=== PATIENT | female | born 1945 | race Caucasian/White ===

== ENCOUNTER → 2017-05-10 10:02 | Outpatient (CLI) | payer MEDICARE, SELFPAY ==
[2017-05-10 10:33] LABS: Basophils # 0.1 K/mm3 (0-0.2); Basophils % 0.6 % (0.1-2.0); Eosinophils # 0.3 K/mm3 (0.0-0.4); Hematocrit 38.4 % (37.0-47.0); Hemoglobin 12.4 g/dL (12.2-16.2); Lymphocytes # 1.2 K/mm3 (0.7-4.5); Lymphocytes % 13.6 K/mm3 (10-50); Mean Corpuscular HGB Conc 32.4 g/dL (31.8-35.4); Mean Corpuscular Hemoglobin 27.9 pg (27.0-31.2); Mean Corpuscular Volume 86.1 fl (81-99); Mean Platelet Volume 9.2 fl (7.4-10.4); Monocytes # 0.3 K/mm3 (0.1-1.0); Monocytes % 3.6 % (1.7-9.3); Neutrophils % 79.1 % (37.0-80.0); Platelet Count 192 K/mm3 (142-424); Red Blood Count 4.46 M/mm3 (4.20-5.40); White Blood Count 8.9 K/mm3 (4.8-10.8)
[2017-05-10 10:55] LABS: Anion Gap 12.8 mEq/L (5-15); Blood Urea Nitrogen 30 mg/dL (7-18); Carbon Dioxide 28 mmol/L (21.0-32.0); Chloride 103 mmol/L (98-107); Creatinine,Serum 1.17 mg/dL (0.55-1.02); Estimated Glomerular Filt Rate 46 ml/min (>60); GFR (African American) 55 ML/MIN (>60); Glucose 360 mg/dL (74-106); Potassium 4.8 mmoL/L (3.5-5.1); Sodium 139 mmol/L (136-145)
== END ==
PROVIDERS: PCP Internal Medicine Adolescent Medicine; Visit Provider Surgery
DX: L98.9 Disorder of the skin and subcutaneous tissue, unspecified (principal); E78.4 Other hyperlipidemia; Z01.818 Encounter for other preprocedural examination
CPT/HCPCS: 36415; 80048; 85025

== ENCOUNTER 2017-05-15 08:08 | Day surgery (SDC) | payer MEDICARE, SELFPAY ==
[2017-05-13 16:21] VITALS: BMI 23.8
[2017-05-15] VITALS (9 sets, daily range): BP systolic 151–197; BP diastolic 70–87; PULSE 73–81; RESP 12–18; TEMP 36.3–36.9; O2SAT 91–98
[2017-05-15 08:52] LABS: POC Glucose,Bedside 216 mg/dL
--- NOTE | 2017-05-15 09:16 | HMH.ANESCL ---
[facility] Anesthesia Checklist - Patient Identification Patient Identification: Arm Band, Verbal (Name & ) - Structural Data Admitted From: Home Planned Operative Procedure/s: ex. chest lession Consent for Planned Operative Procedure(s) Verified: Yes Verified Documents: Surgical Consent - NPO Status Verified Time NPO: 00:00 - Chart Verification Results Verified: CBC, BMP - Additional verifications Patient : No Anesthesia Reactions: No Hx Blood Transfusions: No Blood Transfusion Reaction: No Cephalosporin Allergy: No Previous Colonoscopy: No - Cardiovascular Assessment Heart Sounds: S1 & S2 Pulse Strength: Strong Pulse Rhythm: Regular Peripheral Edema: No - Airway Assessment C-Spine Mobility Assessed: Yes TMJ Mobility Assessed: Yes Dentition: Good Dentition - Neurological Assessment Level of Consciousness: Awake, Alert, Appropriate Hx Seizures: No Numbness or tingling in extremities: No - Genitourinary Assessment 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 Denies: Blood Transfusion Reaction Laterality Cases: Right: Total Hip Replacement, Bilateral: Cataract, Tonsillectomy Other Surgeries: Yes: Appendectomy, Colonoscopy, EGD, Tubal Ligation. No: Pacemaker Amputation: No Fractures: Yes (right hip) *Family Hx:: Anemia, Bleeding Disorder, Diabetes, Heart Attack, Hypertension, Stroke
--- NOTE | 2017-05-15 14:54 | HMH.ANESI ---
[facility] Anesthesia Record Part I Intake, IV Amount: 1,000 Estimated blood loss (mL): 0 Urine output (mL): 0 Blood Pressure: 197/87 SaO2: 96 Pulse Rate: 80 Respiratory Rate: 12 Temperature: 97.4 F Patient is:: Awake, Stable Stable to PACU at:: 14:50
--- NOTE | 2017-05-15 14:55 | HMH.ANESII ---
[facility] Anesthesia Record Part II Discharge Time: 15:20 Destination: [facility] PACU nurse assessment reviewed?: Yes Patient Condition:: Good Anesthesia Complications:: None
--- NOTE | 2017-05-15 14:56 | P.PN_ITS ---
[facility] Anesthesia Record Part II Discharge Time: 15:20 Destination: [facility] PACU nurse assessment reviewed?: Yes Patient Condition:: Good Anesthesia Complications:: None
--- NOTE | 2017-05-15 14:56 | P.OP_ITS ---
Date of procedure: 05/15/17 Pre-op Diagnosis:: Suspicious skin lesion on the right anterior chest Post-op diagnosis:: same Procedure performed:: Excision of skin lesion from right upper anterior chest (excisional length approximately 5 cm) with intermediate complexity closure Surgeon:: Trey Harden MD SECONDARY SOCIAL STUDIES TEACHER:: Willy Meeks Anesthesia: LMA Estimated blood loss (mL): 5 Clinical Note:: Patient is a 71-year-old white female who has had a skin lesion on the right upper chest for quite some time. However, recently, it has markedly increased in size. She was sent for surgical consultation. There is strong suspicion for possible malignant skin cancer. The surrounding edges and boundaries were difficult to discern and given its rather large size and difficulty in grossly determine the margins plan was made for excision with frozen section for diagnosis and to ensure adequate resection. Possibility of skin graft was entertained as well. Operative findings:: By frozen section reportedly consistent with benign lesion per pathologist Dr. Pineda Operative note:: Consent was obtained and patient was taken to the operating room. She was positioned in a supine position. General anesthesia was induced via LMA. The area was prepped and draped in the standard surgical fashion. Lesion was marked with a skin marker for planned minimal grossly negative margins. Circular incision was made full-thickness of the skin. Lesion was oriented and sent off for frozen section. This revealed findings reportedly of benign lesion with negative margins. Given the fact that limited excision was performed the lateral margin skin was then excised to allow for elliptical excision with primary closure. Local anesthetic was infiltrated. Hemostasis was achieved with electrocautery. Deep dermal tissues were reapproximated with interrupted 3-0 Vicryl. Skin was closed with interrupted 4-0 nylon. Clean dry sterile dressing was applied. Condition: stable Disposition: PACU Specimens:: Skin lesion Complications:: None immediate
== END 2017-05-15 15:53 | disposition home or self-care (01) ==
LOC: OR 08:12
PROVIDERS: Family Provider Internal Medicine Adolescent Medicine; PCP Internal Medicine Adolescent Medicine; Visit Provider Surgery
DX: L82.0 Inflamed seborrheic keratosis (principal); E11.8 Type 2 diabetes mellitus with unspecified complications
CPT/HCPCS: 11400; 11402; 82962; 88305; 88331; 96374; J2405

== ENCOUNTER → 2017-06-04 11:08 | Outpatient (CLI) | payer MEDICARE, SELFPAY ==
[2017-06-04 12:39] LABS: Hemoglobin A1C 8.7 % (0.0-7.0)
[2017-06-04 12:42] LABS: Carbon Dioxide 24 mmol/L (21.0-32.0); Chloride 106 mmol/L (98-107); Potassium 3.9 mmoL/L (3.5-5.1); Sodium 141 mmol/L (136-145)
[2017-06-04 12:43] LABS: Alanine Aminotransferase 37 U/L (12-78); Albumin Level 3.6 gm/dL (3.4-5.0); Albumin/Globulin Ratio 1.3 (1.1-1.8); Alkaline Phosphatase 78 U/L (46-116); Anion Gap 14.9 mEq/L (5-15); Aspartate Amino Transferase 16 U/L (15-37); Bilirubin,Total 0.7 mg/dL (0.2-1.0); Blood Urea Nitrogen 15 mg/dL (7-18); Calcium 8.2 mg/dL (8.5-10.1); Chol/HDL Ratio 5.5 (1-3.5); Cholesterol 160 mg/dL (140-200); Creatinine,Serum 0.93 mg/dL (0.55-1.02); Estimated Glomerular Filt Rate 59 ml/min (>60); GFR (African American) 72 ML/MIN (>60); Globulin 2.8 gm/dl (1.3-3.2); Glucose 310 mg/dL (74-106); HDL Cholesterol 29 mg/dL (29-89); LDL Cholesterol 53 mg/dL (0-130); Total Protein,Serum 6.4 gm/dL (6.4-8.2); Triglycerides 392 mg/dL (30-200); VLDL Cholesterol 78 mg/dL (0-40)
[2017-06-04 14:21] LABS: Erythrocyte Sedimentation Rate 31 mm/hr (0-30)
[2017-06-05 14:16] LABS: Sjogren's Anti-SS-A <0.2 AI (0.0-0.9)
[2017-06-07 12:04] LABS: Antinuclear Antibodies, IFA Negative (.); Sjogren's Anti-SS-B <0.2 AI (0.0-0.9)
== END ==
PROVIDERS: PCP Internal Medicine Adolescent Medicine; Visit Provider Nurse Practitioner Family
DX: E11.9 Type 2 diabetes mellitus without complications (principal); R68.2 Dry mouth, unspecified; K13.79 Other lesions of oral mucosa; H04.123 Dry eye syndrome of bilateral lacrimal glands
CPT/HCPCS: 36415; 80053; 80061; 83036; 85651; 86038; 86235

== ENCOUNTER → 2017-06-11 13:33 | Outpatient (CLI) | payer MEDICARE, SELFPAY ==
--- NOTE | 2017-06-11 13:37 | MM_ITS ---
MM Dig mamm DX unilat LT CAD CAD Screening ORDERING PHYSICIAN : Jeremi Mao MD PATIENT AGE: 71 years GENDER: Female HISTORY follow-up nodular density left breast probable septated cyst COMPARISON: Previous mammograms: January 2017. November 2016 TECHNIQUE: 1. Diagnostic mammogram Standard CC & MLO w/ spot MLO & cc view of nodule medial inferior left breast. 2. Ultrasound left breast.... With axillary survey DIAGNOSTIC LEFT MAMMOGRAM WITH SPOT VIEWS: LEFT BREAST:11 mm lobulated nodular density again seen at central left breast towards 7 o'clock position.. This feature appears fairly stable but ultrasound will be performed to verify matching stable septated cystic area. . Minimal nodularity seen towards the lateral superior left breast is less evident on today's study and can be followed in 6 months on mammography ULTRASOUND LEFT BREAST-including axillary survey Just less than 9.9 mm times x 1 4.5 mm.AP slightly lobulated, mildly septated cystic area at 7 o'clock position left breast. This matches the density seen on today's mammogram. Benign septated cyst feature. Not of significant concern. Patient may resume annual scheduled Axillary node survey unremarkable. IMPRESSION: ======= 1. Septated cyst measuring just nearly 1 cm again identified at the 7 o'clock position LEFT breast.. This matches the lobulated density seen on today's mammogram and spot views.-Benign feature can be followed 2. Patient may resume annual scheduled BI-RADS Category: 2 Benign Finding(s) RECOMMENDED FOLLOW-UP: 6M - 6 MONTH FOLLOW-UP Resume annual mammography schedule (A letter has been sent to the patient regarding results of the study.)
--- NOTE | 2017-06-11 13:38 | US_ITS ---
US breast LT complete COMPARISON: Previous ultrasound left breast 01/25/2017 6 month follow-up left mammogram 06/11/2017 HISTORY: Follow-up asymmetric density left breast TECHNIQUE: Targeted ultrasound FINDINGS: Again noted is the small oval hypoechoic lesion at 7:00 position close to the nipple measuring 0.9 x 1.0 x 0.5 cm. There are internal echoes and this likely is a complex cyst. Review of the MAMMOGRAM from 06/11/2017 shows no interval change in appearance of the asymmetric density from previous mammogram in January 2017. A couple of the nodes are seen in the axilla which appear to be partially fatty replaced. IMPRESSION: Stable benign-appearing hypoechoic lesion likely a complex cyst stable appearance on mammogram and recommend the patient continue with yearly screening mammography
== END ==
PROVIDERS: Family Provider Internal Medicine Adolescent Medicine; PCP Internal Medicine Adolescent Medicine; Visit Provider Internal Medicine Adolescent Medicine
DX: R92.8 Other abnormal and inconclusive findings on diagnostic imaging of breast (principal)
CPT/HCPCS: 76641; 77065

== ENCOUNTER → 2017-06-24 08:51 | Outpatient (POV) | payer MEDICARE, SELFPAY ==
[2017-06-24 09:12] VITALS: BP 186/69; PULSE 71; RESP 16; O2SAT 96; BMI 21.9
--- NOTE | 2017-06-24 09:37 | HMH.PAINSOAP ---
[facility] Pain Management SOAP Note Subjective:: Please a pleasant 71-year-old white female who presents today to discuss her recurrence of myofascial pain. Patient states that at 71 she is going through a divorce. She has been managed through companion caregiver however this is becoming cost prohibitive. Patient has had trigger point injections in the past with 90-100% relief of symptoms. Patient states that the pain that is returned as the same. She states the pain is achy and dull. The pain radiates from the base of her neck down the right trapezius and at times her left trapezius. Patient rates her pain a 7 out of 10 today. Patient has taken muscle relaxers in the past with good relief. She is not currently on any medications for pain. She is interested in repeating her trigger point injections. ROS General: no recent weight change, no fever, no sleep disturbances Respiratory: no cough, no shortness of air, no recurring pulmonary infections Cardiovascular/Peripheral Vascular: No chest pain, No palpitations, no edema, no shortness of breath, history of hypertension Gastrointestinal: no incontinence, normal bowel movements reported Genitourinary: no incontinence Musculoskeletal: Neck, bilateral trapezius pain Psychiatric: normal mood/ affect, Neurological: [denies weakness in extremities], [denies balance issues] Objective:: Physical Exam General: Alert and oriented x3, no acute distress, pleasant and cooperative, [on room air] Lungs: Resps E/U, Symmetrical chest expansion, Eyes: PERRL Musculoskeletal: Flexion and extension of cervical spine somewhat guarded secondary to pain, deep tendon reflexes normal, strength in upper and lower extremities [5/5], normal gait noted, trigger points palpated bilateral trapezius and cervical paraspinous. Extreme point tenderness around right scapular region. Neurological: speech clear, unemployment insurance hearing officer equal, no gross sensory deficits Assessment:: Myofascial pain syndrome Plan:: We will prescribe Zanaflex 4 mg 1 tab twice daily as needed. We will call this in for her. we will schedule trigger point injections of cervical paraspinous and bilateral trapezius muscles. Patient has had these in the past with good relief.
--- NOTE | 2017-06-24 09:40 | P.CONS_ITS ---
[facility] Pain Management SOAP Note Subjective:: Please a pleasant 71-year-old white female who presents today to discuss her recurrence of myofascial pain. Patient states that at 71 she is going through a divorce. She has been managed through home health care social worker however this is becoming cost prohibitive. Patient has had trigger point injections in the past with 90-100% relief of symptoms. Patient states that the pain that is returned as the same. She states the pain is achy and dull. The pain radiates from the base of her neck down the right trapezius and at times her left trapezius. Patient rates her pain a 7 out of 10 today. Patient has taken muscle relaxers in the past with good relief. She is not currently on any medications for pain. She is interested in repeating her trigger point injections. ROS General: no recent weight change, no fever, no sleep disturbances Respiratory: no cough, no shortness of air, no recurring pulmonary infections Cardiovascular/Peripheral Vascular: No chest pain, No palpitations, no edema, no shortness of breath, history of hypertension Gastrointestinal: no incontinence, normal bowel movements reported Genitourinary: no incontinence Musculoskeletal: Neck, bilateral trapezius pain Psychiatric: normal mood/ affect, Neurological: [denies weakness in extremities], [denies balance issues] Objective:: Physical Exam General: Alert and oriented x3, no acute distress, pleasant and cooperative, [ on room air] Lungs: Resps E/U, Symmetrical chest expansion, Eyes: PERRL Musculoskeletal: Flexion and extension of cervical spine somewhat guarded secondary to pain, deep tendon reflexes normal, strength in upper and lower extremities [5/5], normal gait noted, trigger points palpated bilateral trapezius and cervical paraspinous. Extreme point tenderness around right scapular region. Neurological: speech clear, pelletising extruder operator equal, no gross sensory deficits Assessment:: Myofascial pain syndrome Plan:: We will prescribe Zanaflex 4 mg 1 tab twice daily as needed. We will call this in for her. we will schedule trigger point injections of cervical paraspinous and bilateral trapezius muscles. Patient has had these in the past with good relief.
--- NOTE | 2017-06-24 16:46 | PC.PHONENOTE ---
called in Rx for Zanaflex 4mg BIDP with 2 refills to [facility] pharmacy in [place]
== END ==
PROVIDERS: Family Provider Internal Medicine Adolescent Medicine; PCP Internal Medicine Adolescent Medicine; Visit Provider Clinical Nurse Specialist Family Health
DX: M79.1 Myalgia (principal)
CPT/HCPCS: 99212

== ENCOUNTER → 2017-07-04 14:58 | Outpatient (CLI) | payer MEDICARE, SELFPAY ==
[2017-07-04 15:28] LABS: Basophils # 0.1 K/mm3 (0-0.2); Basophils % 0.7 % (0.1-2.0); Eosinophils # 0.2 K/mm3 (0.0-0.4); Hematocrit 42.9 % (37.0-47.0); Hemoglobin 13.9 g/dL (12.2-16.2); Lymphocytes # 1.2 K/mm3 (0.7-4.5); Lymphocytes % 15.8 K/mm3 (10-50); Mean Corpuscular HGB Conc 32.3 g/dL (31.8-35.4); Mean Corpuscular Hemoglobin 27.6 pg (27.0-31.2); Mean Corpuscular Volume 85.3 fl (81-99); Mean Platelet Volume 9.3 fl (7.4-10.4); Monocytes # 0.3 K/mm3 (0.1-1.0); Monocytes % 3.7 % (1.7-9.3); Neutrophils # 5.8 K/mm3 (1.8-7.8); Neutrophils % 76.8 % (37.0-80.0); Platelet Count 242 K/mm3 (142-424); Red Blood Count 5.03 M/mm3 (4.20-5.40); Red Cell Distribution Width 15.6 % (11.5-17.5); White Blood Count 7.6 K/mm3 (4.8-10.8)
[2017-07-04 15:48] LABS: Alanine Aminotransferase 60 U/L (12-78); Albumin Level 3.8 gm/dL (3.4-5.0); Alkaline Phosphatase 83 U/L (46-116); Anion Gap 16.9 mEq/L (5-15); Aspartate Amino Transferase 37 U/L (15-37); Bilirubin,Total 0.7 mg/dL (0.2-1.0); Blood Urea Nitrogen 25 mg/dL (7-18); Calcium 9.3 mg/dL (8.5-10.1); Carbon Dioxide 26 mmol/L (21.0-32.0); Chloride 100 mmol/L (98-107); Creatinine,Serum 1.19 mg/dL (0.55-1.02); Estimated Glomerular Filt Rate 45 ml/min (>60); GFR (African American) 54 ML/MIN (>60); Globulin 3.8 gm/dl (1.3-3.2); Glucose 309 mg/dL (74-106); Potassium 3.9 mmoL/L (3.5-5.1); Sodium 139 mmol/L (136-145); Thyroid Stimulating Hormone 2.13 uIU/ml (0.358-3.740); Total Protein,Serum 7.6 gm/dL (6.4-8.2)
[2017-07-06 18:26] LABS: Vitamin D 25 Hydroxy 15.3 ng/mL (30.0-100.0)
[2017-07-06 18:27] LABS: Vitamin B12 277 pg/mL (232-1245)
== END ==
PROVIDERS: PCP Internal Medicine Adolescent Medicine; Visit Provider Nurse Practitioner Family
DX: R53.83 Other fatigue (principal)
CPT/HCPCS: 36415; 80053; 82607; 82652; 84443; 85025

== ENCOUNTER 2017-07-12 11:57 | Day surgery (SDC) | payer MEDICARE, SELFPAY ==
[2017-07-12 12:24] VITALS: BP 157/65; PULSE 70; RESP 18; O2SAT 97; BMI 23.8
[2017-07-12 12:48] LABS: POC Glucose,Bedside 340 mg/dL (70-110)
--- NOTE | 2017-07-12 12:50 | PC.NURSE ---
due to elevation of blood sugar [id number], provider wishes to reschedule at this time. pt to be notified of time for reschedule at later date
== END 2017-07-12 12:50 | disposition home or self-care (01) ==
LOC: SC.PAINP 11:58
PROVIDERS: Family Provider Internal Medicine Adolescent Medicine; PCP Internal Medicine Adolescent Medicine; Visit Provider Anesthesiology
DX: Z53.29 Procedure and treatment not carried out because of patient's decision for other reasons (principal); M79.1 Myalgia
CPT/HCPCS: 20552; 82962

== ENCOUNTER → 2018-02-21 15:15 | Outpatient (CLI) | payer MEDICARE, SELFPAY ==
--- NOTE | 2018-02-21 15:16 | XR_ITS ---
XR DEXA axial skeleton HISTORY: ITS.REASON: screening ORDERING PHYSICIAN: Michel Hernandez MD PATIENT AGE: 72 years COMPARISON: 12 20 16 FINDINGS: The BMD measured at the Left femoral neck is 0.723 g/cm squared with a T score of -2.3. This is considered Osteopenic according to the World Health Organization criteria. Fracture risk is Moderate. Treatment is advised. The hip density is unchanged from the previous exam IMPRESSION: Osteopenia with moderate fracture risk. Recommend follow-up exam February 2020
--- NOTE | 2018-02-21 15:16 | MM_ITS ---
MM Dig screening mamm BI w/CAD ORDERING PHYSICIAN : Michel Hernandez MD PATIENT AGE: 72 years GENDER: Female COMPARISON: January 2017 left mammogram and November 2016 bilateral mammogram.. . Also ultrasound June 11, 2017 and January 25, 1970 INDICATION: ITS.REASON: screening.. No new complaints. Does take estradiol Family history. Noncontributory TECHNIQUE: Standard CC and MLO images were obtained. Additional right MLO nipple profile view. R2 CAD reviewed. FINDINGS. Moderate breast density. No significant new findings on visual inspection CAD review only notes some faint vascular calcifications bilaterally and a fairly stable nodule left breast RIGHT BREAST:Stable appearance no new areas concern when slight differences in technique is considered. LEFT BREAST:: The slightly higher contrast technique slightly accentuates density deep ovoid area at the inferior, medial left breast. It appears similar in size to the January 2017 left mammogram and November 2016 bilateral mammogram.. It again measures just less than 11.4 mm maximum AP dimension x 7 mm.. . It is not changed appreciably in size since 2017 Slightly lobulated bilobed or kidney shape appearance Previous ultrasound suggested a more likely small septated cyst at 7:00. I believe this is a stable feature in this can be followed. But I would suggest a follow-up left mammogram and ultrasound and 6-7 months to better confirm stable character. Particularly on ultrasound =========IMPRESSION: 1. LEFT BREAST: The nodule is at the left breast again noted with no no change in size. Perhaps slightly denser but I believe this is merely due to technique. Would recommend a follow-up left mammogram and left breast ultrasound and 6- 7 months 2. RIGHT BREAST stable. No interval change. Follow-up in one year BI-RADS Category: 3 Probably Benign Finding Short Term Follow-up RECOMMENDED FOLLOW-UP: 6M 6 MONTH FOLLOW-UPLeft breast (A letter has been sent to the patient regarding results of the study.) .
== END ==
PROVIDERS: PCP Internal Medicine Adolescent Medicine; Visit Provider Obstetrics & Gynecology
DX: Z12.31 Encounter for screening mammogram for malignant neoplasm of breast (principal); Z78.0 Asymptomatic menopausal state; Z13.820 Encounter for screening for osteoporosis
CPT/HCPCS: 77067; 77080

== ENCOUNTER → 2018-03-06 16:10 | Outpatient (CLI) | payer MEDICARE, SELFPAY ==
[2018-03-06 17:53] LABS: Alanine Aminotransferase 31 U/L (12-78); Albumin Level 3.6 gm/dL (3.4-5.0); Albumin/Globulin Ratio 1.2 (1.1-1.8); Alkaline Phosphatase 56 U/L (46-116); Anion Gap 14.3 mEq/L (5-15); Aspartate Amino Transferase 15 U/L (15-37); Bilirubin,Total 0.6 mg/dL (0.2-1.0); Blood Urea Nitrogen 20 mg/dL (7-18); Calcium 8.4 mg/dL (8.5-10.1); Carbon Dioxide 26 mmol/L (21.0-32.0); Chloride 107 mmol/L (98-107); Chol/HDL Ratio 4.4 (1-3.5); Cholesterol 199 mg/dL (140-200); Creatinine,Serum 0.96 mg/dL (0.55-1.02); Estimated Glomerular Filt Rate 57 ml/min (>60); GFR (African American) 69 ML/MIN (>60); Glucose 89 mg/dL (74-106); HDL Cholesterol 45 mg/dL (29-89); LDL Cholesterol 121 mg/dL (0-130); Potassium 3.3 mmoL/L (3.5-5.1); Sodium 144 mmol/L (136-145); Total Protein,Serum 6.6 gm/dL (6.4-8.2); Triglycerides 166 mg/dL (30-200); VLDL Cholesterol 33 mg/dL (0-40)
[2018-03-06 19:29] LABS: Hemoglobin A1C 7.2 % (0.0-7.0)
[2018-03-10 11:14] LABS: Vitamin B12 >2000 pg/mL (232-1245)
== END ==
PROVIDERS: Visit Provider Nurse Practitioner Family
DX: E11.9 Type 2 diabetes mellitus without complications (principal); E78.5 Hyperlipidemia, unspecified; E53.8 Deficiency of other specified B group vitamins; E55.9 Vitamin D deficiency, unspecified; Z00.00 Encounter for general adult medical examination without abnormal findings
CPT/HCPCS: 36415; 80053; 80061; 82607; 82652; 83036

== ENCOUNTER → 2018-05-26 13:59 | Outpatient (POV) | payer MEDICARE, SELFPAY ==
[2018-05-26 14:20] VITALS: BP 141/60; PULSE 71; RESP 18; O2SAT 99; BMI 22.8
--- NOTE | 2018-05-26 14:50 | P.CONS_ITS ---
[facility] Pain Management SOAP Note Subjective:: Patient is a pleasant 72-year-old white female who presents today for follow-up. Patient has been doing well however she has had quite an increase in her left SI joint pain. Patient has had SI joint injections in the past with 80% relief for 3-4 months. Patient is interested in repeating this. Patient is continuing a home stretching exercise program and is on anti-inflammatories. ROS General: no recent weight change, no fever, no sleep disturbances Respiratory: no cough, no shortness of air, no recurring pulmonary infections Cardiovascular/Peripheral Vascular: No chest pain, No palpitations, no edema, no shortness of breath. Gastrointestinal: no incontinence, normal bowel movements reported Genitourinary: no incontinence Musculoskeletal: Back pain, SI joint pain Psychiatric: normal mood/ affect Neurological: [denies weakness in extremities], [denies balance issues] Objective:: Physical Exam General: Alert and oriented x3, no acute distress, pleasant and cooperative, [on room air] Lungs: Resps E/U, Symmetrical chest expansion, Eyes: PERRL Musculoskeletal: Flexion and extension of lumbar spine somewhat guarded secondary to pain, deep tendon reflexes normal, strength in upper and lower extremities [5/5], [abnormal gait noted], positive Zi's test on the left side, positive SI joint compression test on the left side, positive hip thrust test Neurological: speech clear, apartment manager equal, no gross sensory deficits Assessment:: Sacroiliitis, myofascial pain syndrome Plan:: We will schedule left SI joint injection for the patient. I believe it would be beneficial for her given her results of it in the past. I will follow-up with the patient after her injection and reassess her symptoms at that time. Dr. Ariza has reviewed this note and agrees with this plan of care. This note was dictated using voice recognition software and may contain errors or omissions
== END ==
PROVIDERS: PCP Internal Medicine Adolescent Medicine; Visit Provider Clinical Nurse Specialist Family Health
DX: M46.1 Sacroiliitis, not elsewhere classified (principal); M79.18 Myalgia, other site
CPT/HCPCS: 99213

== ENCOUNTER → 2018-06-23 14:10 | Outpatient (POV) | payer MEDICARE, SELFPAY ==
[2018-06-23 14:12] VITALS: BP 122/53; PULSE 66; RESP 18; O2SAT 98; BMI 22.6
--- NOTE | 2018-06-23 14:35 | P.CONS_ITS ---
[facility] Pain Management SOAP Note Subjective:: Patient is a pleasant 72-year-old white female who presents today for follow-up after left SI joint injection. Patient is doing extremely well at this time she states that the pain is overall dissipated. Patient states that she is now having right SI joint pain. Patient would like to get a bilateral SI joint injection and several weeks. I believe it would be beneficial given her good relief with these in the past. She is gotten 80% relief for over 4 months in the past. Patient is continuing with work full-time. She rates her pain today a 4 out of 10. ROS General: no recent weight change, no fever, no sleep disturbances Respiratory: no cough, no shortness of air, no recurring pulmonary infections Cardiovascular/Peripheral Vascular: No chest pain, No palpitations, no edema, no shortness of breath. Gastrointestinal: no incontinence, normal bowel movements reported Genitourinary: no incontinence Musculoskeletal: Bilateral SI joint pain Psychiatric: normal mood/ affect Neurological: [denies weakness in extremities], [denies balance issues] Objective:: Physical Exam General: Alert and oriented x3, no acute distress, pleasant and cooperative, [on room air] Lungs: Resps E/U, Symmetrical chest expansion, Eyes: PERRL Musculoskeletal: Flexion and extension of lumbar spine somewhat guarded secondary to pain, deep tendon reflexes normal, strength in upper and lower extremities [5/5], [abnormal gait noted] positive Zi's test bilaterally, positive bilateral thigh thrust test, positive SI joint compression test bilaterally Neurological: speech clear, cut off saw tender metal equal, no gross sensory deficits Assessment:: Sacroiliitis Plan:: In several weeks we will schedule bilateral SI joint injections for the patient. After that hopefully we will be able to just maintain on a 4-[address] Ariza has reviewed this note and agrees with this plan of care. This note was dictated using voice recognition software and may contain errors or omissions
== END ==
PROVIDERS: PCP Internal Medicine Adolescent Medicine; Visit Provider Clinical Nurse Specialist Family Health
DX: M46.1 Sacroiliitis, not elsewhere classified (principal)
CPT/HCPCS: 99213

== ENCOUNTER → 2018-07-28 11:03 | Outpatient (POV) | payer MEDICARE, SELFPAY ==
--- NOTE | 2018-07-28 11:51 | P.CONS_ITS ---
[facility] Pain Management SOAP Note Subjective:: Patient is a pleasant 72-year-old white female who presents today for follow-up after bilateral SI joint injections. She is doing extremely well and rates her pain a 0 out of 10. The only complaint she has today she is having some myofascial pain in her neck. Patient has had trigger point in the past with good relief. She is interested in pursuing these. ROS General: no recent weight change, no fever, no sleep disturbances Respiratory: no cough, no shortness of air, no recurring pulmonary infections Cardiovascular/Peripheral Vascular: No chest pain, No palpitations, no edema, no shortness of breath. Gastrointestinal: no incontinence, normal bowel movements reported Genitourinary: no incontinence Musculoskeletal: Myofascial pain Psychiatric: normal mood/ affect Neurological: [denies weakness in extremities], [denies balance issues] Objective:: Physical Exam General: Alert and oriented x3, no acute distress, pleasant and cooperative, [on room air] Lungs: Resps E/U, Symmetrical chest expansion, Eyes: PERRL Musculoskeletal: Flexion and extension of cervical spine somewhat guarded secondary to pain, deep tendon reflexes normal, strength in upper and lower extremities [5/5], slightly antalgic gait noted, palpable trigger points bilateral cervical paraspinous Neurological: speech clear, graduate teaching assistant equal, no gross sensory deficits Assessment:: Myofascial pain syndrome, sacroiliitis Plan:: We will schedule bilateral cervical paraspinous trigger point injections for the patient. I believe it would be beneficial given the efficacy of this in the past. Dr. Ariza has reviewed this note and agrees with this plan of care. This note was dictated using voice recognition software and may contain errors or omissions
[2018-07-28 12:14] VITALS: BP 153/63; PULSE 63; RESP 18; O2SAT 98; BMI 22.3
== END ==
PROVIDERS: PCP Family Medicine; Visit Provider Clinical Nurse Specialist Family Health
DX: M79.18 Myalgia, other site (principal); M46.1 Sacroiliitis, not elsewhere classified
CPT/HCPCS: 99212

== ENCOUNTER → 2018-09-01 14:36 | Outpatient (POV) | payer MEDICARE, SELFPAY ==
--- NOTE | 2018-09-01 14:47 | HMH.PAINSOAP ---
[facility] Pain Management SOAP Note Subjective:: Patient is a very pleasant 72-year-old white female who presents today for follow-up after trigger point injections. Patient is doing extremely well rating her pain a 0 out of 10. Patient is getting follow-up in 3 months to be reassessed. Patient's been instructed to call the office if she has any issues prior to her next appointment. ROS General: no recent weight change, no fever, no sleep disturbances Respiratory: no cough, no shortness of air, no recurring pulmonary infections Cardiovascular/Peripheral Vascular: No chest pain, No palpitations, no edema, no shortness of breath. Gastrointestinal: no incontinence, normal bowel movements reported Genitourinary: no incontinence Musculoskeletal: Neck pain at times Psychiatric: normal mood/ affect Neurological: [denies weakness in extremities], [denies balance issues] Objective:: Physical Exam General: Alert and oriented x3, no acute distress, pleasant and cooperative, [on room air] Lungs: Resps E/U, Symmetrical chest expansion, Eyes: PERRL Musculoskeletal: Flexion and extension of cervical spine somewhat guarded secondary to pain, deep tendon reflexes normal, strength in upper and lower extremities [5/5], normal gait noted Neurological: speech clear, vending route driver equal, no gross sensory deficits Assessment:: Myofascial pain syndrome Plan:: We will follow-up with the patient 3 months reassess her symptoms at that time she is been instructed to call the office if she has any issues prior to her next appointment. Dr. Ariza has reviewed this note and agrees with this plan of care. This note was dictated using voice recognition software and may contain errors or omissions
[2018-09-01 14:51] VITALS: BP 156/70; PULSE 89; RESP 18; O2SAT 98; BMI 22.3
== END ==
PROVIDERS: PCP Family Medicine; Visit Provider Clinical Nurse Specialist Family Health
DX: M79.18 Myalgia, other site (principal)
CPT/HCPCS: 99212

== ENCOUNTER → 2018-10-14 15:46 | Outpatient (CLI) | payer MEDICARE, SELFPAY ==
--- NOTE | 2018-10-14 15:51 | XR_ITS ---
XR shoulder RT min 2V HISTORY: ITS.REASON: RT SHOULDER PAIN ORDERING PHYSICIAN: Jeremi Goodwin MD PATIENT AGE: 72 years Comparison: None FINDINGS: No fracture or dislocation. No lytic or blastic change. There is normal mineralization. The joint spaces are well-preserved. No significant degenerative/arthritic changes. No erosive changes evident. IMPRESSION: Negative, no acute finding
--- NOTE | 2018-10-14 15:51 | XR_ITS ---
EXAM: XR cervical spine 5V HISTORY: ITS.REASON: NECK PAIN ORDERING PHYSICIAN: Jeremi Goodwin MD PATIENT AGE: 72 years COMPARISON: None FINDINGS: Alignment, bone density and posterior elements appear normal. There is mild loss of disc space height with small anterior and posterior spur at C5-6. There is uncovertebral joint hypertrophy causing moderate foraminal encroachment on the right at C5-6. There are calcifications in the mid neck area bilaterally. Impression: No acute process. C5-6 degenerative disc disease and moderate right-sided spondylosis. Calcified plaques at the carotid bifurcation areas bilaterally.
--- NOTE | 2018-10-14 15:51 | XR_ITS ---
EXAM: XR lumbar spine min 4V HISTORY: ITS.REASON: LOW BACK PAIN ORDERING PHYSICIAN: Jeremi Goodwin MD PATIENT AGE: 72 years COMPARISON: None FINDINGS: Normal alignment. No fracture or dislocation. No lytic or blastic change. There is generalized mild osteopenia. There is moderate loss of disc space height with anterior spur at T11-12 and T12-L1 levels. There is narrowing of the facet joint on the right at L4-5 and L5-S1. Posterior elements are otherwise intact. There are some aortic calcific plaques. IMPRESSION: No acute process. Osteopenia. T11-12 and T12-L1 chronic degenerative disc disease. Mild right-sided L4-5 and L5-S1 facet arthrosis.
--- NOTE | 2018-10-14 15:51 | XR_ITS ---
XR hip RT 2-3V w/pelvis HISTORY: ITS.REASON: RT HIP PAIN ORDERING PHYSICIAN: Jeremi Goodwin MD PATIENT AGE: 72 years COMPARISON: None FINDINGS: There is a total right hip prosthesis. The alignment at the prosthesis appears anatomical. There are some hypertrophic changes at the right greater trochanter. There is no acute fracture. There are pelvic phleboliths. IMPRESSION: Right hip prosthesis. No acute fracture.
== END ==
PROVIDERS: PCP Family Medicine; Visit Provider Family Medicine
DX: M25.511 Pain in right shoulder (principal); M54.5 Low back pain; M25.551 Pain in right hip; M54.2 Cervicalgia
CPT/HCPCS: 72050; 72110; 73030; 73502

== ENCOUNTER → 2019-03-11 15:45 | Outpatient (CLI) | payer MEDICARE, SELFPAY ==
--- NOTE | 2019-03-11 15:47 | MM_ITS ---
PROCEDURE: MM DIG SCREENING MAMM BI W/CAD Patient Age:73Y CLINICAL INDICATION: screening Takes estradiol. No new complaints. Noncontributory family history. COMPARISON: DMSB DIG MAMM-SCREEN KARLEY W/CAD from 12/20/2016 DMDXUL DIG MAMM-DX UNI-LT W/CAD from 01/25/2017 BL US BREAST-LT COMPLETE W/AXILLA from 01/25/2017 DXLT MM Dig mamm DX unilat LT CAD from 06/11/2017 BREASTLT US breast LT complete from 06/11/2017 SCBI MM Dig screening mamm BI w/CAD from 02/21/2018 TECHNIQUE: Standard CC and MLO images were obtained. R2 CAD reviewed. FINDINGS: Moderate breast density with minimal asymmetry . No stone suspicious or new dominant mass. Right breast: No new areas of significant concern. Small focal areas of density similar to previous studies and dissipate from one-view to another. Again note benign dermal calcifications upper-outer quadrant right breast Left breast: The low-density bilobed nodule towards inferior breast again observed. Unchanged since 2017-. This bilobed density: Measures approximate 1 cm length maximally.-given its stability since 2017 and can be followed.. It was felt to be likely complex cyst on the May 2017 ultrasound exam IMPRESSION: Left breast: Stable bilobed nodular density at the inferior left breast unchanged since 2017 Right breast. Unremarkable- Bilateral follow-up 1 year recommended and should be encouraged/emphasized BI-RAD Category: 2 Benign Finding(s) FOLLOW-UP: 1YR 1 Year Follow-up (A letter has been sent to the patient regarding results of the study.) Dictated by: Best Palacios MD 03/12/2019 08:24 Electronically signed by Best Palacios MD in [place] 03/12/2019 08:24
== END ==
PROVIDERS: PCP Family Medicine; Visit Provider Obstetrics & Gynecology
DX: Z12.31 Encounter for screening mammogram for malignant neoplasm of breast (principal)
CPT/HCPCS: 77067

== ENCOUNTER 2019-05-11 08:20 | Inpatient (IN) ==
--- NOTE | 2019-05-11 08:32 | Emergency Department Note ---
ED Disposition Clinical Impression: Acute pain of left hip Closed intertrochanteric fracture of left hip Qualifiers: Encounter type: initial encounter Fracture alignment: nondisplaced Qualified Code(s): S72.145A - Nondisplaced intertrochanteric fracture of left femur, initial encounter for closed fracture Injury due to fall Qualifiers: Encounter type: initial encounter Qualified Code(s): W19.XXXA - Unspecified fall, initial encounter Disposition: Admitted As Inpatient Condition on Discharge: Fair (Stable) Referrals: Provider,Referral, MD [Primary Care Provider] - Time of Disposition: 09:35 - Critical Care Critical Care Time: No Attestation: On , the high probability of a clinically significant, sudden or life threatening deterioration of the following system(s) required my full and direct attention, intervention and personal management. The time I documented below is in addition to time spent performing reported procedures but includes the following listed in this critical care notation. Medical Decision Making - Medical Records Medical records reviewed: Yes: I reviewed the patient's medical records. - Matt Inquiry Pt receiving controlled substance: No Matt was queried for this patient: No Vital Signs: 05/11/19 08:20 05/11/19 08:37 05/11/19 09:24 Temperature 97.8 F Temperature Source Oral Pulse Rate [Right] 58 L 57 L 60 Respiratory Rate 18 Blood Pressure [Right Arm] 200/73 H 195/77 H 155/66 H Blood Pressure Mean [Right Arm] 115 116 95 02 Sat by Pulse Oximetry 98 99 97 - Lab Data Lab results reviewed: Yes: I reviewed the patient's lab results. Lab Results 05/11/19 08:40: WBC 6.5, RBC 4.05 L, Hgb 11.5 L, Hct 33.8 L, MCV 83.5, MCH 28.4, MCHC 34.0, RDW 15.8, Plt Count 206, MPV 9.8, Neut % (Auto) 74.4, Lymph % (Auto) 17.2, [place] % (Auto) 4.7, Eos % (Auto) 3.1, Baso % (Auto) 0.6, Neut # (Auto) 4.8, Lymph # (Auto) 1.1, [place] # (Auto) 0.3, Eos # (Auto) 0.2, Baso # (Auto) 0.0 05/11/19 08:40: PT 10.1, INR 0.97 05/11/19 08:40: Sodium 140, Potassium 4.1, Chloride 102, Carbon Dioxide 31, Anion Gap 11.1, BUN 24 H, Creatinine 1.20 H, Estimated Creat Clear 34, Estimated GFR 44 L, Est GFR ( Amer) 53 L, Glucose 140 H, Calcium 9.5, Total Bilirubin 0.7, AST 11 L, ALT 22, Alkaline Phosphatase 57, Total Protein 6.5, Albumin 3.6, Globulin 2.9, Albumin/Globulin Ratio 1.2 Result diagrams: 05/11/19 08:40 05/11/19 08:40 Orders (Tests/Meds): ED MEDICATIONS Discontinued Medications Generic Name Dose Route Start Last Admin Trade Name Freq PRN Reason Stop Dose Admin Morphine Sulfate 2 mg 05/11/19 08:35 05/11/19 08:43 Morphine 2mg/Ml Syringe IV 05/11/19 08:36 2 mg ONCE ONE Administration Ondansetron HCl 4 mg 05/11/19 08:35 05/11/19 08:43 Zofran 4mg/2ml Vial IV 05/11/19 08:36 4 mg ONCE ONE Administration ORDERS Category Date Time Status EKG Request [ECG Request by /Jony] Stat Y 05/11/19 09:17 Ordered - Radiology Data #1 Image(s): Chest Image Reviewed: Yes I reviewed the patient's radiology results [address] [address] XRay Report Signed Patient: Maribel Jaramillo MR#: [id number] : 1945 Acct:[id number] Age/Sex: 73 / F ADM Date: 05/11/19 Loc: ER Attending Dr: Ordering Physician: Robert Peoples III, DO Date of Service: 05/11/19 Procedure(s): XR chest portable Accession Number(s): [id number] cc: Klaus Carr MD; Provider,Referral MD~ PROCEDURE: XR CHEST PORTABLE CLINICAL HISTORY: Fall COMPARISON: No exams were available for comparison FINDINGS: The cardiomediastinal silhouette and pulmonary vascularity are within normal limits. The lungs are clear without infiltrates, suspicious nodules, or pleural effusions. No acute bony abnormalities. IMPRESSION: No acute findings. Dictated by: Klaus Carr 05/11/2019 09:19 Electronically signed by Klaus Carr in [place] 05/11/2019 09:19 #2 Image(s): Pelvis, Hip (left) Image Reviewed: Yes I reviewed the patient's radiology results [address] [place] [address] XRay Report Signed Patient: Maribel Jaramillo MR#: [id number] : 1945 Acct:[id number] Age/Sex: 73 / F ADM Date: 05/11/19 Loc: ER Attending Dr: Ordering Physician: Robert Peoples III, DO Date of Service: 05/11/19 Procedure(s): XR hip LT 2-3V w/pelvis Accession Number(s): [id number] cc: Klaus Carr MD; Provider,Referral MD~ PROCEDURE: XR HIP LT 2-3V W/PELVIS CLINICAL INDICATION: fall COMPARISON: BONE3 BONE DENSITOMETRY(HIP:LT SPINE from 12/20/2016 FINDINGS: There is a comminuted intertrochanteric fracture of the left femur. Femoral head is located. There is diffuse demineralization. Total right hip arthroplasty is incidentally noted with prostheses appearing appropriately positioned. IMPRESSION: Comminuted intertrochanteric fracture of left femur. Dictated by: Klaus Carr 05/11/2019 09:20 Electronically signed by Klaus Carr in [place] 05/11/2019 09:20 - ECG Data Tracing #1 I reviewed this ECG and interpreted as documented below: (EKG at 9:23 AM showed a normal sinus rhythm with a rate of [address] changes noted.) Medical Decision Narrative: 08:40 I have evaluated this patient. Chest x-ray and pelvis x-ray with left hip ordered. I have ordered morphine 2 mg IV push and Zofran 4 mg IV push for her pain. Screening labs have been ordered. 09:18 patient's chest x-ray reviewed and no acute findings noted. Left hip with pelvis x-ray reviewed and patient appears to have an intertrochanteric fracture. I have ordered a EKG on this patient, and I have had Dr. Lisa paged from orthopedics to discuss this case. 09:30 patient's labs reviewed. EKG reviewed and shows a normal sinus rhythm without acute changes. I did discuss the case with orthopedist Dr. Lisa and subsequently with her PCP Dr. Goodwin. Patient will be admitted to Dr. Goodwin with Dr. Lisa to consult. Patient is aware of the results of her work-up, diagnosis and care plan. She understands, agrees and all questions answered. Fall HPI - General Chief Complaint: Fall Stated Complaint: fall Time Seen by Provider: 05/11/19 08:32 Mode of Arrival: EMS Limitations: No Limitations Description of Symptoms (Recalled from ER Triage Doc. by RN): Pt states while at work she tripped over a mop bucket and fell back on her left hip. Pt c/o severe left hip pain. Denies any other injury, no loc. 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 Patient states that she was backing up and tripped over a mop bucket. Patient fell striking her left hip area. She is complaining of pain at area. Was unable to get up on her own. EMS was summoned and they have transported her here to the ER. Patient denies head injury. No loss of consciousness. She denies neck pain, chest pain, shortness of breath, abdominal pain, right hip pain or other extremity pain other than the left hip causing her pain. Patient has a history of a remote right hip fracture with prosthesis. No other complaints. - Related Data Home Medications Medication Instructions Recorded Confirmed amlodipine 10 mg tablet 10 mg PO QDAY 05/10/17 02/17/19 atorvastatin 10 mg tablet 10 mg PO QDAY 05/10/17 02/17/19 diclofenac sodium 50 mg 50 mg PO BID 05/10/17 02/17/19 tablet,delayed release escitalopram oxalate 20 mg tablet 10 mg PO QDAY 05/10/17 02/17/19 esomeprazole magnesium 20 mg 40 mg PO QDAY 05/10/17 02/17/19 tablet,delayed release furosemide 20 mg tablet 20 mg PO ONCE 05/10/17 02/17/19 hydrochlorothiazide 25 mg tablet 25 mg PO QDAY 05/10/17 02/17/19 insulin glargine U-300 conc 300 70 unit SUB-Q ONCE 05/10/17 02/17/19 unit/mL (1.5 mL) subcutaneous pen metformin 1,000 mg tablet 500 mg PO BID 05/10/17 02/17/19 nystatin 100,000 unit/mL oral 1 ml PO ONCE PRN 05/10/17 02/17/19 suspension potassium chloride 10 mEq 10 meq PO QDAY 05/10/17 02/17/19 tablet,extended release valacyclovir 500 mg tablet 500 mg PO DAILY PRN tab 07/16/17 02/17/19 Previous Rx's Medication Instructions Recorded Methocarbamol [Robaxin 750mg Tab] 750 mg PO TIDP PRN #9 tab 07/30/17 estradiol 1 mg tablet 1 mg PO QDAY 30 Days #30 tab 02/17/19 raloxifene 60 mg tablet 60 mg PO QDAY #30 tab 02/17/19 Allergies Allergy/AdvReac Type Severity Reaction Status Date / Time Sulfa (Sulfonamide Allergy Unknown SHAKING Verified 02/17/19 13:11 Antibiotics) [SULFA (SULFONAMIDE ANTIBIOTICS)] [facility] History - Hepatitis A Screen Drug use history?: No High risk sexual behaviors?: No History of sexually transmitted infection?: No Currently employed?: No Childcare worker?: No Do you have indoor plumbing?: Yes Do you have electricity?: Yes Attestation statement:: This patient has been screened for Hepatitis A risk factors. I have reviewed the patient's past medical history: No Medical History: Reports:: Diabetes Mellitus Type 1, Diabetes Mellitus Type 2, Hyperlipidemia, Hypertension Denies:: Cancer, Internal Pacemaker, MRSA, Seizures Other Medical History: Reports: Anemia, Cataracts, Other. Denies: Blood Transfu jacki Reaction Comment: Hypertension. Hypercholesterolemia. Diabetes. HSV. Osteoporosis Laterality Cases: Right: Total Hip Replacement, Bilateral: Tonsillectomy Other Surgeries: Yes: Appendectomy, Colonoscopy, EGD, Tubal Ligation, Other. No: Pacemaker Amputation: No Fractures: No Comment: 1954- TonsilX. 1990- NORM,BSO. 2013- Rt. hip replacement. 2015- Lap Appy. 2017-cyst removed from upper chest Lt. side. 05/15/2017---Excision of skin lesion from right upper anterior chest (excisional length approximately 5 cm) with intermediate complexity closure - Social History Smoking Status: Never smoker Tobacco Type: cigarettes # Packs/Day (cigarettes): 1 Alcohol Intake: never Alcohol Intake Frequency:: holidays/special occasions only Substance Use Type: denies use Occupational Status: employed Housing: house Household Members: other Family Hx:: Anemia, Bleeding Disorder, Diabetes, Heart Attack, Hypertension, Stroke ROS Obtained: Yes All systems reviewed & no additional complaints - Constitutional Constitutional: Reports system reviewed and no additional complaints, except as docu - Eyes Eyes: Reports system reviewed and no additional complaints, except as docu - ENT Ears, Nose, Mouth, and Throat: Reports system reviewed and no additional complaints, except as docu - Cardiovascular Cardiovascular: Reports system reviewed and no additional complaints, except as docu - Respiratory Respiratory: Yes system reviewed and no additional complaints, except as docu - Gastrointestinal Gastrointestingal: Reports: system reviewed and no additional complaints, except as docu - Genitourinary Female Genitourinary: Reports system reviewed and no additional complaints, except as docu - Musculoskeletal Musculoskeletal: Reports system reviewed and no additional complaints, except as docu, Reports as per HPI, Denies back pain, Denies neck pain, Denies numbness, Reports other (Left hip pain) - Integumentary/Breasts Skin/Breast: Reports system reviewed and no additional complaints, except as docu - Neurologic Neurologic: Reports system reviewed and no additional complaints, except as docu - Endocrine Endocrine: Reports system reviewed and no additional complaints, except as docu - Hematologic/Lymphatic Henatologic/Lymphatic: Reports system reviewed and no additional complaints, except as docu - Allergic/Immunologic Allergic/Immunologic: Reports system reviewed and no additional complaints, except as docu Physical Exam - General General appearance: alert, in no apparent distress - Head Head exam: atraumatic, normocephalic - Eye Eye exam: Present: PERRL, EOMI - ENT ENT exam: Present: mucous membranes moist - Neck Neck exam: Present: normal inspection, full ROM, trachea midline. Absent: tenderness - Chest Chest inspection: Present: normal inspection, symmetric chest wall rise - Respiratory Respiratory exam: Present: normal lung sounds bilaterally. Absent: respiratory distress - Cardiovascular Cardiovascular exam: Present: regular rate, normal heart sounds - Abdominal Exam Abdominal exam: Present: soft, normal bowel sounds. Absent: distention, ten derness, guarding, rebound, rigidity, Heredia's sign, tenderness at McBurney's Point - Extremities Exam Extremities exam: Present: normal capillary refill, other (Pelvis: No crepitus or rock. Right hip: Normal and nontender. Left hip: (+) pain on palpation of lateral left hip. Pt holding left knee flexed due to pain, and extension of knee increases left hip pain. LLE externally rotated.). Absent: calf tenderness - Back Exam Back exam: Present: normal inspection. Absent: tenderness - Neurological Exam Neurological exam: Present: alert, oriented X3, CN II-XII intact. Absent: motor sensory deficit - Psychiatric Psychiatric exam: Present: normal affect, normal mood - Skin Skin exam: Present: warm, dry, intact
[2019-05-11 08:49] LABS: Basophils % 0.6 % (0.1-2.0); Eosinophils # 0.2 K/mm3 (0.0-0.4); Eosinophils % 3.1 % (0.1-12.0); Hematocrit 33.8 % (37.0-47.0); Hemoglobin 11.5 g/dL (12.2-16.2); Lymphocytes # 1.1 K/mm3 (0.7-4.5); Lymphocytes % 17.2 % (10-50); Mean Corpuscular Volume 83.5 fl (81-99); Mean Platelet Volume 9.8 fl (7.4-10.4); Monocytes # 0.3 K/mm3 (0.1-1.0); Monocytes % 4.7 % (1.7-9.3); Neutrophils # 4.8 K/mm3 (1.8-7.8); Neutrophils % 74.4 % (37.0-80.0); Platelet Count 206 K/mm3 (142-424); Red Blood Count 4.05 M/mm3 (4.20-5.40); Red Cell Distribution Width 15.8 % (11.5-17.5); White Blood Count 6.5 K/mm3 (4.8-10.8)
[2019-05-11 08:56] LABS: INR 0.97 (0.9-1.1); Prothrombin Time 10.1 seconds (9.4-11.8)
[2019-05-11 09:12] LABS: Albumin Level 3.6 gm/dL (3.4-5.0); Albumin/Globulin Ratio 1.2 (1.1-1.8); Anion Gap 11.1 mEq/L (5-15); Bilirubin,Total 0.7 mg/dL (0.2-1.0); Calcium 9.5 mg/dL (8.5-10.1); Globulin 2.9 gm/dl (1.3-3.2); Total Protein,Serum 6.5 gm/dL (6.4-8.2)
--- NOTE | 2019-05-11 13:00 | Pharmacy Consult Notes ---
[facility] Pharmacy VTE Monitoring - Patient Demographics Admission date: 05/11/19 Report Date: 05/11/19 Time: 13:00 Allergies/Adverse Reactions: Patient Allergies Sulfa (Sulfonamide Antibiotics) [SULFA (SULFONAMIDE ANTIBIOTICS)] Allergy (Unknown, Verified 02/17/19 13:11) SHAKING Height: 1.55 m Weight: 54.885 kg Patient Problems: Current Active Problems Closed intertrochanteric fracture of left hip (Acute) Acute pain of left hip (Acute) Injury due to fall (Acute) - VTE Risk Labs: VTE Related Lab Results Hgb 11.5 g/dL (12.2-16.2) L 05/11/19 08:40 Hct 33.8 % (37.0-47.0) L 05/11/19 08:40 Plt Count 206 K/mm3 (142-424) 05/11/19 08:40 PT 10.1 seconds (9.4-11.8) 05/11/19 08:40 INR 0.97 (0.9-1.1) 05/11/19 08:40 BUN 24 mg/dL (7-18) H 05/11/19 08:40 Creatinine 1.20 mg/dL (0.55-1.02) H 05/11/19 08:40 Estimated Creat Clear 34 mL/min (50-200) 05/11/19 08:40 VTE Score: 3 VTE Risk Level: Low Risk - Prophylaxis VTE Prophylaxis Ordered?: Yes Types of VTE Prophylaxis: TEDS Knee High Location of Applied Device: Bilateral Lower Extremeties - VTE Diagnosis Confirmed Treatment or plan recommended: Continue Current Treatment
--- NOTE | 2019-05-11 13:02 | Consult Report ---
*Admission Date: 05/11/19 *Reason for consult:: L hip fracture *History of present illness: 73yo F admitted through the ER this morning after sustaining a fall at work. 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 She had immediate L hip pain and an inability to ambulate, which prompted evaluation at [facility]. A L intertrochanteric femur fracture was identified, she was placed in 5lbs Nicolas's traction and admitted to her PCP, Dr. Goodwin. She has a history of R hip fracture treated with TRINI in [place] in 2013. She did well after this surgery and was able to return to full baseline function; she currently uses no ambulatory aids such as a cane. No LOC during today's fall, no other injury reported. Pain is localized to the L hip, no numbness/tingling, no bruising or open wounds. Her grandson is at her bedside; he is her POA in the event she is unable to make her own medical decisions, but the moment she is fully competent. Review of Systems - Review of Systems Review of systems:: pertinent systems reviewed and negative unless documented below - *Neurologic Denies numbness [facility] History I have reviewed the patient's past medical history: Yes Medical History: Reports:: Diabetes Mellitus Type 2, Hyperlipidemia, Hypertension Denies:: Cancer, Diabetes Mellitus Type 1, Internal Pacemaker, MRSA, Seizures *Have you ever received a pneumonia vaccine?: Yes *Have you received a flu vaccine this season?: Yes Other Medical History: Reports: Anemia, Cataracts, Other. Denies: Blood T ransfusion Reaction Laterality Cases: Right: Total Hip Replacement (2013), Bilateral: Tonsillectomy Other Surgeries: Yes: Appendectomy, Colonoscopy, EGD, Tubal Ligation, Other. No: Pacemaker Amputation: No Fractures: No - *Social History Educational Level: Attended College Smoking Status: Never smoker Tobacco Type: cigarettes # Packs/Day (cigarettes): 1 Alcohol Intake: never Alcohol Intake Frequency:: holidays/special occasions only Substance Use Type: denies use *Occupational Status:: employed Housing: house Household Members: family *Travel in the last 8 weeks: None Family Hx:: Anemia, Bleeding Disorder, Diabetes, Heart Attack, Hypertension, Stroke Meds Home Medications Medication Instructions Recorded Confirmed Type amlodipine 10 mg tablet 10 mg PO DAILY 05/10/17 05/11/19 History escitalopram oxalate 20 mg tablet 20 mg PO BID 05/10/17 05/11/19 History furosemide 20 mg tablet 20 mg PO DAILY 05/10/17 05/11/19 History hydrochlorothiazide 25 mg tablet 25 mg PO DAILY 05/10/17 05/11/19 History insulin glargine U-300 conc 300 70 unit SQ HS 05/10/17 05/11/19 History unit/mL (1.5 mL) subcutaneous pen metformin 1,000 mg tablet 1,000 mg PO BID 05/10/17 05/11/19 History estradiol 1 mg tablet 1 mg PO QDAY 30 Days #30 tab 02/17/19 05/11/19 Rx raloxifene 60 mg tablet 60 mg PO QDAY #30 tab 02/17/19 05/11/19 Rx Cetirizine HCl [Allergy] 10 mg PO DAILY 05/11/19 05/11/19 History Multivit-Min/FA/Lycopen/Lutein 1 each PO DAILY 05/11/19 05/11/19 History [Centrum Silver Tablet] Pilocarpine HCl 5 mg PO TID 05/11/19 05/11/19 History Potassium Chloride 10 meq PO BID 05/11/19 05/11/19 History Trazodone HCl [Desyrel 50mg tablet] 50 mg PO HSP PRN 05/11/19 05/11/19 History carvediloL [Carvedilol 3.125mg Tab] 3.125 mg PO BID 05/11/19 05/11/19 History Allergies Allergy/AdvReac Type Severity Reaction Status Date / Time Sulfa (Sulfonamide Allergy Unknown SHAKING Verified 02/17/19 13:11 Antibiotics) [SULFA (SULFONAMIDE ANTIBIOTICS)] Exam Vital signs and Labs for Last 24 Hours: Temp Pulse Resp BP Pulse Ox 98.4 F 60 21 189/69 H 98 05/11/19 10:55 05/11/19 10:55 05/11/19 10:55 05/11/19 10:55 05/11/19 10:55 Laboratory Results - last 24 hr 05/11/19 08:40: WBC 6.5, RBC 4.05 L, Hgb 11.5 L, Hct 33.8 L, MCV 83.5, MCH 28.4, MCHC 34.0, RDW 15.8, Plt Count 206, MPV 9.8, Neut % (Auto) 74.4, Lymph % (Auto) 17.2, [place] % (Auto) 4.7, Eos % (Auto) 3.1, Baso % (Auto) 0.6, Neut # (Auto) 4.8, Lymph # (Auto) 1.1, [place] # (Auto) 0.3, Eos # (Auto) 0.2, Baso # (Auto) 0.0 05/11/19 08:40: PT 10.1, INR 0.97 05/11/19 08:40: Sodium 140, Potassium 4.1, Chloride 102, Carbon Dioxide 31, Anion Gap 11.1, BUN 24 H, Creatinine 1.20 H, Estimated Creat Clear 34, Estimated GFR 44 L, Est GFR ( Amer) 53 L, Glucose 140 H, Calcium 9.5, Total Bilirubin 0.7, AST 11 L, ALT 22, Alkaline Phosphatase 57, Total Protein 6.5, Albumin 3.6, Globulin 2.9, Albumin/Globulin Ratio 1.2 I & O for Last 24 hours: Intake & Output 05/09/19 05/10/19 05/11/19 05/12/19 11:59 11:59 11:59 11:59 Weight 121 lb - Constitutional no acute distress - *Routine HEENT Exam Head: Present: normocephalic Eye: Present: EOMI ENT: Present: mucous membranes moist - *Routine Respiratory Exam Absent: patient mechanically ventilated, respiratory distress, rhonchi, wheezes - *Routine Cardiovascular Exam Present: RRR - *Routine Abdominal Exam Present: soft. Absent: tenderness - *Routine Extremities Exam Comments: LLE in Nicolas's traction, removed; patient feels better w/traction off no gross deformity LLE, no shortening or IR/ER of limb no ecchymosis, erythema or open wounds L hip +DF/PF/EHL LLE SILT distally LLE in all distributions palpable pedal pulses LLE, foot warm/well-perfused L calf soft, non-tender - *Routine Skin Exam Present: intact, warm. Absent: erythema, lesions, wounds, ecchymosis - *Routine Neurological Exam Present: alert, oriented X3, moving all extremities, normal tone, hearing grossly intact, normal speech. Absent: sensory deficit, motor deficit, altered mental status - Routine Psychiatric Exam Present: normal affect Results - Labs Result Diagrams: 05/11/19 08:40 05/11/19 08:40 Labs: Abnormal lab results 05/11/19 05/11/19 Range/Units 08:40 08:40 RBC 4.05 L (4.20-5.40) M/mm3 Hgb 11.5 L (12.2-16.2) g/dL Hct 33.8 L (37.0-47.0) % BUN 24 H (7-18) mg/dL Creatinine 1.20 H (0.55-1.02) mg/dL Estimated GFR 44 L (>60) ml/min Est GFR ( Amer) 53 L (>60) ML/MIN Glucose 140 H (74-106) mg/dL AST 11 L (15-37) U/L H & H 05/11/19 Range/Units 08:40 Hgb 11.5 L (12.2-16.2) g/dL Hct 33.8 L (37.0-47.0) % Coagulation 05/11/19 Range/Units 08:40 INR 0.97 (0.9-1.1) All other labs normal. - Diagnostic results Hip x-ray: image reviewed (comminuted, minimally displaced L intertrochanteric femur fracture ) Assessment and Plan (1) Closed intertrochanteric fracture of left hip Current visit: Yes Status: Acute Qualifiers: Encounter type: initial encounter Fracture alignment: nondisplaced Qualified Code(s): S72.145A - Nondisplaced intertrochanteric fracture of left femur, initial encounter for closed fracture Category: Medical Code(s): S72.142A - Displaced intertrochanteric fracture of left femur, initial encounter for closed fracture - Assessment and plan all Dx Assessment and Plan for all problems:: 73yo F with L intertrochanteric femur fracture -- I discussed treatment options with the patient and risks of surgical intervention, including bleeding, infection, fracture non-union, persistent pain/disability, and risk of anesthesia; the patient vocalized understanding and has agreed to proceed with surgery. -- plan: IMN L femur tomorrow, pending medical clearance -- continue bed rest, ok to place tiwari -- pain control; morphine has not been effective, will switch to dilaudid, and can take percocet today while diet allowed -- NPO after midnight tonight
--- NOTE | 2019-05-11 16:15 | Electrocardiograph Report ---
APPROVED REPORT Exam: Resting ECG HR:63 bpm ECG Measurements Heart Rate 63 AXES VA 154 P 63 QRSd 88 QRS 81 QT 446 T73 QTc 456 <Conclusion> Normal sinus rhythm Normal ECG Electronically signed by : Wesley Ryder, 05/11/2019 16:14:35
--- NOTE | 2019-05-11 17:10 | History & Physical Report ---
*Admission Date: 05/11/19 *Chief complaint: Left hip pain after fall *History of present illness: 73yo F admitted through the ER this morning after sustaining a fall at work. 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 She had immediate L hip pain and an inability to ambulate, which prompted evaluation at [facility]. A L intertrochanteric femur fracture was identified. She has a history of R hip fracture treated with TRINI in [place] in 2013. She did well after this surgery and was able to return to full baseline function; she currently uses no ambulatory aids such as a cane. No LOC during today's fall, no other injury reported. Pain is localized to the L hip, no numbness/tingling, no bruising or open wounds. Patient is worried her pain will not be adequately controlled as she states this happened with her prior hip fracture. Her son and grandson is at her bedside; her grandson is her POA in the event she is unable to make her own medical decisions, but the moment she is fully competent. [facility] History I have reviewed the patient's past medical history: Yes Medical History: Reports:: Diabetes Mellitus Type 2, Hyperlipidemia, Hypertension Denies:: Cancer, Diabetes Mellitus Type 1, Internal Pacemaker, MRSA, Seizures *Have you ever received a pneumonia vaccine?: Yes *Have you received a flu vaccine this season?: Yes Other Medical History: Reports: Anemia, Cataracts, Other. Denies: Blood Transfusion Reaction Laterality Cases: Right: Total Hip Replacement (2013), Bilateral: Tonsillectomy Other Surgeries: Yes: Appendectomy, Colonoscopy, EGD, Tubal Ligation, Other. No: Pacemaker Amputation: No Fractures: No - *Social History Educational Level: Attended College Smoking Status: Never smoker Tobacco Type: cigarettes # Packs/Day (cigarettes): 1 Alcohol Intake: never Alcohol Intake Frequency:: holidays/special occasions only Substance Use Type: denies use *Occupational Status:: employed Housing: house Household Members: family *Travel in the last 8 weeks: None Family Hx:: Anemia, Bleeding Disorder, Diabetes, Heart Attack, Hypertension, Stroke Review of Systems - Constitutional Denies body ache(s), Denies chills - ENT Denies change in voice, Denies dry mouth - *Cardiovascular Denies chest pain, Denies chest pain at rest, Denies chest pain with activity, Denies excessive sweating, Denies shortness of breath, Denies shortness of lilly ath with activity - *Respiratory Denies change in phlegm color, Denies chest congestion, Denies cough, Denies shortness of breath - *Gastrointestinal Denies abdominal pain, Denies belching - *Neurologic Denies numbness Meds Home Medications Medication Instructions Recorded Confirmed Type amlodipine 10 mg tablet 10 mg PO DAILY 05/10/17 05/11/19 History escitalopram oxalate 20 mg tablet 20 mg PO BID 05/10/17 05/11/19 History furosemide 20 mg tablet 20 mg PO DAILY 05/10/17 05/11/19 History hydrochlorothiazide 25 mg tablet 25 mg PO DAILY 05/10/17 05/11/19 History insulin glargine U-300 conc 300 70 unit SQ HS 05/10/17 05/11/19 History unit/mL (1.5 mL) subcutaneous pen metformin 1,000 mg tablet 1,000 mg PO BID 05/10/17 05/11/19 History estradiol 1 mg tablet 1 mg PO QDAY 30 Days #30 tab 02/17/19 05/11/19 Rx raloxifene 60 mg tablet 60 mg PO QDAY #30 tab 02/17/19 05/11/19 Rx Cetirizine HCl [Allergy] 10 mg PO DAILY 05/11/19 05/11/19 History Multivit-Min/FA/Lycopen/Lutein 1 each PO DAILY 05/11/19 05/11/19 History [Centrum Silver Tablet] Pilocarpine HCl 5 mg PO TID 05/11/19 05/11/19 History Potassium Chloride 10 meq PO BID 05/11/19 05/11/19 History Trazodone HCl [Desyrel 50mg tablet] 50 mg PO HSP PRN 05/11/19 05/11/19 History carvediloL [Carvedilol 3.125mg Tab] 3.125 mg PO BID 05/11/19 05/11/19 History Allergies Allergy/AdvReac Type Severity Reaction Status Date / Time Sulfa (Sulfonamide Allergy Unknown SHAKING Verified 02/17/19 13:11 Antibiotics) [SULFA (SULFONAMIDE ANTIBIOTICS)] Exam Vital signs and Labs for Last 24 Hours: Temp Pulse Resp BP Pulse Ox 97.4 F L 67 20 141/60 H 92 L 05/11/19 15:59 05/11/19 15:59 05/11/19 15:59 05/11/19 15:59 05/11/19 15:59 Laboratory Results - last 24 hr 05/11/19 08:40: WBC 6.5, RBC 4.05 L, Hgb 11.5 L, Hct 33.8 L, MCV 83.5, MCH 28.4, MCHC 34.0, RDW 15.8, Plt Count 206, MPV 9.8, Neut % (Auto) 74.4, Lymph % (Auto) 17.2, [place] % (Auto) 4.7, Eos % (Auto) 3.1, Baso % (Auto) 0.6, Neut # (Auto) 4.8, Lymph # (Auto) 1.1, [place] # (Auto) 0.3, Eos # (Auto) 0.2, Baso # (Auto) 0.0 05/11/19 08:40: PT 10.1, INR 0.97 05/11/19 08:40: Sodium 140, Potassium 4.1, Chloride 102, Carbon Dioxide 31, Anion Gap 11.1, BUN 24 H, Creatinine 1.20 H, Estimated Creat Clear 34, Estimated GFR 44 L, Est GFR ( Amer) 53 L, Glucose 140 H, Calcium 9.5, Total Bilirubin 0.7, AST 11 L, ALT 22, Alkaline Phosphatase 57, Total Protein 6.5, Albumin 3.6, Globulin 2.9, Albumin/Globulin Ratio 1.2 05/11/19 08:40: Hemoglobin A1c 6.9 05/11/19 12:50: POC Glucose 109 05/11/19 15:20: Urine Color Yellow, Urine Appearance Sl cloudy, Urine pH 6.0, Ur Specific [place] >= 1.030, Urine Protein 2+, Urine Glucose (UA) Negative, Urine Ketones Negative, Urine Blood Negative, Urine Nitrate Positive, Urine Bilirubin Negative, Urine Urobilinogen 0.2, Ur Leukocyte Esterase Negative, Urine RBC None, Urine WBC 5-10, Ur Squamous Epith Cells 10-20, Urine Bacteria 4+ A 05/11/19 16:25: POC Glucose 140 H I & O for Last 24 hours: Intake & Output 05/09/19 05/10/19 05/11/19 05/12/19 11:59 11:59 11:59 11:59 Intake Total 240 / 240 Balance 240 / 240 Weight 121 lb Narrative: EKG shows normal sinus rhythm - Constitutional no acute distress - *Routine HEENT Exam Head: Present: normocephalic Eye: Present: EOMI ENT: Present: mucous membranes moist - *Routine Neck Exam Present: supple, full ROM. Absent: JVD, carotid bruit - *Routine Respiratory Exam Present: CTA bilaterally. Absent: rales, rhonchi, wheezes - *Routine Cardiovascular Exam Present: RRR, Normal S1, Normal S2. Absent: murmur - *Routine Abdominal Exam Present: soft, normoactive bowel sounds. Absent: tenderness, distended - *Routine Extremities Exam Present: pulses intact, normal capillary refill. Absent: cyanosis, clubbing, edema, calf tenderness Comments: Left leg is slightly shortened and externally rotated Assessment and Plan (1) Closed intertrochanteric fracture of left hip Current visit: Yes Status: Acute Qualifiers: Encounter type: initial encounter Fracture alignment: nondisplaced Qualified Code(s): S72.145A - Nondisplaced intertrochanteric fracture of left femur, initial encounter for closed fracture Category: Medical Code(s): S72.142A - Displaced intertrochanteric fracture of left femur, initial encounter for closed fracture (2) Type 2 diabetes mellitus, controlled Current visit: Yes Status: Acute Qualifiers: Diabetes mellitus detention insulin use: with rib knitter use Diabetes mellitus complication status: without complication Qualified Code(s): E11.9 - Type 2 diabetes mellitus without complications; Z79.4 - snf (current) use of insulin Category: Medical Code(s): E11.9 - Type 2 diabetes mellitus without complications (3) Hypertension Current visit: Yes Status: Acute Category: Medical Code(s): I10 - Essential (primary) hypertension - Assessment and plan all Dx Assessment and Plan for all problems:: 1. Patient is medically stable and anticipate surgery tomorrow 2. Patient will be given Lovenox 30 mg subcu x1 this evening for DVT prophylaxis 3. Reassured patient she will be provided adequate pain relief 4. Hold metformin. Will continue sliding scale insulin coverage 5. Home antihypertensives
[2019-05-12 05:59] LABS: Basophils % 0.3 % (0.1-2.0); Eosinophils # 0.1 K/mm3 (0.0-0.4); Eosinophils % 1.7 % (0.1-12.0); Hematocrit 33.4 % (37.0-47.0); Hemoglobin 10.7 g/dL (12.2-16.2); Lymphocytes # 1.1 K/mm3 (0.7-4.5); Lymphocytes % 12.9 % (10-50); Mean Corpuscular HGB Conc 32.1 g/dL (31.8-35.4); Mean Corpuscular Volume 86.7 fl (81-99); Mean Platelet Volume 9.5 fl (7.4-10.4); Monocytes # 0.3 K/mm3 (0.1-1.0); Monocytes % 3.8 % (1.7-9.3); Neutrophils # 6.7 K/mm3 (1.8-7.8); Neutrophils % 81.4 % (37.0-80.0); Platelet Count 196 K/mm3 (142-424); Red Blood Count 3.85 M/mm3 (4.20-5.40); Red Cell Distribution Width 16.1 % (11.5-17.5); White Blood Count 8.2 K/mm3 (4.8-10.8)
[2019-05-12 06:07] LABS: Anion Gap 11.1 mEq/L (5-15)
[2019-05-12 06:20] LABS: Calcium 8.1 mg/dL (8.5-10.1)
--- NOTE | 2019-05-12 07:11 | Progress Note ---
Internal Medicine - PN: Subj *Date: 05/12/19 *Time: 07:09 Interval history: Patient with no complaints this morning other than her pain. She reports even with IV Dilaudid her pain was only controlled for about an hour although she will readily admit she has a low pain tolerance and does not deal well with being in pain. Exam Vital signs and Labs for Last 24 Hours: Temp Pulse Resp BP Pulse Ox 98.0 F 77 17 160/79 H 93 L 05/12/19 06:00 05/12/19 06:00 05/12/19 06:00 05/12/19 06:00 05/12/19 06:00 Laboratory Results - last 24 hr 05/11/19 08:40: WBC 6.5, RBC 4.05 L, Hgb 11.5 L, Hct 33.8 L, MCV 83.5, MCH 28.4, MCHC 34.0, RDW 15.8, Plt Count 206, MPV 9.8, Neut % (Auto) 74.4, Lymph % (Auto) 17.2, [place] % (Auto) 4.7, Eos % (Auto) 3.1, Baso % (Auto) 0.6, Neut # (Auto) 4.8, Lymph # (Auto) 1.1, [place] # (Auto) 0.3, Eos # (Auto) 0.2, Baso # (Auto) 0.0 05/11/19 08:40: PT 10.1, INR 0.97 05/11/19 08:40: Sodium 140, Potassium 4.1, Chloride 102, Carbon Dioxide 31, Anion Gap 11.1, BUN 24 H, Creatinine 1.20 H, Estimated Creat Clear 34, Estimated GFR 44 L, Est GFR ( Amer) 53 L, Glucose 140 H, Calcium 9.5, Total Bilirubin 0.7, AST 11 L, ALT 22, Alkaline Phosphatase 57, Total Protein 6.5, Albumin 3.6, Globulin 2.9, Albumin/Globulin Ratio 1.2 05/11/19 08:40: Hemoglobin A1c 6.9 05/11/19 12:50: POC Glucose 109 05/11/19 15:20: Urine Color Yellow, Urine Appearance Sl cloudy, Urine pH 6.0, Ur Specific [place] >= 1.030, Urine Protein 2+, Urine Glucose (UA) Negative, Urine Ketones Negative, Urine Blood Negative, Urine Nitrate Positive, Urine Bilirubin Negative, Urine Urobilinogen 0.2, Ur Leukocyte Esterase Negative, Urine RBC None, Urine WBC 5-10, Ur Squamous Epith Cells 10-20, Urine Bacteria 4+ A 05/11/19 16:25: POC Glucose 140 H 05/11/19 20:29: POC Glucose 141 H 05/12/19 05:50: WBC 8.2 D, RBC 3.85 L, Hgb 10.7 L, Hct 33.4 L, MCV 86.7, MCH 27.9, MCHC 32.1, RDW 16.1, Plt Count 196, MPV 9.5, Neut % (Auto) 81.4 H, Lymph % (Auto) 12.9, [place] % (Auto) 3.8, Eos % (Auto) 1.7, Baso % (Auto) 0.3, Neut # (Auto) 6.7, Lymph # (Auto) 1.1, [place] # (Auto) 0.3, Eos # (Auto) 0.1, Baso # (Auto) 0.0 05/12/19 05:50: Sodium 141, Potassium 4.1, Chloride 102, Carbon Dioxide 32, Anion Gap 11.1, BUN 24 H, Creatinine 1.14 H, Estimated Creat Clear 38, Estimated GFR 47 L, Est GFR ( Amer) 57 L, Glucose 143 H, Calcium 8.1 L D 05/12/19 06:08: POC Glucose 143 H I & O for Last 24 hours: Intake & Output 05/09/19 05/10/19 05/11/19 05/12/19 11:59 11:59 11:59 11:59 Intake Total 1352 / 1352 Output Total 900 / 900 Balance 452 / 452 Weight 121 lb Narrative: Patient appears comfortable supine in bed. Lungs are clear to auscultation. Heart is regular rate and rhythm. The left distal lower extremity is neurovascularly intact Assessment and Plan (1) Closed intertrochanteric fracture of left hip Current visit: Yes Status: Acute Qualifiers: Encounter type: initial encounter Fracture alignment: nondisplaced Qualified Code(s): S72.145A - Nondisplaced intertrochanteric fracture of left femur, initial encounter for closed fracture Category: Medical Code(s): S72.142A - Displaced intertrochanteric fracture of left femur, initial encounter for closed fracture (2) Type 2 diabetes mellitus, controlled Current visit: Yes Status: Acute Qualifiers: Diabetes mellitus adjunct faculty for medical terminology insulin use: with adjunct faculty for medical terminology use Diabetes adan litus complication status: without complication Qualified Code(s): E11.9 - Type 2 diabetes mellitus without complications; Z79.4 - terminal system operator (current) use of insulin Category: Medical Code(s): E11.9 - Type 2 diabetes mellitus without complications (3) Hypertension Current visit: Yes Status: Acute Category: Medical Code(s): I10 - Essential (primary) hypertension - Assessment and plan all Dx Assessment and Plan for all problems:: 1. Surgery today 2. I am going to increase her carvedilol to try to achieve little bit better blood pressure control while continuing amlodipine and hydrochlorothiazide.
--- NOTE | 2019-05-12 11:52 | Progress Note ---
[facility] Anesthesia Checklist - Patient Identification Patient Identification: Arm Band, Verbal (Name & ) - Structural Data Admitted From: Inpatient Planned Operative Procedure/s: Left femur IM nailing Consent for Planned Operative Procedure(s) Verified: Yes Verified Documents: Surgical Consent, History and Physical - NPO Status Verified Time NPO: 00:00 - Chart Verification Results Verified: CBC, BMP - Additional verifications Anesthesia Reactions: No Hx Blood Transfusions: Yes Blood Transfusion Reaction: No - Airway Assessment C-Spine Mobility Assessed: Yes TMJ Mobility Assessed: Yes Dentition: Poor Dentition (missing) - Neurological Assessment Level of Consciousness: Awake, Appropriate, Follows Commands, Drowsy Hx Seizures: No Numbness or tingling in extremities: No - Genitourinary Assessment Urinary Catheter Present: Uretheral (Cheung) - Anesthesia Plan Anesthesia Risk discussed: Yes Anesthesia Plan: Verified ASA Class: II Anesthesia Type: Spinal [facility] History I have reviewed the patient's past medical history: Yes Medical History: Reports:: Diabetes Mellitus Type 2, Hyperlipidemia, Hypertension Denies:: Cancer, Diabetes Mellitus Type 1, Internal Pacemaker, MRSA, Seizures *Have you ever received a pneumonia vaccine?: Yes *Have you received a flu vaccine this season?: Yes Other Medical History: Reports: Anemia, Cataracts, Other. Denies: Blood Trans fusion Reaction Anesthesia experience/problems:: none Laterality Cases: Right: Total Hip Replacement (2013), Bilateral: Tonsillectomy Other Surgeries: Yes: Appendectomy, Colonoscopy, EGD, Tubal Ligation, Other. No: Pacemaker Amputation: No Fractures: No - *Social History Educational Level: Attended College Smoking Status: Never smoker Tobacco Type: cigarettes # Packs/Day (cigarettes): 1 Alcohol Intake: never Alcohol Intake Frequency:: holidays/special occasions only Substance Use Type: denies use *Occupational Status:: employed Housing: house Household Members: family *Travel in the last 8 weeks: None Family Hx:: Anemia, Bleeding Disorder, Diabetes, Heart Attack, Hypertension, Stroke
--- NOTE | 2019-05-12 14:32 | Progress Note ---
[facility] [place] Anesthesia Record Part I Intake, IV Amount: 1,800 Estimated blood loss (mL): 200 Urine output (mL): 0 Blood Products used (#): none Blood Pressure: 144/57 SaO2: 92 Pulse Rate: 60 Respiratory Rate: 12 Temperature: 99.6 F Patient is:: Drowsy, Nasal O2, Stable Stable to PACU at:: 14:25
--- NOTE | 2019-05-12 15:05 | Operative Note ---
Date of procedure: 05/12/19 Pre-op Diagnosis:: L intertrochanteric femur fracture Post-op Diagnosis:: L intertrochanteric femur fracture Procedure performed:: L intertrochanteric femur fracture, with spiral split intraoperatively down shaft Surgeon:: Rhona Lisa MD [employer](s):: Nelida Cuevas HEART SURGEON:: Salvador Begum Anesthesia: spinal Estimated blood loss (mL): 150 Clinical Note:: 73yo F admitted through the ER yesterday after sustaining a fall at work. 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 She had immediate L hip pain and an inability to ambulate, which prompted evaluation at [facility]. A L intertrochanteric femur fracture was identified, she was placed in 5lbs Nicolas's traction and admitted to her PCP, Dr. Goodwin. She has a history of R hip fracture treated with TRINI in [place] in 2013. She did well after this surgery and was able to return to full baseline function; she currently uses no ambulatory aids such as a cane. No LOC during today's fall, no other injury reported. Pain is localized to the L hip, no numbness/tingling, no bruising or open wounds. Her grandson is at her bedside; he is her POA in the event she is unable to make her own medical decisions, but the moment she is fully competent. I discussed treatment options with the patient and risks of surgical intervention, including bleeding, infection, fracture non-union, persistent pain/disability, and risk of anesthesia; the patient vocalized understanding and has agreed to proceed with surgery. Operative findings:: Bennie gamma nail, long nail: 11 x 380mm (125 degree) lag screw: 10.5 x 85mm distal interlock: 5 x 50mm Operative note:: The patient was identified in preoperative holding and the left hip signed by myself. The patient was then taken to the operating room where spinal anesthetic administered and 1g Ancef was infused. The patient was then transferred to the fracture table and sedated intravenously for the procedure. The left leg was secured to the foot plate of the fracture table and the right leg placed in a well-padded leg chirinos with the hip in flexion/abduction. Timeout was performed, identifying the correct patient, correct procedure and correct site. Next the left intertrochanteric femur fracture was visualized under fluoro and closed reduction performed using the fracture table and a combination of hip adduction, internal rotation and longitudinal traction. Once acceptable reduction was achieved, the right hip was prepped and draped in the usual sterile fashion for a femoral intramedullary nail procedure. The procedure was begun by using a free guide pin held over the left hip to localize the level of the greater trochanter. Approximately 3cm proximal to this, a longitudinal incision was made on the lateral aspect of the hip approximately 3 cm long. The guidepin was placed over the tip of the greater trochanter and fluoroscopy used to confirm the appropriate starting point on both AP and lateral views. The guidepin was advanced under power into the proximal femur and entry reamer used to perforate the proximal cortex, creating an entry hole for the nail. A 11 x 180mm (125 degree) nail was advanced until well-seated. The appropriate drill guide was then placed through the side arm on the nail, through which to place the lag screw. A guidepin was threaded from the lateral aspect of the thigh through this drill guide and into the femoral neck. It was advanced proximally until the desired tip apex distance was met on both AP and lateral fluoro views. The measuring tool was used to determine a size 85mm lag screw was needed; the screw path was drilled and a 10.5mm diameter, 85mm long lag screw was advanced into the femoral neck and head. It appeared to be appropriately positioned on both AP and lateral x-ray. Next, the set screw was placed into the top of the nail and secured tightly. To secure the distal aspect of the nail, one distal interlocking screw was planned, but upon further inspection, there was a fracture in the femoral shaft around the tip of the nail. No femoral shaft fracture was seen on pre-op XR, so it is uncertain whether there was a non-displaced fracture that was not seen pre-op, and nail placement distracted it, or nail placement caused propagation of the proximal intertroch fracture. It did not appear as if the anterior cortex was perforated; the appearance was consistent with continuation of the intertroch fracture. The decision was made to abandon the short nail in lieu of a long nail. The set screw, lag screw and short nail were all removed. Reduction was maintained and using the same starting point/pre-reamed hole, a ball-tipped guide wire was passed down the femur, and over this reamers of sequentially increasing sizes were advanced down the femur. I started with an 8mm reamer and advanced by 0.5mm until a 12mm was passed. This had a tight fit with good chatter and fracture reduction was maintained throughout. This was all confirmed throughout using AP and lateral fluoro views. The nail measured a 380, so an 11 x 380, 125 degree nail was advanced over the guidewire and down the length of the femur. Guidewire was removed. I was able to use the same hole from the prior lag screw, as well as the same screw, and a 10.5 x 85mm lag screw was placed through the proximal femur into the femoral head. This had good bite, and a small amount of compression against the lateral cortex was obtained. To finalize the procedure, a distal interlocking screw was placed through a distal hole in the nail, in the static position. Using lateral c-arm views and the perfect osage technique, a 5 x 50mm screw placed. This completed the procedure and the side arm was removed from the nail, final x-rays taken with confirmation of good positioning of both AP and lateral x-rays. All incisions were irrigated copiously with sterile saline and the wounds closed in a layered fashion. The fascia/IT band were closed with 0 Vicryl, followed by 2-0 Vicryl on the subcutaneous tissue, and horace for the skin. The wounds were dressed with Xeroform, 4 x 4's and tegaderm. The patient was then transferred back to her cart and taken to PACU in good condition. There were no complications during this case. An AP XR of the R hip was taken in PACU and confirmed no dislocation of her R TRINI prosthesis despite positioning intra-operatively. Tourniquet time (min): 0 Condition: stable Disposition: PACU Specimens:: none Complications:: none
[2019-05-13 06:58] LABS: Anion Gap 10.2 mEq/L (5-15); Calcium 7.8 mg/dL (8.5-10.1)
--- NOTE | 2019-05-13 07:06 | Progress Note ---
[facility] Anesthesia Record Part II Discharge Time: 14:55 Destination: Medical Surgical Department PACU nurse assessment reviewed?: Yes Patient Condition:: Good Anesthesia Complications:: None Swallowing reflex intact?: Yes Cyanosis?: No Blood Pressure: 145/59 Pulse Rate: 90 Temperature: 98.5 F Mental Status: Alert & Oriented Pain level:: 0 Nausea and/or vomitting:: None Intake, IV Amount: 0
[2019-05-13 07:10] LABS: Basophils % 0.2 % (0.1-2.0); Eosinophils # 0.1 K/mm3 (0.0-0.4); Eosinophils % 1.5 % (0.1-12.0); Hematocrit 26.1 % (37.0-47.0); Hemoglobin 8.5 g/dL (12.2-16.2); Lymphocytes # 0.9 K/mm3 (0.7-4.5); Lymphocytes % 9.3 % (10-50); Mean Corpuscular HGB Conc 32.6 g/dL (31.8-35.4); Mean Corpuscular Volume 85.6 fl (81-99); Mean Platelet Volume 9.7 fl (7.4-10.4); Monocytes # 0.5 K/mm3 (0.1-1.0); Monocytes % 4.8 % (1.7-9.3); Neutrophils # 8.2 K/mm3 (1.8-7.8); Neutrophils % 84.2 % (37.0-80.0); Platelet Count 166 K/mm3 (142-424); Red Blood Count 3.05 M/mm3 (4.20-5.40); Red Cell Distribution Width 16.2 % (11.5-17.5); White Blood Count 9.8 K/mm3 (4.8-10.8)
--- NOTE | 2019-05-13 07:12 | Progress Note ---
Internal Medicine - PN: Subj *Date: 05/13/19 *Time: 07:09 Interval history: Patient underwent successful left intertrochanteric fracture repair yesterday. Postoperatively she has dealt with some hypoxia when she is not wearing supplemental oxygen. Nursing staff reports overnight patient requested pain medicine at regular frequent intervals. Patient also seem to have a high level of anxiety. This morning patient seems rather sedate and actually falls asleep in between questions. She is oriented to person place and time. Exam Vital signs and Labs for Last 24 Hours: Temp Pulse Resp BP Pulse Ox 98.5 F 90 16 145/59 H 94 L 05/13/19 07:06 05/13/19 07:06 05/13/19 04:00 05/13/19 07:06 05/13/19 04:00 Laboratory Results - last 24 hr 05/12/19 14:39: POC Glucose 97 05/12/19 16:56: POC Glucose 120 H 05/12/19 21:05: POC Glucose 109 05/13/19 06:18: Sodium 141, Potassium 4.2, Chloride 106, Carbon Dioxide 29, Anion Gap 10.2, BUN 25 H, Creatinine 1.09 H, Estimated Creat Clear 38, Estimated GFR 49 L, Est GFR ( Amer) 60, Glucose 84, Calcium 7.8 L I & O for Last 24 hours: Intake & Output 05/10/19 05/11/19 05/12/19 05/13/19 11:59 11:59 11:59 11:59 Intake Total 1352 / 1352 2900 / 2900 Output Total 1170 / 1170 500 / 500 Balance 182 / 182 2400 / 2400 Weight 121 lb 114 lb 3 oz 115 lb Microbiology Reports for the Last 24 Hours: Microbiology 05/11/19 15:20 Urine,Catheterized Urine Culture - Preliminary Gram Negative Rods Narrative: She is in no distress. Lungs are clear. Heart has a regular rate and rhythm. Abdomen is soft. 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 Diabetes mellitus complication status: without complication Qualified Code(s): E11.9 - Type 2 diabetes mellitus without complications; Z79.4 - [facility] (current) use of insulin Category: Medical Code(s): E11.9 - Type 2 diabetes mellitus without complications (3) Hypertension Current visit: Yes Status: Acute Category: Medical Code(s): I10 - Essential (primary) hypertension (4) Postoperative hypoxia Current visit: Yes Status: Acute Category: Medical Code(s): R09.02 - Hypoxemia; Z98.890 - Other specified postprocedural states - Assessment and plan all Dx Assessment and Plan for all problems:: 1. PT and OT eval's today 2. Continue home medications 3. Encourage incentive spirometry. 4. Patient readily admitted that she does not tolerate pain very well and is asking for frequent administration of pain medication. I believe her hypoxia could be due to to being overmedicated with narcotic-based pain medication. Nursing staff reported significant anxiety. I will order the patient some hydroxyzine to see if they may help alleviate anxiety and decrease request for pain medication
[2019-05-13 10:17] LABS: ABG Base Excess 3.4 mmol/L (-2.4-2.3); ABG HCO3 27.6 mmhg (22.0-26.0); ABG Oxygen Saturation 95 % (90-100); ABG PCO2 42.2 mmhg (35.0-45.0); ABG PH 7.43 mmol/L (7.35-7.45); ABG PO2 75.9 mmhg (80-100); ABG TCO2 28.9 mmhg (23-27)
[2019-05-13 10:20] LABS: Oxygen 5L %
[2019-05-13 10:21] LABS: Allen's Test Acceptable
--- NOTE | 2019-05-13 10:51 | Progress Note ---
Subjective Date: 05/13/19 Time: 10:00 Principal diagnosis: s/p IMN L femur for IT fx Interval history: The patient is sitting in bedside chair for exam this morning. She is drowsy but follows commands and answers questions appropriately. Dilaudid appears to have slightly oversedated her, so this was stopped in lieu of less-sedating pain medications. She has pain in the L hip but is comfortable at the moment. She has been out of bed with PT. Rocephin started for UTI. PN: Obj Ex Vital signs: Temp Pulse Resp BP Pulse Ox 99.9 F H 73 18 144/57 H 93 L 05/13/19 07:53 05/13/19 07:53 05/13/19 07:53 05/13/19 07:53 05/13/19 07:53 - Constitutional no acute distress - Routine HEENT Exam Head: Present: normocephalic Eye: Present: EOMI ENT: Present: mucous membranes moist - Routine Extremities Exam Comments: L hip dressings c/d/i, no strikethrough +DF/PF/EHL LLE SILT LLE distally in all distributions palpable pedal pulses LLE, foot warm/pink L calf soft, non-tender - Routine Neurological Exam Present: alert, oriented X3, moving all extremities, normal tone, hearing grossly intact, normal speech. Absent: sensory deficit, motor deficit, altered mental status - Urinary Catheter Management Cheung Cath placed during this visit: no Progress Note: A&P (1) Closed intertrochanteric fracture of left hip Status: Acute Current Visit: Yes (2) Type 2 diabetes mellitus, controlled Status: Acute Current Visit: Yes (3) Hypertension Status: Acute Current Visit: Yes (4) Postoperative hypoxia Status: Acute Current Visit: Yes Assessment and Plan for All Diagnoses:: 73yo F POD 1 s/p IMN L femur for IT fracture -- WBAT LLE -- continue PT/OT -- ice pack L hip -- first dressing change Saturday -- DVT prophy: Eliquis per Dr. Goodwin -- finish 23hr antibiotic (ancef) for surgical prophylaxis -- continue antibiotics (rocephin) for UTI per Dr. Goodwin -- Hgb 8.5 this morning; repeat H/H ordered for this afternoon -- encourage IS -- SCDs BLE -- dispo planning: anticipate SNF transfer
[2019-05-13 19:46] LABS: Hemoglobin 7.4 g/dL (12.2-16.2)
[2019-05-13 19:47] LABS: Hematocrit 22.7 % (37.0-47.0)
[2019-05-14 06:14] LABS: Anion Gap 10.4 mEq/L (5-15); Calcium 7.6 mg/dL (8.5-10.1)
[2019-05-14 06:19] LABS: Eosinophils # 0.2 K/mm3 (0.0-0.4); Lymphocytes # 0.9 K/mm3 (0.7-4.5); Monocytes # 0.6 K/mm3 (0.1-1.0)
[2019-05-14 06:34] LABS: Basophils % 0.5 % (0.1-2.0); Eosinophils % 2.2 % (0.1-12.0); Hematocrit 31.7 % (37.0-47.0); Lymphocytes % 10.4 % (10-50); Mean Corpuscular HGB Conc 32.4 g/dL (31.8-35.4); Mean Corpuscular Volume 87.5 fl (81-99); Mean Platelet Volume 9.4 fl (7.4-10.4); Monocytes % 6.9 % (1.7-9.3); Neutrophils # 6.7 K/mm3 (1.8-7.8); Neutrophils % 80.1 % (37.0-80.0); Platelet Count 122 K/mm3 (142-424); Red Blood Count 3.62 M/mm3 (4.20-5.40); White Blood Count 8.4 K/mm3 (4.8-10.8)
[2019-05-14 06:45] LABS: Hemoglobin 10.3 g/dL (12.2-16.2)
--- NOTE | 2019-05-14 07:28 | Progress Note ---
Internal Medicine - PN: Subj *Date: 05/14/19 *Time: 07:25 Interval history: Patient has no complaints this morning. Despite her confusion yesterday patient claims that she remembers the events of yesterday, except for her PT evaluation. She is hungry this morning. She has not had a bowel movement. Exam Vital signs and Labs for Last 24 Hours: Temp Pulse Resp BP Pulse Ox 98.5 F 66 17 146/59 H 90 L 05/14/19 05:45 05/14/19 05:45 05/14/19 05:45 05/14/19 05:45 05/14/19 05:45 Laboratory Results - last 24 hr 05/13/19 05:40: POC Glucose 68 L 05/13/19 09:23: Specimen Source Left radial, O2 % 5l, ABG pH 7.43, ABG pCO2 42.2, ABG pO2 75.9 L, ABG HCO3 27.6 H, ABG Total CO2 28.9 H, ABG O2 Saturation 95, ABG Base Excess 3.4 H, José Miguel Test Acceptable 05/13/19 11:09: POC Glucose 64 L 05/13/19 16:10: Hgb 7.4 L*, Hct 22.7 L* 05/13/19 17:08: POC Glucose 73 05/13/19 21:00: Blood Type Confirm A Positive 05/13/19 21:06: Blood Type A Positive, Antibody Screen Negative, Crossmatch (AHG) See Detail 05/13/19 21:26: POC Glucose 91 05/14/19 05:38: WBC 8.4, RBC 3.62 L, Hgb 10.3 L D, Hct 31.7 L, MCV 87.5, MCH 28.4, MCHC 32.4, RDW 16.0, Plt Count 122 L D, MPV 9.4, Neut % (Auto) 80.1 H, Lymph % (Auto) 10.4, [place] % (Auto) 6.9, Eos % (Auto) 2.2, Baso % (Auto) 0.5, Neut # (Auto) 6.7, Lymph # (Auto) 0.9, [place] # (Auto) 0.6, Eos # (Auto) 0.2, Baso # (Auto) 0.0 05/14/19 05:38: Sodium 139, Potassium 3.4 L, Chloride 104, Carbon Dioxide 28, Anion Gap 10.4, BUN 25 H, Creatinine 1.03 H, Estimated Creat Clear 42, Estimated GFR 53 L, Est GFR ( Amer) 64, Glucose 75, Calcium 7.6 L 05/14/19 06:06: POC Glucose 79 I & O for Last 24 hours: Intake & Output 05/11/19 05/12/19 05/13/19 05/14/19 11:59 11:59 11:59 11:59 Intake Total 1352 / 1352 3020 / 3020 305 / 305 Output Total 1170 / 1170 500 / 500 275 / 275 Balance 182 / 182 2520 / 2520 30 / 30 Weight 121 lb 114 lb 3 oz 115 lb 121 lb 4 oz Microbiology Reports for the Last 24 Hours: Microbiology 05/11/19 15:20 Urine,Catheterized Urine Culture - Final Escherichia coli Narrative: Patient is awake and alert. She remains on supplemental oxygen via nasal cannula. Lungs are clear. Heart has a regular rate and rhythm. Abdomen is soft with active bowel sounds. 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 coli UTI Current visit: Yes Status: Acute Category: Medical Code(s): N39.0 - Urinary tract infection, site not specified; B96.20 - Unspecified Escherichia coli [E. coli] as the cause of diseases classified elsewhere (6) ESBL (extended spectrum beta-lactamase) producing bacteria infection Current visit: Yes Status: Acute Category: Medical Code(s): A49.9 - Bacterial infection, unspecified; Z16.12 - Extended spectrum beta lactamase (ESBL) resistance (7) Postoperative anemia due to acute blood loss Current visit: Yes Status: Acute Category: Medical Code(s): D62 - Acute posthemorrhagic anemia - Assessment and plan all Dx Assessment and Plan for all problems:: 1. DC Cheung catheter 2. Out of bed to chair today 3. Continue to wean oxygen, use incentive spirometer 4. Follow H&H as patient required 2 units of packed red cells yesterday 5. Continue Invanz for E. coli UTI that is ESBL positive
--- NOTE | 2019-05-14 17:13 | Progress Note ---
Subjective Date: 05/14/19 Time: 17:00 Principal diagnosis: s/p IMN L femur for IT fx Interval history: The patient is more alert today. Reports pain in L hip, but tolerating current pain med regimen well. Has been OOB with PT and sat in bedside chair for awhile today. Otherwise no complaints. Top dressing L hip was changed earlier today by nursing, around 9:30am due to bloody drainage. Some clot evacuated from wound as well. Dressing was try this evening. PN: Obj Ex Vital signs: Temp Pulse Resp BP Pulse Ox 98.9 F 67 19 153/65 H 87 L 05/14/19 15:47 05/14/19 15:47 05/14/19 15:47 05/14/19 15:47 05/14/19 15:47 - Constitutional no acute distress - Routine Extremities Exam Comments: L hip dressings c/d/i, no strikethrough moderate tenderness L hip L calf soft, non-tender; negative singh's +DF/PF/EHL LLE SILT distally LLE palpable pedal pulses LLE - Urinary Catheter Management Cheung Cath placed during this visit: no Progress Note: A&P (1) Closed intertrochanteric fracture of left hip Status: Acute Current Visit: Yes (2) Type 2 diabetes mellitus, controlled Status: Acute Current Visit: Yes (3) Hypertension Status: Acute Current Visit: Yes (4) Postoperative hypoxia Status: Acute Current Visit: Yes (5) E. coli UTI Status: Acute Current Visit: Yes (6) ESBL (extended spectrum beta-lactamase) producing bacteria infection Status: Acute Current Visit: Yes (7) Postoperative anemia due to acute blood loss Status: Acute Current Visit: Yes Assessment and Plan for All Diagnoses:: 73yo F POD 2 s/p IMN L femur -- continue PT/OT, WBAT LLE -- ice pack L hip PRN -- SCDs BLE -- encourage IS 10x/hr while awake -- DVT prophy per PCP -- anticipate d/c to SNF tomorrow
[2019-05-15 06:25] LABS: Anion Gap 9.2 mEq/L (5-15); Calcium 7.7 mg/dL (8.5-10.1)
[2019-05-15 06:34] LABS: Basophils % 0.2 % (0.1-2.0); Eosinophils # 0.2 K/mm3 (0.0-0.4); Eosinophils % 3.6 % (0.1-12.0); Hematocrit 28.8 % (37.0-47.0); Hemoglobin 9.7 g/dL (12.2-16.2); Lymphocytes # 0.9 K/mm3 (0.7-4.5); Lymphocytes % 13.5 % (10-50); Mean Corpuscular HGB Conc 33.6 g/dL (31.8-35.4); Mean Corpuscular Volume 86.4 fl (81-99); Mean Platelet Volume 9.6 fl (7.4-10.4); Monocytes # 0.4 K/mm3 (0.1-1.0); Neutrophils # 5.2 K/mm3 (1.8-7.8); Neutrophils % 76.7 % (37.0-80.0); Platelet Count 138 K/mm3 (142-424); Red Blood Count 3.34 M/mm3 (4.20-5.40); Red Cell Distribution Width 16.3 % (11.5-17.5); White Blood Count 6.8 K/mm3 (4.8-10.8)
--- NOTE | 2019-05-15 07:25 | Discharge Summary ---
General - General Admission date:: 05/11/19 Discharge date: 05/15/19 HPI HPI: 73yo F admitted through the ER this morning after sustaining a fall at work. 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 She had immediate L hip pain and an inability to ambulate, which prompted evaluation at [facility]. A L intertrochanteric femur fracture was identified. She has a history of R hip fracture treated with TRINI in [place] in 2013. She did well after this surgery and was able to return to full baseline function; she currently uses no ambulatory aids such as a cane. No LOC during today's fall, no other injury reported. Pain is localized to the L hip, no numbness/tingling, no bruising or open wounds. Patient is worried her pain will not be adequately controlled as she states this happened with her prior hip fracture. Her son and grandson is at her bedside; her grandson is her POA in the event she is unable to make her own medical decisions, but the moment she is fully competent. Hospital Course Hospital Course: Patient was admitted and the following day underwent repair of her left hip fracture. The first 24 hours postop patient became a little confused and I believe this was due to the frequency with which she was receiving her narcotic. Patient readily admitted she had low pain tolerance and was being given narcotic-based pain medication as requested. This led to the patient becoming mildly confused. Adjustments were made in her pain treatment regimen to include Toradol and discontinuation of IV narcotics. From that point on nursing staff monitored patients level of alertness carefully. Patient returned to her baseline mental status. Patient was identified as having a urinary tract infection that was present on admission and detected only because of insertion of a Cheung catheter per protocol with broken hip. Patient's urine grew E. coli that was ESBL positive and she was placed on IV Invanz. She will continue IV Invanz at discharge to longterm facility for a total of 7 days. Patient did develop postoperative anemia that required 2 units of packed red blood cells on May 13. Discharge hemoglobin was 9.7 Patient was placed on Eliquis 2.5 mg twice daily for DVT prophylaxis and will continue this for 1 month. Patient has hypertension and was continued on her home medications initially. I did discontinue diuretics the 3 days prior to discharge. These may be restarted once patient is transferred to the longterm facility. On May 15 patient was at her baseline level of alertness. She remained dependent upon supplemental oxygen at 3 L/min. She will continue supplemental oxygen at discharge. Lung exam was clear. Chest x-ray was ordered and reviewed prior to discharge. Objective Vital signs: Temp Pulse Resp BP Pulse Ox 98.0 F 73 18 159/72 H 89 L 05/15/19 04:00 05/15/19 04:00 05/15/19 04:00 05/15/19 06:02 05/15/19 04:00 no acute distress - *Routine HEENT Exam Head: Present: normocephalic Eye: Present: EOMI ENT: Present: mucous membranes moist - *Routine Respiratory Exam Present: CTA bilaterally - *Routine Cardiovascular Exam Present: RRR, Normal S1, Normal S2. Absent: murmur - *Routine Abdominal Exam Present: soft, normoactive bowel sounds. Absent: tenderness, distended - *Routine Extremities Exam Present: pulses intact. Absent: cyanosis, clubbing, edema Results Labs on day of discharge: Labs from last 24 hours 05/15/19 05/15/19 05/15/19 06:08 05:58 05:58 WBC 6.8 RBC 3.34 L Hgb 9.7 L Hct 28.8 L MCV 86.4 MCH 29.0 MCHC 33.6 RDW 16.3 Plt Count 138 L MPV 9.6 Neut % (Auto) 76.7 Lymph % (Auto) 13.5 Hoke % (Auto) 6.0 Eos % (Auto) 3.6 Baso % (Auto) 0.2 Neut # (Auto) 5.2 Lymph # (Auto) 0.9 Hoke # (Auto) 0.4 Eos # (Auto) 0.2 Baso # (Auto) 0.0 Sodium 140 Potassium 3.2 L Chloride 105 Carbon Dioxide 29 Anion Gap 9.2 BUN 27 H Creatinine 0.96 Estimated Creat Clear 47 Estimated GFR 57 L Est GFR ( Amer) 69 Glucose 151 H POC Glucose 153 H Calcium 7.7 L 05/14/19 05/14/19 05/14/19 21:26 17:59 12:06 WBC RBC Hgb Hct MCV MCH MCHC RDW Plt Count MPV Neut % (Auto) Lymph % (Auto) Hoke % (Auto) Eos % (Auto) Baso % (Auto) Neut # (Auto) Lymph # (Auto) Hoke # (Auto) Eos # (Auto) Baso # (Auto) Sodium Potassium Chloride Carbon Dioxide Anion Gap BUN Creatinine Estimated Creat Clear Estimated GFR Est GFR ( Amer) Glucose POC Glucose 312 H* 381 H* 118 H Calcium DS: Diagnosis - Discharge Diagnosis (1) Closed intertrochanteric fracture of left hip Status: Acute (2) Type 2 diabetes mellitus, controlled Status: Acute (3) Hypertension Status: Acute (4) Postoperative hypoxia Status: Acute (5) E. coli UTI Status: Acute (6) ESBL (extended spectrum beta-lactamase) producing bacteria infection Status: Acute (7) Postoperative anemia due to acute blood loss Status: Acute Discharge Plan - Patient Discharge Instructions ACTIVITY: Continue current activity DIET: continue same diet Patient Instructions: Hip Replacement, DI for Hip Fracture, DI for Hip Replacement, DI for Diabetes Type 2, How to Prevent Falls, DI for Surgical Site Infection, Extended Spectrum Beta-Lactamase Infection, DI for Extended Spectrum Beta-Lactamase Infection - Follow up Plan Follow up with: Rhona Lisa MD [Physician] - Disposition: er [facility] Home Medications: Home Medications Medication Instructions Recorded Confirmed Type amlodipine 10 mg tablet 10 mg PO DAILY 05/10/17 05/11/19 History escitalopram oxalate 20 mg tablet 20 mg PO BID 05/10/17 05/11/19 History furosemide 20 mg tablet 20 mg PO DAILY 05/10/17 05/11/19 History hydrochlorothiazide 25 mg tablet 25 mg PO DAILY 05/10/17 05/11/19 History insulin glargine U-300 conc 300 70 unit SQ HS 05/10/17 05/11/19 History unit/mL (1.5 mL) subcutaneous pen metformin 1,000 mg tablet 1,000 mg PO BID 05/10/17 05/11/19 History estradiol 1 mg tablet 1 mg PO QDAY 30 Days #30 tab 02/17/19 05/11/19 Rx raloxifene 60 mg tablet 60 mg PO QDAY #30 tab 02/17/19 05/11/19 Rx Cetirizine HCl [Allergy] 10 mg PO DAILY 05/11/19 05/11/19 History Multivit-Min/FA/Lycopen/Lutein 1 each PO DAILY 05/11/19 05/11/19 History [Centrum Silver Tablet] Pilocarpine HCl 5 mg PO TID 05/11/19 05/11/19 History Potassium Chloride 10 meq PO BID 05/11/19 05/11/19 History Trazodone HCl [Desyrel 50mg tablet] 50 mg PO HSP PRN 05/11/19 05/11/19 History carvediloL [Carvedilol 3.125mg Tab] 3.125 mg PO BID 05/11/19 05/11/19 History Ertapenem Sodium [Invanz 1gm Vial] 1 gm IV Q24H 5 Days vial 05/15/19 Rx Oxycodone HCl/Acetaminophen 1 each PO Q4HP PRN #120 tab 05/15/19 Rx [Percocet 5/325mg tablet] Sennosides/Docusate Sodium 1 tab PO DAILY #30 tab 05/15/19 Rx [Senokot-S Tablet] Prescriptions/Medication Reconciliation: New Insulin Lispro [HumaLOG 100 units/mL 3mL vial (SSI)] 0 unit SQ ACHS ml Oxycodone HCl/Acetaminophen [Percocet 5/325mg tablet] 1 each PO Q4HP PRN #120 tab PRN Reason: Moderate To Severe Pain Sennosides/Docusate Sodium [Senokot-S Tablet] 1 tab PO DAILY #30 tab Ertapenem Sodium [Invanz 1gm Vial] 1 gm IV Q24H 5 Days vial Continued escitalopram oxalate 20 mg tablet 20 mg PO BID metformin 1,000 mg tablet 1,000 mg PO BID amlodipine 10 mg tablet 10 mg PO DAILY furosemide 20 mg tablet 20 mg PO DAILY estradiol 1 mg tablet 1 mg PO QDAY 30 Days #30 tab raloxifene 60 mg tablet 60 mg PO QDAY #30 tab hydrochlorothiazide 25 mg tablet 25 mg PO DAILY carvediloL [Carvedilol 3.125mg Tab] 3.125 mg PO BID Potassium Chloride 10 meq PO BID Pilocarpine HCl 5 mg PO TID Trazodone HCl [Desyrel 50mg tablet] 50 mg PO HSP PRN PRN Reason: Sleep Multivit-Min/FA/Lycopen/Lutein [Centrum Silver Tablet] 1 each PO DAILY Cetirizine HCl [Allergy] 10 mg PO DAILY Discontinued insulin glargine U-300 conc 300 unit/mL (1.5 mL) subcutaneous pen 70 unit SQ HS - Problem Reconciliation Problems Reviewed?: Yes
--- NOTE | 2019-05-15 12:52 | Progress Note ---
Subjective Date: 05/15/19 Time: 09:00 Principal diagnosis: s/p IMN L femur for IT fx Interval history: The patient is well this morning; pain is well-controlled with oral medication. No further drainage from L hip. PN: Obj Ex Vital signs: Temp Pulse Resp BP Pulse Ox 98.9 F 71 19 171/74 H 90 L 05/15/19 08:00 05/15/19 08:00 05/15/19 08:00 05/15/19 08:00 05/15/19 08:00 - Routine Extremities Exam Comments: L hip dressings c/d/i, no strikethrough --> dressings changed, incisions c/d/i w/o active drainage moderate tenderness L hip L calf soft, non-tender; negative singh's +DF/PF/EHL LLE SILT distally LLE palpable pedal pulses LLE - Urinary Catheter Management Cheung Cath placed during this visit: no Progress Note: A&P (1) Closed intertrochanteric fracture of left hip Status: Acute (2) Type 2 diabetes mellitus, controlled Status: Acute (3) Hypertension Status: Acute (4) Postoperative hypoxia Status: Acute (5) E. coli UTI Status: Acute (6) ESBL (extended spectrum beta-lactamase) producing bacteria infection Status: Acute (7) Postoperative anemia due to acute blood loss Status: Acute Assessment and Plan for All Diagnoses:: 73yo F POD 3 s/p IMN L femur for IT fx/femoral shaft fx -- continue WBAT LLE -- continue PT/OT once d/c to SNF -- change dressings once daily -- ok to shower at SNF, no tub baths/whirlpools -- DVT prophy per Dr. Goodwin -- f/u with me in 2 weeks with XR L hip
== END 2019-05-15 09:50 | DRG 481 ==
LOC: ER 08:20 → 2ND 09:39
PROVIDERS: ADMIT Family Medicine; ATTEND Family Medicine
CPT/HCPCS: 36415; 71010; 71020; 71045; 71046; 73502; 73552; 76000; 80048; 80053; 81001; 82803; 82962; 83036; 85014; 85018; 85025; 85610; 86850; 87086; 87088; 87186; 93005; 96374; 96375; 97116; 97163; 97166; 97530; 97535; 99284; C1713; C1769; J1335; J2405; P9016

== ENCOUNTER → 2019-05-29 09:40 | Outpatient (CLI) | payer OTHER, SELFPAY ==
--- NOTE | 2019-05-29 09:49 | XR_ITS ---
PROCEDURE: XR HIP LT 2-3V W/PELVIS CLINICAL INDICATION: S/P hip FX Follow-up fracture COMPARISON: XR HIP LT 2-3V W/PELVIS from 05/11/2019 XR HIP RT 2-3V W/PELVIS from 05/12/2019 XR FEMUR LT 2V from 05/12/2019 FINDINGS: There is gamma nail in the left femoral neck with long intramedullary derick stabilizing the comminuted proximal shaft femoral fracture. In the mid aspect of the femur there is a lucency from screw track placement. There is some heterotopic ossification adjacent to this lucency. There is good alignment of the femur fracture fragments with exception of the lesser tuberosity fragment which is displaced medially and superiorly. Skin clips are present along the lateral hip and proximal thigh. Bipolar prosthesis is present on the right. IMPRESSION: Good alignment status post ORIF left mid and proximal femur fracture Dictated by: José Miguel Gaming MD 05/29/2019 10:32 Electronically signed by José Miguel Gaming MD in [place] 05/29/2019 10:32
== END ==
PROVIDERS: PCP Family Medicine; Visit Provider Orthopaedic Surgery
DX: S72.142A Displaced intertrochanteric fracture of left femur, initial encounter for closed fracture (principal)
CPT/HCPCS: 73502

== ENCOUNTER → 2019-06-26 12:27 | Outpatient (CLI) | payer OTHER, MEDICARE, SELFPAY ==
--- NOTE | 2019-06-26 12:33 | XR_ITS ---
PROCEDURE: XR HIP LT 2-3V W/PELVIS CLINICAL INDICATION: hip fracture COMPARISON: XR HIP LT 2-3V W/PELVIS from 05/29/2019 FINDINGS: The gamma nail and intramedullary derick are stable transfixing the fracture of the proximal femoral shaft. There is persistent medial and superior displacement of the lesser trochanter fracture fragment. There is no definite callus formation seen at the proximal femoral fracture. The right total hip prosthesis is again noted. IMPRESSION: Stable ORIF fracture proximal left femur Dictated by: Dr. Eugenio Loo MD 06/26/2019 13:[address] Eugenio Loo MD in [place] 06/26/2019 13:51
--- NOTE | 2019-06-26 12:33 | XR_ITS ---
PROCEDURE: XR FEMUR LT 2V CLINICAL INDICATION: femur pain COMPARISON: No exams were available for comparison FINDINGS: AP lateral oblique films show the long intramedullary derick extending the length of the femur transfixing the fracture of the proximal femur. The distal extent of the derick is fixated by transverse oriented threaded screw. There is no callus formation seen at the distal extent of the fracture. IMPRESSION: Satisfactory ORIF fracture proximal femur Dictated by: Dr. Eugenio Loo MD 06/26/2019 13:[address] Eugenio Loo MD in [place] 06/26/2019 13:53
== END ==
PROVIDERS: PCP Family Medicine; Visit Provider Orthopaedic Surgery
DX: S72.142A Displaced intertrochanteric fracture of left femur, initial encounter for closed fracture (principal)
CPT/HCPCS: 73502; 73552

== ENCOUNTER → 2019-07-27 13:44 | Outpatient (CLI) | payer OTHER, MEDICARE, SELFPAY ==
--- NOTE | 2019-07-27 13:49 | XR_ITS ---
PROCEDURE: XR HIP LT 2-3V W/PELVIS CLINICAL INDICATION: sp intramedullary nailing left femur, sx 05/12/2019 Follow-up surgery COMPARISON: XR HIP LT 2-3V W/PELVIS from 06/26/2019 FINDINGS: Left femoral gamma nail and intramedullary derick remains in place stabilizing the comminuted subtrochanteric fracture with good alignment. Nondisplaced midshaft femur fracture also noted with good alignment. There is some periosteal calcification at the mid shaft of the femur laterally at the region of the previously noted screw hole. IMPRESSION: Good alignment status post ORIF subtrochanteric and mid femoral fracture Dictated by: José Miguel Gaming MD 07/27/2019 14:23 Electronically signed by José Miguel Gaming MD in [place] 07/27/2019 14:23
== END ==
PROVIDERS: PCP Family Medicine; Visit Provider Orthopaedic Surgery
DX: Z09 Encounter for follow-up examination after completed treatment for conditions other than malignant neoplasm (principal); S72.145D Nondisplaced intertrochanteric fracture of left femur, subsequent encounter for closed fracture with routine healing
CPT/HCPCS: 73502

== ENCOUNTER 2019-08-20 15:00 | Outpatient (RCR) | payer MEDICARE, SELFPAY ==
--- NOTE | 2019-08-17 11:46 | HMH.PTOPEV ---
PT Outpatient Evaluation Rehab PT Outpatient Evaluation Start: 08/17/19 11:13 Freq: Status: Active Protocol: Document 08/17/19 11:13 [email or web address] (Rec: 08/17/19 11:46 [email or web address] [id number]) Electronically Signed By Bhavesh Wang, PT 08/17/19 11:13 Outpatient Therapy Subjective History Subjective History Pt reports h/o chronic neck pain for 40+yrs, with exacerbation over the last 2-3 months. Pt reports pain starts at base of skull and radiates into B UTmm. Pt reports no significant changes with activity level. Chief Complaint Pain,Stiff Symptom Type Ache,Dull Symptoms Relieved By Rest/Positioning,Ice Symptoms Aggravated By Lifting Prior Functional Limitations Reaching,Lifting,Housework Current Functional Limitations Reaching,Lifting,Housework Symptom Description Constant but Variable Level of pain today (0-10) 5 Pain scale - at its best (0-10) 5 Pain scale - at its worst (0-10) 8 Cervical Eval Palpation Cervical Muscles R Cervical Paraspinal,L Cervical Paraspinal,R Suboccipital,L Suboccipital,R CT Junction,L CT Junction,R Upper Trapezius,L Upper Trapezius Cervical/Thoracic Palpation Findings Tenderness,Trigger Point, Muscle Guarding Posture Head/C-Spine Posture Sitting Position Flexed Head/C-Spine Posture Standing Position Flexed Flexibility Deficits Upper Trapezius Muscle Length (R) Moderate Tightness,(L) Moderate Tightness Passive Joint Mobility Cervical PIVM Dec: R OA L OA R AA L AA R C2/3 L C2/3 R C3/4 L C3/4 R C4/5 L C4/5 R C5/6 L C5/6 R C6/7 L C6/7 R C7/T1 L C7/T1 AROM Cervical Spine Extension Active Range of 0-20 Motion (degrees) Cervical Spine Flexion Active Range of 0-40 Motion (degrees) Cervical Spine Right Lateral Flexion 0-20 Active Range of Motion (degrees) Cer
== END 2019-08-20 15:05 | disposition home or self-care (01) ==
LOC: PT 15:00
PROVIDERS: PCP Family Medicine; Visit Provider Family Medicine
DX: M54.2 Cervicalgia (principal); M25.511 Pain in right shoulder; M25.512 Pain in left shoulder
CPT/HCPCS: 97010; 97014; 97035; 97163; G0283

== ENCOUNTER → 2019-08-28 13:20 | Outpatient (CLI) | payer OTHER, SELFPAY ==
--- NOTE | 2019-08-28 13:34 | XR_ITS ---
PROCEDURE: XR FEMUR LT 2V CLINICAL INDICATION: hip FX FU Follow-up ORIF COMPARISON: XR FEMUR LT 2V from 06/26/2019 XR HIP LT 2-3V W/PELVIS from 07/27/2019 XR HIP LT 2-3V W/PELVIS from 08/28/2019 FINDINGS: There is a gamma nail with long left intramedullary derick in place stabilizing the subtrochanteric fracture of the left hip. There is medial displacement of the lesser trochanter. There is good alignment of the main fracture fragments. In addition, there is oblique fracture of the midshaft of the femur. There is good alignment of this fracture fragment as well. Distal aspect of the intramedullary derick has an unremarkable appearance. Incidental note is made right hip hemiarthroplasty in good position. Other findings:None. IMPRESSION: Good alignment status post ORIF left proximal and mid shaft femoral fractures with long intramedullary derick and gamma nail in place. Dictated by: José Miguel Gaming MD 08/28/2019 13:51 Electronically signed by José Miguel Gaming MD in [place] 08/28/2019 13:51
== END ==
PROVIDERS: PCP Family Medicine; Visit Provider Orthopaedic Surgery
DX: S72.145A Nondisplaced intertrochanteric fracture of left femur, initial encounter for closed fracture (principal)
CPT/HCPCS: 73502; 73552

== ENCOUNTER 2019-10-01 13:00 | Outpatient (RCR) | payer OTHER, SELFPAY ==
--- NOTE | 2019-07-06 14:21 | HMH.PTOPEV ---
PT Outpatient Evaluation Rehab PT Outpatient Evaluation Start: 07/06/19 13:42 Freq: Status: Active Protocol: Document 07/06/19 13:54 [email or web address] (Rec: 07/06/19 14:21 [email or web address] [id number]) Electronically Signed By Herminio Luo, PT 07/06/19 13:54 Outpatient Therapy Subjective History Subjective History This is the initial physical therapy evaluation for Maribel Jaramillo. Pt is a 73 y/o female referred to PT s/p fall at work which caused L femur fx. Pt had fall on 05/11/19, IMN placement 05/12/19. Pt was at SNF x 3 weeks, PT x 3 weeks and now is referred to OPPT for coninued strengthening and conditioning. 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 Chief Complaint Pain,Stiff,Weakness Symptom Type Ache,Throb,Sharp,Stabbing Symptoms Relieved By Rest/Positioning,Ice Symptoms Aggravated By Standing,Physical Activity, Walking Prior Functional Limitations None Current Functional Limitations Housework,Sleeping,Standing, Squatting,Recreation Activity, Walking,Stairs Symptom Description Intermittent Level of pain today (0-10) 6 Pain scale - at its best (0-10) 0 Pain scale - at its worst (0-10) 10 Hip/Knee Eval Gait Observation General Gait Pattern Observation Antalgic Gait Assistive Device Assistive Devices Rolling / Wheeled Walker Palpation Tenderness left Hip Palpation Findings Tenderness MMT right Hip Strength Reason Not Measured WFL left Hip Flexion Strength Grade 4 Good Hip Abduction Strength Grade 4 Good Hip Adduction Strength Grade 4 Good Knee Extension Strength Grade 4 Good Knee Flexion Strength Grade 4 Good ROM right Hip ROM Reason Not Measured Within Functional Limits Knee ROM Reason Not Measured Within Functional Limits left Hip ROM Reason Not Measured Within Functional Limits Knee ROM Reason Not Measured Within Functional Limits Special Tests Hip Caprice Test Positive Left Chris Test Positive Outpatient Therapy Assessment Impairments Problems/Impairmments Palpation Tenderness,Impaired Range of Motion,Impaired Strength,Impaired Endurance, Impaired Transfers,Impaired Gait Pattern,Impaired Walking,
== END 2019-10-01 13:50 | disposition home or self-care (01) ==
LOC: PT 13:00
PROVIDERS: Visit Provider Orthopaedic Surgery
DX: S72.145D Nondisplaced intertrochanteric fracture of left femur, subsequent encounter for closed fracture with routine healing (principal)
CPT/HCPCS: 97010; 97014; 97110; 97112; 97116; 97163; 97164; 97530; G0283

== ENCOUNTER → 2019-10-02 13:35 | Outpatient (CLI) | payer OTHER, MEDICARE, SELFPAY ==
--- NOTE | 2019-10-02 13:41 | XR_ITS ---
PROCEDURE: XR HIP LT 2-3V W/PELVIS CLINICAL INDICATION: hip FU Follow-up hip fracture/ COMPARISON: XR HIP LT 2-3V W/PELVIS from 08/28/2019 XR FEMUR LT 2V from 10/02/2019 FINDINGS: Prior ORIF of the left hip with gamma nail and long intramedullary derick in place. There is good alignment of the major fracture fragments. There is persistent medial displacement of the lesser trochanter. Minimal heterotopic ossification noted along the greater trochanter region. There is good alignment of the proximal femoral shaft fracture with developing callus formation. There has been a prior right hip hemiarthroplasty. The long intramedullary derick is in good position distally. IMPRESSION: Status post ORIF with healing of left hip and proximal femoral shaft fracture with good alignment Dictated by: José Miguel Gaming MD 10/02/2019 14:15 Electronically signed by José Miguel Gaming MD in [place] 10/02/2019 14:15
== END ==
PROVIDERS: PCP Family Medicine; Visit Provider Orthopaedic Surgery
DX: S72.145A Nondisplaced intertrochanteric fracture of left femur, initial encounter for closed fracture (principal)
CPT/HCPCS: 73502; 73552

== ENCOUNTER → 2019-10-23 12:25 | Outpatient (CLI) | payer OTHER, MEDICARE, SELFPAY ==
--- NOTE | 2019-10-23 12:26 | XR_ITS ---
PROCEDURE: XR HIP LT 2-3V W/PELVIS CLINICAL INDICATION: lt hip pain; S/P hip Fx COMPARISON: XR HIP LT 2-3V W/PELVIS from 05/29/2019 XR HIP LT 2-3V W/PELVIS from 10/02/2019 FINDINGS: The gamma nail remains in good position within the femoral neck and head. The femoral head is viable. The long intramedullary derick extends the length of the femur transfixing the subtrochanteric transverse fracture diametaphyseal zone of the proximal femur. There is an additional oblique fracture of the mid shaft of the femur which shows interval evidence of healing when compared to previous studies. Again noted is the bipolar total hip prosthesis right-side. IMPRESSION: Status post ORIF subtrochanteric transverse fracture and oblique fracture of the mid to proximal femoral shaft Dictated by: Dr. Eugenio Loo MD 10/23/2019 12:[address] Eugenio Loo MD in [place] 10/23/2019 12:52
== END ==
PROVIDERS: PCP Family Medicine; Visit Provider Orthopaedic Surgery
DX: S72.145A Nondisplaced intertrochanteric fracture of left femur, initial encounter for closed fracture (principal)
CPT/HCPCS: 73502

== ENCOUNTER → 2019-11-27 12:41 | Outpatient (CLI) | payer OTHER, MEDICARE, SELFPAY ==
--- NOTE | 2019-11-27 12:47 | XR_ITS ---
PROCEDURE: XR HIP LT 2-3V W/PELVIS CLINICAL INDICATION: Hip pain COMPARISON: CR XR FEMUR LT 2V from 10/02/2019 CR XR HIP LT 2-3V W/PELVIS from 10/23/2019 CR XR FEMUR LT 2V from 11/27/2019 FINDINGS: There has been prior ORIF of the left hip with gamma nail and long intramedullary derick stabilizing an intertrochanteric fracture. There is medial displacement of the lesser trochanter and there is some mild heterotopic ossification superior to the intramedullary derick. There is good alignment of the main fracture fragments. There is a nondisplaced healing midshaft fracture of the femur. AP view of the pelvis shows a right hip prosthesis with heterotopic ossification along the right greater trochanter. IMPRESSION: Good alignment status post ORIF left intertrochanteric and midshaft femur fracture Dictated b José Miguel Gaming MD 11/27/2019 15:51 José Miguel Gaming MD in [place] 11/27/2019 15:51
== END ==
PROVIDERS: PCP Family Medicine; Visit Provider Orthopaedic Surgery
DX: S72.145A Nondisplaced intertrochanteric fracture of left femur, initial encounter for closed fracture
CPT/HCPCS: 73502; 73552

== ENCOUNTER 2019-11-30 11:00 | Outpatient (RCR) | payer OTHER, SELFPAY ==
--- NOTE | 2019-11-10 15:57 | HMH.PTOPEV ---
PT Outpatient Evaluation Rehab PT Outpatient Evaluation Start: 11/10/19 15:30 Freq: Status: Active Protocol: Document 11/10/19 15:30 [email or web address] (Rec: 11/10/19 15:57 SERGIO [id number]) Electronically Signed By Herminio Luo, JAYNA 11/10/19 15:30 Outpatient Therapy Subjective History Subjective History This is the initial Physical Therapy evaluation for Maribel Jaramillo. Pt is a 73 y/o female referred to PT for c/o L hip and buttocks pain. Pt reports she had fall on May 11 and fx'd L femur. Pt rpeorts sx to fix included derick in leg - pt had IMN placement. Pt did ~ 2 months of therapy for L hip and LLE strengthening and was dc'd to return to work . 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 Pt now reports she is on Worker's comp. for this bout of hip pain. Chief Complaint Pain,Stiff Symptom Type Ache,Throb,Sharp,Dull Symptoms Relieved By Rest/Positioning Symptoms Aggravated By Physical Activity,Twisting Current Functional Limitations Standing,Squatting,Recreation Activity,Walking,Stairs Symptom Description Intermittent Level of pain today (0-10) 7 Pain scale - at its best (0-10) 0 Pain scale - at its worst (0-10) 8 Hip/Knee Eval Gait Observation General Gait Pattern Observation Antalgic Gait Assistive Device Assistive Devices None / NA Palpation Tenderness left Hip Palpation Findings Tenderness MMT Hip Flexion Strength Grade 3+ Fair+ Hip Abduction Strength Grade 3+ Fair+ Hip External Rotation Strength Grade 3+ Fair+ Hip Internal Rotation Strength Grade 3+ Fair+ Special Tests Hip Caprice Test Positive Left Sciatic Nerve Tension Test Negative Left Hip Scouring (Quadrant) Test Positive Left Outpatient Therapy Assessment Impairments Problems/Impairmments Palpation Tenderness,Impaired Strength,Impaired Gait Pattern ,Impaired Walking,Impaired Standing,Impaired Household Care,Impaired Stair Climbing, Impaired Work Activities, Subjective C/O Pain,Impaired Self Care/Self Management Progn
== END 2019-11-30 11:45 | disposition home or self-care (01) ==
LOC: PT 11:00
PROVIDERS: PCP Family Medicine; Visit Provider Orthopaedic Surgery
DX: M25.552 Pain in left hip (principal)
CPT/HCPCS: 97010; 97014; 97110; 97163; G0283

== ENCOUNTER → 2019-12-31 14:11 | Outpatient (POV) | payer MEDICARE, SELFPAY ==
[2019-12-31 14:44] VITALS: BP 112/74; PULSE 57; RESP 18; O2SAT 98; BMI 24.0
--- NOTE | 2019-12-31 14:48 | HMH.PAINSOAP ---
[facility] Pain Management SOAP Note Subjective:: Patient is a pleasant 74-year-old white female who presents today for follow-up. She was last seen in the clinic in 2019. Patient says since being in the clinic, she had a fall at work causing a left hip fracture as well as a left femur fracture. She did undergo surgical intervention with Dr. Sparks. Patient says that unfortunately after undergoing the surgery, she is continued to have severe pain. She says that she has asked Dr. Sparks for oral opiates, however, Dr. Sparks did inform her she was only able to provide her with Tylenol 3. Patient says she is suffered from pain because of not having any oral medications . Patient I did discuss that we will not be able to provide any type of oral opiates as well, however, we can provide anti-inflammatories. Her pain primarily is in her low back. She has tenderness over bilateral SI joints. She says the pain feels like it is going to cause her to explode in the low back area . She says the pain is also worse with standing and walking. Patient did go back to work part-time. She says that she fell over her mop bucket causing the fractures. Patient says her low back area has been treated with bilateral SI joint injections in the past and she gets up to 90% relief for greater than 2 to 3 months. Review of Systems General: No recent weight changes, no fever, no sleep disturbances Respiratory: No cough, no shortness of air, no recurring pulmonary infections Cardiovascular/peripheral vascular: No chest pain, no palpitations, no edema, no shortness of breath Gastrointestinal: No new onset incontinence, normal bowel movements reported Genitourinary: No new onset incontinence Musculoskeletal: Bilateral low back pain Psychiatric: Normal mood/affect Neurological: [Denies weakness in extremities], [denies balance issues] Objective:: Physical exam General: Alert and oriented x3, no acute distress, pleasant and cooperative, [on room air] Lungs: Respirations even and unlabored, symmetrical chest expansion Eyes: PERRL Musculoskeletal: Flexion and extension of lumbar spine somewhat guarded secondary to pain, deep tendon reflexes normal, strength in upper and lower extremities [5/5], [abnormal gait noted], positive [place]'s test, positive Eduardo's test, positive distraction test Neurological: Speech clear, nuclear radiation engineer equal, no gross sensory deficit Assessment:: Low back pain, sacroiliitis bilateral Plan:: We will schedule patient for bilateral SI joint injections. She is tender over bilateral SI joints with a positive Nerissa, Eduardo's, distraction test. We will also order the patient diclofenac 75 mg 1 tablet p.o. twice daily. We will see her back in the clinic after her injections to reassess her symptoms. The patient has been instructed to contact the clinic if she has any concerns before her next appointment. The patient and I specifically discussed risk factors for COVID19. These risks include, but are not limited to age greater than 60, heart or lung disease, diabetes, immunosuppression, and travel. We also discussed NSAIDs may worsen COVID19 infection or symptoms. Patient should not use NSAIDs to treat COVID19 signs or symptoms. Patient was also informed that any type of corticosteroid of any form (oral or injection) will decrease the patient's immune system response and may increase the likelihood of COVID19 infection and symptoms[address] Dr. Ariza has reviewed this note and agrees with this plan of care. This note was dictated using voice recognition software and make contain errors or omissions. [facility] History I have reviewed the patient's past medical history: Yes Medical History: Reports:: Diabetes Mellitus Type 2, Hyperlipidemia, Hypertension Denies:: Cancer, Diabetes Mellitus Type 1, Internal Pacemaker, MRSA, Seizures *Have you ever received a pneumonia vaccine?: Yes *Have you received a flu vaccine this season?: Yes Other Medical Hist
== END ==
PROVIDERS: PCP Family Medicine; Visit Provider Clinical Nurse Specialist Family Health
DX: M54.5 Low back pain (principal); M46.1 Sacroiliitis, not elsewhere classified
CPT/HCPCS: 99212

== ENCOUNTER 2020-01-15 09:06 | Day surgery (SDC) | payer MEDICARE, SELFPAY ==
[2020-01-15 09:32] VITALS: BP 147/50; PULSE 54; RESP 20; TEMP 36.7; O2SAT 96; BMI 23.6
[2020-01-15 09:48] LABS: POC Glucose,Bedside 251 (70-110)
[2020-01-15 10:28] VITALS: BP 112/74; PULSE 84
[2020-01-15 10:29] VITALS: BP 116/74; PULSE 84; RESP 18; O2SAT 98
[2020-01-15 10:42] VITALS: BP 155/47; PULSE 50; RESP 18; O2SAT 96
--- NOTE | 2020-01-15 11:03 | HMH.PMPROC ---
- Procedure Date: 01/15/20 Time: 11:03 Anesthesiologist:: Evangelista Ariza MD Complications:: None Pre-procedure Diagnosis:: Sacroiliitis Post-procedure Diagnosis:: Same Indications for Procedure:: Patient is a pleasant 74-year-old white female who we are treating for bilateral hip pain. She has had bilateral hip replacements. She is also had a left femur fracture since her last visit. She is tender over both SI joints. She has a positive Eduardo's test bilaterally. She has a positive Nerissa test bilaterally. She is positive SI joint compression test bilaterally. We will do bilateral SI joint injections under fluoroscopy today to help her with her pain symptoms. Procedure Details:: B/L SI joint injection under fluoroscopy Informed consent was obtained and the risks and benefits of the procedure was explained to the patient. The patient was taken to the procedure room and placed prone on the procedure table. The patient was prepped using ChloraPrep. The skin and subcutaneous tissues overlying the SI joints were anesthetized using lidocaine. I placed a 22-gauge needle first in the left SI joint and second in the right SI joint. Needle placement was confirmed with dye. After this we injected 5 mL bupivacaine 0.25% and Depo-Medrol 40 mg into each SI joint. Patient tolerated the procedure well with no complication. Plan and Disposition:: We will follow-up with her in 2 weeks. Will reevaluate her symptoms at that time.
== END 2020-01-15 10:43 | disposition home or self-care (01) ==
LOC: SC.PAINP 09:09
PROVIDERS: PCP Family Medicine; Visit Provider Anesthesiology
DX: M46.1 Sacroiliitis, not elsewhere classified (principal); I10 Essential (primary) hypertension; E11.9 Type 2 diabetes mellitus without complications; K21.9 Gastro-esophageal reflux disease without esophagitis; F32.9 Major depressive disorder, single episode, unspecified; Z90.89 Acquired absence of other organs; Z87.19 Personal history of other diseases of the digestive system; Z90.49 Acquired absence of other specified parts of digestive tract; Z96.649 Presence of unspecified artificial hip joint; Z98.51 Tubal ligation status; Z88.2 Allergy status to sulfonamides; Z79.899 Other long term (current) drug therapy
CPT/HCPCS: 27096; 82962; G0260; J1030; Q9966

== ENCOUNTER → 2020-02-04 08:54 | Outpatient (POV) | payer MEDICARE, SELFPAY ==
[2020-02-04 09:23] VITALS: BP 118/74; PULSE 74; RESP 18; TEMP 36.3; O2SAT 98; BMI 23.6
--- NOTE | 2020-02-04 09:27 | HMH.PAINSOAP ---
[facility] Pain Management SOAP Note Subjective:: Patient is a 74-year-old white female who presents today for follow-up after bilateral SI joint injections. She has history of bilateral hip replacements. She also has a left femur fracture since her last visit. She says that she got approximately 80% relief with her injections. She is having some worsening low back pain, however. Patient says the buttock pain and hip pain has resolved since the injections, however, she says that she has a different type of pain in her low back area. Patient has not had any recent imaging of her lumbar spine. She is seeing a chiropractor for over 40 years. She rates her pain a 5 out of 10 today. Review of Systems General: No recent weight changes, no fever, no sleep disturbances Respiratory: No cough, no shortness of air, no recurring pulmonary infections Cardiovascular/peripheral vascular: No chest pain, no palpitations, no edema, no shortness of breath Gastrointestinal: No new onset incontinence, normal bowel movements reported Genitourinary: No new onset incontinence Musculoskeletal: Low back pain Psychiatric: Normal mood/affect Neurological: [Denies weakness in extremities], [denies balance issues] Objective:: Physical exam General: Alert and oriented x3, no acute distress, pleasant and cooperative, [on room air] Lungs: Respirations even and unlabored, symmetrical chest expansion Eyes: PERRL Musculoskeletal: Flexion and extension of lumbar spine somewhat guarded secondary to pain, deep tendon reflexes normal, strength in upper and lower extremities [5/5], [abnormal gait noted] Neurological: Speech clear, import/export specialist equal, no gross sensory deficit Assessment:: Low back pain with lumbar radiculopathy symptoms, sacroiliitis Plan:: We will schedule the patient for lumbar MRI. She has not had any recent imaging of her lumbar spine. She did get relief with her SI injections, however, she is having different type of pain to her low back area. We will see her back in the clinic after her MRI to discuss a further plan of care. She has been instructed to contact clinic if she has any concerns before her next appointment. The patient and I specifically discussed risk factors for COVID19. These risks include, but are not limited to age greater than 60, heart or lung disease, diabetes, immunosuppression, and travel. We also discussed NSAIDs may worsen COVID19 infection or symptoms. Patient should not use NSAIDs to treat COVID19 signs or symptoms. Patient was also informed that any type of corticosteroid of any form (oral or injection) will decrease the patient's immune system response and may increase the likelihood of COVID19 infection and symptoms[address] Ariza has reviewed this note and agrees with this plan of care. This note was dictated using voice recognition software and make contain errors or omissions. [facility] History I have reviewed the patient's past medical history: Yes Medical History: Reports:: Diabetes Mellitus Type 2, Hyperlipidemia, Hypertension Denies:: Cancer, Diabetes Mellitus Type 1, Internal Pacemaker, MRSA, Seizures *Have you ever received a pneumonia vaccine?: Yes *Have you received a flu vaccine this season?: Yes Other Medical History: Reports: Anemia, Cataracts, Other. Denies: Blood Transfusion Reaction Laterality Cases: Right: Total Hip Replacement, Bilateral: Tonsillectomy Other Surgeries: Yes: Appendectomy, Colonoscopy, EGD, Tubal Ligation, Other. No: Pacemaker Amputation: No Fractures: No - *Social History Smoking Status: Never smoker Tobacco Type: cigarettes # Packs/Day (cigarettes): 1 Alcohol Intake: never Alcohol Intake Frequency:: holidays/special occasions only Substance Use Type: denies use *Occupational Status:: other Housing: house Household Members: other *Travel in the last 8 weeks: None Family Hx:: Anemia, Bleeding Disorder, Diabetes, Heart Attack, Hypertension, Stroke
== END ==
PROVIDERS: PCP Family Medicine; Visit Provider Clinical Nurse Specialist Family Health
DX: M54.5 Low back pain (principal); M54.16 Radiculopathy, lumbar region; M46.1 Sacroiliitis, not elsewhere classified
CPT/HCPCS: 99212

== ENCOUNTER → 2020-02-15 15:37 | Outpatient (CLI) | payer MEDICARE, SELFPAY ==
--- NOTE | 2020-02-15 15:44 | MR_ITS ---
PROCEDURE: MR LUMBAR SPINE WO CON CLINICAL INDICATION: BACK PAIN LBP WORSE ON RT SIDE. SYMPTOMS XYRS. NO INJURY. NO PRIOR. COMPARISON: No exams were available for comparison TECHNIQUE: Standard multiplanar multiecho sequences are performed without contrast. 3-D MIP and myelographic images are also rendered and reviewed FINDINGS: There is normal alignment. The spinal cord ends at the L1 level. T12-L1: Minimal central disc protrusion. L1-L2: Minimal central disc protrusion. L2-L3: Mild bulging disc with mild facet ligamentum hypertrophy. Small posterior annular fissure. Mild bilateral lateral recess and foraminal narrowing. L3-L4: Facet and ligamentum hypertrophy with bilateral lateral recess narrowing right greater than left. L4-5: Facet and ligamentum hypertrophy with bilateral lateral recess narrowing right slightly greater than left. Mild bilateral foraminal narrowing. L5-S1: Bulging disc which is slightly eccentric toward the right with right lateral recess and foraminal narrowing. No bony canal stenosis or extruded herniated disc is evident. Incidental note is made of a 2.8 cm right renal cyst. IMPRESSION: 1. Mild multilevel lumbar spondylosis. There is facet and ligamentum hypertrophy with bulging and protruding discs with lateral recess and foraminal narrowing. Please see above for detailed description at each level. 2. No extruded herniated disc or bony canal stenosis. Dictated by: José Miguel Gaming MD 02/16/2020 13:14 José Miguel Gaming MD in [place] 02/16/2020 13:14
== END ==
PROVIDERS: PCP Family Medicine; Visit Provider Clinical Nurse Specialist Family Health
DX: M54.5 Low back pain (principal)
CPT/HCPCS: 72148; 76376

== ENCOUNTER → 2020-03-21 08:46 | Outpatient (POV) | payer MEDICARE, SELFPAY ==
--- NOTE | 2020-03-21 09:18 | P.CONS_ITS ---
[facility] Pain Management SOAP Note Subjective:: Patient is a pleasant 74-year-old white female who presents today for follow-up. Patient has had multiple cysts SI joint injections and some trigger point injections. Patient has done extremely well she rates her pain today a 0 out of 10. She does have a recent MRI showing degenerative changes. At this time patient would like to follow-up on an as-needed basis. ROS General: no recent weight change, no fever, no sleep disturbances Respiratory: no cough, no shortness of air, no recurring pulmonary infections Cardiovascular/Peripheral Vascular: No chest pain, No palpitations, no edema, no shortness of breath. Gastrointestinal: no new onset incontinence, normal bowel movements reported Genitourinary: no new onset incontinence Musculoskeletal: Back pain at times Psychiatric: normal mood/ affect Neurological: [denies new onset weakness in extremities], [denies new onset balance issues] Objective:: Physical Exam General: Alert and oriented x3, no acute distress, pleasant and cooperative, [on room air] Lungs: Resps E/U, Symmetrical chest expansion Eyes: PERRL Musculoskeletal: Flexion and extension of lumbar spine somewhat guarded secondary to pain, deep tendon reflexes normal, strength in upper and lower extremities [5/5], antalgic gait noted Neurological: speech clear, director cardiac equal, no gross sensory deficits Assessment:: Sacroiliitis, degenerative disc disease lumbar spine lumbar radiculopathy Plan:: Well follow-up with the patient on an as-needed basis she has been instructed to call the office if she has any issues. Dr. Ariza has reviewed this note and agrees with this plan of care. This note was dictated using voice recognition software and may contain errors or omissions [facility] History I have reviewed the patient's past medical history: Yes Medical History: Reports:: Diabetes Mellitus Type 2, Hyperlipidemia, Hypertension Denies:: Cancer, Diabetes Mellitus Type 1, Internal Pacemaker, MRSA, Seizures *Have you ever received a pneumonia vaccine?: Yes *Have you received a flu vaccine this season?: Yes Other Medical History: Reports: Anemia, Cataracts, Other. Denies: Blood Transfusion Reaction Laterality Cases: Right: Total Hip Replacement, Bilateral: Tonsillectomy Other Surgeries: Yes: Appendectomy, Colonoscopy, EGD, Tubal Ligation, Other. No: Pacemaker Amputation: No Fractures: No - *Social History Smoking Status: Never smoker Tobacco Type: cigarettes # Packs/Day (cigarettes): 1 Alcohol Intake: never Alcohol Intake Frequency:: holidays/special occasions only Substance Use Type: denies use *Occupational Status:: other Housing: house Household Members: other *Travel in the last 8 weeks: None Family Hx:: Anemia, Bleeding Disorder, Diabetes, Heart Attack, Hypertension, Stroke
[2020-03-21 09:25] VITALS: BP 125/74; PULSE 65; RESP 18; TEMP 36.6; O2SAT 98; BMI 17.6
== END ==
PROVIDERS: PCP Family Medicine; Visit Provider Clinical Nurse Specialist Family Health
DX: M46.1 Sacroiliitis, not elsewhere classified (principal); M51.16 Intervertebral disc disorders with radiculopathy, lumbar region
CPT/HCPCS: 99212

== ENCOUNTER 2020-06-26 12:15 | Emergency (ER) | payer MEDICARE, SELFPAY ==
[2020-06-26 12:25] VITALS: BP 132/83; PULSE 84; RESP 19; TEMP 36.8; O2SAT 98; BMI 22.6
--- NOTE | 2020-06-26 12:54 | HMH.EDUTC ---
[facility] Disposition Clinical Impression: Encounter for laboratory testing for COVID-19 virus Sinusitis Qualifiers: Sinusitis location: unspecified location Chronicity: unspecified Qualified Code(s): J32.9 - Chronic sinusitis, unspecified Disposition: Home, Self-Care Condition on Discharge: Good Instructions: Sinusitis, DI for Sinusitis, Doxycycline, DI for COVID-19 (Suspected or Confirmed ), Coronavirus Disease 2019, Preventing the Spread of Coronavirus Discharge Instructions Additional Instructions: *Monitor Temp, Over the counter Motrin or Tylenol as directed/as needed Tylenol every 4 hours and Motrin every 6 hours (as long as your family doctor has told you that you can take it) for fever or pain. and straight to ER if unable to lower temp less than 101.0 after medication given *Warm salt water gargles may help to soothe the throat *Throat Lozenges *Warm fluids like tea with honey may help to soothe the throat *Sleep elevated *Humidifier/Vaporizer Your throat swab was sent for culture. Those results are typically sent to your primary care. Be sure to follow up in 2-3 days with your family doctor/primary care physician if no improvement so they can review those result and treat if necessary. If you don?t have a primary care doctor, I recommend you get one but in the mean time, you will have to return to a walk in clinic Follow up IMMEDIATELY for new or worsening symptoms or no Noticeable improvement over the next 48-72 hours. 911 for difficulty breathing or swallowing You were tested for today for COVID19 your test result should be back in the next 24-48 hours, you may call to the [facility] to see if your test results are back in the next 48 hours [phone] [facility] hours are 9am-9pm You was given a handout with instructions for Self Quarantine and Self isolation for while you wait on test results and what to do if they are positive If you are positive the Health Dept will be contacting you also Prescriptions: Doxycycline Monohydrate [Doxycycline [place] 100mg Tab] 100 mg PO Q12 7 Days #14 tab Transmission Status: Received by [id number] Benzonatate [Tessalon Perle 100mg Cap*] 100 mg PO TID PRN #[id number] cap PRN Reason: Cough Transmission Status: Received by [id number] Referrals: Jeremi Goodwin MD [Primary Care Provider] - As needed Time of Disposition: 13:31 Medical Decision Making - Matt Inquiry Pt receiving controlled substance: No Matt was queried for this patient: No Vital Signs: 06/26/20 12:25 06/26/20 13:38 Temperature 98.3 F 98.3 F Temperature Source Oral Pulse Rate 84 Pulse Rate [Right Brachial] 84 Respiratory Rate 19 19 Blood Pressure 132/83 Blood Pressure [Right Arm] 132/83 Blood Pressure Mean [Right Arm] 99 Blood Pressure Source [Right Arm] Automatic Cuff Blood Pressure Position [Right Arm] Sitting 02 Sat by Pulse Oximetry 98 Oxygen Delivery Method Room Air Orders (Tests/Meds): ORDERS Category Date Time Status Covid-19 Nasal PCR ([facility]) Routine Lab 06/26/20 12:23 Received [facility] HPI - General Stated complaint: covid test Time Seen by Provider: 06/26/20 12:54 Mode of Arrival: Ambulatory Source of Information: Patient Limitations: No Limitations Description of Symptoms (Recalled from Triage Doc. by RN): PATIENT C/O HEADACHE, CHEST CONGESTION, COUGH, AND FATIGUE X 1 WEEK HEENT Symptoms (Recalled from RN notes): Yes Resp Symptoms (Recalled from RN notes): Yes Skin Symptoms (Recalled from RN notes): No MS Symptoms (Recalled from RN notes): No Functional Status (Recalled from RN notes): WNL - History of Present Illness Provider Complaint: Patient state that she has been having sinus pain and pressure along with cough and feeling like it is trying to move into her chest States that she is feeling pressure in her upper gums and wanted to get something for her cough. States that she has not been around anyone with COVID State that she has been having symptoms for o
[2020-06-26 13:38] VITALS: BP 132/83; PULSE 84; RESP 19; TEMP 36.8; O2SAT 98
== END 2020-06-26 13:40 | disposition home or self-care (01) ==
PROVIDERS: Emergency Provider Nurse Practitioner; PCP Family Medicine
DX: Z20.822 Contact with and (suspected) exposure to COVID-19 (principal); J32.9 Chronic sinusitis, unspecified; E11.9 Type 2 diabetes mellitus without complications; E78.5 Hyperlipidemia, unspecified; I10 Essential (primary) hypertension; Z79.899 Other long term (current) drug therapy; Z88.2 Allergy status to sulfonamides; Z79.4 Long term (current) use of insulin
CPT/HCPCS: G0463; 99202; U0003

== ENCOUNTER → 2020-08-02 08:35 | Outpatient (POV) | payer MEDICARE, SELFPAY | PROVIDERS: Visit Provider Dermatology | DX: Z00.00 Encounter for general adult medical examination without abnormal findings (principal) ==

== ENCOUNTER → 2020-10-17 08:42 | Outpatient (CLI) | payer MEDICARE, SELFPAY ==
--- NOTE | 2020-10-17 09:01 | FL_ITS ---
PROCEDURE: FL BARIUM SWALLOW CLINICAL INDICATION: hoarseness COMPARISON: No exams were available for comparison TECHNIQUE: In the upright position the patient was observed to swallow barium in both the AP and lateral view. The cervical esophagus was examined under fluoroscopy with images obtained. The patient was then placed prone in the right anterior oblique position and was observed to swallow barium with Valsalva technique . FLUOROSCOPY TIME: 54 seconds FINDINGS: There was no evidence of aspiration. There was normal peristalsis. No filling defects or mucosal abnormalities. No masses or strictures. No hiatal hernia apparent. Esophagus is midline. IMPRESSION: Unremarkable barium swallow Dictated by: José Miguel Gaming MD 10/17/2020 10:32 José Miguel Gaming MD in [place] 10/17/2020 10:32
== END ==
PROVIDERS: PCP Family Medicine; Visit Provider Otolaryngology
DX: R49.0 Dysphonia (principal)
CPT/HCPCS: 74220

== ENCOUNTER → 2020-11-01 11:14 | Outpatient (POV) | payer MEDICARE, SELFPAY | PROVIDERS: Visit Provider Dermatology | DX: Z00.00 Encounter for general adult medical examination without abnormal findings (principal) ==

== ENCOUNTER → 2021-01-23 08:24 | Outpatient (CLI) | payer MEDICARE, SELFPAY ==
--- NOTE | 2021-01-23 08:26 | MM_ITS ---
PROCEDURE: MM DIG SCREENING MAMM BI W/CAD Digital Breast Tomosynthesis Included CLINICAL INDICATION: SCREENING No personal or family history of breast cancer COMPARISON: MG DXLT MM Dig mamm DX unilat LT CAD from 06/11/2017 MG SCBI MM Dig screening mamm BI w/CAD from 02/21/2018 MG MM DIG SCREENING MAMM BI W/CAD from 03/11/2019 TECHNIQUE: Standard CC and MLO images and 3D Tomosynthesis was obtained. R2 CAD reviewed. FINDINGS: Moderate diffuse fibroglandular densities are seen in both breast. There is a benign-appearing calcification breast. CAD markings on each breast were reviewed and they appear to be secondary to faint arterial calcifications. There is no suspicious lesion in either breast and no suspicious microcalcifications. The bilobed nodular density inferior left breast seen previous studies is not definitely seen and likely was a cyst which decompressed. IMPRESSION: Moderate breast density with no suspicious lesions seen BI-RAD Category: 2 Benign Finding(s) FOLLOW-UP: 1YR 1 Year Follow-up (A letter has been sent to the patient regarding results of the study.) Dictated by: Dr. Eugenio Loo MD 01/26/2021 15:52 Dr. Eugenio Loo MD in [place] 01/26/2021 15:52
== END ==
PROVIDERS: PCP Family Medicine; Visit Provider Family Medicine
DX: Z12.31 Encounter for screening mammogram for malignant neoplasm of breast (principal)
CPT/HCPCS: 77063; 77067

== ENCOUNTER → 2021-03-07 10:51 | Outpatient (CLI) | payer MEDICARE, SELFPAY | PROVIDERS: PCP Family Medicine; Visit Provider Nurse Practitioner | DX: Z20.822 Contact with and (suspected) exposure to COVID-19 (principal) | CPT/HCPCS: C9803; U0003; U0005 ==

== ENCOUNTER → 2021-08-18 07:08 | Outpatient (CLI) | payer MEDICARE, SELFPAY ==
[2021-08-18 07:15] LABS: Microscopic, Urine URINE MICROSCOPIC (MICROSCOPIC)
[2021-08-18 07:31] LABS: Appearance,Urine CLEAR (Clear); Basophils # 0.1 K/mm3 (0-0.2); Basophils % 1.1 % (0.1-2.0); Bilirubin,Urine Negative (Negative); Blood, Urine Negative (Negative); Color,Urine YELLOW (Yellow); Eosinophils # 0.2 K/mm3 (0.0-0.4); Eosinophils % 3.5 % (0.1-12.0); Glucose,Urine (UA) Negative (Negative); Hematocrit 31.4 % (37.0-47.0); Hemoglobin 10.6 g/dL (12.2-16.2); Ketones,Urine Negative (Negative); Leukocyte Esterase,Urine TRACE (Negative); Lymphocytes # 1.6 K/mm3 (0.7-4.5); Lymphocytes % 24.2 % (10-50); Mean Corpuscular HGB Conc 33.7 g/dL (31.8-35.4); Mean Corpuscular Hemoglobin 29.4 pg (27.0-31.2); Mean Corpuscular Volume 87.3 fl (81-99); Mean Platelet Volume 9.8 fl (7.4-10.4); Monocytes # 0.2 K/mm3 (0.1-1.0); Monocytes % 3.5 % (1.7-9.3); Neutrophils # 4.6 K/mm3 (1.8-7.8); Neutrophils % 67.8 % (37.0-80.0); Nitrate,Urine Negative (Negative); PH,Urine 5.5 (5.0-8.5); Platelet Count 193 K/mm3 (142-424); Protein,Urine Negative (Negative); Red Blood Count 3.59 M/mm3 (4.20-5.40); Specific Gravity, Urine 1.025 (1.005-1.030); Urobilinogen,Urine 0.2 EU/dl (0.2); White Blood Count 6.8 K/mm3 (4.8-10.8)
[2021-08-18 08:24] LABS: Creatinine,Urine Random 143 mg/dL (Not Estab.)
[2021-08-18 08:35] LABS: Albumin Level 4.2 g/dl (3.5-5.0); Anion Gap 13.8 mEq/L (5-15); Blood Urea Nitrogen 22 mg/dl (7-17); Calcium 8.9 mg/dl (8.4-10.2); Carbon Dioxide 25 mmol/L (22.0-30.0); Chloride 107 mmol/L (98-107); Estimated Glomerular Filt Rate 44 ml/min (>60); GFR (African American) 53 ML/MIN (>60); Glucose 81 mg/dl (74-100); Phosphorous 4.1 mg/dl (2.5-4.5); Potassium 3.8 mmoL/L (3.5-5.1); Sodium 142 mmol/L (136-145)
[2021-08-18 08:54] LABS: Intact Parathyroid Hormone 151.1 pg/mL (7.5-53.5)
== END ==
PROVIDERS: Visit Provider Internal Medicine Nephrology
DX: N18.4 Chronic kidney disease, stage 4 (severe) (principal); E55.9 Vitamin D deficiency, unspecified
CPT/HCPCS: 36415; 80069; 81001; 82306; 82570; 83970; 84155; 85025

== ENCOUNTER → 2021-08-24 12:45 | Outpatient (POV) | payer MEDICARE, SELFPAY | PROVIDERS: Visit Provider Internal Medicine Nephrology | DX: Z00.00 Encounter for general adult medical examination without abnormal findings (principal) ==

== ENCOUNTER → 2021-08-29 14:39 | Outpatient (POV) | payer MEDICARE, SELFPAY | PROVIDERS: Visit Provider Dermatology | DX: Z00.00 Encounter for general adult medical examination without abnormal findings (principal) ==

== ENCOUNTER 2021-10-09 12:48 | Emergency (ER) | payer MEDICARE, SELFPAY ==
[2021-10-09 12:49] VITALS: BP 145/58; PULSE 86; RESP 16; TEMP 36.8; O2SAT 100; BMI 16.6
--- NOTE | 2021-10-09 13:00 | XR_ITS ---
FINAL REPORT CLINICAL HISTORY: cough, SOA FINDINGS: A single portable view of the chest was obtained. The heart size and pulmonary vascularity are within normal limits. The mediastinum is within normal limits. No acute pulmonary abnormality is identified. The bony thorax is intact. IMPRESSION: No active cardiopulmonary disease. Reviewed, Interpreted and Dictated by Trey Gomes III, MD Transcribed by Nilsa Pineda Authenticated and [facility]
[2021-10-09 13:07] LABS: Coronavirus 19, PCR Not Detected (NotDetected); Influenza A, PCR Not Detected (NotDetected); Influenza B, PCR Not Detected (NotDetected)
--- NOTE | 2021-10-09 13:29 | HMH.EDGENADL ---
ED Disposition Clinical Impression: Myalgia URI (upper respiratory infection) Qualifiers: URI type: unspecified viral URI Qualified Code(s): J06.9 - Acute upper respiratory infection, unspecified Disposition: Home, Self-Care Condition on Discharge: Good Instructions: Common Cold Prescriptions: Hydrocod/Acet 5/325 mg [[place] 5/325mg tablet] 1 tab PO Q6HP PRN #7 tab PRN Reason: Moderate Pain Transmission Status: Sent to [facility] Ondansetron [Zofran 4mg ODT] 4 mg PO BIDP PRN #10 tab PRN Reason: Nausea Transmission Status: Pending to [facility] Referrals: Kimmie Mensah MD [Primary Care Provider] - - Critical Care Critical Care Time: No Attestation: On 10/09/21, the high probability of a clinically significant, sudden or life threatening deterioration of the following system(s) required my full and direct attention, intervention and personal management. The time I documented below is in addition to time spent performing reported procedures but includes the following listed in this critical care notation. Medical Decision Making - Medical Records Medical records reviewed: Yes: I reviewed the patient's medical records. - Matt Inquiry Pt receiving controlled substance: No Vital Signs: 10/09/21 12:49 Temperature 98.3 F Temperature Source Oral Pulse Rate [Left Radial] 86 Respiratory Rate 16 Blood Pressure [Right Arm] 145/58 H Blood Pressure Mean [Right Arm] 87 Blood Pressure Source [Right Arm] Automatic Cuff Blood Pressure Position [Right Arm] Sitting 02 Sat by Pulse Oximetry 100 Oxygen Delivery Method Room Air - Lab Data Lab Results 10/09/21 12:55: SARS-CoV-2 (PCR) Not detected, Influenza A Untype (PCR) Not detected, Influenza Type B (PCR) Not detected Orders (Tests/Meds): ED MEDICATIONS Discontinued Medications Generic Name Dose Route Start Last Admin Trade Name Freq PRN Reason Stop Dose Admin Acetaminophen 1,000 mg 10/09/21 13:00 10/09/21 13:06 Acetaminophen 500mg Tab PO 10/09/21 13:01 1,000 mg ONCE ONE Administration Ondansetron HCl 4 mg 10/09/21 13:00 10/09/21 13:06 Ondansetron 4mg Odt SL 10/09/21 13:01 4 mg ONCE ONE Administration - Radiology Data #1 Image(s): Chest Image Reviewed: Yes I reviewed the patient's radiology results, Yes I reviewed the patient's radiology image, Yes I have reviewed radiologist's interpretation Preliminary Findings: Normal/NAD - Reevaluation(s) Time: 14:29 Reevaluation #1: On reevaluation, patient is feeling better. Swabs negative. Chest x-ray unremarkable. Patient is follow-up with PCP in 48 hours. Given strict return precautions. Verbalized understanding. Medical Decision Narrative: 75-year-old female presented to the emergency department with some body aches. Patient symptoms sound consistent with myalgias likely from viral illness. Patient is hemodynamically stable. Afebrile. Work-up initiated. General Adult HPI - General Chief complaint: PAIN Stated complaint: bodyaches, nausea Time Seen by Provider: 10/09/21 12:55 Mode of Arrival: Ambulatory Limitations: No Limitations Description of Symptoms (Recalled from ER Triage Doc. by RN): c/o body aches, body feels like it has heavy weights on it and nauseated - History of Present Illness HPI narrative: 75-year-old female presented to the emergency department with some lethargic and muscle aches. Patient has had the symptoms for the last 3 to 4 days. 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 Patient states that she just has not had a full of energy. She feels like all of her muscles are achy. He has had some mild nasal congestion as well. She denies any headache or change in vision. No focal weakness. No abdominal pain or cramping. No chest pain or shortness of breath. - Related Data Home Medications Medication Instructions Recorded Confirm
[2021-10-09 14:34] VITALS: BP 138/55; PULSE 85; RESP 15; TEMP 36.8; O2SAT 99
== END 2021-10-09 14:34 | disposition home or self-care (01) ==
PROVIDERS: Emergency Provider Emergency Medicine; PCP Family Medicine
DX: J06.9 Acute upper respiratory infection, unspecified (principal); M79.10 Myalgia, unspecified site; R11.0 Nausea; R53.81 Other malaise; R09.81 Nasal congestion; Z20.822 Contact with and (suspected) exposure to COVID-19; I10 Essential (primary) hypertension; E11.9 Type 2 diabetes mellitus without complications; E78.5 Hyperlipidemia, unspecified; E03.9 Hypothyroidism, unspecified; M81.0 Age-related osteoporosis without current pathological fracture; B00.9 Herpesviral infection, unspecified; Z96.641 Presence of right artificial hip joint; Z79.4 Long term (current) use of insulin; Z79.84 Long term (current) use of oral hypoglycemic drugs; Z79.890 Hormone replacement therapy; Z79.899 Other long term (current) drug therapy; Z87.891 Personal history of nicotine dependence; Z82.49 Family history of ischemic heart disease and other diseases of the circulatory system; Z83.3 Family history of diabetes mellitus; Z83.2 Family history of diseases of the blood and blood-forming organs and certain disorders involving the immune mechanism
CPT/HCPCS: 71045; 99283; C9803; U0003; U0005

== ENCOUNTER → 2021-10-11 15:25 | Outpatient (CLI) | payer MEDICARE, SELFPAY ==
[2021-10-11 16:48] LABS: Basophils % 0.8 % (0.1-2.0); Eosinophils # 0.2 K/mm3 (0.0-0.4); Eosinophils % 3.3 % (0.1-12.0); Hematocrit 33.2 % (37.0-47.0); Hemoglobin 10.9 g/dL (12.2-16.2); Lymphocytes # 1.2 K/mm3 (0.7-4.5); Lymphocytes % 22.3 % (10-50); Mean Corpuscular HGB Conc 32.8 g/dL (31.8-35.4); Mean Corpuscular Hemoglobin 29.2 pg (27.0-31.2); Mean Platelet Volume 9.3 fl (7.4-10.4); Monocytes # 0.5 K/mm3 (0.1-1.0); Monocytes % 8.4 % (1.7-9.3); Neutrophils # 3.5 K/mm3 (1.8-7.8); Neutrophils % 65.3 % (37.0-80.0); Platelet Count 251 K/mm3 (142-424); Red Blood Count 3.73 M/mm3 (4.20-5.40); Red Cell Distribution Width 17.3 % (11.5-17.5); White Blood Count 5.4 K/mm3 (4.8-10.8)
[2021-10-11 17:15] LABS: Chloride 101 mmol/L (98-107); Potassium 4.2 mmoL/L (3.5-5.1); Sodium 140 mmol/L (136-145)
[2021-10-11 17:17] LABS: Blood Urea Nitrogen 38 mg/dl (7-17); Estimated Glomerular Filt Rate 34 ml/min (>60); GFR (African American) 41 ML/MIN (>60)
[2021-10-11 17:18] LABS: Alanine Aminotransferase 18 U/L (12-78); Albumin Level 4.1 g/dl (3.5-5.0); Albumin/Globulin Ratio 1.6 (1.1-1.8); Alkaline Phosphatase 52 U/L (38-126); Anion Gap 15.2 mEq/L (5-15); Aspartate Amino Transferase 25 U/L (14-36); Bilirubin,Total 0.8 mg/dl (0.2-1.3); Calcium 9.1 mg/dl (8.4-10.2); Carbon Dioxide 28 mmol/L (22.0-30.0); Globulin 2.5 g/dL (1.3-3.2); Glucose 122 mg/dl (74-100); Total Protein,Serum 6.6 g/dl (6.3-8.2)
== END ==
PROVIDERS: PCP Family Medicine; Visit Provider Family Medicine
DX: R11.0 Nausea (principal)
CPT/HCPCS: 36415; 80053; 85025

== ENCOUNTER → 2021-11-13 08:41 | Outpatient (CLI) | payer MEDICARE, SELFPAY ==
--- NOTE | 2021-11-13 08:47 | XR_ITS ---
FINAL REPORT TECHNIQUE: Bone densitometry calculations of the lumbar spine and left forearm were obtained. CLINICAL HISTORY: . osteoporosis FINDINGS: DEXA BONE DENSITY AXIAL SKELETON Using L1-4, the bone mineral density of the spine is 1.055 g/cm2, corresponding to T-score of 0.1. Classified as normal. Using the left forearm, the bone mineral density of the distal 1/3 is 0.566 g/cm2, corresponding to a T-score of -2.1. Classified as osteopenic. NOTE: T-score: Standard deviation compared with peak bone mass of young adult mean. IMPRESSION: Diminished bone mineral density of the left forearm consistent with osteopenia. Reviewed, Interpreted and Dictated by Antonieta Carcamo MD Transcribed by Ksenia Shah Authenticated and [facility]
== END ==
PROVIDERS: PCP Family Medicine
DX: M81.0 Age-related osteoporosis without current pathological fracture (principal)
CPT/HCPCS: 77080

== ENCOUNTER → 2021-12-18 11:59 | Outpatient (POV) | payer MEDICARE, SELFPAY | PROVIDERS: Visit Provider Internal Medicine Nephrology | DX: Z00.00 Encounter for general adult medical examination without abnormal findings (principal) ==

== ENCOUNTER → 2022-01-08 10:12 | Outpatient (CLI) | payer MEDICARE, SELFPAY | PROVIDERS: Visit Provider Internal Medicine | DX: Z01.818 Encounter for other preprocedural examination (principal); Z20.822 Contact with and (suspected) exposure to COVID-19; Z12.11 Encounter for screening for malignant neoplasm of colon | CPT/HCPCS: C9803; U0003; U0005 ==

== ENCOUNTER 2022-01-10 10:19 | Day surgery (SDC) | payer MEDICARE, SELFPAY ==
[2022-01-08 13:12] VITALS: BMI 22.3
[2022-01-10 11:02] VITALS: BP 142/47; PULSE 54; RESP 16; TEMP 36.3; O2SAT 98
[2022-01-10 11:11] LABS: POC Glucose,Bedside 129 (70-110)
[2022-01-10 11:57] VITALS: O2SAT 97
--- NOTE | 2022-01-10 12:19 | P.PCN_ITS ---
Procedure: Date: 01/10/22 Patient Date of :: 1945 Procedure Performed:: Screening colonoscopy Indications:: Patient is a 76 year old who presents for screening colonoscopy. She reports no prior history of colon polyps Performing Provider:: Albino Newby MD Referring Provider:: Kesha Brown Sedation:: See RN records Procedure:: After placing the patient in the left lateral decubitus position, the co lonoscopy was gently inserted into the rectum and under direct visualization advanced to proximal transverse colon. Color, texture, mucosa, and anatomy of the colon were carefully examined with the scope. Findings:: Anal canal: normal Rectum: normal Sigmoid colon: normal without polyps or inflammatory changes Descending colon: normal without polyps or inflammatory changes Splenic flexure: normal Transverse colon: normal without polyps or inflammatory changes Hepatic flexure: not seen Ascending colon: not seen Cecum: not seen Impression: The colonoscope could not be advanced past the proximal transverse colon due to looping of the colonoscope. Counter abdominal pressure and patient maneuvering would not allow for advancing the colonoscope into the proximal colon. Recommendations:: Recommend barium enema to evaluate cecum and ascending colon Complications:: none Estimated blood obtained (mL): 0
[2022-01-10 12:23] VITALS: BP 120/56; PULSE 54; RESP 16; TEMP 36.1; O2SAT 96
[2022-01-10 12:33] VITALS: BP 140/63; PULSE 55; RESP 16; O2SAT 97
[2022-01-10 12:43] VITALS: BP 141/71; PULSE 56; RESP 16; O2SAT 99
[2022-01-10 12:53] VITALS: BP 166/58; PULSE 55; RESP 16; O2SAT 99
== END 2022-01-10 12:53 | disposition home or self-care (01) ==
PROVIDERS: PCP Family Medicine; Visit Provider Internal Medicine
PROC: 0DJD8ZZ Inspection of Lower Intestinal Tract, Via Natural or Artificial Opening Endoscopic (ICD-10-PCS; CPT 45378; principal; 2022-01-10 11:30)
DX: Z12.11 Encounter for screening for malignant neoplasm of colon (principal); Z79.899 Other long term (current) drug therapy
CPT/HCPCS: G0121; 82962

== ENCOUNTER → 2022-02-12 09:40 | Outpatient (CLI) | payer MEDICARE, SELFPAY ==
--- NOTE | 2022-02-12 09:44 | MM_ITS ---
PROCEDURE INFORMATION: Exam: MG Bilateral Screening 3D Mammography Exam date and time: 02/12/2022 9:53 AM Age: 76 years old Clinical indication: Screening examination. No family history of breast cancer. TECHNIQUE: Imaging protocol: Bilateral Screening tomosynthesis and 2D mammography including computer-aided detection (CAD) when performed. COMPARISON: 1. MG MM DIG SCREENING MAMM BI W/CAD 01/23/2021 8:26 AM 2. MG MM DIG SCREENING MAMM BI W/CAD 03/11/2019 4:24 PM 3. MG SCBI MM Dig screening mamm BI w/CAD 02/21/2018 4:04 PM 4. MG DXLT MM Dig mamm DX unilat LT CAD 06/11/2017 1:58 PM FINDINGS: MAMMOGRAPHY: Breast composition: There are scattered areas of fibroglandular density. Mass: None. Architectural distortion: None. Calcifications: No suspicious calcifications. Asymmetric density: None. Skin thickening: None. Axillary adenopathy: None. IMPRESSION: No mammographic evidence of malignancy. Annual screening is recommended unless otherwise clinically indicated. ASSESSMENT: BI-RADS Category 1: Negative
== END ==
PROVIDERS: PCP Nurse Practitioner Family; Visit Provider Nurse Practitioner Family
DX: Z12.31 Encounter for screening mammogram for malignant neoplasm of breast (principal)
CPT/HCPCS: 77063; 77067

== ENCOUNTER 2022-03-14 09:44 | Day surgery (SDC) | payer MEDICARE, SELFPAY ==
[2022-02-26 14:24] VITALS: BMI 22.3
--- NOTE | 2022-03-14 10:22 | FL_ITS ---
FINAL REPORT TECHNIQUE: Barium contrast was instilled via a rectal catheter into the patient's colon, via gravity drip. Spot and overhead films were performed. A total of 40 images were saved. CLINICAL HISTORY: Incomplete colonoscopy in December 25 min fluoro time COMPARISON: None. FINDINGS: [employer] film demonstrates air throughout the colon. The colon is very redundant, particularly the sigmoid colon. This redundancy of the entire colon causes overlap of multiple loops on multiple views. There is no definite constricting or obstructing lesion identified to the level of the cecum. Fluoroscopy time: 5 minutes. IMPRESSION: No definite constricting or obstructing lesions. Very redundant colon, limiting some views. Reviewed, Interpreted and Dictated by Trey Gomes III, MD Transcribed by Gayle Dan PA-C Authenticated and [facility]
--- NOTE | 2022-03-14 11:09 | SUR.PREOP ---
Patient arrived in preop was scheduled for colonoscopy and preop over phone for procedure. Patient stated that she was not here for colonoscopy but was supposed to have Barium Enema. she stated she had colonoscopy a few months ago. I reviewed the referral from Kesha Parsons APRN and it is for screening colonoscopy referred on 02/15/22. I reviewed report from her previous colonoscopy by Dr Newby and he recommended Barium enema to evaluate cecum and ascending colon Reviewed with Dr Kang and he confers to have BE today. Radiology notified and order placed. Will call Kesha Parsons APRN office to notify of procedure changes
== END 2022-03-14 11:12 | disposition home or self-care (01) ==
LOC: OUTP 09:45
PROVIDERS: PCP Nurse Practitioner Family; Visit Provider Internal Medicine Gastroenterology
PROC: 0DJD8ZZ Inspection of Lower Intestinal Tract, Via Natural or Artificial Opening Endoscopic (ICD-10-PCS; CPT 45378; principal; 2022-03-14 11:00)
DX: Z53.8 Procedure and treatment not carried out for other reasons (principal); Z12.11 Encounter for screening for malignant neoplasm of colon
CPT/HCPCS: 45378; 74270

== ENCOUNTER → 2022-05-08 13:51 | Outpatient (POV) | payer MEDICARE, SELFPAY | PROVIDERS: Visit Provider Dermatology | DX: Z00.00 Encounter for general adult medical examination without abnormal findings (principal) ==

== ENCOUNTER 2022-06-03 07:51 | Emergency (ER) | payer MEDICARE, SELFPAY ==
[2022-06-03 07:53] VITALS: BP 162/63; PULSE 89; RESP 17; TEMP 36.9; O2SAT 97; BMI 22.3
[2022-06-03 08:02] VITALS: BMI 22.3
--- NOTE | 2022-06-03 08:07 | HMH.EDGENADL ---
Discharge Plan Disposition Patient Disposition: Home, Self-Care Condition: Good Prescriptions Prescriptions: New amoxicillin-pot clavulanate [Augmentin] 500-125 mg tablet 1 tab PO Q8H Qty: 30 0RF No Action metformin 1,000 mg tablet 500 mg PO BID amlodipine 10 mg tablet 10 mg PO DAILY escitalopram oxalate 20 mg tablet 20 mg PO DAILY furosemide 20 mg tablet 20 mg PO DAILY Label Comments: TAKE 1 TABLET BY MOUTH ONCE DAILY FOR 30 DAYS lisinopril 5 mg tablet 5 mg PO DAILY Label Comments: TAKE 1 TABLET BY MOUTH ONCE DAILY raloxifene 60 mg tablet 60 mg PO DAILY atorvastatin 80 mg tablet 80 mg PO DAILY Label Comments: TAKE 1 TABLET BY MOUTH ONCE DAILY insulin glargine U-300 conc 300 unit/mL (1.5 mL) insulin pen 30 unit SQ DAILY Label Comments: INJECT 80 UNITS SUBCUTANEOUSLY IN THE EVENING estradiol 1 mg tablet 1 mg PO DAILY peg 3350-electrolytes [GaviLyte-G] 236-22.74-6.74 -5.86 gram recon soln 240 ml PO Q10M Rx Instructions: until fecal effluent is clear - follow mailed instructions trazodone 50 MG tablet 50 mg PO HSP PRN (Reason: Sleep) Label Comments: TAKE 1 TABLET BY MOUTH ONCE DAILY AT BEDTIME NEEDED carvedilol 3.125 MG tablet 3.125 mg PO BID potassium chloride 10 MEQ tablet extended release 10 meq PO BID pilocarpine HCl 5 MG tablet 5 mg PO TID repjjqgx-lma-HW-lycopen-lutein 1 EACH tablet 1 each PO DAILY Referrals Follow up/Referrals: Kesha Parsons APRN [Primary Care Provider] - See instructions Activity Restrictions/Add. Instructions Additional Instructions/Restrictions: Augmentin as prescribed, begin tomorrow morning. Yztz-qvw-bpnjnqg Mucinex. Erel-awy-ehwgqzb Tylenol as needed for pain or fever. Follow-up with primary care provider if not improving in 1 week. Clinical Impressions Clinical Impression: Acute right otitis media, Sinusitis Instructions Patient Instructions: DI for Sinusitis, DI for Middle Ear Infection-Adult Discharge ED Provider: Danish Stubbs General Adult HPI General Chief complaint: Upper Respiratory Infection Stated complaint: wants Covid tested,boadyaches,congestion Time Seen by Provider: 06/03/22 08:07 Mode of Arrival: Ambulatory Limitations: No Limitations Description of Symptoms (Recalled from ER Triage Doc. by RN): PT REPORTS COUGH, CONGESTION, BODY ACHES, HEADACHE AND FEVER. History of Present Illness HPI narrative: Patient states that she has been fatigued for 1 month, but over the past 4 days has developed profuse sinus drainage, nasal congestion, cough, headaches, body aches, subjective fever, earaches. She wants to be tested for COVID and needs a shot to get rid of this drainage . Related Data Home Medications Medication Instructions Recorded Confirmed amlodipine 10 mg tablet 10 mg PO DAILY Hypertension 05/10/17 02/26/22 metformin 1,000 mg tablet 500 mg PO BID Diabetes 05/10/17 02/26/22 carvedilol 3.125 mg tablet 3.125 mg PO BID Hypertension 05/11/19 02/26/22 qkaslnkp-mkw-oqoeu acid 0.4 1 each PO DAILY vitamin 05/11/19 02/26/22 mg-lycopene 300 mcg-lutein 250 mcg tablet pilocarpine HCl 5 mg tablet 5 mg PO TID mouth sores 05/11/19 02/26/22 potassium chloride 10 mEq 10 meq PO BID Supplement 05/11/19 02/26/22 tablet,extended release trazodone 50 mg tablet 50 mg PO HSP PRN Sleep 05/11/19 02/26/22 atorvastatin 80 mg tablet 80 mg PO DAILY Cholesterol 10/13/20 02/26/22 escitalopram oxalate 20 mg tablet 20 mg PO DAILY Anxiety 10/13/20 02/26/22 furosemide 20 mg tablet 20 mg PO DAILY Fluid 10/13/20 02/26/22 lisinopril 5 mg tablet 5 mg PO DAILY High blood pressure 10/13/20 02/26/22 raloxifene 60 mg tablet 60 mg PO DAILY Osteoarthritis 10/13/20 02/26/22 estradiol 1 mg tablet 1 mg PO DAILY hormone 08/02/21 02/26/22 insulin glargine U-300 conc 300 30 unit SQ DAILY Diabetes 08/02/21 02/26/22 unit/mL (1.5 mL) subcutan
--- NOTE | 2022-06-03 08:09 | PC.NURSE ---
DR HORNER AT BEDSIDE
[2022-06-03 08:11] LABS: Coronavirus 19, PCR Not Detected (NotDetected); Influenza A, PCR Not Detected (NotDetected); Influenza B, PCR Not Detected (NotDetected)
--- NOTE | 2022-06-03 08:11 | XR_ITS ---
PROCEDURE INFORMATION: Exam: XR Chest Exam date and time: 06/03/2022 8:11 AM Age: 76 years old Clinical indication: Cough TECHNIQUE: Imaging protocol: Radiologic exam of the chest. Views: 2 views. COMPARISON: CR XR CHEST PORTABLE 10/09/2021 1:18 PM FINDINGS: Lungs: Mild interstitial prominence without acute airspace disease. Pleural spaces: No pleural effusion. Heart/Mediastinum: Normal configuration of the heart. Diaphragm: Mild asymmetric elevation of the right hemidiaphragm. Bones/joints: Degenerative change. Gastrointestinal tract: Nonspecific bowel dilatation the visualized upper abdomen. IMPRESSION: Mild interstitial prominence without acute airspace disease. Additional findings as described above.
--- NOTE | 2022-06-03 08:16 | PC.NURSE ---
RADIOLOGY NOTIFIED OF CXR
--- NOTE | 2022-06-03 08:20 | PC.NURSE ---
PT TO XR
--- NOTE | 2022-06-03 08:23 | PC.NURSE ---
PT RETURNED FROM XR
--- NOTE | 2022-06-03 08:27 | PC.NURSE ---
PT UPDATED BY DR HORNER AT THIS TIME
--- NOTE | 2022-06-03 08:35 | PC.NURSE ---
DR HORNER AT BEDSIDE TO UPDATE PT ON POC
[2022-06-03 08:48] VITALS: BP 144/53; PULSE 73; RESP 18; TEMP 36.8; O2SAT 95
== END 2022-06-03 08:52 | disposition home or self-care (01) ==
PROVIDERS: Emergency Provider Emergency Medicine; PCP Nurse Practitioner Family
DX: J01.90 Acute sinusitis, unspecified (principal); H66.91 Otitis media, unspecified, right ear; J30.9 Allergic rhinitis, unspecified; F41.9 Anxiety disorder, unspecified; E11.9 Type 2 diabetes mellitus without complications; D64.9 Anemia, unspecified; K21.9 Gastro-esophageal reflux disease without esophagitis; E78.5 Hyperlipidemia, unspecified; I10 Essential (primary) hypertension; Z87.440 Personal history of urinary (tract) infections; Z85.828 Personal history of other malignant neoplasm of skin; Z90.49 Acquired absence of other specified parts of digestive tract; Z98.51 Tubal ligation status; Z90.710 Acquired absence of both cervix and uterus; Z20.822 Contact with and (suspected) exposure to COVID-19
CPT/HCPCS: 71046; 96372; 99283; 99284; C9803; J0696; U0003; U0005

== ENCOUNTER → 2022-07-16 09:15 | Outpatient (CLI) | payer MEDICARE, SELFPAY ==
[2022-07-16 09:48] LABS: Basophils # 0.1 K/mm3 (0-0.2); Basophils % 1.1 % (0.1-2.0); Eosinophils # 0.2 K/mm3 (0.0-0.4); Eosinophils % 3.3 % (0.1-12.0); Hematocrit 34.4 % (37.0-47.0); Hemoglobin 11.6 g/dL (12.2-16.2); Lymphocytes # 1.3 K/mm3 (0.7-4.5); Lymphocytes % 19.8 % (10-50); Mean Corpuscular HGB Conc 33.7 g/dL (31.8-35.4); Mean Corpuscular Hemoglobin 28.8 pg (27.0-31.2); Mean Corpuscular Volume 85.6 fl (81-99); Mean Platelet Volume 9.4 fl (7.4-10.4); Monocytes # 0.3 K/mm3 (0.1-1.0); Monocytes % 4.5 % (1.7-9.3); Neutrophils # 4.7 K/mm3 (1.8-7.8); Neutrophils % 71.3 % (37.0-80.0); Platelet Count 219 K/mm3 (142-424); Red Blood Count 4.01 M/mm3 (4.20-5.40); Red Cell Distribution Width 17.3 % (11.5-17.5); White Blood Count 6.5 K/mm3 (4.8-10.8)
[2022-07-16 09:57] LABS: Creatinine,Urine Random 116 mg/dL (Not Estab.)
[2022-07-16 10:11] LABS: Albumin Level 4.1 g/dl (3.5-5.0); Anion Gap 13.1 mEq/L (5-15); Blood Urea Nitrogen 21 mg/dl (7-17); Calcium 8.2 mg/dl (8.4-10.2); Carbon Dioxide 25 mmol/L (22.0-30.0); Chloride 105 mmol/L (98-107); Estimated Glomerular Filt Rate 44 ml/min (>60); GFR (African American) 53 ML/MIN (>60); Glucose 149 mg/dl (74-100); Phosphorous 3.1 mg/dl (2.5-4.5); Potassium 4.1 mmoL/L (3.5-5.1); Sodium 139 mmol/L (136-145)
[2022-07-16 12:16] LABS: Microalbumin/Creatinine Ratio 1680.5
== END ==
PROVIDERS: PCP Nurse Practitioner Family; Visit Provider Internal Medicine Nephrology
DX: N28.9 Disorder of kidney and ureter, unspecified (principal); N18.32 Chronic kidney disease, stage 3b; I10 Essential (primary) hypertension; M81.0 Age-related osteoporosis without current pathological fracture
CPT/HCPCS: 36415; 80069; 82043; 82570; 85025

== ENCOUNTER → 2022-07-30 12:59 | Outpatient (POV) | payer MEDICARE, SELFPAY | PROVIDERS: Visit Provider Internal Medicine Nephrology | DX: Z00.00 Encounter for general adult medical examination without abnormal findings (principal) ==

== ENCOUNTER → 2022-12-25 14:23 | Outpatient (POV) | payer MEDICARE, SELFPAY | PROVIDERS: Visit Provider Dermatology | DX: Z00.00 Encounter for general adult medical examination without abnormal findings (principal) ==

== ENCOUNTER → 2023-01-04 10:12 | Outpatient (CLI) | payer MEDICARE, SELFPAY | PROVIDERS: PCP Nurse Practitioner Family; Visit Provider Nurse Practitioner Family | DX: Z12.31 Encounter for screening mammogram for malignant neoplasm of breast (principal) ==

== ENCOUNTER 2023-02-12 17:59 | Observation (INO) | payer MEDICARE, SELFPAY ==
--- NOTE | 2023-02-12 17:42 | CT_ITS ---
PROCEDURE INFORMATION: Exam: CT Head Without Contrast Exam date and time: 02/12/2023 6:18 PM Age: 77 years old Clinical indication: Injury or trauma; Fall; Blunt trauma (contusions or hematomas); Additional info: Fall, struck fac TECHNIQUE: Imaging protocol: Computed tomography of the head without contrast. Radiation optimization: All CT scans at this facility use at least one of these dose optimization techniques: automated exposure control; mA and/or kV adjustment per patient size (includes targeted exams where dose is matched to clinical indication); or iterative reconstruction. REPORTING DATA: Count of CT and Cardiac NM exams in prior 12 months: This patient has received 0 known CTs and 0 known cardiac nuclear medicine studies in the 12 months prior to the current study. COMPARISON: CR (C SPINE OBL, CSPINE, C SPINE OBL) 10/14/2018 3:58 PM FINDINGS: Brain: Minimal extra-axial hemorrhage along the left frontal convexity. No midline shift or mass effect. Diffuse brain parenchymal volume loss. Moderate hypodensities within the cerebral white matter most consistent with chronic small-vessel ischemic changes. Cerebral ventricles: Ex vacuo dilatation of the ventricles. Paranasal sinuses: Hnbi-gz-duarwpgn mucosal thickening of the paranasal sinuses most prevalent within the frontoethmoid sinuses. Mastoid air cells: Visualized mastoid air cells are well aerated. Orbital cavities: Postsurgical changes of the bilateral orbital lenses. Bones/joints: Minimally comminuted nasal bone fracture with mild right lateral angulation. Soft tissues: Left nasal soft tissue swelling. IMPRESSION: 1. Minimal extra-axial hemorrhage along the left frontal convexity. No calvarial fracture. 2. Minimally comminuted and right laterally angulated nasal bone fracture.
--- NOTE | 2023-02-12 17:42 | CT_ITS ---
PROCEDURE INFORMATION: Exam: CT Maxillofacial Without Contrast Exam date and time: 02/12/2023 6:20 PM Age: 77 years old Clinical indication: Injury or trauma; Fall; Blunt trauma (contusions or hematomas); Nose; Additional info: Fall, broken nose, eval sinuses TECHNIQUE: Imaging protocol: Computed tomography of the face without contrast. Radiation optimization: All CT scans at this facility use at least one of these dose optimization techniques: automated exposure control; mA and/or kV adjustment per patient size (includes targeted exams where dose is matched to clinical indication); or iterative reconstruction. REPORTING DATA: Count of CT and Cardiac NM exams in prior 12 months: This patient has received 0 known CTs and 0 known cardiac nuclear medicine studies in the 12 months prior to the current study. COMPARISON: CT HEAD/BRAIN WO CON 02/12/2023 6:18 PM FINDINGS: Orbital cavities: Orbits are normal. Globes are unremarkable. Bones/joints: Minimally comminuted nasal bone fracture with mild right lateral angulation. Paranasal sinuses: Rvlf-bp-vbgtaydt mucosal thickening of the paranasal sinuses most prevalent within the frontoethmoid sinuses. Soft tissues: Left nasal soft tissue swelling. Brain: Known minimal extra-axial hemorrhage along the left frontal convexity, better visualized and described on concurrently performed CT head. Nasal cavity: Left nasal septal deviation. IMPRESSION: Minimally comminuted and right laterally angulated nasal bone fracture.
[2023-02-12 17:45] VITALS: BP 168/70; PULSE 71; RESP 18; TEMP 36.7; O2SAT 97; BMI 22.3
--- NOTE | 2023-02-12 18:07 | HMH.EDGENADL ---
Discharge Plan Disposition Patient Disposition: Home, Self-Care Chief Complaint: Fall Prescriptions Prescriptions: No Action metformin 1,000 mg tablet 500 mg PO BID amlodipine 10 mg tablet 10 mg PO DAILY escitalopram oxalate 20 mg tablet 20 mg PO DAILY furosemide 20 mg tablet 20 mg PO DAILY Patient Comments: TAKE 1 TABLET BY MOUTH ONCE DAILY FOR 30 DAYS lisinopril 5 mg tablet 5 mg PO DAILY Patient Comments: TAKE 1 TABLET BY MOUTH ONCE DAILY raloxifene 60 mg tablet 60 mg PO DAILY atorvastatin 80 mg tablet 80 mg PO DAILY Patient Comments: TAKE 1 TABLET BY MOUTH ONCE DAILY insulin glargine U-300 conc 300 unit/mL (1.5 mL) insulin pen 30 unit SQ DAILY Patient Comments: INJECT 80 UNITS SUBCUTANEOUSLY IN THE EVENING estradiol 1 mg tablet 1 mg PO DAILY peg 3350-electrolytes [GaviLyte-G] 236-22.74-6.74 -5.86 gram recon soln 240 ml PO Q10M Rx Instructions: until fecal effluent is clear - follow mailed instructions trazodone 50 MG tablet 50 mg PO HSP PRN (Reason: Sleep) Patient Comments: TAKE 1 TABLET BY MOUTH ONCE DAILY AT BEDTIME NEEDED carvedilol 3.125 MG tablet 3.125 mg PO BID potassium chloride 10 MEQ tablet extended release 10 meq PO BID pilocarpine HCl 5 MG tablet 5 mg PO TID witlctgf-mcl-EN-lycopen-lutein 1 EACH tablet 1 each PO DAILY amoxicillin-pot clavulanate [Augmentin] 500-125 mg tablet 1 tab PO Q8H Qty: 30 0RF Referrals Follow up/Referrals: Provider,Referral, MD [Primary Care Provider] - See instructions Clinical Impressions Clinical Impression: Closed fracture nasal bone, Acute subdural hematoma, Fall Discharge ED Provider: Reji Menard General Adult HPI General Chief complaint: Fall Stated complaint: fall Time Seen by Provider: 02/12/23 18:00 Mode of Arrival: EMS Source of Information: Patient Limitations: No Limitations Description of Symptoms (Recalled from ER Triage Doc. by RN): Patient reports getting out of her car and stumbling on her feet and falling face first on the concrete injuring her upper lip, nose and left arm. denies LOC. History of Present Illness HPI narrative: 77-year-old female history of hypertension, diabetes presenting with facial injury. Patient states that she was walking outside toward her car, stumbled, fell face first onto concrete while walking her dog. Did not lose consciousness. Family called EMS and patient was transported to the ED. Patient states her pain is 6 out of 10, does not radiate, primarily in her lip, but also having left elbow and humerus pain. No neurovascular deficits. No midline neck pain, patient is not on blood thinners. Related Data Home Medications Medication Instructions Recorded Confirmed amlodipine 10 mg tablet 10 mg PO DAILY Hypertension 05/10/17 02/26/22 metformin 1,000 mg tablet 500 mg PO BID Diabetes 05/10/17 02/26/22 carvedilol 3.125 mg tablet 3.125 mg PO BID Hypertension 05/11/19 02/26/22 dgrtbwaw-epg-kljrh acid 0.4 1 each PO DAILY vitamin 05/11/19 02/26/22 mg-lycopene 300 mcg-lutein 250 mcg tablet pilocarpine HCl 5 mg tablet 5 mg PO TID mouth sores 05/11/19 02/26/22 potassium chloride 10 mEq 10 meq PO BID Supplement 05/11/19 02/26/22 tablet,extended release trazodone 50 mg tablet 50 mg PO HSP PRN Sleep 05/11/19 02/26/22 atorvastatin 80 mg tablet 80 mg PO DAILY Cholesterol 10/13/20 02/26/22 escitalopram oxalate 20 mg tablet 20 mg PO DAILY Anxiety 10/13/20 02/26/22 furosemide 20 mg tablet 20 mg PO DAILY Fluid 10/13/20 02/26/22 lisinopril 5 mg tablet 5 mg PO DAILY High blood pressure 10/13/20 02/26/22 raloxifene 60 mg tablet 60 mg PO DAILY Osteoarthritis 10/13/20 02/26/22 estradiol 1 mg tablet 1 mg PO DAILY hormone 08/02/21 02/26/22 insulin glargine U-300 conc 300 30 unit SQ DAILY Diabetes 08/02/21 02/26/22 unit/mL (1.5 mL) subcutaneous pen peg 3350-electrolytes 236 240 ml PO Q10M
--- NOTE | 2023-02-12 18:08 | XR_ITS ---
PROCEDURE INFORMATION: Exam: XR Left Elbow Exam date and time: 02/12/2023 6:13 PM Age: 77 years old Clinical indication: Injury or trauma; Fall; Blunt trauma (contusions or hematomas); Elbow; Left; Additional info: Fall, L wlbow pain TECHNIQUE: Imaging protocol: Radiologic exam of the left elbow. Views: 3 or more views. COMPARISON: CR (SHOULDER INTERNAL, SHOULDER, SHOULDER INTERNAL) 10/14/2018 3:58 PM FINDINGS: Bones/joints: No identifiable acute fracture. Normal alignment. Small anterior joint effusion. Soft tissues: Normal. IMPRESSION: Small anterior joint effusion. While there is no identifiable fracture, an occult radial head or neck fracture may present.
--- NOTE | 2023-02-12 18:08 | XR_ITS ---
PROCEDURE INFORMATION: Exam: XR Left Humerus Exam date and time: 02/12/2023 6:17 PM Age: 77 years old Clinical indication: Injury or trauma; Fall; Blunt trauma (contusions or hematomas); Arm, upper; Left; Additional info: Fall, lshoulder and humerus pain TECHNIQUE: Imaging protocol: Radiologic exam of the left humerus. Views: 2 or more views. COMPARISON: CR (SHOULDER INTERNAL, SHOULDER, SHOULDER INTERNAL) 10/14/2018 3:58 PM FINDINGS: Bones/joints: No acute fracture or malalignment. Soft tissues: Normal. IMPRESSION: No acute osseous findings.
--- NOTE | 2023-02-12 18:08 | XR_ITS ---
PROCEDURE INFORMATION: Exam: XR Left Shoulder Exam date and time: 02/12/2023 6:18 PM Age: 77 years old Clinical indication: Injury or trauma; Fall; Blunt trauma (contusions or hematomas); Shoulder; Left; Additional info: Fall, lshoulder and humerus pain TECHNIQUE: Imaging protocol: Radiologic exam of the left shoulder. Views: 2 or more views. COMPARISON: CR (SHOULDER INTERNAL, SHOULDER, SHOULDER INTERNAL) 10/14/2018 3:58 PM FINDINGS: Bones/joints: No acute fracture or malalignment. Acromioclavicular and glenohumeral joint degenerative changes. Soft tissues: Normal. IMPRESSION: No acute osseous findings.
--- NOTE | 2023-02-12 19:29 | PC.NURSE ---
on phone with hospitalist and notified supervisor cook house of admission
--- NOTE | 2023-02-12 19:41 | PC.NURSE ---
called report to chalino robledo on 2nd floor and answered
[2023-02-12 19:57] VITALS: BP 165/70; PULSE 70; RESP 18; TEMP 36.7; O2SAT 99
--- NOTE | 2023-02-12 19:59 | EXP.HP ---
History of Present Illness *Admission Date: 02/12/23 *Reason for visit:: mechanical fall with injury *History of present illness: This is a 77-year-old female history of hypertension, diabetes presenting with facial injury. Patient stated that she was walking outside toward her car, stumbled, had fell face first onto concrete while walking her dog. Did not lose consciousness. Family called EMS and patient was transported to the ED. Patient states her pain is 6 out of 10, does not radiate, primarily in her lip, but also having left elbow and humerus pain. No neurovascular deficits. No midline neck pain, patient is not on blood thinners. Admitted for treatment [facility] Disclaimer: The information contained in this section may have been updated after the patient was seen, as this information can be updated by other users. Medical History (Updated 02/13/23 @ 03:48 by Froylan Redman APRN) Allergies Anxiety Colonoscopy planned Diabetes mellitus, type 2 History of anemia History of gastroesophageal reflux (GERD) Hyperlipidemia Hypertension Menopause Osteoarthritis Sinus headache Skin cancer Tonsillectomy planned Urinary tract infection Surgical History H/O tubal ligation H/O: hysterectomy History of appendectomy Hx of tonsillectomy Family History Rheumatic fever Mother Family history of myocardial infarction Stroke Father Social History (Updated 02/12/23 @ 20:13 by Vanessa Barron RN) Smoking Status: Never smoker second hand exposure: No alcohol intake: never counseling provided: provider counseling substance use type: denies use current occupational status: other Travel in the last 8 weeks: None household members: other housing: house current occupation: [employer] current occupational exposures/hazards: No caffeine: Yes special pino needs: No agree to transfusion: No do you feel safe at home: Yes victim of physical abuse: No victim of emotional abuse: No victim of sexual abuse: No would you like helpful sources: No Review of Systems Review of Systems Review of systems:: pertinent systems reviewed and negative unless documented below Meds Home Medications and Allergies Home Medications Medication Instructions Recorded Confirmed Type amlodipine 10 mg tablet 10 mg PO DAILY High Blood Pressure 05/10/17 02/13/23 History carvedilol 3.125 mg tablet 3.125 mg PO BID High Blood Pressure 05/11/19 02/13/23 History trazodone 50 mg tablet 50 mg PO HS Insomnia 05/11/19 02/13/23 History atorvastatin 80 mg tablet 80 mg PO DAILY Cholesterol 10/13/20 02/13/23 History escitalopram oxalate 20 mg tablet 20 mg PO DAILY Anxiety 10/13/20 02/13/23 History furosemide 20 mg tablet 20 mg PO DAILY Fluid 10/13/20 02/13/23 History lisinopril 5 mg tablet 5 mg PO DAILY High blood pressure 10/13/20 02/13/23 History raloxifene 60 mg tablet 60 mg PO DAILY Osteoarthritis 10/13/20 02/13/23 History estradiol 1 mg tablet 1 mg PO DAILY Hormone Replacement 08/02/21 02/13/23 History ferrous sulfate 325 mg (65 mg 325 mg PO DAILY Supplement 02/13/23 02/13/23 History iron) tablet (FeroSul) hydrocodone 5 mg-acetaminophen 325 See Rx Instructions .Route 02/13/23 Rx mg tablet .COMPLEX PRN Moderate To Severe Pain (4-10) 3 days #18 tabs insulin glargine U-300 conc 300 30 unit SQ HS Diabetes 02/13/23 02/13/23 History unit/mL (1.5 mL) subcutaneous pen (Toujeo SoloStar U-300 Insulin) metformin 500 mg tablet,extended 500 mg PO BID Diabetes 02/13/23 02/13/23 History release 24 hr New Prescriptions to Start Prescriptions: hydrocodone-acetaminophen John Mcneill Allergies Allergy/AdvReac Type Severity Reaction Status Date / Time Sulfa (Sulfonamide Allergy Unknown SHAKING Verified 01/10/22 11:01 Antibiotics) [SULFA (SULFONAMIDE ANTIBIOTICS)]
[2023-02-12 20:00] VITALS: BP 162/62; PULSE 73; RESP 17; TEMP 36.9; O2SAT 98
--- NOTE | 2023-02-12 20:19 | PC.NURSE ---
pt arrived to floor via wheelchair @19:52
--- NOTE | 2023-02-12 20:20 | PC.NURSE ---
PASSWSXM [id number]
[2023-02-13 04:00] VITALS: BP 162/71; PULSE 63; RESP 16; TEMP 36.8; O2SAT 91; BMI 22.2
[2023-02-13 06:16] LABS: Basophils % 0.6 % (0.1-2.0); Eosinophils # 0.1 K/mm3 (0.0-0.4); Eosinophils % 1.8 % (0.1-12.0); Hematocrit 29.6 % (37.0-47.0); Hemoglobin 10.3 g/dL (12.2-16.2); Lymphocytes # 1.1 K/mm3 (0.7-4.5); Lymphocytes % 21.1 % (10-50); Mean Corpuscular HGB Conc 34.7 g/dL (31.8-35.4); Mean Corpuscular Hemoglobin 30.4 pg (27.0-31.2); Mean Corpuscular Volume 87.6 fl (81-99); Mean Platelet Volume 9.9 fl (7.4-10.4); Monocytes # 0.4 K/mm3 (0.1-1.0); Monocytes % 7.8 % (1.7-9.3); Neutrophils # 3.5 K/mm3 (1.8-7.8); Neutrophils % 68.8 % (37.0-80.0); Platelet Count 150 K/mm3 (142-424); Red Blood Count 3.38 M/mm3 (4.20-5.40); Red Cell Distribution Width 17.8 % (11.5-17.5); White Blood Count 5.1 K/mm3 (4.8-10.8)
[2023-02-13 06:27] LABS: Chloride 113 mmol/L (98-107); Potassium 3.4 mmoL/L (3.5-5.1); Sodium 139 mmol/L (136-145)
[2023-02-13 06:30] LABS: Alanine Aminotransferase 22 U/L (12-78); Albumin Level 3.7 g/dl (3.5-5.0); Albumin/Globulin Ratio 1.4 (1.1-1.8); Alkaline Phosphatase 51 U/L (38-126); Anion Gap 10.4 mEq/L (5-15); Aspartate Amino Transferase 27 U/L (14-36); Bilirubin,Total 0.6 mg/dl (0.2-1.3); Blood Urea Nitrogen 25 mg/dl (7-17); Calcium 8.4 mg/dl (8.4-10.2); Carbon Dioxide 19 mmol/L (22.0-30.0); Creatinine Clearance Estimated 36 mL/min (50-200); Estimated Glomerular Filt Rate 48 ml/min (>60); GFR (African American) 58 ML/MIN (>60); Globulin 2.7 g/dL (1.3-3.2); Glucose 96 mg/dl (74-100); Total Protein,Serum 6.4 g/dl (6.3-8.2)
--- NOTE | 2023-02-13 07:27 | CT_ITS ---
FINAL REPORT CLINICAL HISTORY: eval stability of head bleed. COMPARISON: 02/12/2023 FINDINGS: Axial images of the head were obtained without contrast. Coronal reformatted images were also obtained. This study was performed with techniques to keep radiation doses as low as reasonably achievable (ALARA). Individualized dose reduction techniques using automated exposure control or adjustment of mA and/or kV according to the patient''s size were employed. There is generalized age-appropriate atrophy. Periventricular low-attenuation areas are seen consistent with mild chronic ischemic changes. There is no evidence of a mass. There is a focal left frontal extra-axial hemorrhage measuring about 7 mm, previously measured 9 mm. No new hemorrhage is identified. There is no evidence of acute infarct. There is no evidence of shift of the midline structures. Left nasal bone fracture is identified. IMPRESSION: Left frontal extra-axial hemorrhage, slightly improved since prior. Left nasal bone fracture. Reviewed, Interpreted and Dictated by Trey Gomes III, MD Transcribed by Vivian Hernandez Authenticated and [facility]
--- NOTE | 2023-02-13 07:28 | HMH.PHAINT1 ---
Pharmacy Intervention Comments: MEDICATION RECONCILIATION COMPLETED ON PATIENT USING EXTERNAL FILL HISTORY FROM PHARMACY. -ALICIA RAMAN, NAHUND
[2023-02-13 08:00] VITALS: BP 133/55; PULSE 72; RESP 18; TEMP 36.5; O2SAT 96
[2023-02-13 11:44] LABS: POC Glucose,Bedside 113 (70-110)
--- NOTE | 2023-02-13 13:04 | EXP.DC.SUM ---
General Admission date:: 02/12/23 Discharge date: 02/13/23 HPI HPI HPI: This is a 77-year-old female history of hypertension, diabetes presenting with facial injury. Patient stated that she was walking outside toward her car, stumbled, had fell face first onto concrete while walking her dog. Did not lose consciousness. Family called EMS and patient was transported to the ED. Patient states her pain is 6 out of 10, does not radiate, primarily in her lip, but also having left elbow and humerus pain. No neurovascular deficits. No midline neck pain, patient is not on blood thinners. Admitted for treatment Hospital Course Hospital Course Hospital Course: 77-year-old female history of hypertension, diabetes presenting with facial injury. Patient stated that she was walking outside toward her car, stumbled, had fell face first onto concrete while walking her dog. Did not lose consciousness. On arrival, patient hemodynamically stable, alert, oriented x4, appropriate, GCS 15, physical exam performed and significant for facial bruising around the nose without nasal septal hematoma. No ocular involvement. Patient also had intraoral laceration of upper lip repaired. CT of head and face significant for nasal bone fracture, as well as left frontal subdural hematoma. No left upper extremity abnormality. imaging reviewed. Discussed with ER provider. Agreed for admission. Stable during admission. repeat imaging stable. Stable to [place] home. Problems addressed as follows during admission: - Mechanical fall resulted on face injury, with nasal bone fracture and traumatic brain hemorrhage: Admited to inpatient status. Patient was monitored overnight. Neurochecks every 4 hours. No focal neurologic symptoms. She is not on any blood thinners. No midline shift or mass effect intracranially on imaging. Repeat CT of head obtained in the morning showing stable if not slightly decreased subdural hematoma. Pain stable with Tylenol and oral opiates. Continue pain regimen. Recommend close follow-up with PCP in the next week. Would benefit from referral to ENT to evaluate septum nasal passages. -types II diabetes and HTN: Continue home regimen Spent 40 minutes in discharge counseling, chart review, image evaluation, documentation, and direct care with patient. Exam Data for Last 24 hours Vital signs and Labs for Last 24 Hours: Temp Pulse Resp BP Pulse Ox O2 Del Method 97.7 F 72 18 133/55 L 96 Room Air 02/13/23 08:00 02/13/23 08:00 02/13/23 08:00 02/13/23 08:00 02/13/23 08:00 02/13/23 12:51 Laboratory Results - last 24 hr 02/13/23 05:30: WBC 5.1, RBC 3.38 L, Hgb 10.3 L, Hct 29.6 L, MCV 87.6, MCH 30.4, MCHC 34.7, RDW 17.8 H, Plt Count 150, MPV 9.9, Neut % (Auto) 68.8, Lymph % (Auto) 21.1, Miller % (Auto) 7.8, Eos % (Auto) 1.8, Baso % (Auto) 0.6, Neut # (Auto) 3.5, Lymph # (Auto) 1.1, Miller # (Auto) 0.4, Eos # (Auto) 0.1, Baso # (Auto) 0.0, Sodium 139, Potassium 3.4 L, Chloride 113 H, Carbon Dioxide 19 L, Anion Gap 10.4, BUN 25 H, Creatinine 1.10 H, Estimated Creat Clear 36, Estimated GFR 48 L, Est GFR ( Amer) 58 L, Glucose 96, Calcium 8.4, Total Bilirubin 0.6, AST 27, ALT 22, Alkaline Phosphatase 51, Total Protein 6.4, Albumin 3.7, Globulin 2.7, Albumin/Globulin Ratio 1.4 02/13/23 11:22: POC Glucose 113 H I & O for Last 24 hours: Intake & Output 02/10/23 02/11/23 02/12/23 02/13/23 23:59 23:59 23:59 23:59 Intake Total 998 / 998 Output Total 0 / 0 Balance 998 / 998 Weight 53.524 kg 53.524 kg Constitutional Constitutional: no acute distress and average body habitus *Routine HEENT Exam Eye: Present EOMI and PERRL ENT: Present mucous membranes moist Comments: bruising of left face, and nose, left black eye. *Routine Neck Exam Neck: Present supple; Absent lymphadenopathy *Routine Respiratory Exam Respiratory: Present CTA bilaterally; Absent rhonchi, wheezes or crackles *Routine Cardiovascular Exam Cardiovascu
--- NOTE | 2023-02-14 16:20 | CARE MANAGER ---
Called and spoke with patient regarding recent discharge. Patient stated that she is doing well. Pain medication prescribed at discharge is working well. No concerns voiced at time of call.
== END 2023-02-13 14:47 | disposition home or self-care (01) ==
LOC: ER 19:30 → 2ND 21:30
PROVIDERS: Nurse Practitioner Family; Admitting Provider Internal Medicine Adolescent Medicine; Emergency Provider Emergency Medicine; Visit Provider Internal Medicine Adolescent Medicine
DX: S06.5X0A Traumatic subdural hemorrhage without loss of consciousness, initial encounter (principal); S01.511A Laceration without foreign body of lip, initial encounter; S02.2XXA Fracture of nasal bones, initial encounter for closed fracture; E11.9 Type 2 diabetes mellitus without complications; Z79.4 Long term (current) use of insulin; I10 Essential (primary) hypertension; W01.0XXA Fall on same level from slipping, tripping and stumbling without subsequent striking against object, initial encounter; Y92.018 Other place in single-family (private) house as the place of occurrence of the external cause; E78.5 Hyperlipidemia, unspecified
CPT/HCPCS: 12011; 36415; 70450; 70486; 73030; 73060; 73080; 80053; 82962; 85025; 99285; G0378

== ENCOUNTER → 2023-02-20 07:58 | Outpatient (CLI) | payer MEDICARE, SELFPAY ==
[2023-02-20 08:06] LABS: Microscopic, Urine URINE MICROSCOPIC (MICROSCOPIC)
[2023-02-20 09:00] LABS: Hematocrit 34.4 % (37.0-47.0); Hemoglobin 11.9 g/dL (12.2-16.2); Mean Corpuscular HGB Conc 34.6 g/dL (31.8-35.4); Mean Corpuscular Hemoglobin 30.6 pg (27.0-31.2); Mean Corpuscular Volume 88.3 fl (81-99); Platelet Count 215 K/mm3 (142-424); Red Cell Distribution Width 17.7 % (11.5-17.5); White Blood Count 6.9 K/mm3 (4.8-10.8)
[2023-02-20 09:50] LABS: Appearance,Urine CLEAR (Clear); Blood, Urine TRACE-I (Negative); Color,Urine YELLOW (Yellow); Glucose,Urine (UA) 1+ (Negative); Ketones,Urine Negative (Negative); Leukocyte Esterase,Urine Negative (Negative); Nitrate,Urine Negative (Negative); Protein,Urine 3+ (Negative); Specific Gravity, Urine >= 1.030 (1.005-1.030); Urobilinogen,Urine 0.2 EU/dl (0.2)
[2023-02-20 09:51] LABS: Bilirubin,Urine Negative (Negative)
[2023-02-20 09:52] LABS: Bacteria,Urine Trace /lpf
[2023-02-20 10:06] LABS: Albumin Level 4.4 g/dl (3.5-5.0); Anion Gap 15.4 mEq/L (5-15); Blood Urea Nitrogen 17 mg/dl (7-17); Calcium 9.3 mg/dl (8.4-10.2); Carbon Dioxide 24 mmol/L (22.0-30.0); Chloride 105 mmol/L (98-107); Estimated Glomerular Filt Rate 44 ml/min (>60); GFR (African American) 53 ML/MIN (>60); Glucose 91 mg/dl (74-100); Phosphorous 3.8 mg/dl (2.5-4.5); Potassium 3.4 mmoL/L (3.5-5.1); Sodium 141 mmol/L (136-145)
== END ==
PROVIDERS: PCP Nurse Practitioner Family; Visit Provider Internal Medicine Nephrology
DX: N18.31 Chronic kidney disease, stage 3a (principal)
CPT/HCPCS: 36415; 80069; 81001; 84155; 85014; 85018; 85048; 85049

== ENCOUNTER → 2023-02-21 13:33 | Outpatient (POV) | payer MEDICARE, SELFPAY | PROVIDERS: Visit Provider Internal Medicine Nephrology | DX: Z00.00 Encounter for general adult medical examination without abnormal findings (principal) ==

== ENCOUNTER → 2023-03-12 15:53 | Outpatient (CLI) | payer MEDICARE, SELFPAY ==
--- NOTE | 2023-03-12 15:55 | MM_ITS ---
PROCEDURE INFORMATION: Exam: MG Bilateral Screening 3D Mammography Exam date and time: 03/12/2023 3:43 PM Age: 77 years old Clinical indication: Screening examination TECHNIQUE: Imaging protocol: Bilateral Screening tomosynthesis and 2D mammography including computer-aided detection (CAD) when performed. COMPARISON: 1. MG MM DIG SCREENING MAMM BI W/CAD 02/12/2022 9:53 AM 2. MG MM DIG SCREENING MAMM BI W/CAD 01/23/2021 8:26 AM FINDINGS: MAMMOGRAPHY: Breast composition: There are scattered areas of fibroglandular density. Mass: None. Architectural distortion: None. Calcifications: No suspicious calcifications. Asymmetric density: None. Skin thickening: None. Axillary adenopathy: None. IMPRESSION: No mammographic evidence of malignancy. Annual screening is recommended unless otherwise clinically indicated. ASSESSMENT: BI-RADS Category 1: Negative
== END ==
PROVIDERS: PCP Nurse Practitioner Family; Visit Provider Nurse Practitioner Family
DX: Z12.31 Encounter for screening mammogram for malignant neoplasm of breast (principal)
CPT/HCPCS: 77063; 77067

== ENCOUNTER 2023-04-23 09:26 | Outpatient (POV) | payer MEDICARE, SELFPAY | END 2023-04-23 23:59 | disposition home or self-care (01) | LOC: SC 09:26 | PROVIDERS: PCP Nurse Practitioner Family; Visit Provider Dermatology | DX: Z00.00 Encounter for general adult medical examination without abnormal findings (principal) ==

== ENCOUNTER 2023-06-17 09:27 | Emergency (ER) | payer MEDICARE, SELFPAY ==
[2023-06-17 09:28] VITALS: BP 143/67; PULSE 80; RESP 17; TEMP 36.8; O2SAT 98; BMI 21.3
--- NOTE | 2023-06-17 09:30 | HMH.EDGENADL ---
Discharge Plan Disposition Patient Disposition: Home, Self-Care Condition: Good Prescriptions Prescriptions: No Action amlodipine 10 mg tablet 10 mg PO DAILY escitalopram oxalate 20 mg tablet 20 mg PO DAILY furosemide 20 mg tablet 20 mg PO DAILY lisinopril 5 mg tablet 5 mg PO DAILY Patient Comments: TAKE 1 TABLET BY MOUTH ONCE DAILY raloxifene 60 mg tablet 60 mg PO DAILY atorvastatin 80 mg tablet 80 mg PO DAILY Patient Comments: TAKE 1 TABLET BY MOUTH ONCE DAILY estradiol 1 mg tablet 1 mg PO DAILY trazodone 50 MG tablet 50 mg PO HS Patient Comments: TAKE 1 TABLET BY MOUTH ONCE DAILY AT BEDTIME NEEDED carvedilol 3.125 MG tablet 3.125 mg PO BID ferrous sulfate [FeroSul] 325 mg (65 mg iron) tablet 325 mg PO DAILY Patient Comments: TAKE 1 TABLET BY MOUTH ONCE DAILY WITH BREAKFAST metformin 500 mg tablet extended release 24 hr 500 mg PO BID Patient Comments: TAKE 1 TABLET BY MOUTH TWICE DAILY, DO NOT CRUSH, CHEW, OR SPLIT Toujeo SoloStar U-300 Insulin 300 unit/mL (1.5 mL) insulin pen 30 unit SQ HS Patient Comments: INJECT 30 UNITS SUBCUTANEOUSLY ONCE DAILY AT NIGHT hydrocodone-acetaminophen 5-325 mg Tablet See Rx Instructions .ROUTE .COMPLEX PRN (Reason: Moderate To Severe Pain (4-10)) 3 Days Qty: 18 0RF Rx Instructions: 1-2 tabs as needed every 6 hours for pain Referrals Follow up/Referrals: Kesha Parsons APRN [Primary Care Provider] - See instructions Clinical Impressions Clinical Impression: Pharyngitis Qualifiers: Pharyngitis/tonsillitis etiology: unspecified etiology Qualified Code(s): J02.9 - Acute pharyngitis, unspecified Discharge ED Provider: Ángel Perkins General Adult HPI General Chief complaint: Upper Respiratory Infection Stated complaint: JOHN, ear pain, sore throat, body aches Time Seen by Provider: 06/17/23 09:30 History of Present Illness HPI narrative: Patient presents with sore throat, which is caused her to have some mild pain with tolerating p.o. intake. 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 No known overt sick contacts, however. She denies fevers or chills. She describes a history of well-controlled diabetes. Previous therapies include [id number] analgesia. She has had no chest pain or shortness of breath. No leg pain or leg swelling. She has had some mild bilateral otalgia. Related Data Home Medications Medication Instructions Recorded Confirmed amlodipine 10 mg tablet 10 mg PO DAILY High Blood Pressure 05/10/17 02/13/23 carvedilol 3.125 mg tablet 3.125 mg PO BID High Blood Pressure 05/11/19 02/13/23 trazodone 50 mg tablet 50 mg PO HS Insomnia 05/11/19 02/13/23 atorvastatin 80 mg tablet 80 mg PO DAILY Cholesterol 10/13/20 02/13/23 escitalopram oxalate 20 mg tablet 20 mg PO DAILY Anxiety 10/13/20 02/13/23 furosemide 20 mg tablet 20 mg PO DAILY Fluid 10/13/20 02/13/23 lisinopril 5 mg tablet 5 mg PO DAILY High blood pressure 10/13/20 02/13/23 raloxifene 60 mg tablet 60 mg PO DAILY Osteoarthritis 10/13/20 02/13/23 estradiol 1 mg tablet 1 mg PO DAILY Hormone Replacement 08/02/21 02/13/23 ferrous sulfate 325 mg (65 mg 325 mg PO DAILY Supplement 02/13/23 02/13/23 iron) tablet (FeroSul) insulin glargine U-300 conc 300 30 unit SQ HS Diabetes 02/13/23 02/13/23 unit/mL (1.5 mL) subcutaneous pen (Toujeo SoloStar U-300 Insulin) metformin 500 mg tablet,extended 500 mg PO BID Diabetes 02/13/23 02/13/23 release 24 hr Previous Rx's Medication Instructions Recorded hydrocodone 5 mg-acetaminophen 325 See Rx Instructions .Route 02/13/23 mg tablet .COMPLEX PRN Moderate To Severe Pain (4-10) 3 days #18 tabs Allergies Allergy/AdvReac Type Severity Reaction Status Date / Time Sulfa (Sulfonamide Allergy Unknown SHAKING Verified 01/10/22 11:01 Antibiotics) [SULFA (SULFONAMIDE ANTIBIOTICS)] [facility] Disclaimer: The information contained in this section may have been updated after the patient was seen, as this information can be updated by other users. Medical History (Updated 06/17/23 @ 10:47 by Ángel Perkins MD) Allergies Anxiety Colonoscopy planned Diabetes mellitus, type 2 History of anemia History of gastroesophageal reflux (GERD) Hyperlipidemia Hypertension Menopause Osteoarthritis Sinus headache Skin cancer Tonsillectomy planned Urinary tract infection Surgical History H/O tubal ligation H/O: hysterectomy History of appendectomy Hx of tonsillectomy Family History Mother Rheumatic fever Father Stroke Other Family history of myocardial infarction Social History (Updated 02/12/23 @ 20:13 by Vanessa Barron RN) Smoking Status: Former smoker tobacco type: cigarettes packs per day: 1 second hand exposure: No alcohol intake: never counseling provided: provider counseling substance use type: denies use current occupational status: other Travel in the last 8 weeks: None household members: other housing: house 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 current occupational exposures/hazards: No caffeine: Yes special pino needs: No agree to transfusion: No do you feel safe at home: Yes victim of physical abuse: No victim of emotional abuse: No victim of sexual abuse: No would you like helpful sources: No ROS Obtained: Yes Systems reviewed as appropriate & no additional complaints except as documented As per HPI Physical Exam General General appearance: alert and in no apparent distress Head Head exam: atraumatic and normocephalic Eye Eye exam: Present normal appearance ENT ENT exam: Present mucous membranes moist and other (Oropharynx erythematous, tonsils symmetrical, no exudate. Bilateral tympanic membranes bulging however no purulence or erythema) Neck Neck exam: Present normal inspection Chest Chest inspection: Present normal inspection and symmetric chest wall rise Respiratory Respiratory exam: Present normal lung sounds bilaterally; Absent respiratory distress Cardiovascular Cardiovascular exam: Present regular rate and normal rhythm Abdominal Exam Abdominal exam: Present soft Neurological Exam Neurological exam: Present alert and oriented X3 Psychiatric Psychiatric exam: Present normal affect and normal mood Skin Skin exam: Present warm and dry Medical Decision Making Medical Records Medical records reviewed: Yes I reviewed the patient's medical records. Matt Inquiry Pt receiving controlled substance: No Vital Signs: 06/17/23 09:28 06/17/23 10:00 06/17/23 10:30 Temperature 98.3 F Temperature Source Oral Pulse Rate 77 72 Pulse Rate [Left Radial] 80 Respiratory Rate 17 18 20 Blood Pressure 145/62 H 149/61 H Blood Pressure [Right Arm] 143/67 H Blood Pressure Mean 93 90 Blood Pressure Mean [Right Arm] 92 02 Sat by Pulse Oximetry 98 96 96 Oxygen Delivery Method Room Air 06/17/23 11:09 Temperature 98.3 F Temperature Source Pulse Rate 73 Pulse Rate [Left Radial] Respiratory Rate 16 Blood Pressure 141/60 H Blood Pressure [Right Arm] Blood Pressure Mean Blood Pressure Mean [Right Arm] 02 Sat by Pulse Oximetry Oxygen Delivery Method Lab Data Lab Results 06/17/23 09:30: SARS-CoV-2 (PCR) Not detected, Influenza A Untype (PCR) Not detected, Influenza Type B (PCR) Not detected Orders (Tests/Meds): ED MEDICATIONS Discontinued Medications Generic Name Dose Route Start Last Admin Trade Name Freq PRN Reason Stop Dose Admin Dexamethasone Sodium Phosphate 8 mg 06/17/23 10:13 06/17/23 10:43 Dexamethasone 4mg/Ml 1ml Vial IV 06/17/23 10:14 Not Given ONCE ONE Dexamethasone Sodium Phosphate 8 mg 06/17/23 10:42 06/17/23 10:49 Dexamethasone 4mg/Ml 1ml Vial IM 06/17/23 10:43 8 mg ONCE ONE Administration ORDERS Category Date Time Status Rapid PCR Covid and Flu A/B Stat Lab 06/17/23 09:30 Completed Medical Decision Narrative: Patient with history and exam per above presenting for evaluation of upper respiratory symptoms including sore throat, congestion, in the absence of fever or lower respiratory symptoms Diagnoses considered include COVID, influenza, other unspecified viral URI, no evidence at this time to suggest peritonsillar abscess, or Dashawn's angina, denies lower respiratory symptoms. She is requesting dexamethasone for her symptoms ED workup and treatment included: COVID, flu testing. After shared decision-making in the setting of her diabetes was treated with dexamethasone IM x 1 Labs were independently interpreted by me, significant for no acute findings My clinical impression at this time is most consistent with unspecified viral URI I discussed my clinical impression with patient and answered all questions. At this time, the evidence for any other entities in the differential is insufficient to warrant any further testing or ED observation. This was explained to the patient. The patient was advised that persistent or worsening symptoms require further evaluation. I confirmed the patient's understanding of this discussion. Critical Care Critical Care Time Critical Care Time: No
[2023-06-17 09:40] LABS: Coronavirus 19, PCR Not Detected (NotDetected); Influenza A, PCR Not Detected (NotDetected); Influenza B, PCR Not Detected (NotDetected)
[2023-06-17 10:00] VITALS: BP 145/62; PULSE 77; RESP 18; O2SAT 96
[2023-06-17 10:30] VITALS: BP 149/61; PULSE 72; RESP 20; O2SAT 96
--- NOTE | 2023-06-17 10:36 | PC.NURSE ---
Rounded on pt. No needs voiced at this time. Call light within reach.
[2023-06-17] MEDS: DEXAMETHASONE 4MG/ML 1ML VIAL 8 MG IM (10:49)
[2023-06-17 11:09] VITALS: BP 141/60; PULSE 73; RESP 16; TEMP 36.8
== END 2023-06-17 11:13 | disposition home or self-care (01) ==
PROVIDERS: Emergency Provider Emergency Medicine; PCP Nurse Practitioner Family
DX: J02.9 Acute pharyngitis, unspecified (principal); E11.9 Type 2 diabetes mellitus without complications; E78.5 Hyperlipidemia, unspecified; I10 Essential (primary) hypertension; Z87.891 Personal history of nicotine dependence; R51.9 Headache, unspecified; R09.81 Nasal congestion; H92.09 Otalgia, unspecified ear
CPT/HCPCS: 87636; 96372; 99283

== ENCOUNTER 2023-08-27 07:57 | Outpatient (CLI) | payer MEDICARE, SELFPAY ==
[2023-08-27 08:06] LABS: Microscopic, Urine URINE MICROSCOPIC (MICROSCOPIC)
[2023-08-27 08:39] LABS: Basophils # 0.1 K/mm3 (0-0.2); Eosinophils # 0.1 K/mm3 (0.0-0.4); Eosinophils % 1.9 % (0.1-12.0); Hematocrit 36.3 % (37.0-47.0); Hemoglobin 11.6 g/dL (12.2-16.2); Lymphocytes # 1.2 K/mm3 (0.7-4.5); Lymphocytes % 18.6 % (10-50); Mean Corpuscular Hemoglobin 29.6 pg (27.0-31.2); Mean Corpuscular Volume 92.4 fl (81-99); Mean Platelet Volume 9.2 fl (7.4-10.4); Monocytes # 0.4 K/mm3 (0.1-1.0); Monocytes % 5.4 % (1.7-9.3); Neutrophils # 4.7 K/mm3 (1.8-7.8); Platelet Count 223 K/mm3 (142-424); Red Blood Count 3.93 M/mm3 (4.20-5.40); Red Cell Distribution Width 17.3 % (11.5-17.5); White Blood Count 6.5 K/mm3 (4.8-10.8)
[2023-08-27 09:00] LABS: Appearance,Urine CLEAR (Clear); Bilirubin,Urine Negative (Negative); Blood, Urine Negative (Negative); Color,Urine YELLOW (Yellow); Glucose,Urine (UA) Negative (Negative); Ketones,Urine Negative (Negative); Leukocyte Esterase,Urine Negative (Negative); Nitrate,Urine Negative (Negative); Protein,Urine 2+ (Negative); Specific Gravity, Urine >= 1.030 (1.005-1.030); Urobilinogen,Urine 0.2 EU/dl (0.2)
[2023-08-27 09:15] LABS: Chloride 109 mmol/L (98-107); Creatinine,Urine Random 160 mg/dL (Not Estab.); Potassium 4.1 mmoL/L (3.5-5.1); Sodium 140 mmol/L (136-145)
[2023-08-27 09:16] LABS: Albumin Level 4.1 g/dl (3.5-5.0)
[2023-08-27 09:18] LABS: Anion Gap 13.1 mEq/L (5-15); Blood Urea Nitrogen 36 mg/dl (7-17); Calcium 9.3 mg/dl (8.4-10.2); Carbon Dioxide 22 mmol/L (22.0-30.0); Estimated Glomerular Filt Rate 40 ml/min (>60); GFR (African American) 48 ML/MIN (>60); Glucose 83 mg/dl (74-100); Phosphorous 3.7 mg/dl (2.5-4.5)
[2023-08-27 09:22] LABS: Bacteria,Urine 1+ /lpf; WBC,Urine Occasional #/hpf (0-3)
== END 2023-08-27 23:59 | disposition home or self-care (01) ==
LOC: LAB 08:00
PROVIDERS: Visit Provider Internal Medicine Nephrology
DX: N18.31 Chronic kidney disease, stage 3a (principal); R80.9 Proteinuria, unspecified
CPT/HCPCS: 36415; 80069; 81001; 82570; 84156; 85025

== ENCOUNTER 2023-12-28 08:36 | Emergency (ER) | payer MEDICARE, SELFPAY ==
[2023-12-28 08:45] VITALS: BP 163/54; PULSE 71; RESP 22; TEMP 37.3; O2SAT 99; BMI 22.0
--- NOTE | 2023-12-28 09:31 | ED_ITS ---
Discharge Plan Disposition Patient Disposition: Home, Self-Care Condition: Good Prescriptions Prescriptions: No Action atorvastatin 80 mg tablet 80 mg PO DAILY Patient Comments: TAKE 1 TABLET BY MOUTH ONCE DAILY trazodone 50 mg tablet 50 mg PO DAILY Patient Comments: TAKE 1 TABLET BY MOUTH ONCE DAILY AT NIGHT valacyclovir 1 gram tablet 2,000 mg PO DAILY Patient Comments: TAKE 2 TABLETS BY MOUTH TWICE DAILY FOR 1 DAY NEEDED FOR COLD SORES estradiol 1 mg tablet 1 mg PO DAILY amlodipine 10 mg tablet 10 mg PO DAILY Patient Comments: TAKE 1 TABLET BY MOUTH ONCE DAILY raloxifene 60 mg tablet 60 mg PO DAILY Patient Comments: TAKE 1 TABLET BY MOUTH ONCE DAILY lisinopril 5 mg tablet 5 mg PO DAILY Patient Comments: TAKE 1 TABLET BY MOUTH ONCE DAILY furosemide 20 mg tablet 20 mg PO DAILY Patient Comments: TAKE 1 TABLET BY MOUTH ONCE DAILY metformin 500 mg tablet extended release 24 hr 500 mg PO DAILY Patient Comments: TAKE 1 TABLET BY MOUTH TWICE DAILY. DO NOT CRUSH, CHEW, OR SPLIT dapagliflozin propanediol [Farxiga] 5 mg tablet 5 mg PO DAILY Patient Comments: TAKE 1 TABLET BY MOUTH ONCE DAILY insulin glargine U-300 conc [Toujeo SoloStar U-300 Insulin] 300 unit/mL (1.5 mL) insulin pen 30 unit SQ HS Patient Comments: INJECT 30 UNITS UNDER THE SKIN EVERY NIGHT Referrals Follow up/Referrals: Ene Dumont APRN [Primary Care Provider] - See instructions Activity Restrictions/Add. Instructions Additional Instructions/Restrictions: covid swab was sent to lab, call for results. self isolate until test results are known to be negative No sign of a bacterial infection. Likely viral. Viruses can take 7-14 days to run their course. Nasal saline and bulb syringe or nose Michelle to remove nasal drainage to help with nasal congestion. Hard to eat, drink, sleep with nasal congestion so important to keep this cleaned out. Monitor temp. Tylenol or Motrin as needed for pain or fever Encourage fluids, water, Gatorade, Powerade, Pedialyte if infant/toddler/child Warm salt water gargles Warm fluids Sore throat lozenges Sleep elevated Humidifier/vaporizer Follow-up immediately for new or worsening symptoms or no noticeable improvement over the next 48-72 hours. Clinical Impressions Clinical Impression: Upper respiratory infection, viral, Exposure to COVID-19 virus Instructions Patient Instructions: DI for Viral Upper Respiratory Infection -- Adult Print Language Print Language: Algerian Discharge ED Provider: Ramo ([facility])Lexi [facility] HPI General Stated complaint: body aches, cough, fever Mode of Arrival: Ambulatory Source of Information: Patient Limitations: No Limitations Time Seen by Provider: 12/28/23 09:31 Description of Symptoms (Recalled from Triage Doc. by RN): PATIENT C/O BODY ACHES AND COUGH X 2 DAYS. PATIENT REQUESTING A COVID TEST HEENT Symptoms (Recalled from RN notes): No Resp Symptoms (Recalled from RN notes): Yes Skin Symptoms (Recalled from RN notes): No MS Symptoms (Recalled from RN notes): No Functional Status (Recalled from RN notes): WNL History of Present Illness Provider Complaint: 78 yr old female presents for c/o body aches, cough, fever x 2 days- has been exposed to covid Related Data Home Medications ?Medication ?Instructions ?Recorded ?Confirmed amlodipine 10 mg tablet 10 mg PO DAILY 12/28/23 12/28/23 atorvastatin 80 mg tablet 80 mg PO DAILY 12/28/23 12/28/23 dapagliflozin propanediol 5 mg 5 mg PO DAILY 12/28/23 12/28/23 tablet (Farxiga) estradiol 1 mg tablet 1 mg PO DAILY 12/28/23 12/28/23 furosemide 20 mg tablet 20 mg PO DAILY 12/28/23 12/28/23 insulin glargine U-300 conc 300 30 unit SQ HS 12/28/23 12/28/23 unit/mL (1.5 mL) subcutaneous pen (Toujeo SoloStar U-300 Insulin) lisinopril 5 mg tablet 5 mg PO DAILY 12/28/23 12/28/23 metformin 500 mg tablet,extended 500 mg PO DAILY 12/28/23 12/28/23 release 24 hr raloxifene 60 mg tablet 60 mg PO DAILY 12/28/23 12/28/23 trazodone 50 mg tablet 50 mg PO DAILY 12/28/23 12/28/23 valacyclovir 1 gram tablet 2,000 mg PO DAILY 12/28/23 12/28/23 Allergies Allergy/AdvReac Type Severity Reaction Status Date / Time Sulfa (Sulfonamide Allergy Unknown SHAKING Verified 01/10/22 11:01 Antibiotics) [SULFA (SULFONAMIDE ANTIBIOTICS)] Worker's Comp Is this a Worker's Comp case?: No [facility] Disclaimer: The information contained in this section may have been updated after the patient was seen, as this information can be updated by other users. 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) Colonoscopy planned Tonsillectomy planned Urinary tract infection Menopause Sinus headache Anxiety Osteoarthritis History of gastroesophageal reflux (GERD) Diabetes mellitus, type 2 Allergies Hyperlipidemia Hypertension History of anemia Skin cancer Surgical History Hx of tonsillectomy History of appendectomy H/O: hysterectomy H/O tubal ligation Family History Rheumatic fever Mother Family history of myocardial infarction Stroke Father Social History (Updated 02/12/23 @ 20:13 by Vanessa Barron RN) Smoking Status: Former smoker tobacco type: cigarettes packs per day: 1 second hand exposure: No alcohol intake: never counseling provided: provider counseling substance use type: denies use current occupational status: other Travel in the last 8 weeks: None household members: other housing: house 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 current occupational exposures/hazards: No caffeine: Yes special pino needs: No agree to transfusion: No do you feel safe at home: Yes victim of physical abuse: No victim of emotional abuse: No victim of sexual abuse: No would you like helpful sources: No ROS Obtained: Yes All systems reviewed & no additional complaints except as documented Constitutional Constitutional: Reports system reviewed and no additional complaints, except as documented, Reports as per HPI, Reports body ache, Reports chills, Reports fever(s) and Reports headache(s) Eyes Eyes: Reports system reviewed and no additional complaints, except as documented ENT Ears, Nose, Mouth, and Throat: Reports system reviewed and no additional complaints, except as documented, Reports as per HPI, Reports headache(s) and Reports sore throat Cardiovascular Cardiovascular: Reports system reviewed and no additional complaints, except as documented Respiratory Respiratory: Reports system reviewed and no additional complaints, except as documented Gastrointestinal Gastrointestingal: Reports system reviewed and no additional complaints, except as documented Musculoskeletal Musculoskeletal: Reports system reviewed and no additional complaints, except as documented Integumentary/Breasts Skin/Breast: Reports system reviewed and no additional complaints, except as documented and Reports as per HPI Neurologic Neurologic: Reports system reviewed and no additional complaints, except as documented, Reports as per HPI and Reports headache(s) Endocrine Endocrine: Reports system reviewed and no additional complaints, except as documented Hematologic/Lymphatic Henatologic/Lymphatic: Reports system reviewed and no additional complaints, except as documented Allergic/Immunologic Allergic/Immunologic: Reports system reviewed and no additional complaints, except as documented Physical Exam General General appearance: alert and in no apparent distress Head Head exam: atraumatic Eye Eye exam: Present normal appearance and PERRL ENT ENT exam: Present normal exam, normal oropharynx, mucous membranes moist and TM's normal bilaterally Respiratory Respiratory exam: Present normal lung sounds bilaterally Cardiovascular Cardiovascular exam: Present regular rate and normal rhythm Neurological Exam Neurological exam: Present alert and oriented X3 Skin Skin exam: Present warm and intact Medical Decision Making Medical Records Medical records reviewed: Yes I reviewed the patient's medical records. Matt Inquiry Pt receiving controlled substance: No Matt was queried for this patient: No Vital Signs: 12/28/23 08:45 Temperature 99.2 F Temperature Source Oral Pulse Rate [Left Brachial] 71 Respiratory Rate 22 Blood Pressure [Left Arm] 163/54 H Blood Pressure Mean [Left Arm] 90 Blood Pressure Source [Left Arm] Automatic Cuff Blood Pressure Position [Left Arm] Sitting 02 Sat by Pulse Oximetry 99 Oxygen Delivery Method Room Air Orders (Tests/Meds): ORDERS Category Date Time Status Covid-19 Nasal PCR (H) Routine Lab 12/28/23 08:47 Received
[2023-12-28 09:38] VITALS: BP 163/54; PULSE 71; RESP 22; TEMP 37.3; O2SAT 99
== END 2023-12-28 09:42 | disposition home or self-care (01) ==
PROVIDERS: Emergency Provider Nurse Practitioner Family; PCP Nurse Practitioner Family
DX: R05.9 Cough, unspecified (principal); R50.9 Fever, unspecified; J06.9 Acute upper respiratory infection, unspecified; B34.9 Viral infection, unspecified; Z20.822 Contact with and (suspected) exposure to COVID-19
CPT/HCPCS: 87635; 99203; 99212; G0463

== ENCOUNTER 2024-03-16 14:24 | Emergency (ER) | payer MEDICARE, SELFPAY ==
[2024-03-16 15:20] VITALS: BP 145/50; PULSE 58; RESP 23; TEMP 36.9; O2SAT 98; BMI 22.3
--- NOTE | 2024-03-16 15:20 | EXP.UTC ---
Discharge Plan Disposition Patient Disposition: Home, Self-Care Condition: Good Prescriptions Prescriptions: New azithromycin [Zithromax] 250 mg tablet 250 mg PO UD DOSE PK Qty: 6 0RF Rx Instructions: Take two (2) tablets today, then one (1) tablet days #2 thru #5 benzonatate 100 mg capsule 100 mg PO TIDP PRN (Reason: Cough) Qty: 30 0RF No Action trazodone 50 mg tablet 50 mg PO DAILY Patient Comments: TAKE 1 TABLET BY MOUTH ONCE DAILY AT NIGHT estradiol 1 mg tablet 1 mg PO DAILY amlodipine 10 mg tablet 10 mg PO DAILY Patient Comments: TAKE 1 TABLET BY MOUTH ONCE DAILY raloxifene 60 mg tablet 60 mg PO DAILY Patient Comments: TAKE 1 TABLET BY MOUTH ONCE DAILY lisinopril 5 mg tablet 5 mg PO DAILY Patient Comments: TAKE 1 TABLET BY MOUTH ONCE DAILY furosemide 20 mg tablet 20 mg PO DAILY Patient Comments: TAKE 1 TABLET BY MOUTH ONCE DAILY metformin 500 mg tablet extended release 24 hr 500 mg PO DAILY Patient Comments: TAKE 1 TABLET BY MOUTH TWICE DAILY. DO NOT CRUSH, CHEW, OR SPLIT dapagliflozin propanediol [Farxiga] 5 mg tablet 5 mg PO DAILY Patient Comments: TAKE 1 TABLET BY MOUTH ONCE DAILY insulin glargine U-300 conc [Toujeo SoloStar U-300 Insulin] 300 unit/mL (1.5 mL) insulin pen 30 unit SQ HS Patient Comments: INJECT 30 UNITS UNDER THE SKIN EVERY NIGHT atorvastatin 80 mg tablet 80 mg PO DAILY Patient Comments: TAKE 1 TABLET BY MOUTH ONCE DAILY Referrals Follow up/Referrals: Ene Dumont APRN [Primary Care Provider] - See instructions Activity Restrictions/Add. Instructions Additional Instructions/Restrictions: Drink plenty of fluids. Take tylenol or ibuprofen for pain or fever. Take the medications as directed. Follow up with your regular doctor. GO TO THE ER FOR ANY WORSENING SYMPTOMS Clinical Impressions Clinical Impression: Sinusitis, Pharyngitis Stand Alone Forms Stand Alone Forms: Work/School Release Instructions Patient Instructions: DI for Sinusitis Print Language Print Language: Czech Discharge ED Provider: John Yost [facility] General Stated complaint: sore throat congestion Time Seen by Provider: 03/16/24 15:20 Related Data Home Medications ?Medication ?Instructions ?Recorded ?Confirmed amlodipine 10 mg tablet 10 mg PO DAILY 12/28/23 03/16/24 dapagliflozin propanediol 5 mg 5 mg PO DAILY 12/28/23 03/16/24 tablet (Farxiga) estradiol 1 mg tablet 1 mg PO DAILY 12/28/23 03/16/24 furosemide 20 mg tablet 20 mg PO DAILY 12/28/23 03/16/24 insulin glargine U-300 conc 300 30 unit SQ HS 12/28/23 03/16/24 unit/mL (1.5 mL) subcutaneous pen (Toubaljinder SoloStar U-300 Insulin) lisinopril 5 mg tablet 5 mg PO DAILY 12/28/23 03/16/24 metformin 500 mg tablet,extended 500 mg PO DAILY 12/28/23 03/16/24 release 24 hr raloxifene 60 mg tablet 60 mg PO DAILY 12/28/23 03/16/24 trazodone 50 mg tablet 50 mg PO DAILY 12/28/23 03/16/24 atorvastatin 80 mg tablet 80 mg PO DAILY 03/16/24 03/16/24 Previous Rx's ?Medication ?Instructions ?Recorded azithromycin 250 mg tablet 250 mg PO UD DOSE PK #6 tabs 03/16/24 (Zithromax) benzonatate 100 mg capsule 100 mg PO TIDP PRN Cough #30 caps 03/16/24 Allergies Allergy/AdvReac Type Severity Reaction Status Date / Time Sulfa (Sulfonamide Allergy Unknown SHAKING Verified 01/10/22 11:01 Antibiotics) (SULFA (SULFONAMIDE ANTIBIOTICS)) [facility] Disclaimer: The information contained in this section may have been updated after the patient was seen, as this information can be updated by other users. Medical History (Updated 03/16/24 @ 16:07 by John Yost APRN) Colonoscopy planned Tonsillectomy planned Urinary tract infection Menopause Sinus headache Anxiety Osteoarthritis History of gastroesophageal reflux (GERD) Diabetes mellitus, type 2 Allergies Hyperlipidemia Hypertension History of anemia Skin cancer Surgical History Hx of tonsillectomy History of appendectomy H/O: hysterectomy H/O tubal ligation Family History Mother Rheumatic fever Father Stroke Other Family history of myocardial infarction Social History (Updated 02/12/23 @ 20:13 by Vanessa Barron RN) Smoking Status: Former smoker tobacco type: cigarettes packs per day: 1 second hand exposure: No alcohol intake: never counseling provided: provider counseling substance use type: denies use current occupational status: other household members: other housing: house 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 current occupational exposures/hazards: No caffeine: Yes special pino needs: No agree to transfusion: No do you feel safe at home: Yes victim of physical abuse: No victim of emotional abuse: No victim of sexual abuse: No would you like helpful sources: No ROS Obtained: Yes All systems reviewed & no additional complaints except as documented Constitutional Constitutional: Reports poor appetite Eyes Eyes: Reports system reviewed and no additional complaints, except as documented ENT Ears, Nose, Mouth, and Throat: Reports as per HPI Cardiovascular Cardiovascular: Reports system reviewed and no additional complaints, except as documented and Denies chest pain Respiratory Respiratory: Denies shortness of breath, Reports chest congestion, Reports cough, Denies stridor and Denies wheezing Gastrointestinal Gastrointestingal: Reports system reviewed and no additional complaints, except as documented; Denies abdominal pain, diarrhea or vomiting Musculoskeletal Musculoskeletal: Reports system reviewed and no additional complaints, except as documented and Denies arthralgias Integumentary/Breasts Skin/Breast: Reports system reviewed and no additional complaints, except as documented and Denies rash Neurologic Neurologic: Denies paresthesias Allergic/Immunologic Allergic/Immunologic: Denies wheezing Physical Exam General General appearance: alert and in no apparent distress Head Head exam: atraumatic, normocephalic and normal inspection Eye Eye exam: Present normal appearance, PERRL and EOMI ENT ENT exam: Present normal exam, normal oropharynx, mucous membranes moist, TM's normal bilaterally and normal external ear exam Neck Neck exam: Present normal inspection, full ROM and trachea midline; Absent meningismus or lymphadenopathy Chest Chest inspection: Present normal inspection and symmetric chest wall rise; Absent tenderness Respiratory Respiratory exam: Present normal lung sounds bilaterally; Absent respiratory distress Cardiovascular Cardiovascular exam: Present regular rate and normal rhythm; Absent JVD Abdominal Exam Abdominal exam: Present soft and normal bowel sounds; Absent distention, tenderness or guarding Extremities Exam Extremities exam: Present normal inspection, full ROM and normal capillary refill; Absent calf tenderness Back Exam Back exam: Present normal inspection; Absent tenderness Neurological Exam Neurological exam: Present alert and oriented X3 Psychiatric Psychiatric exam: Present normal affect and normal mood Skin Skin exam: Present warm, dry, intact and normal color Lymphatic Lymphatic Findings: no adenopathy Medical Decision Making Medical Records Medical records reviewed: No I reviewed the patient's medical records. Screening: Per USPSTF and CDC recommendations, given the prevalence of disease in our region, it is our hospital?s policy to screen for HIV and viral Hepatitis for all patients aged 18 and over and those with ongoing risk factors. Matt Inquiry Pt receiving controlled substance: No Lab Data Lab results reviewed: Yes I reviewed the patient's lab results.
[2024-03-16 15:40] LABS: UTC Strep Screen (Rapid) Negative (Negative)
[2024-03-16] MEDS: cefTRIAXone 1GM VIAL 1 GM IM (15:45)
[2024-03-16] MEDS: DEXAMETHASONE 4MG/ML 1ML VIAL 8 MG IM (15:45)
[2024-03-16] MEDS: LIDOCAINE 1% 5ML PF VIAL IM (15:45)
[2024-03-16 16:08] VITALS: BP 145/50; PULSE 58; RESP 23; TEMP 36.9; O2SAT 98
[2024-03-16 16:20] LABS: Coronavirus 19, PCR Not Detected (NotDetected); Influenza A, PCR Not Detected (NotDetected); Influenza B, PCR Not Detected (NotDetected)
== END 2024-03-16 16:17 | disposition home or self-care (01) ==
PROVIDERS: Emergency Provider Nurse Practitioner Family; PCP Nurse Practitioner Family
DX: J01.90 Acute sinusitis, unspecified (principal); J02.9 Acute pharyngitis, unspecified; R09.81 Nasal congestion; R63.8 Other symptoms and signs concerning food and fluid intake; R05.9 Cough, unspecified
CPT/HCPCS: 87636; 87880; 99212; G0381; J0696; J1100

== ENCOUNTER 2024-05-04 06:55 | Outpatient (CLI) | payer MEDICARE, SELFPAY ==
[2024-05-04 07:04] LABS: Microscopic, Urine URINE MICROSCOPIC (MICROSCOPIC)
[2024-05-04 07:18] LABS: Appearance,Urine CLEAR (Clear); Bilirubin,Urine Negative (Negative); Blood, Urine Negative (Negative); Color,Urine YELLOW (Yellow); Glucose,Urine (UA) Negative (Negative); Ketones,Urine Negative (Negative); Leukocyte Esterase,Urine Negative (Negative); Nitrate,Urine Negative (Negative); Protein,Urine TRACE (Negative); Specific Gravity, Urine >= 1.030 (1.005-1.030); Urobilinogen,Urine 0.2 EU/dl (0.2)
[2024-05-04 07:22] LABS: Hematocrit 34.9 % (37.0-47.0); Hemoglobin 11.2 g/dL (12.2-16.2); Mean Corpuscular HGB Conc 32.1 g/dL (31.8-35.4); Mean Corpuscular Hemoglobin 28.3 pg (27.0-31.2); Mean Corpuscular Volume 88.1 fl (81-99); Platelet Count 179 K/mm3 (142-424); Red Blood Count 3.96 M/mm3 (4.20-5.40); Red Cell Distribution Width 16.2 % (11.5-17.5); White Blood Count 6.2 K/mm3 (4.8-10.8)
[2024-05-04 07:45] LABS: Bacteria,Urine Trace /lpf; Squamous Epithelial Cell,Urine Occasional #/hpf (0-5)
[2024-05-04 10:49] LABS: Creatinine,Urine Random 217 mg/dL (Not Estab.)
[2024-05-04 14:32] LABS: Albumin Level 4.1 g/dl (3.5-5.0); Blood Urea Nitrogen 34 mg/dl (7-17); Calcium 9.1 mg/dl (8.4-10.2); Carbon Dioxide 22 mmol/L (22.0-30.0); Chloride 109 mmol/L (98-107); Estimated Glomerular Filt Rate 34 ml/min (>60); GFR (African American) 41 ML/MIN (>60); Glucose 88 mg/dl (74-100); Phosphorous 4.5 mg/dl (2.5-4.5); Sodium 140 mmol/L (136-145)
[2024-05-04 14:39] LABS: Anion Gap 12.9 mEq/L (5-15); Potassium 3.9 mmoL/L (3.5-5.1)
[2024-05-04 14:45] LABS: Intact Parathyroid Hormone 82.7 pg/mL (7.5-53.5)
[2024-05-04 14:49] LABS: 25-OH Vitamin D, Total 37.4 ng/mL (30-100)
== END 2024-05-04 23:59 | disposition home or self-care (01) ==
LOC: LAB 06:57
PROVIDERS: Internal Medicine Nephrology; PCP Nurse Practitioner Family; Visit Provider Student in an Organized Health Care Education/Training Program
DX: I12.9 Hypertensive chronic kidney disease with stage 1 through stage 4 chronic kidney disease, or unspecified chronic kidney disease (principal); N18.31 Chronic kidney disease, stage 3a; Z87.891 Personal history of nicotine dependence
CPT/HCPCS: 36415; 80069; 81001; 82306; 82570; 83970; 84156; 85027

== ENCOUNTER 2024-07-10 08:49 | Outpatient (CLI) | payer MEDICARE, SELFPAY ==
--- NOTE | 2024-07-10 | XR_ITS ---
FINAL REPORT CLINICAL HISTORY: LOCALIZED OSTEOPOROSIS COMPARISON: 11/13/2021 FINDINGS: Using L1-4, the bone mineral density of the spine is 1.116 g/cm2, corresponding to T-score of 0.6, within normal limits. Previously was 1.055 with a T-score of 0.1. Using the left forearm, the bone mineral density of 1/3 is 0.529 g/cm2, corresponding to a T-score of -2.7, compatible with osteoporosis. Previously this was 0.566 with a T-score of -2.1 Using the right forearm, the bone mineral density of the 1/3 is 0.500 g/cm2, corresponding to a T-score of -3.2, compatible with osteoporosis. NOTE: T-score: Standard deviation compared with peak bone mass of young adult mean. *Following the recommendations of the International Society of Bone densitometry, classification of hip BMD is based on the lower of two T-scores; total hip or femoral neck. IMPRESSION: Normal bone mineral density of the lumbar spine, with diminished bone mineral density in the bilateral forearms consistent with osteoporosis. Reviewed, Interpreted and Dictated by Enzo Love MD Transcribed by Benita Dale Authenticated and [facility]
== END 2024-07-10 23:59 | disposition home or self-care (01) ==
PROVIDERS: PCP Nurse Practitioner Family; Visit Provider Nurse Practitioner Family
DX: M81.6 Localized osteoporosis [Lequesne] (principal)
CPT/HCPCS: 77080

== ENCOUNTER 2024-11-12 15:20 | Outpatient (CLI) | payer MEDICARE, SELFPAY ==
--- OUTSIDE RECORDS SUMMARY | 2024-11-12 15:27 | XMS_ITS ---
Author Organization [facility] Support Name Relationship Address Phone Jaylan Morley Emergency Contact Unknown Unav ailable Clint Maribel Guarantor [address] [place], [place] [address] Prudence Jaramilloyce Agent [address] [place], [place] [address] Isidro Morlye Emergency Contact Unknown Keke Guzman Emergency Contact Unknown [phone] Allergies and adverse reactions Code CodeSystem Substance Reaction Severity StartDate Concern Status 520026526 SNOMED CT Sulfa Antibiotics Moderate 0 active Goals Section Goals Description Status Target Date Goal is weight maintenance + /-4# x 90 days. Random blood sugar of 200 or less. Free from s/s or dehydration. Soft, formed bowel movement every 1-3 days. Intact, non-reddened skin. Active Maribel will be continent at all times through the review date. Active 07/03/2019 Maribel will be free from disc omfort or adverse reactions related to anti-anxiety therapy through the review date. Active 07/03/19 Maribel will be free of sympto ms of dehydration and maintain moist mucous membranes, good skin turgor. Active 07/03/2019 Maribel will have intact skin, free of redness, blisters or discoloration by/through review date. Active 07/03/2019 Maribel will improve current l evel of function in Bed Mobility, Transfers, Eating, Dressing, Toilet Use and Personal Hygiene, ADL Score through the review date. Active 07/03/2019 Maribel will not have an inter ruption in normal activities due to pain through the review date. Active 07/03/2019 Maribel will not have discomfo rt related to side effects of analgesia through the review date. Active 07/03/2019 Maribel will resume usual acti vities without further incident through the review date. Active 07/03/2019 Maribel will verbalize adequat e relief of pain or ability to cope with incompletely relieved pain through the review date. Active 07/03/2019 Maribel will verbalize/communi rashmi and understanding of the discharge plan and describe the desired outcome by the review date. Active 07/03/2019 Maribel will voice a level of comfort of hip pain through the review date. Active 07/03/2019 maribel will be free from any s/sx of hyperglycemia through the review date. Active 07/03/2019 Immunizations Immunization Status Vaccine Details Vaccine Code CodeSystem Mohit e Notes Influenza completed Influenza, high-dose, split virus, quadrivalent, injectable, preservative free 197 CVX created date: 05/16/2019 administere d date: 01/20/2019 TB 1 Step Mantoux (PPD) completed tuberculin skin test; unspecified formulation lotNumber: [id number] expiry: 10/06/2020 Mfg: Sandfi-pasteur Given 0.1 ml Left Forearm intradermally 98 CVX created date: 05/16/2019 consent date: 05/16/2019 administere d date: 05/16/2019 TB 2 Step Mantoux Skin Test completed tuberculin skin test; unspecified formulation lotNumber: [id number] expiry: 10/06/2020 Mfg: sanofi pasteur limited Given 0.1 ml Left Forearm intradermally Step 1 of Multi-step 98 CVX created date: 05/23/2019 consent date: 05/23/2019 administere d date: 05/23/2019 Prevnar 13 completed created date: 05/16/2019 administere d date: 02/04/2019 Mental Status Section Date Assessment Total Score Description 06/05/2019 BIMS 15 cognitively int act CAM 0 No delirium ind icated PHQ-9 00 05/28/2019 BIMS 15 cognitively int act CAM 0 No delirium ind icated PHQ-9 02 minimal depress ion Problems Problem # Description Date of onset Resolved Date Code CodeSystem Concern Status 1 ACUTE POSTPROCEDURAL RESPIRATORY FAILURE [address] active 2 ACUTE POSTHEMORRHAGI C ANEMIA [address] active 3 ALLERGY, UNSPECIFIED , INITIAL ENCOUNTER [address] active 4 ANXIETY DISORDER, UNSPECIFIED [address] active 5 CONSTIPATION, UNSPECIFIED [address] active 6 DISPLACED INTERTROCHANTERIC FRACTURE OF LEFT FEMUR, SUBSEQUENT ENCOUNTER FOR CLOSED FRACTURE WITH ROUTINE HEALING [address] active 7 ESSENTIAL (PRIMARY) HYPERTENSION [address] active 8 EXTENDED SPECTRUM BE TA LACTAMASE (ESBL) RESISTANCE [address] active 9 GENERALIZED EDEMA [address] active 10 [address]ALEM[address] active 11 INSOMNIA, UNSPECIFIED [address] active 12 LOCALIZED OSTEOPOROS IS [LEQUESNE] [address] active 13 MENOPAUSAL AND FEMAL E CLIMACTERIC STATES [address] active 14 TYPE 2 DIABETES MELLITUS WITHOUT COMPLICATIONS [address] active 15 UNSPECIFIED ESCHERICHIA COLI [E. COLI] THE CAUSE OF DISEASES CLASSIFIED ELSEWHERE [address] active 16 URINARY TRACT INFECTION, SITE NOT SPECIFIED [address] active 17 VITAMIN DEFICIENCY, UNSPECIFIED [address] active Reason for Referral No Reasons for Referral Entered Social History Social History Observation Description Start Date End Date Code Code System Current Smoking Status Tobacco smoking consumption unknown 337840307 SNOMED CT Sex Assigned At Female 1945 [address]-3 [facility] Gender Identity Vital Signs Code Code System Vitals Name Values and Units Timing Information 59927-4 LOINC Pain Level Value=0.0 06/05/2019 9279-1 LOINC Respiratory Rate Value=16.0 Units=/m in 06/05/2019 8462-4 LOINC Blood Pressure-Diastolic Value=47 Un its=mmHg 06/05/2019 8480-6 LOINC Blood Pressure-Systolic Dpzdc=058 Un its=mmHg 06/05/2019 8310-5 LOINC Body Temperature Value=96.6 Units= F 06/05/2019 8867-4 [facility] Heart rate Value=55.0 Units=/min 10741-3 [facility] O2 % BldC Oximetry Value=94.0 Units= % 06/05/2019 2339-0 [facility] Blood Sugar Pblzm=733.0 Units=mg/dL 06/05/2019 42300-8 [facility] Weight Iikvj=968.2 Units=Lbs 02/2020 8302-2 [facility] Height Value=61.0 Units=Inches 05/16/2019
--- OUTSIDE RECORDS SUMMARY | 2024-11-12 15:27 | XMS_ITS | Data Portability ---
Author Organization [facility] DARINEL Ge [place] CLOSED Address [address] [place] [address] Care Team Providers Care Yardage Estimator Name Role Phone RODNEY PERLA Primary Care Provider Assessment Encounter Date Assessment Date Assessment LastModified by Organization Details LastModified Time 01/02/2018 01/02/2018 will follow up in 6 months smoberly Not available 01/02/2018 15:53:25 Plan of Treatment Reminders Order Date Submit Date Provider Last Modified By Organization Details Last Modified Time Details Appointments None recorded. Lab CORY (antinucle ar antibodies ) screen, serum 2017 018 [facility] [[email or web address] Laboratory, [address] [place], [address], 8 16:56:07 sjogren antibody panel, serum 2017 018 [facility] [[email or web address] Laboratory, [address] [place], [address], 8 15:20:41 Referral None recorded. Procedures None recorded. Surgeries None recorded. Imaging None recorded. Medication Orders pilocarpin e 5 mg tablet 2017 018 [facility] [place], [address], 8 15:52:37 pilocarpin e 5 mg tablet 2017 018 [facility] [place], [address], 8 13:28:17 Patient TargetsNo targets recorded. Patient Instructions Encounter Date Encounter Id Patient Instructions Last Modified By Organization Details Last Modified Time 12/04/2017 [id number] When You Want to Lose Weight: Care Instructions smoberly Not available 12/04/2017 13:28:13 01/02/2018 [id number] When You Want to Lose Weight: Care Instructions smoberly Not available 01/02/2018 15:52:33 Reason for Referral None Reported. Results Created Date Observation Date Name Description Value Unit Range Abnormal Flag Note LastModifiedBy Organization Detail LastModifiedTime 12/05/19 18 12/06/2017 CORY (anti nucle ar antib odies ) scree n, serum CORY screen NEGATI VE negati ve normal CORY IFA is a first line scree n for detec ting the prese nce of up to appro ximat claude 150 autoa ntibo dies in vario us autoi mmune disea ses. A negat jose CORY IFA resul t sugge sts CORY-a ssoci ated autoi mmune disea ses are not prese nt at this time. Visit Physi jordan FAQs for inter preta tion of all antib odies in the [place], preva lence , and assoc iatio n with disea ses at http: //[email or web address] [email or web address] om/ faq/F AQ177 TEST PERFO RMED AT: [facility] [address] [place], [place] [phone] ALEXA Nixon MD Not Available [facility] [address] [place] [address], [phone], 12/06/2017 16:56:07 12/05/19 18 12/07/2017 sjogr en antib latesha panel , serum ss-A Ab <1.0 NEG ai <1.0 neg normal Not Available [facility] [address] [place] [address], [phone], 12/07/2017 15:20:41 12/05/19 18 12/07/2017 sjogr en antib latesha panel , serum ss-B Ab <1.0 NEG ai <1.0 neg normal TEST PERFO RMED AT: [facility] [address] [place] [address] ALEXA Nixon MD Not Available [facility] [address] [place], [address], 12/07/2017 15:20:41 Result Notes None recorded. Problems Name Problem SNOMED Code Status Onset Date Resolution Date Notes Provider Name and Address Organization Details Recorded Time Pain of multiple joints 96442237 Active 2017 IMELDA KNOX, MECHANIST [address] [place], [address], [facility] 8 20:51:14 Keratoconjunct ivitis sicca 657860292 Active 2017 IEMLDA KNOX, MECHANIST [address] [place], [address], [facility] 8 20:51:34 Problem Notes None recorded. Procedures Surgical History Date Name Laterality Status Provider Name and Address Organization Details Recorded Time Head Esthetician Surgery completed Georgette [facility] 12/04/2017 13:06:36 Remove tonsils and adenoids completed [facility] 12/04/2017 13:06:19 Orthopedic Surgery completed Georgette [facility] 12/04/2017 13:06:54 Eye Surgery completed [facility] 12/04/2017 13:07:40 Appendectomy completed [facility] 12/04/2017 13:08:57 Joint Replacement completed [facility] 12/04/2017 13:09:07 Imaging Results None recorded. Procedure Notes None recorded. Medical Equipment None Reported. Allergies Allergen ID Allergen Name Allergen Category Reaction Reaction Severity Criticality Documentation Date Start Date Code Code System Note Provider Name and Address Organization Details Recorded Time 038227 Substance with sulfonami de structure and antibacte rial mechanism of action (substanc e) medicatio n rash Not available Not available 12/04/2017 18329 8006 SNOMED shaki ng Georgette Perez [facility] 8 13:03:10 Medications Name Sig Start Date Stop Date Status Note LastModified by Organization Details LastModified Time atorvastatin 40 mg tablet Take 1 tablet every day by oral route. active Not Available Not Available No t Available pilocarpine 5 mg tablet Take 1 tablet 3 times a day by oral route. 2017 active Not Available Not Available Not Avai labdenis nystatin 100,000 unit/mL oral suspension 12/04 completed Not Available Not Available Not Available trazodone 50 mg tablet 12/04 completed Not Available Not Available Not Available tizanidine 4 mg tablet 12/04 completed Not Available Not Available Not Available fluconazole 150 mg tablet 12/04 completed Not Available Not Available Not Available potassium chloride ER 10 mEq tablet,extend ed release active Not Available Not Available N ot Available valacyclovir 500 mg tablet 12/04 completed Not Available Not Available Not Available carvedilol 3.125 mg tablet active Not Available Not Available Not Available methocarbamol 750 mg tablet 12/04 completed Not Available Not Available Not Available estradiol 1 mg tablet active Not Available Not Available No t Available amlodipine 10 mg tablet active Not Available Not Available No t Available metformin 1,000 mg tablet active Not Available Not Available Not Available raloxifene 60 mg tablet Take 1 tablet every day by oral route. active Not Available Not Available No t Available hydrochloroth iazide 25 mg tablet active Not Available Not Available Not Available zolpidem 5 mg tablet 12/04 completed Not Available Not Available Not Available furosemide 20 mg tablet active Not Available Not Available No t Available escitalopram 20 mg tablet active Not Available Not Available Not Available BD Ultra-Fine Mini Pen Needle 31 gauge x 3/16 12/04 completed Not Available Not Available Not Available zolpidem ER 6.25 mg tablet,extend ed release,multi phase 12/04 completed Not Available Not Available Not Available Toujeo Max U-300 [employer]Star active Not Available Not Available Not Available Vitals Date Recorded Body height Body mass index (BMI) Body weight Heart rate Systolic And Diastolic Provider Name and Address Organization Details Last Updated DateTime 12/04/2017 154.94 cm 22.5 kg/m2 02802.49 g 70 /min 140/57 mm[Hg] Georgette NAYLOR [facility] 12/04/2017 13:09:16 Date Recorded Body height Body mass index (BMI) Body weight Heart rate Systolic And Diastolic Provider Name and Address Organization Details Last Updated DateTime 01/02/2018 154.94 cm 22.7 kg/m2 70255.08 g 51 /min 178/63 mm[Hg] Georgette Perez [facility] 01/02/2018 15:28:41 Social History Question Answer Notes LastModified by Organizat ion Details LastModified Time Tobacco Smoking Status [facility] 12/04/2017 13:05:54 What Was The Date Of Your Most Recent Tobacco Screening? 01/02/2018 Information n ot available 06/09/2019 Sex: Unknown Functional Status Question Answer Note LastModified by Organization D etails LastModified Time What is your level of alcohol consumption? None [email or web address] Information not available 12/04/2017 Mental Status None recorded. Family History Relationship Description Onset Age of this Age Resolved Age Notes LastModified by Organization Details LastModified Time Father Diabetes mellitus Not available 12/04 13:05:45 Medical History Condition Response Diabetes N Bleeding Disorder N Arthritis N Emphysema N Acid Reflux (GERD) Y Heart Disease N Rheumatoid Arthritis N Hypertension Y COPD N Asthma N Gynecological HistoryNo gynecological history recorded. Obstetrics History GPAL:G 0 P 0 0 0 0 Past Encounters Encounter ID Performer Location Encounter Start Date Encounter Closed Date Diagnosis/Indication Diagnosis SNOMED-CT Code Diagnosis ICD10 Code Diagnosis Note [id number] IMELDA KNOX APRN [facility] [address] [place] [address] 12/04/2017 12:49:10 12/04/2017 13:33:43 Keratoconjunctivitis sicca 016232532 M35.01 recurring cavernous, worsening tender tongue with dry eyes, mouth and ear pain, jaw pain/tende rness always have to have something to drink will initiate pilocarpin e Pain of mu ltiple joints 27392950 M25.50 recurring with significan t tenderness in the muscles myalgia and treated in the past for fibromyalg ia with recurring symptomati c complaints suggestive of sjogren's will assess for sjogren's as well as further autoimmune screening due to family history [id number] IMELDA KNOX APRN [facility]HEUMATOL [facility] [address] [place] [address] 01/02/2018 15:11:54 01/02/2018 15:56:47 Pain of multiple joints 50631551 M25.50 recurring with significan t tenderness in the muscles myalgia and treated in the past for fibromyalg ia with recurring symptomati c complaints suggestive of sjogren's sjogren's as well as further autoimmune screening due to family history was negative Keratoconj unctivitis sicca 093013499 M35.01 recurring cavernous, worsening tender tongue with dry eyes, mouth and ear pain, jaw pain/tende rness always have to have something to drink will initiate pilocarpin e likely secondary to sjogren's will hold off on salivary gland biopsy for now Health Concerns Section Related Observation LastModified by Organization Detai ls LastModified Time None Recorded Concern Status LastModified by Organization Details LastModified Time None Recorded Advance Directives Directive None Recorded Payers Insurance Date Sequence Insurance Name Policy Number Policy Penaloza Covered Member ID Penaloza Member ID Guarantor Name 06/24/2018 1 [place]ARE[place]ICARE[place] Maribel Jaramillo [id number] Maribel Jaramillo Notes Date Note Type Note Provider Name and Address Organization Details Recorded Time 12/04/2017 text/html ROS as noted in the HPI new patient here for the consultation and evaluation at the request of Dr. Posey for possible sjogren's; she has recurring right ear pain and tenderness; severe dry mouth with mouth ulcers and sore tongue; she reports she has diabetes; she reports a difficulty with eating and has been receiving antibiotics for this; she reports she has been diagnosed for fibromyalgia for years; she reports frequent yeast infections; she hurts to be touched; she reports she has family h/o sjogren's; has recurring bowel or changes; she currently denies bowel or bladder changes, cp, soa, rash or fevers and all others are negative IMELDA KNOX, MECHANIST [address] [place], [address], [facility] 12/10/2017 20:51:06 01/02/2018 text/html ROS as noted in the HPI f/u after being a new patient here for the consultation and evaluation at the request of Dr. Posey for possible sjogren's; she has recurring right ear pain and tenderness; severe dry mouth with mouth ulcers and sore tongue; she reports she has diabetes; she reports a difficulty with eating and has been receiving antibiotics for this; she reports she has been diagnosed for fibromyalgia for years; she reports frequent yeast infections; she hurts to be touched; she reports she has family h/o sjogren's; has recurring bowel or changes; she currently denies bowel or bladder changes, cp, soa, rash or fevers and all others are negative IMELDA KNOX, MECHANIST [address] [place], [address], [facility] 01/08/2018 20:56:24 OBGyn Episode No OBEpisode recorded.
[2024-11-12 16:14] LABS: Reticulocyte % (Auto) 2.3 % (0.9-3.2)
[2024-11-12 17:27] LABS: Iron 65 ug/dL (37-170)
[2024-11-12 17:36] LABS: Total Iron Binding Capacity 295 ug/dL (265-497)
[2024-11-12 18:05] LABS: Ferritin 56.1 ng/ml (11.1-264)
[2024-11-12 18:37] LABS: Folate 7.98 ng/mL
== END 2024-11-12 23:59 | disposition home or self-care (01) ==
LOC: LAB 15:21
PROVIDERS: PCP Nurse Practitioner Family; Visit Provider Internal Medicine Medical Oncology
DX: D64.9 Anemia, unspecified (principal); E53.8 Deficiency of other specified B group vitamins
CPT/HCPCS: 36415; 81596; 82728; 82746; 83090; 83540; 83550; 83615; 85044; 86880

== ENCOUNTER 2024-11-30 09:33 | Outpatient (CLI) | payer MEDICARE, SELFPAY ==
--- OUTSIDE RECORDS SUMMARY | 2024-10-26 14:40 | XMS_ITS | Encounter Summary ---
Author Organization Healthcare Address [address] 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 Mechanic Name Role Phone Ene Dumont APRN Primary Care Provider [phone] Tiara Mejia LPN Unavailable Unavailabl e Reason for Visit * Reason Comments Follow-up Regarding labs & hav ing a lot of fatigue Fatigue Medication Problem Wants to discuss j[facility] Encounter Details Date Type Department Care Team (Late st Contact Info) Description 10/26/2024 2:40 PM EDT Office Visit [facility] [address] [place] [address] Ene Dumont APRN [address] [place] [address] Other fatigue (Primary Dx); Essential hypertension; Type 2 diabetes mellitus without complication, with long-term current use of insulin; Right hip pain Social History Tobacco Use Types Packs/Day Years Used Date Smoking Tobacco: Former Cigarettes 0.3 5 1 5 - 1989 Passive Smoke Exposure: Past Smokeless Tobacco: Never Alcohol Use Standard Drinks/Week Comments Never 0 (1 standard drink = 0.6 oz pur e alcohol) Humiliation, Afraid, Rape, and Kick questionnair e Answer Date Recorded Within the last year, have y ou been afraid of your partner or ex-partner? No 06/05/2024 Within the last year, have y ou been humiliated or emotionally abused in other ways by your partner or ex-partner? No Within the last year, have y ou been kicked, hit, slapped, or otherwise physically hurt by your partner or ex-partner? No 06/05/2024 Within the last year, have y ou been raped or forced to have any kind of sexual activity by your partner or ex-partner? No 06/05/2024 Social Connection and Isolation Panel Answer Date Recorded In a typical week, how many times do you talk on the phone with family, friends, or neighbors? More than three times a week 06/06/2023 How often do you get togethe r with friends or relatives? Twice a week 06/06/2023 How often do you attend chur or restoration services? More than 4 times per year 06/06/2023 Do you belong to any clubs o r organizations such as jainism groups, unions, fraternal or athletic groups, or school groups? Yes 06/06/2023 How often do you attend meet ings of the clubs or organizations you belong to? More than 4 times per year 06/06/2023 Are you , , di vorced, , never , or living with a partner? 06/06/2023 AUDIT-C Answer Date Recorded Q1: How often do you have a drink containing alc ohol? Monthly or less 06/05/2024 Q2: How many drinks containi ng alcohol do you have on a typical day when you are drinking? 1 or 2 06/05/2024 Q3: How often do you have si x or more drinks on one occasion? Never 06/05/2024 Overall Financial Resource Strain (CARDIA) Answe r Date Recorded How hard is it for you to pa y for the very basics like food, housing, medical care, and heating? Not hard at all 12/09/2023 PHQ-2 Answer Date Recorded Patient Health Questionnaire-2 Score 0 06/29/2024 [facility] [place] [facility] Occupat ional Health - Occupational Stress Questionnaire Answer Date Recorded Do you feel stress - tense, restless, nervous, or anxious, or unable to sleep at night because your mind is troubled all the time - these days? Only a little 06/06/2023 Exercise Vital Sign Answer Date Recorde d On average, how many days pe r week do you engage in moderate to strenuous exercise (like a brisk walk)? 4 days 06/06/2023 On average, how many minutes do you engage in exercise at this level? 30 min 06/06/2023 Hunger Vital Sign Answer Date Recorded Within the past 12 months, y ou worried that your food would run out before you got the money to buy more. Never true 06/05/19 25 Within the past 12 months, t he food you bought just didn't last and you didn't have money to get more. Never true 06/05/2024 PRAPARE - Transportation Answer Date Re corded In the past 12 months, has l ack of transportation kept you from medical appointments or from getting medications? No 05/23 In the past 12 months, has l ack of transportation kept you from meetings, work, or from getting things needed for daily living? No 06/05/2024 Housing Stability Vital Sign Answer Mohit e Recorded In the last 12 months, was t here a time when you were not able to pay the mortgage or rent on time? No 06/06/2023 In the last 12 months, how many places have you lived? 1 06/06/2023 In the last 12 months, was t here a time when you did not have a steady place to sleep or slept in a alf (including now)? No 06/06/2023 Housing Stability Vital Sign Answer Mohit e Recorded In the last 12 months, was t here a time when you were not able to pay the mortgage or rent on time? No 06/05/2024 In the past 12 months, how m any times have you moved where you were living? 1 06/05/2024 At any time in the past 12 m [facility], were you homeless or living in a alf (including now)? No 06/05/2024 AUDIT-C Answer Date Recorded Q1: How often do you have a drink containing alcohol? Never 10/26/2024 Q2: How many drinks containi ng alcohol do you have on a typical day when you are drinking? Patient does not drink Q3: How often do you have si x or more drinks on one occasion? Never 10/26/2024 Safety and Environment Answer Date Clemente rded Do you worry that your child may have been physically abused? Did not ask 06/06/2023 Do you worry that your child may have been sexua lly abused? Did not ask 06/06/2023 Are there any guns kept in o r around your home or where your child spends time? Did not ask 06/06/2023 Guns Unloaded or Locked Away Not on file Utilities Answer Date Recorded In the past 12 months has e electric, gas, oil, or water company threatened to shut off services in your home? No 06/05/2024 PHQ-2A Answer Date Recorded Patient Health Questionnaire-2 Score 0 03/05/2023 Comments No Sex and Gender Information Value Date Recorded Sex Assigned at Not on file Legal Sex Female 3:30 PM EDT Gender Identity Not on file Sexual Orientation Not on file documented as of this encounter Last Filed Vital Signs Vital Sign Reading Time Taken Comments Blood Pressure 144/50 10/26/2024 3:05 PM EDT Pulse 54 10/26/2024 2:57 PM EDT Temperature 36.7 C (98.1 F) 10/26/2024 2:57 PM EDT Respiratory Rate 18 10/26/2024 2:57 PM EDT Oxygen Saturation 99% 10/26/2024 2:57 PM EDT Inhaled Oxygen Concentration - - Weight 50.5 kg (111 lb 5.3 oz) 10/26/2024 2:57 P M EDT Height 154.9 cm (5' 1 ) 10/26/2024 2:57 PM EDT Body Mass Index 21.04 10/26/2024 2:57 PM EDT documented in this encounter Functional Status * AUDIT-C Score Answer Date of Assessment Author 0 10/26/2024 2:58 PM EDT Kiara Verma * Question Answer Date of Assessment Author Q1: How often do you have a drink containing alcohol? Never 10/26/2024 2:58 PM EDT Lorena Verma Q2: How many drinks containing alcohol do you have on a typical day when you are drinking? Patient does not drink 10/26/2024 2:58 PM EDT Lorena Verma Q3: How often do you have six or more drinks on one occasion? Never 10/26/2024 2:58 PM EDT Lorena Verma * Calculated C-SSRS Risk Score (Lifetime/Recent) Answer Date of Assessment Author No Risk Indicated 10/26/2024 3:01 PM EDT Lorena Verma * Question Answer Date of Assessment Author 1. Wish to be (Past 1 Month) No 025 3:01 PM EDT Lorena Verma 2. Non-Specific Active Suici nuria Thoughts (Past 1 Month) No 10/26/2024 3:01 PM EDT Lorena Verma 6. Suicidal Behavior (Lifetime) No 3:01 PM EDT Lorena Verma documented as of this encounter Miscellaneous Notes * Clinician Note - Nelida Roberts, RN - 10/26/2024 2:40 PM EDT Pre-Visit Review Note The following information was reviewed with patient via phone prior to appointment with Ene Dumont APRN on 10/26/2024. Allergies Reviewed and up-to-date Immunizations Pended immunizations discussed with patient: N/A Additional immunizations discussed with patient: Covid Tetanus - states she believes she's received within the last ten years at [facility]. Shingrix - states that she has received two doses. Medications Medications requiring provider review: N/A Pended medications needing to be refilled: N/A Clinical Intervention: Immunization recommendations and Lab work needed (A1c, lipids, etc) Prevnar 20 - Based on shared clinical decision-making, decide whether to administer one dose of PCV20 at least 5 years after the last pneumococcal vaccine dose. States she would like to discuss getting labs due to feeling tired and exhausted. Preferred Pharmacy: [facility] Additional Notes: Would like to discuss increasing dose semaglutide or Ozempic. States doesn't seemto be working. Would like to discuss her right hip and back. Reports she's went to the chiropractor but it didn't help. Has been hurting for around 5 weeks. 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 Would like to discuss getting labs due to feeling tired and exhausted. Patient verbalized understanding of Pre-Visit Review. Patient to follow up with provider at upcoming clinic visit. JAKE Rowley, RN [facility]- Pharmacy Patient Support Services * Progress Notes - Tim Ene Kiara, SALESFORCE ADMINISTRATOR - 10/26/2024 2:40 PM EDT Subjective Patient ID: Maribel Jaramillo is a 78 y.o. female. Chief Complaint Patient presents with Follow-up Regarding labs & having a lot of fatigue Fatigue Medication Problem Wants to discuss ozempic Patient c/o fatigue. Says this has been a chronic issue, but has worsened in the last month. Says she wakes up tired in the AM and is tired throughout the day. She reports h/o anemia so was worried about that. We did switch her from Toujeo to Ozempic back in June. Says glucose has been running 100-120 in the AM, but doesn't feel like the Ozempic is working well for her, would like to try Mounjaro. Says glucose was 136 this AM. Says she has been working more, thinks she has missed some doses ofmetformin. BP is also a little elevated in the office today. Says she was rushed coming to her appointment because she got stuck behind a tractor. Patient doesn't check BP at home, but has a cuff, says she just took her medications prior to the appointment. Denies CP, SOA, palpitations, or edema. Patient also c/o right hip pain x 5 weeks. Has been to the chiropractor without any relief. Says she just feels like she has a lot of inflammation in the hip. The pain will go down in to her right thigh. Occasionally takes Tylenol, but feels like she needs something stronger. Denies any fall or injury. The following portions of the chart were reviewed this encounter and updated as appropriate: Tobacco Allergies Meds Problems Med Hx Surg Hx Fam Hx Current Medications[1] Review of Systems A 14 point ROS reviewed and is otherwise negative except as per HPI. Objective Visit Vitals BP (!) 144/50 Pulse 54 Temp 36.7 ??C (98.1 ??F) (Oral) Resp 18 Ht 1.549 m (5' 1 ) Wt 50.5 kg (111 lb 5.3 oz) LMP (LMP Unknown) SpO2 99% BMI 21.04 kg/m?? OB Status Postmenopausal Smoking Status Former BSA 1.47 m?? Body mass index is 21.04 kg/m??. Physical Exam Vitals reviewed. Constitutional: General: She is not in acute distress. HENT: Head: Normocephalic. Mouth/Throat: Mouth: Mucous membranes are moist. Eyes: Conjunctiva/sclera: Conjunctivae normal. Cardiovascular: Rate and Rhythm: Regular rhythm. Bradycardia present. Heart sounds: Normal heart sounds. Pulmonary: Effort: Pulmonary effort is normal. Breath sounds: Normal breath sounds. Musculoskeletal: General: No swelling or deformity. Skin: General: Skin is warm and dry. Neurological: Mental Status: She is alert and oriented to person, place, and time. Psychiatric: Mood and Affect: Mood normal. Behavior: Behavior normal. Assessment/Plan 1. Other fatigue (Primary) Chronic, worsening condition. Will check labs to further evaluate. Encouraged a well-balanced diet,regular physical activity, and good sleep hygiene. - CBC and Differential - Iron, Plasma - Vitamin B12, Serum - Comprehensive Metabolic Panel, Plasma - Hemoglobin A1c - Thyroid Stimulating Hormone, Plasma - Vitamin D 25 Hydroxy 2. Essential hypertension (?) control. Will have patient monitor BP at home and call with readings later this week. May need to adjust medication if SBP consistently >140. 3. Type 2 diabetes mellitus without complication, with long-term current use of insulin Chronic, (?) control. Will recheck A1c and try switching her from Ozempic to Mounjaro due to adverse effects. Risks vs benefits and potential adverse effects of the medication discussed. - Mounjaro 2.5 MG/0.5ML solution auto-injector solution pen-injector; Inject 0.5 mL under the skin 1 time per week. Dispense: 2 mL; Refill: 5 - Hemoglobin A1c 4. Right hip pain New, not currently well-controlled. Start brief course of NSAID. Risks vs benefits and potential adverse effects of the medication discussed, especially given CKD, but also want to avoid steroids dueto diabetes. Continue with chiropractor as needed. If not improving, may benefit from PT. - diclofenac (Voltaren) 75 MG EC tablet; Take 1 tablet by mouth 2 times a day as needed (pain). Do not crush, chew, or split. Dispense: 60 tablet; Refill: 0 Ene Dumont APRN [1] Current Outpatient Medications: amLODIPine (Norvasc) 10 MG tablet, Take 1 tablet (10 mg) by mouth in the morning., Disp: 90 tablet,Rfl: 3 atorvastatin (Lipitor) 80 MG tablet, Take 1 tablet (80 mg) by mouth in the morning., Disp: 90 tablet, Rfl: 3 BD Pen Needle Afshan 2nd Gen 32G X 4 MM mis, , Disp: , Rfl: benzonatate (Tessalon) 100 MG capsule, Take 1 capsule (100 mg) by mouth 2 (two) times a day if needed for cough. Do not crush or chew., Disp: 60 capsule, Rfl: 1 Blood Glucose Monitoring Suppl device, Use as directed to check blood sugar, Disp: , Rfl: carvedilol (Coreg) 3.125 MG tablet, Take 1 tablet (3.125 mg) by mouth in the morning and 1 tablet (3.125 mg) in the evening. Take with meals., Disp: 180 tablet, Rfl: 3 dapagliflozin (Farxiga) 5 MG tablet, Take 1 tablet (5 mg) by mouth 1 (one) time each day., Disp: 90tablet, Rfl: 3 escitalopram (Lexapro) 20 MG tablet, Take 1 tablet (20 mg) by mouth in the morning., Disp: 90 tablet, Rfl: 3 furosemide (Lasix) 20 MG tablet, Take 1 tablet (20 mg) by mouth in the morning., Disp: 90 tablet, Rfl: 3 glucose blood test strip, 1 each by Other route as needed. Use as instructed, Disp: , Rfl: Lancets 33G [facility], Use as directed to check blood glucose, Disp: , Rfl: losartan (Cozaar) 25 MG tablet, Take 1 tablet (25 mg) by mouth 1 (one) time each day., Disp: 90 tablet, Rfl: 3 metFORMIN XR (Glucophage-XR) 500 MG 24 hr tablet, Take 1 tablet (500 mg) by mouth in the morning and 1 tablet (500 mg) before bedtime. DO NOT CRUSH CHEW OR SPLIT., Disp: 180 tablet, Rfl: 3 Multiple Vitamin (multivitamin) tablet, Take 1 tablet by mouth in the morning., Disp: , Rfl: raloxifene (Evista) 60 MG tablet, Take 1 tablet by mouth once daily, Disp: 90 tablet, Rfl: 1 traZODone (Desyrel) 50 MG tablet, Take 1 tablet (50 mg) by mouth nightly., Disp: 90 tablet, Rfl: 3 valACYclovir (Valtrex) 1 g tablet, TAKE 2000MG TWICE DAILY FOR ONE DAY NEEDED FOR COLD SORES., Disp: 30 tablet, Rfl: 1 diclofenac (Voltaren) 75 MG EC tablet, Take 1 tablet by mouth 2 times a day as needed (pain). Do not crush, chew, or split., Disp: 60 tablet, Rfl: 0 Mounjaro 2.5 MG/0.5ML solution auto-injector solution pen-injector, Inject 0.5 mL under the skin 1 time per week., Disp: 2 mL, Rfl: 5 documented in this encounter Plan of Treatment Upcoming Encounters Date Type Department Care Team (Late st Contact Info) Description 12/04/2024 10:40 AM EDT Office Visit [facility] [address] [place] [address] Amarjit Infante MD [address] [place] [address] 12/30/2024 1:00 PM EDT Office Visit [facility] [address] [place] [address] Ene Dumont APRN [address] [place] [address] documented as of this encounter Procedures Procedure Name Priority Date/Time Associated Diagnosis Comments VITAMIN D 25 HYDROXY Routine 10/26/2024 3:34 PM EDT Other fatigue CBC WITH AUTO DIFFERENTIAL Routine 10/26/2024 3:34 PM EDT Other fatigue TSH Routine 10/26/2024 3:34 PM EDT Other fatigue IRON, PLASMA Routine 10/26/2024 3:34 PM EDT Other fatigue HEMOGLOBIN A1C Routine 10/26/2024 3:34 PM EDT Other fatigue Type 2 diabetes mellitus without complication, with long-term current use of insulin VITAMIN B12, SERUM Routine 10/26/2024 3: 34 PM EDT Other fatigue COMPREHENSIVE METABOLIC PANEL, PLASMA Routine 10/26/2024 3:34 PM EDT Other fatigue documented in this encounter Results * Vitamin D 25 Hydroxy (10/26/2024 3:34 PM EDT) Vitamin D 25 Hydroxy 51.6 20.0 - 80.0 ng/mL 10/26/2024 7:20 PM EDT [facility] Blood Venous blood specimen / Unknown Venipuncture / Unknown 10/26/2024 3:34 PM EDT 10/26/2024 3:34 PM EDT Narrative [facility] - 10/26/2024 7:20 PM EDT Testing performed on Sharif Executive Administrator, standardized against NIST SRM 2972. When testing samples from patients whose predominant form of vitamin D is vitamin D2, such as patients receiving vitamin D2 supplementation, results that are subtherapeutic should be confirmed with another method, such as LC-MS/MS, before being used for patient management. Vitamin D, 25-Hydroxy reference range, age 18 years and up: Deficiency: <12 ng/mL Insufficiency: 12 to 19 ng/mL Sufficiency: 20 to 80 ng/mL Possible toxicity: >100 ng/mL us Ene Dumont APRN LAB BLOOD ORDERABLES Final Resu lt [facility] [address] [place] [address] * Thyroid Stimulating Hormone, Plasma (10/26/2024 3:34 PM EDT) Thyroid Stimulating Hormone, Plasma 0.55 0.40 - 4.20 uIU/mL 10/26/2024 6:23 PM EDT [facility] Blood Venous blood specimen / Unknown Venipuncture / Unknown 10/26/2024 3:34 PM EDT 10/26/2024 3:34 PM EDT us Ene Dumont SALESFORCE ADMINISTRATOR LAB BLOOD ORDERABLES Final Resu lt Performing Organization Address [facility]/ZIP Co de Phone Number [facility] [address] [place] [address] * (ABNORMAL) Hemoglobin A1c (10/26/2024 3:34 PM EDT) Hemoglobin A1c 6.2(H) <5.7 % 10/26/2024 7:16 PM EDT [facility] Blood Venous blood specimen / Unknown Venipuncture / Unknown 10/26/2024 3:34 PM EDT 10/26/2024 3:34 PM EDT Narrative [facility] - 10/26/2024 7:16 PM EDT HA1C Interpretive Data: Diagnosis of Diabetes: Diabetic > or = 6.5% Pre-diabetic 5.7 to 6.4% Non-diabetic < or = 5.6% Glycemic Targets for Type I and Type II Diabetics: Non- Adults <7.0% Adults <6.0% Children and Adolescents <7.5% Source: [place] [employer]. Standards of medical care in diabetes,2017. Diabetes Care.2017:40 (suppl 1):S1-S135. Ene Dumont SALESFORCE ADMINISTRATOR LAB BLOOD ORDERABLES Final Resu lt Performing Organization Address City/[facility] Co de Phone Number [facility] [address] [place] [address] * (ABNORMAL) Comprehensive Metabolic Panel, Plasma (10/26/2024 3:34 PM EDT) Glucose, Plasma 111(H) 74 - 99 mg/dL 10/26/2024 6:23 PM EDT [facility] BUN, Plasma 29(H) 8 - 23 mg/dL 10/26/2024 6:23 PM EDT [facility] Creatinine, Plasma 1.31(H) 0.60 - 1.10 mg/dL 10/26/2024 6:23 PM EDT [facility] BUN/Creatinine Ratio 22 10/26/2024 6:23 PM EDT [facility] Sodium, Plasma 144 136 - 145 mmol/L 10/26/2024 6:23 PM EDT [facility] Potassium, Plasma 4.5 3.6 - 4.9 mmol/L 10/26/2024 6:23 PM EDT [facility] Chloride, Plasma 110(H) 97 - 107 mmol/L 10/26/2024 6:23 PM EDT [facility] CO2, Plasma 24 22 - 29 mmol/L 10/26/2024 6:23 PM EDT [facility] Anion Gap 10 6 - 16 mmol/L 10/26/2024 6:23 PM EDT [facility] Total Calcium, Plasma 9.0 8.9 - 10.2 mg/dL 10/26/2024 6:23 PM EDT [facility] Total Protein 6.3 6.3 - 7.9 g/dL 10/26/2024 6:23 PM EDT [facility] Albumin, Plasma 4.2 3.5 - 5.2 g/dL 10/26/2024 6:23 PM EDT [facility] AST, Plasma 18 10 - 35 U/L 10/26/2024 6:23 PM EDT [facility] ALT, Plasma 24 10 - 35 U/L 10/26/2024 6:23 PM EDT [facility] Alkaline Phosphatase, Plasma 51 46 - 142 U/L 10/26/2024 6:23 PM EDT [facility] Total Bilirubin, Plasma 0.7 0.2 - 1.1 mg/dL 10/26/2024 6:23 PM EDT [facility] eGFRcr 41.8 mL/min/1.7 3m*2 10/26/2024 6:23 PM EDT [facility] Comment:Reported eGFRcr in m L/min/1.73m2 is based the CKD-EPI 2020 equation that does not use a race coefficient. Blood Venous blood specimen / Unknown Venipuncture / Unknown 10/26/2024 3:34 PM EDT 10/26/2024 3:34 PM EDT us Ene Dumont SALESFORCE ADMINISTRATOR LAB BLOOD ORDERABLES Final Resu lt Performing Organization Address City/[facility]/ZIP Co de Phone Number [facility] [address] [place] [address] * Vitamin B12, Serum (10/26/2024 3:34 PM EDT) Pathologist [facility] Vitamin B12, Serum 240 210 - 1,033 pg/mL 10/26/2024 6:30 PM EDT [facility] Blood Venous blood specimen / Unknown Venipuncture / Unknown 10/26/2024 3:34 PM EDT 10/26/2024 3:34 PM EDT Ene Monroeo SALESFORCE ADMINISTRATOR LAB BLOOD ORDERABLES Final Resu lt Performing Organization Address [facility]/ZIP Co de Phone Number [facility] [address] [place] [address] * Iron, Plasma (10/26/2024 3:34 PM EDT) [facility] Iron, Plasma 64 30 - 160 ug/dL 10/26/2024 6:23 PM EDT [facility] Blood Venous blood specimen / Unknown Venipuncture / Unknown 10/26/2024 3:34 PM EDT 10/26/2024 3:34 PM EDT Ene Monroeshaan GARN LAB BLOOD ORDERABLES Final Resu lt Performing Organization Address City/[facility]/ZIP Co de Phone Number [facility] [address] [place] [address] * (ABNORMAL) CBC and Differential (10/26/2024 3:34 PM EDT) Pathologist [facility] WBC Count 5.25 3.70 - 10.30 10*3/uL LAB HEMATOLOGY METHOD 10/26/2024 6:09 PM EDT [facility] RBC Count 3.69(L) 3.90 - 5.20 10*6/uL LAB HEMATOLOGY METHOD 10/26/2024 6:09 PM EDT [facility] HGB 10.5(L) 11.2 - 15.7 g/dL LAB HEMATOLOGY METHOD 10/26/2024 6:09 PM EDT [facility] HCT 33.4(L) 34.0 - 45.0 % LAB HEMATOLOGY METHOD 10/26/2024 6:09 PM EDT [facility] Platelet Count 172 155 - 369 10*3/uL LAB HEMATOLOGY METHOD 10/26/2024 6:09 PM EDT [facility] MCV 91 79 - 98 fL LAB HEMATOLOGY METHOD 10/26/2024 6:09 PM EDT [facility] MCH 28.5 26.0 - 32.0 pg LAB HEMATOLOGY METHOD 10/26/2024 6:09 PM EDT [facility] MCHC 31.4 30.7 - 35.5 g/dL LAB HEMATOLOGY METHOD 10/26/2024 6:09 PM EDT [facility] RDW 16.5(H) 11.5 - 14.5 % LAB HEMATOLOGY METHOD 10/26/2024 6:09 PM EDT [facility] MPV 11.4 8.8 - 12.5 fL LAB HEMATOLOGY METHOD 10/26/2024 6:09 PM EDT [facility] nRBC 0.0 <=0.0 per 100 WBCs LAB HEMATOLOGY METHOD 10/26/2024 6:09 PM EDT [facility] Differential Type Automated LAB HEMATOLOGY METHOD 10/26/2024 6:09 PM EDT [facility] Neutrophils % 72 % LAB HEMATOLOGY METHOD 10/26/2024 6:09 PM EDT [facility] Lymphocytes % 18 % LAB HEMATOLOGY METHOD 10/26/2024 6:09 PM EDT [facility] Monocytes % 6 % LAB HEMATOLOGY METHOD 10/26/2024 6:09 PM EDT [facility] Eosinophils % 3 % LAB HEMATOLOGY METHOD 10/26/2024 6:09 PM EDT [facility] Basophils % 1 % LAB HEMATOLOGY METHOD 10/26/2024 6:09 PM EDT [facility] Immature Granulocytes % 0 % LAB HEMATOLOGY METHOD 10/26/2024 6:09 PM EDT [facility] Neutrophils Absolute 3.77 1.60 - 6.10 10*3/uL LAB HEMATOLOGY METHOD 10/26/2024 6:09 PM EDT [facility] Lymphocytes Absolute 0.94(L) 1.20 - 3.90 10*3/uL LAB HEMATOLOGY METHOD 10/26/2024 6:09 PM EDT [facility] Monocytes Absolute 0.33 0.30 - 0.90 10*3/uL LAB HEMATOLOGY METHOD 10/26/2024 6:09 PM EDT [facility] Eosinophils Absolute 0.14 0.00 - 0.50 10*3/uL LAB HEMATOLOGY METHOD 10/26/2024 6:09 PM EDT [facility] Basophils Absolute 0.05 0.00 - 0.10 10*3/uL LAB HEMATOLOGY METHOD 10/26/2024 6:09 PM EDT [facility] Immature Granulocytes Absolute 0.02 0.00 - 0.06 10*3/uL LAB HEMATOLOGY METHOD 10/26/2024 6:09 PM EDT [facility] [facility] Blood Venous blood specimen / Unknown Venipuncture / Unknown 10/26/2024 3:34 PM EDT 10/26/2024 3:34 PM EDT Narrative [facility] - 10/26/2024 6:09 PM EDT Therapeutic decision making should be based on absolute values, rather than percentages. us Ene Dumont APRN LAB BLOOD ORDERABLES Final Resu lt [facility] [address] [place] [address] documented in this encounter Visit Diagnoses Diagnosis Other fatigue- Primary Essential hypertension Unspecified essential hypertension Type 2 diabetes mellitus without complication, with long-term current use of insulin Right hip pain Pain in joint, pelvic region and thigh Localized osteoporosis (Lequesne) documented in this encounter Additional Health Concerns Assessment Noted Time A fall risk assessment has been complete d for the patient 10/26/2024 3:00 PM EDT A Body Mass Index follow-up plan has been documented for the patient 10/26/2024 3:22 PM EDT documented as of this encounter Care Teams 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
--- OUTSIDE RECORDS SUMMARY | 2024-11-30 09:36 | XMS_ITS | Encounter Summary ---
Author Organization Healthcare Address [address] [place] [address] Care Team Providers Care Associate Programmer Name Role Phone Ene Dumont APRN Primary Care Provider [phone] Tiara Mejia LPN Unavailable Unavailabl e Reason for Visit * Reason Comments Med Refill Encounter Details Date Type Department Care Team (Late st Contact Info) Description 10/31/[address] [place] [address] Madelin Magallon MD [address] [address] Type 2 diabetes mellitus without complication, with long-term current use of insulin Social History Tobacco Use Types Packs/Day Years Used Date Smoking Tobacco: Former Cigarettes 0.3 5 1 985 - 1989 Passive Smoke Exposure: Past Smokeless [...] week 06/06/2023 How often do you attend [facility] or anabaptism services? More than 4 times per year 06/06/2023 Do you belong to any clubs o r organizations such as yarsani groups, unions, fraternal or athletic groups, or [...] Recorded Patient Health Questionnaire-2 Score 0 06/29/2024 [facility] - Occupational Stress [...] place to sleep or slept in a custodial (including now)? No 06/06/2023 Housing Stability Vital Sign Answer Mohit e Recorded In the last 12 months, was t here a time when you were not able to pay the mortgage or rent on time? No 06/05/2024 In the past 12 months, how m any times have you moved where you were living? 1 06/05/2024 At any time in the past 12 m [facility], were you homeless or living in a custodial (including now)? No 06/05/2024 AUDIT-C Answer Date [...] Recorded In the past 12 months has [employer] electric, gas, oil, or water company threatened to shut off services in your home? No 06/05/2024 PHQ-2A Answer Date Recorded Patient Health Questionnaire-2 Score 0 03/05/2023 Comments No Sex and Gender Information Value Date Recorded Sex Assigned at Not on file Legal Sex Female 3:30 PM EDT Gender Identity Not on file Sexual Orientation Not on file documented as of this encounter Plan of Treatment Upcoming Encounters Date Type Department Care Team (Late st Contact Info) Description 12/04/2024 10:40 AM EDT Office Visit [address] [place] [address] Amarjit Infante MD [address] [place] [address] 12/30/2024 1:00 PM EDT Office Visit [facility] [address] [place] [address] Ene Dumont APRN [address] [place] [address] documented as of this encounter Visit Diagnoses Diagnosis Type 2 diabetes mellitus without complication, with long-term current use of insulin Localized osteoporosis (Lequesne) documented in this encounter Additional Health Concerns Assessment Noted Time A fall risk assessment has been complete d for the patient 10/26/2024 3:00 PM EDT A Body Mass Index follow-up plan has been documented for the patient 10/26/2024 3:22 PM EDT documented as of this encounter Care Teams Associate Programmer Relationship Specialty Start Date End Date Ene Dumont APRN [address] [place] [address] PCP - General Family Medicine 08/01/23 Tiara Mejia LPN [employer] [place] [address] Licensed Practical Nurse 06/04/24 12/02/24 documented as of this encounter
--- OUTSIDE RECORDS SUMMARY | 2024-11-30 09:36 | XMS_ITS ---
Author Organization Healthcare Address [address] [place] [address] Care Team Providers Care Director Nicu Name Role Phone Ene Dumont APRN Primary Care Provider [phone] Tiara Mejia LPN Unavailable Unavailabl e Annual Wellness Status:Active (Active) Start date:06/04/2024 Enrollment date:06/05/2024 Enrollment reason:Identified using claims or encounter data Case Team Name Relationship Phone Tiara Mejia LPN(Responsible Staff) Licensed Practical Nurse Continued Care and Services Coordination
--- OUTSIDE RECORDS SUMMARY | 2024-11-30 09:36 | XMS_ITS | Encounter Summary ---
Author Organization Healthcare Address [address] [place] [address] Care Team Providers Care Pouncer Name Role Phone Ene Dumont APRN Primary Care Provider Tiara Mejia LPN Unavailable Unavailabl e Reason for Visit * Reason Onset Date Comments Prior-authorization/insurance Verification 10/27 Encounter Details Date Type Department Care Team (Late st Contact Info) Description 10/27/2024 Telephone [facility] Medicine [address] [place] [address] Ene Dumont APRN [address] [place] [address] Prior-authorization/ins urance Verification Social History Tobacco Use Types Packs/Day Years [...] week 06/06/2023 How often do you attend [facility] or protestant services? More than 4 times per year 06/06/2023 Do you belong to any clubs o r organizations such as buddhism groups, unions, fraternal or athletic groups, or [...] Recorded Patient Health Questionnaire-2 Score 0 06/29/2024 [facility] - Occupational [...] place to sleep or slept in a prison (including now)? No 06/06/2023 Housing Stability Vital Sign Answer Mohit e Recorded In the last 12 months, was t here a time when you were not able to pay the mortgage or rent on time? No 06/05/2024 In the past 12 months, how m any times have you moved where you were living? 1 06/05/2024 At any time in the past 12 m [facility], were you homeless or living in a prison (including now)? No 06/05/2024 AUDIT-C Answer Date [...] on file documented as of this encounter Miscellaneous Notes * Telephone Encounter - Robin Ricks CPhT - 10/27/2024 7:52 AM EDT Prior authorization request received - to be completed by [facility] Services Medication name and Strength: Mounjaro 2.5mg Requesting Pharmacy: [facility] [place]: [id number] documented in this encounter Plan of Treatment Upcoming Encounters Date Type Department Care Team (Late st Contact Info) Description 12/04/2024 10:40 AM EDT Office Visit [facility] [address] [place] [address] Amarjit Infante MD [address] [place] [phone] 12/30/2024 1:00 PM EDT Office Visit [facility] [address] [place] [address] Ene Dumont APRN [address] [place] [address] documented as of this encounter Visit Diagnoses Not on filedocumented in this encounter Additional Health Concerns Assessment Noted Time A fall risk assessment has been complete d for the patient 10/26/2024 3:00 PM EDT A Body Mass Index follow-up plan has been documented for the patient 10/26/2024 3:22 PM EDT documented as of this encounter Care Teams Pouncer Relationship Specialty Start Date End Date Ene Dumont APRN [address] [place] [address] PCP - General Family Medicine 08/01/23 Tiara Mejia LPN [employer] [place] [address] Licensed Practical Nurse 06/04/24 12/02/24 documented as of this encounter
--- OUTSIDE RECORDS SUMMARY | 2024-11-30 09:36 | XMS_ITS | Encounter Summary ---
Author Organization Healthcare Address [address] [place] [address] Care Team Providers Care Licensed Occupational Therapist Name Role Phone Ene Dumont APRN Primary Care Provider [phone] Tiara Mejia LPN Unavailable Unavailabl e Encounter Details Date Type Department Care Team (Late st Contact Info) Description 10/27/2024 Results Follow-Up [facility] [address] [place] [address] Ene Dumont APRN [address] [place] [address] Social History Tobacco Use Types Packs/Day Years [...] 06/06/2023 How often do you attend chur ch or christian services? More than 4 times per year 06/06/2023 Do you belong to any clubs o r organizations such as yarsanism groups, unions, fraternal or athletic groups, or [...] Recorded Patient Health Questionnaire-2 Score 0 06/29/2024 [facility] - Occupational Stress [...] place to sleep or slept in a usp (including now)? No 06/06/2023 Housing Stability Vital Sign Answer Mohit e Recorded In the last 12 months, was t here a time when you were not able to pay the mortgage or rent on time? No 06/05/2024 In the past 12 months, how m any times have you moved where you were living? 1 06/05/2024 At [facility] time in the [facility], were you homeless or living in a usp (including now)? No 06/05/2024 AUDIT-C Answer Date [...] Recorded In the past 12 months has th e electric, gas, oil, or water [employer] threatened to shut off services in your [...] Description 12/04/2024 10:40 AM EDT Office Visit [facility] [address] [place] [address] Amarjit Infante MD [address] [place] [phone] 12/30/2024 1:00 PM EDT Office Visit [facility] [address] [place] [address] Ene Dumont APRN [address] [place] [address] documented as of this encounter Visit Diagnoses Not on filedocumented in this encounter Additional Health Concerns Assessment Noted Time A fall risk assessment has been complete d for the patient 10/26/2024 3:00 PM EDT A Body Mass Index follow-up plan has been documented for the patient 10/26/2024 3:22 PM EDT documented as of this encounter Care Teams Licensed Occupational Therapist Relationship Specialty Start Date End Date Ene Dumont APRN [address] [place] [address] PCP - General Family Medicine 08/01/23 Tiara Mejia LPN [employer] [place] [address] Licensed Practical Nurse 06/04/24 12/02/24 documented as of this encounter
--- OUTSIDE RECORDS SUMMARY | 2024-11-30 09:36 | XMS_ITS | Clinical Summary ---
Author Organization Healthcare Address [address] [place] [address] Care Team Providers Care Supervisor Beehive Kiln Name Role Phone TimBlasfredi Craig SADDLE MECHANIC Primary Care Provider [phone] Tiara Mejia BOW TACKER Unavailable Unavailabl e Allergies Active Allergy Reactions Criticality Noted Date Comments Sulfa Drugs Unknown - Patient st ates they do not know rxn details Low 08/21/2021 Over 40 years ago, Medications Multiple Vitamin (multivitamin) tablet Take 1 tablet by mouth in the morning. Active BD Pen Needle Afshan 2nd Gen 32G X 4 MM misc 08/08/19 23 Active Blood Glucose Monitoring Suppl device Use as directed to check blood sugar Active glucose blood test strip 1 each by Other route as needed. Use as instructed Active Lancets 33G misc Use as directed to check blood glucose Active valACYclovir (Valtrex) 1 g tabletIndications :Herpes labialis TAKE 2000MG TWICE DAILY FOR ONE DAY NEEDED FOR COLD SORES. 30 tablet 1 12/09/19 24 Active benzonatate (Tessalon) 100 MG capsuleIndication s:Chronic cough Take 1 capsule (100 mg) by mouth 2 (two) times a day if needed for cough. Do not crush or chew. 60 capsule 1 01/29/20 24 Active losartan (Cozaar) 25 MG tabletIndications :Persistent proteinuria Take 1 tablet (25 mg) by mouth 1 (one) time each day. 90 tablet 3 05/08/19 25 Active furosemide (Lasix) 20 MG tabletIndications :Essential hypertension Take 1 tablet (20 mg) by mouth in the morning. 90 tablet 3 06/30/19 25 Active traZODone (Desyrel) 50 MG tabletIndications :Other insomnia Take 1 tablet (50 mg) by mouth nightly. 90 tablet 3 06/30/19 25 Active escitalopram (Lexapro) 20 MG tabletIndications :Anxiety Take 1 tablet (20 mg) by mouth in the morning. 90 tablet 3 06/30/19 25 Active amLODIPine (Norvasc) 10 MG tabletIndications :Essential (primary) hypertension Take 1 tablet (10 mg) by mouth in the morning. 90 tablet 3 06/30/19 25 Active atorvastatin (Lipitor) 80 MG tabletIndications :Other hyperlipidemia Take 1 tablet (80 mg) by mouth in the morning. 90 tablet 3 06/30/19 25 Active carvedilol (Coreg) 3.125 MG tabletIndications :Essential (primary) hypertension Take 1 tablet (3.125 mg) by mouth in the morning and 1 tablet (3.125 mg) in the evening. Take with meals. 180 tablet 3 06/30/19 25 Active metFORMIN XR (Glucophage-XR) 500 MG 24 hr tabletIndications :Type 2 diabetes mellitus without complication, with long-term current use of insulin Take 1 tablet (500 mg) by mouth in the morning and 1 tablet (500 mg) before bedtime. DO NOT CRUSH CHEW OR SPLIT. 180 tablet 3 06/30/19 25 Active raloxifene (Evista) 60 MG tabletIndications :Localized osteoporosis (Lequesne) Take 1 tablet by mouth once daily 90 tablet 1 09/03/19 25 Active diclofenac (Voltaren) 75 MG EC tabletIndications :Right hip pain Take 1 tablet by mouth 2 times a day as needed (pain). Do not crush, chew, or split. 60 tablet 10/27/19 25 Active Mounjaro 2.5 MG/0.5ML solution auto-injector solution pen-injectorIndic ations:Type 2 diabetes mellitus without complication, with long-term current use of insulin Inject 0.5 mL under the skin 1 time per week. 2 mL 5 10/27/19 25 Active Farxiga 5 MG tabletIndications :Type 2 diabetes mellitus without complication, with long-term current use of insulin Take 1 tablet by mouth once daily 90 tablet 3 11/03/19 25 Active dapagliflozin (Farxiga) 5 MG tabletIndications :Type 2 diabetes mellitus without complication, with long-term current use of insulin Take 1 tablet (5 mg) by mouth 1 (one) time each day. 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 Essential (primary) hypertension 05/15/2019 Type 2 diabetes mellitus without complications 0 05/15/2019 Displaced intertrochanteric fracture of left femur, subsequent encounter for closed fracture with routine healing 05/15/2019 Localized osteoporosis (Lequesne) 05/15/2019 Vitamin deficiency, unspecified 05/15/2019 Insomnia, unspecified 05/15/2019 Menopausal and female climacteric states 020 Multiple joint pain 01/08/2018 Keratoconjunctivitis sicca 01/08/2018 Encounters Date Type Department Care Team Description 11/03/2024 Orders Only [facility] [address] [place] [address] Ene Dumont APRN Low iron (Primary Dx) 10/31/2024 Refill [facility] [address] [place] [address] Madelin Magallon MD Type 2 diabetes mellitus without complication, with long-term current use of insulin 10/30/2024 Telephone [facility] [address] [place] [address] Ene Dumont APRN HCN Clinical Concern/Question 10/27/2024 Orders Only [facility] [address] [place] [address] Ene Dumont APRN Abnormal laboratory test (Primary Dx) 10/27/2024 Results Follow-Up [facility] [address] [place] [address] Ene Dumont APRN 10/27/2024 Telephone [facility] [address] [place] [address] Ene Dumont APRN Prior-authorization/i nsurance Verification 10/26/2024 2:40 PM EDT Office Visit [facility] [address] [place] [address] Ene Dumont APRN Other fatigue (Primary Dx); Essential hypertension; Type 2 diabetes mellitus without complication, with long-term current use of insulin; Right hip pain 10/26/2024 Travel 09/01/2024 Refill [facility] [address] [place] [address] Ene Dumont APRN Localized osteoporosis (Lequesne) from Last 3 Months Immunizations Immunization Administration Dates Next Due Hep A, Adult 01/10/2021,05/09/2020 Influenza, High-dose, Split Virus, Trivalent, Injectable, preservative free 01/06/2018 Influenza, high-dose, quadrivalent 02/19/2023,,01/06/2018 Moderna COVID-19 Vaccine (Re d Cap) 12+ years 03/01/2021,06/29/2020,06/01/2020 Pneumococcal Conjugate PCV 13 02/04/2019 Pneumococcal Polysaccharide PPV23 03/06/2018 Zoster, Recombinant 05/09/2020 Family History Medical History Relation Name Comments Diabetes Father Heart disease Mother Stroke Mother Relation Name Status Comments Father Mother Social History Tobacco Use Types Packs/Day Years Used Date Smoking Tobacco: Former Cigarettes 0.3 5 1 985 - 1989 Passive Smoke Exposure: Past Smokeless Tobacco: Never Tobacco Cessation:Counseling Given: Not Answered Alcohol Use Standard Drinks/Week Comments Never 0 [...] How often do you attend chur or yarsani services? More than 4 times per year 06/06/2023 Do you belong to any clubs o r organizations such as presybeterian groups, unions, fraternal or athletic groups, or [...] Recorded Patient Health Questionnaire-2 Score 0 06/29/2024 [facility] Occup[facility] - Occupational Stress [...] place to sleep or slept in a long-term (including now)? No 06/06/2023 Housing Stability Vital Sign Answer Mohit e Recorded In the last 12 months, was t here a time when you were not able to pay the mortgage or rent on time? No 06/05/2024 In the past 12 months, how m any times have you moved where you were living? 1 06/05/2024 At any time in the past 12 m [place], were you homeless or living in a long-term (including now)? No 06/05/2024 AUDIT-C Answer Date [...] Recorded In the past 12 months has [place], gas, oil, or water [employer] threatened to shut off services in your home? No 06/05/2024 PHQ-2A Answer Date Recorded Patient Health Questionnaire-2 Score 0 03/05/2023 Comments No Sex and Gender Information Value Date Recorded Sex Assigned at Not on file Legal Sex Female 3:30 PM EDT Gender Identity Not on file Sexual Orientation Not on file Last Filed Vital Signs Vital Sign Reading [...] Mass Index 21.04 10/26/2024 2:57 PM EDT Plan of Treatment Upcoming Encounters Date Type Department Care Team (Late st Contact Info) Description 12/04/2024 10:40 AM EDT Office Visit [facility] [address] [place] [address] Amarjit Infante MD [address] [place] [phone] 12/30/2024 1:00 PM EDT Office Visit [facility] [address] [place] [address] Ene Dumont, SADDLE MECHANIC [address] [place] [address] Health Maintenance Due Date Last Done Comments [facility]-Bone Density Scan 1945 [facility]-/Child/Adol SDOH Screenings 1945 Diabetes: Dental Exam 12/03/1955 [facility]-DTaP,Tdap,and Td Vaccines (1 - Tdap) 1964 [facility]-Zoster Vaccines (2 of 2) 07/04/2020 05/09/2020 [facility]-RSV Vaccine: 60+ Years or (1 - 1-dose 75+ series) 2020 [id number] Vaccine (4 - 2023- season) 2023 03/01/2021, 06/29/2020, 06/01/2020 [facility]- SDOH Screenings 12/03/2024 [facility]-Adult SDOH Screenings 12/03/2024 06/05/2024 [facility]-Influenza Vaccine (#1) 12/21/202402/19, 02/05/2022, 01/06/2018, Additional history exists [facility]-Diabetes: Hemoglobin A1C 04/25/2025 10/26/2024, 06/29/2024, 12/09/2023, Additional history exists [facility]-Depression Screening 06/29/2025 06/29/2024 [facility]-Medicare Annual Wellness (AWV) 06/29/2025 06/29/2024, 06/10/2023 [facility]-Pneumococcal Vaccine: 50+ Years Completed 02/04/2019, 03/06/2018 [facility]-Hepatitis A Vaccines Aged Out 01/10/2021, 04/22 No longer eligible based on patient's age to complete this topic Colonoscopy Discontinued 01/10/2022 [facility]-Colorectal Cancer Screening Discontinued [facility]-Hepatitis C Screening Completed 06/10/2023 CT Colonography Discontinued FIT-DNA Discontinued FIT Discontinued FOBT Discontinued HPV Vaccines Aged Out No longer eligi ble based on patient's age to complete this topic Sigmoidoscopy Discontinued [facility]-HIB Vaccines Aged Out No longer e ligible based on patient's age to complete this topic [facility]-IPV Vaccines Aged Out No longer e ligible based on patient's age to complete this topic [facility]-Rotavirus Vaccines Aged Out No lo nger eligible based on patient's age to complete this topic Procedures Procedure Name Priority Date/Time Associated Diagnosis Comments VITAMIN D 25 HYDROXY Routine 10/26/2024 3:34 PM EDT Other fatigue TSH Routine 10/26/2024 3:34 PM EDT Other fatigue HEMOGLOBIN A1C Routine 10/26/2024 3:34 PM EDT Other fatigue Type 2 diabetes mellitus without complication, with long-term current use of insulin COMPREHENSIVE METABOLIC PANEL, PLASMA Routine 10/26/2024 3:34 PM EDT Other fatigue VITAMIN B12, SERUM Routine 10/26/2024 3: 34 PM EDT Other fatigue IRON, PLASMA Routine 10/26/2024 3:34 PM EDT Other fatigue CBC WITH AUTO DIFFERENTIAL Routine 10/26/2024 3:34 PM EDT Other fatigue HEPATITIS C ANTIBODY W/REFLEX TO HCV QUANT PCR Routine 06/10/2023 9:41 AM EST Need for hepatitis C screening test COLONOSCOPY EXTERNAL RESULT 01/10/2022 from Last 3 Months or Most Recently Relevant to Health Maintenance Results * Vitamin D 25 Hydroxy (10/26/2024 3:34 PM EDT) Vitamin D 25 Hydroxy 51.6 20.0 - 80.0 ng/mL 10/26/2024 7:20 PM EDT [facility] Blood Venous blood specimen / Unknown Venipuncture / Unknown 10/26/2024 3:34 PM EDT 10/26/2024 3:34 PM EDT Narrative [facility] - 10/26/2024 7:20 PM EDT Testing performed on [employer], standardized against NIST SRM 2972. When testing [...] APRN LAB BLOOD ORDERABLES Final Resu lt [facility] [address] [place] [address] * (ABNORMAL) CBC and Differential (10/26/2024 3:34 PM EDT) WBC Count 5.25 3.70 - 10.30 10*3/uL LAB HEMATOLOGY METHOD 10/26/2024 6:09 PM EDT [facility] RBC Count 3.69(L) 3.90 - 5.20 10*6/uL LAB HEMATOLOGY METHOD 10/26/2024 6:09 PM EDT [facility] HGB 10.5(L) 11.2 - 15.7 g/dL LAB HEMATOLOGY METHOD 10/26/2024 6:09 PM EDT [facility] HCT 33.4(L) 34.0 - 45.0 % LAB HEMATOLOGY METHOD 10/26/2024 6:09 PM EDT [facility] Platelet Count 172 155 - 369 10*3/uL LAB HEMATOLOGY METHOD 10/26/2024 6:09 PM EDT [facility] MCV 91 79 - 98 fL LAB HEMATOLOGY METHOD 10/26/2024 6:09 PM EDT [facility] MCH 28.5 26.0 - 32.0 pg LAB HEMATOLOGY METHOD 10/26/2024 6:09 PM EDT [facility] MCHC 31.4 30.7 - 35.5 g/dL LAB HEMATOLOGY METHOD 10/26/2024 6:09 PM EDT [facility] RDW 16.5(H) 11.5 - 14.5 % LAB HEMATOLOGY METHOD 10/26/2024 6:09 PM EDT [facility] MPV 11.4 8.8 - 12.5 fL LAB HEMATOLOGY METHOD 10/26/2024 6:09 PM EDT [facility] nRBC 0.0 <=0.0 per 100 WBCs LAB HEMATOLOGY METHOD 10/26/2024 6:09 PM EDT [facility] Differential Type Automated LAB HEMATOLOGY METHOD 10/26/2024 6:09 PM EDT [facility] Neutrophils % 72 % LAB HEMATOLOGY METHOD 10/26/2024 6:09 PM EDT [facility] Lymphocytes % 18 % LAB HEMATOLOGY METHOD 10/26/2024 6:09 PM EDT [facility] Monocytes % 6 % LAB HEMATOLOGY METHOD 10/26/2024 6:09 PM EDT [facility] Eosinophils % 3 % LAB HEMATOLOGY METHOD 10/26/2024 6:09 PM EDT [facility] Basophils % 1 % LAB HEMATOLOGY METHOD 10/26/2024 6:09 PM EDT [facility] Immature Granulocytes % 0 % LAB HEMATOLOGY METHOD 10/26/2024 6:09 PM EDT [facility] Neutrophils Absolute 3.77 1.60 - 6.10 10*3/uL LAB HEMATOLOGY METHOD 10/26/2024 6:09 PM EDT [facility] Lymphocytes Absolute 0.94(L) 1.20 - 3.90 10*3/uL LAB HEMATOLOGY METHOD 10/26/2024 6:09 PM EDT [facility] Monocytes Absolute 0.33 0.30 - 0.90 10*3/uL LAB HEMATOLOGY METHOD 10/26/2024 6:09 PM EDT [facility] Eosinophils Absolute 0.14 0.00 - 0.50 10*3/uL LAB HEMATOLOGY METHOD 10/26/2024 6:09 PM EDT [facility] Basophils Absolute 0.05 0.00 - 0.10 10*3/uL LAB HEMATOLOGY METHOD 10/26/2024 6:09 PM EDT [facility] Immature Granulocytes Absolute 0.02 0.00 - 0.06 10*3/uL LAB HEMATOLOGY METHOD 10/26/2024 6:09 PM EDT [facility] Blood Venous blood specimen / Unknown Venipuncture / Unknown 10/26/2024 3:34 PM EDT 10/26/2024 3:34 PM EDT Narrative [facility] - 10/26/2024 6:09 PM EDT Therapeutic decision making should be based on absolute values, rather than percentages. Ene Dumont SADDLE MECHANIC LAB BLOOD ORDERABLES Final Resu lt Performing Organization Address City/[facility]/ZIP Co de Phone Number [facility] [address] [place] [address] * Thyroid Stimulating Hormone, Plasma (10/26/2024 3:34 PM EDT) Thyroid Stimulating Hormone, Plasma 0.55 0.40 - 4.20 uIU/mL 10/26/2024 6:23 PM EDT [facility] Blood Venous blood specimen / Unknown Venipuncture / Unknown 10/26/2024 3:34 PM EDT 10/26/2024 3:34 PM EDT Ene Dumont SADDLE MECHANIC LAB BLOOD ORDERABLES Final Resu lt Performing Organization Address City/[facility]/ZIP Co de Phone Number [facility] [address] [place] [address] * Iron, Plasma (10/26/2024 3:34 PM EDT) Iron, Plasma 64 30 - 160 ug/dL 10/26/2024 6:23 PM EDT [facility] Blood Venous blood specimen / Unknown Venipuncture / Unknown 10/26/2024 3:34 PM EDT 10/26/2024 3:34 PM EDT Ene Dumont APRN LAB BLOOD ORDERABLES Final Resu lt Performing Organization Address City/[facility]/ZIP Co de Phone Number [facility] [address] [place] [address] * (ABNORMAL) Hemoglobin A1c (10/26/2024 3:34 PM EDT) Hemoglobin A1c 6.2(H) <5.7 % 10/26/2024 7:16 PM EDT [facility] Blood Venous blood specimen / Unknown Venipuncture / Unknown 10/26/2024 3:34 PM EDT 10/26/2024 3:34 PM EDT Narrative [facility] - 10/26/2024 7:16 PM EDT HA1C Interpretive Data: Diagnosis of Diabetes: Diabetic > or = 6.5% Pre-diabetic 5.7 to 6.4% Non-diabetic < or = 5.6% Glycemic Targets for Type I and Type II Diabetics: Non- Adults <7.0% Adults <6.0% Children and Adolescents <7.5% Source: [place] [employer]. Standards of medical care in diabetes,2017. Diabetes Care.2017:40 (suppl 1):S1-S135. nEe Dumont APRN LAB BLOOD ORDERABLES Final Resu lt Performing Organization Address City/[facility]/ZIP Co de Phone Number [facility] [address] [place] [address] * Vitamin B12, Serum (10/26/2024 3:34 PM EDT) Vitamin B12, Serum 240 210 - 1,033 pg/mL 10/26/2024 6:30 PM EDT [facility] Blood Venous blood specimen / Unknown Venipuncture / Unknown 10/26/2024 3:34 PM EDT 10/26/2024 3:34 PM EDT Ene Dumont APRN LAB BLOOD ORDERABLES Final Resu lt Performing Organization Address [facility]/ZIP Co de Phone Number [facility] [address] [place] [address] * (ABNORMAL) Comprehensive Metabolic Panel, Plasma (10/26/2024 3:34 PM EDT) Glucose, Plasma 111(H) 74 - 99 mg/dL 10/26/2024 6:23 PM EDT [facility] BUN, Plasma 29(H) 8 - 23 mg/dL 10/26/2024 6:23 PM EDT [facility] Creatinine, Plasma 1.31(H) 0.60 - 1.10 mg/dL 10/26/2024 6:23 PM EDT [facility] BUN/Creatinine Ratio 22 10/26/2024 6:23 PM EDT [facility] Sodium, Plasma 144 136 - 145 mmol/L 10/26/2024 6:23 PM EDT [facility] Potassium, Plasma 4.5 3.6 - 4.9 mmol/L 10/26/2024 6:23 PM EDT [facility] Chloride, Plasma 110(H) 97 - 107 mmol/L 10/26/2024 6:23 PM EDT [facility] CO2, Plasma 24 22 - 29 mmol/L 10/26/2024 6:23 PM EDT [facility] Anion Gap 10 6 - 16 mmol/L 10/26/2024 6:23 PM EDT [facility] Total Calcium, Plasma 9.0 8.9 - 10.2 mg/dL 10/26/2024 6:23 PM EDT [facility] Total Protein 6.3 6.3 - 7.9 g/dL 10/26/2024 6:23 PM EDT [facility] Albumin, Plasma 4.2 3.5 - 5.2 g/dL 10/26/2024 6:23 PM EDT [facility] AST, Plasma 18 10 - 35 U/L 10/26/2024 6:23 PM EDT [facility] ALT, Plasma 24 10 - 35 U/L 10/26/2024 6:23 PM EDT [facility] Alkaline Phosphatase, Plasma 51 46 - 142 U/L 10/26/2024 6:23 PM EDT [facility] Total Bilirubin, Plasma 0.7 0.2 - 1.1 mg/dL 10/26/2024 6:23 PM EDT [facility] eGFRcr 41.8 mL/min/1.7 3m*2 10/26/2024 6:23 PM EDT [facility] Comment:Reported eGFRcr in m L/min/1.73m2 is based the CKD-EPI 2020 equation that does not use a race coefficient. Blood Venous blood specimen / Unknown Venipuncture / Unknown 10/26/2024 3:34 PM EDT 10/26/2024 3:34 PM EDT us Ene Dumont APRN LAB BLOOD ORDERABLES Final Resu lt [facility] [address] [place] [address] * Hepatitis C Antibody w/Reflex to HCV Quant PCR (06/10/2023 9:41 AM EST) Hepatitis C Antibody Negative Negative 06/10/2023 1:41 PM EST [facility] Blood Venous blood specimen / Unknown Venipuncture / Unknown 06/10/2023 9:41 AM EST 06/10/2023 9:41 AM EST us Kesha Parsons SADDLE MECHANIC LAB BLOOD ORDERABLES Mojgan l Result Performing Organization Address City/[facility] Co de Phone Number [facility] [address] [place] [address] * COLONOSCOPY EXTERNAL RESULT (01/10/2022) Anatomical Region Laterality Modality Endoscopy Narrative 01/10/2022 Ordered by an unspecified provider. us External Provider GI PROCEDURE ORDERABLES Final Result from Last 3 Months or Most Recently Relevant to Health Maintenance [place] [address] [employer] Care Teams Supervisor [employer] Relationship Specialty Start Date End Date Ene Dumont APRN [address] [place] [address] PCP - General Family Medicine 08/01/23 Tiara Mejia, [employer] [address] Licensed Practical Nurse 06/04/24 12/02/24
--- OUTSIDE RECORDS SUMMARY | 2024-11-30 09:36 | XMS_ITS | Encounter Summary ---
Author Organization Healthcare Address [address] [place] [address] Care Team Providers Care Tile Layer Helper Name Role Phone Ene Dumont MINK RANCHER Primary Care Provider [phone] Tiara Mejia LPN Unavailable Unavailabl e Reason for Visit * Reason Onset Date Comments HCN Clinical Concern/Question 10/30/2024 Encounter Details Date Type Department Care Team (Late st Contact Info) Description 10/30/2024 Telephone [facility] Medicine [address] [place] [address] Ene Dumont, CATHY [address] [place] [address] HCN Clinical Concern/Question Social History Tobacco Use Types Packs/Day Years [...] you attend [facility] or confucianist services? More than 4 times per year 06/06/2023 Do you belong to any clubs o r organizations such as latter day groups, unions, fraternal or athletic groups, or [...] Recorded Patient Health Questionnaire-2 Score 0 06/29/2024 [facility] of Occupat ional Health - Occupational [...] place to sleep or slept in a detention (including now)? No 06/06/2023 Housing Stability Vital Sign Answer Mohit e Recorded In the last 12 months, was t here a time when you were not able to pay the mortgage or rent on time? No 06/05/2024 In the past 12 months, how m any times have you moved where you were living? 1 06/05/2024 At any time in the past 12 m [facility], were you homeless or living in a detention (including now)? No 06/05/2024 AUDIT-C Answer Date [...] In the past 12 months has th [employer], gas, oil, or water company threatened [...] encounter Miscellaneous Notes * Telephone Encounter - Swathi Negrete LPN - 11/03/2024 12:04 PM EDT Pt states BP is ok right now. She will wait to see hematology. If worsening symptoms, she will comein. * Telephone Encounter - Angelica Whyte - 11/03/2024 10:15 AM EDT Spoke with the pt and she is ok with the referral to Hematology, will place. Pt stated she had beenfeeling fatigued but no other symptoms. I advised her to keep checking her bp and let us know unless something else is advised for her to do. * Telephone Encounter - Bg Salcido - 11/03/2024 10:00 AM EDT Status Update Call #2 2nd call regarding the status of the initial request. Best contact number: [phone] (mobile) Optimal time of day to reach caller: ANYTIME Additional comments/information from caller: missed results call back Note: Please do not reply to this message. Follow-up communication and further actions as a result of this message need to be communicated with the patient directly, if the patient is not active onMyChart. If the patient is active on MyChart, they will receive notification of the communication/outcome via [employer]. * Telephone Encounter - Pato Angelica Sinan - 11/02/2024 1:58 PM EDT Left message to return call. * Telephone Encounter - Anaid Salcidosonali Sung - 10/30/2024 3:54 PM EDT Clinical Concern/Question Reason for Call: 152/60 BP @ 7 PM reporting 10-28; @ 7 again 142/58 Best contact number: [phone] (mobile) Optimal time of day to reach caller: ANYTIME Additional comments/information from caller: she would like to see a pathology secretary for a iron infusion in [place] / please advice Note: Please do not reply to this message. Follow-up communication and further actions as a result of this message need to be communicated with the patient directly, if the patient is not active onMyChart. If the patient is active on MyChart, they will receive notification of the communication/outcome via [employer]. documented in this encounter Plan of Treatment Upcoming Encounters Date Type Department Care Team (Late st Contact Info) Description 12/04/2024 10:40 AM EDT Office Visit [facility] [address] [place] [address] Amarjit Infante MD [address] [place] [address] 12/30/2024 1:00 PM EDT Office Visit [facility] [address] [place] [address] Ene Dumont, CATHY [address] [place] [address] documented as of this encounter Visit Diagnoses Not on filedocumented in this encounter Additional Health Concerns Assessment Noted Time A fall risk assessment has been complete d for the patient 10/26/2024 3:00 PM EDT A Body Mass Index follow-up plan has been documented for the patient 10/26/2024 3:22 PM EDT documented as of this encounter Care Teams Tile Layer Helper Relationship Specialty Start Date End Date Ene Dumont APRN [address] [place] [address] PCP - General Family Medicine 08/01/23 Tiara Mejia LPN [employer] [place] [address] Licensed Practical Nurse 06/04/24 12/02/24 documented as of this encounter
--- OUTSIDE RECORDS SUMMARY | 2024-11-30 09:36 | XMS_ITS ---
Author Organization [facility] Support Name Relationship Address Phone Jaylan Morley Emergency Contact Unknown Unav ailable Clint Maribel Guarantor [address] [place], [place] [address] Prudence Jaramilloyce Agent [address] [place], [place] [address] Isidro Morley Emergency Contact Unknown Keke Guzman Emergency Contact Unknown Allergies and adverse reactions Code CodeSystem Substance Reaction Severity StartDate Concern Status 531067012 SNOMED CT Sulfa Antibiotics Moderate 0 active [...] completed tuberculin skin test; unspecified formulation lotNumber: [id number] expiry: 10/06/2020 Mfg: Sandfi-pasteur Given 0.1 ml Left Forearm intradermally 98 CVX created date: 05/16/2019 consent date: 05/16/2019 administere d date: 05/16/2019 TB 2 Step Mantoux Skin Test completed tuberculin skin test; unspecified formulation lotNumber: [id number] expiry: 10/06/2020 Mfg: sanofi pasteur limited Given [...] Status 1 ACUTE POSTPROCEDURAL RESPIRATORY FAILURE [address] active 2 ACUTE POSTHEMORRHAGI C ANEMIA [address] active 3 ALLERGY, UNSPECIFIED , INITIAL ENCOUNTER [address] active 4 ANXIETY DISORDER, UNSPECIFIED [address] active 5 CONSTIPATION, UNSPECIFIED [address] active 6 DISPLACED INTERTROCHANTERIC FRACTURE OF LEFT FEMUR, SUBSEQUENT ENCOUNTER FOR CLOSED FRACTURE WITH ROUTINE HEALING [address] active 7 ESSENTIAL (PRIMARY) HYPERTENSION [address] active 8 EXTENDED SPECTRUM BE TA LACTAMASE (ESBL) RESISTANCE [address] active 9 GENERALIZED EDEMA [address] active 10 [address]KALEMIA [address] active 11 INSOMNIA, UNSPECIFIED [address] active 12 LOCALIZED OSTEOPOROS IS [[place]QU[place]] [address] active 13 MENOPAUSAL AND FEMAL E CLIMACTERIC STATES [address] active 14 TYPE 2 DIABETES MELLITUS WITHOUT COMPLICATIONS [address] active 15 UNSPECIFIED ESCHERICHIA COLI [E. COLI] THE CAUSE OF DISEASES CLASSIFIED ELSEWHERE [address] active 16 URINARY TRACT INFECTION, SITE NOT SPECIFIED [address] active 17 VITAMIN DEFICIENCY, UNSPECIFIED [address] active Reason for Referral No Reasons for Referral Entered Social History Social History Observation Description Start Date End Date Code Code System Current Smoking Status Tobacco smoking consumption unknown 053666105 SNOMED CT Sex Assigned At Female 1945 52259-3 [facility] Gender Identity Vital Signs Code Code System Vitals Name Values and Units Timing Information 52467-5 LOINC Pain Level Value=0.0 06/05/2019 9279-1 LOINC Respiratory Rate Value=16.0 Units=/m in 06/05/2019 8462-4 LOINC Blood Pressure-Diastolic Value=47 Un its=mmHg 06/05/2019 8480-6 LOINC Blood Pressure-Systolic Mlewd=983 Un its=mmHg 06/05/2019 8310-5 LOINC Body Temperature Value=96.6 Units= F 06/05/2019 8867-4 [facility] Heart rate Value=55.0 Units=/min 64360-0 [facility] O2 % BldC Oximetry Value=94.0 Units= % 06/05/2019 2339-0 [facility] Blood Sugar Yzfgo=330.0 Units=mg/dL 06/05/2019 77514-1 [facility] Weight Bwuhk=346.2 Units=Lbs 02/2020 8302-2 [facility] Height Value=61.0 Units=Inches 05/16/2019
--- OUTSIDE RECORDS SUMMARY | 2024-11-30 09:36 | XMS_ITS | Encounter Summary ---
Author Organization Healthcare Address [address] [place] [address] Care Team Providers Care Human Resources Team Member Name Role Phone Ene Dumont APRN Primary Care Provider [phone] Tiara Mejia LPN Unavailable Unavailabl e Encounter Details Date Type Department Care Team (Latest Contact Info) Description 10/26/2024 Travel Social History Tobacco Use Types Packs/Day Years [...] week 06/06/2023 How often do you attend [facility] or jainism services? More than 4 times per year 06/06/2023 Do you belong to any clubs o r organizations such as denominational groups, unions, fraternal or athletic groups, or [...] Recorded Patient Health Questionnaire-2 Score 0 06/29/2024 [facility] of Occupat ional Health - Occupational Stress [...] any time in the past 12 m [facility], were you homeless or living in a [...] the past 12 months has th e [employer], gas, oil, or water company threatened to shut off services in your home? No 06/05/2024 PHQ-2A Answer Date Recorded Patient Health Questionnaire-2 Score 0 03/05/2023 Comments No Sex and Gender Information Value Date Recorded Sex Assigned at Not on file Legal Sex Female 3:30 PM EDT Gender Identity Not on file Sexual Orientation Not on file documented as of this encounter Functional Status * AUDIT-C Score [...] Lorena Verma documented as of this encounter Plan of Treatment Upcoming Encounters Date Type Department Care Team (Late st Contact Info) Description 12/04/2024 10:40 AM EDT Office Visit [facility] [address] [place] [address] Amarjit Infante MD [address] [place] [address] 12/30/2024 1:00 PM EDT Office Visit [facility] [address] [place] [address] Ene Dumont, CATHY [address] [place] [address] documented as of this encounter Visit Diagnoses Not on filedocumented in this encounter Additional Health Concerns Assessment Noted Time A fall risk assessment has been complete d for the patient 10/26/2024 3:00 PM EDT A Body Mass Index follow-up plan has been documented for the patient 10/26/2024 3:22 PM EDT documented as of this encounter Care Teams Human Resources Team Member Relationship Specialty Start Date End Date Ene Dumont APRN [address] [place] [address] PCP - General Family Medicine 08/01/23 Tiara Mejia LPN [employer] [place] [address] Licensed Practical Nurse 06/04/24 12/02/24 documented as of this encounter
--- OUTSIDE RECORDS SUMMARY | 2024-11-30 09:36 | XMS_ITS | Encounter Summary ---
Author Organization Healthcare Address [address] [place] [address] Care Team Providers Care Product Delivery Specialist Name Role Phone Ene Dumont BULK FLUIDS HANDLER Primary Care Provider [phone] Tiara Mejia LPN Unavailable Unavailabl e Encounter Details Date Type Department Care Team (Late st Contact Info) Description 10/27/2024 Orders Only [facility] [address] [place] [address] Ene Dumont APRN [address] [place] [address] Abnormal laboratory test (Primary Dx) Social History Tobacco Use Types Packs/Day Years [...] often do you attend chur ch or yazidi services? More than 4 times per year 06/06/2023 Do you belong to any clubs o r organizations such as christian groups, unions, fraternal or athletic groups, or [...] Recorded Patient Health Questionnaire-2 Score 0 06/29/2024 [facility] of Occupat ional Health - Occupational Stress [...] place to sleep or slept in a mcfp (including now)? No 06/06/2023 Housing Stability Vital [...] time in the past 12 m [facility], were you homeless or living in a mcfp (including now)? No 06/05/2024 AUDIT-C Answer Date [...] has e electric, gas, oil, or water [employer] threatened to shut off services in your [...] Description 12/04/2024 10:40 AM EDT Office Visit [facility] [address] [place] [address] Amarjit Infante MD [address] [place] [address] 12/30/2024 1:00 PM EDT Office Visit [facility] [address] [place] [address] Ene Dumont APRN [address] [place] [address] Scheduled Orders Name Type Priority Associated Diagnoses Orde r Schedule CBC and differential Lab Routine Abnormal laboratory test Expected: 12/28/2024 (Approximate), Expires: 04/30/2026 Ferritin Lab Routine Abnormal laboratory test Expected: 12/28/2024 (Approximate), Expires: 04/30/2026 Iron & Total Iron Binding Capacity, Plasma (Includes Transferrin) Lab Routine Abnormal laboratory test Expected: 12/28/2024 (Approximate), Expires: 04/30/2026 documented as of this encounter Visit Diagnoses Diagnosis Abnormal laboratory test- Primary Other abnormal clinical finding Localized osteoporosis ([place]) documented in this encounter Additional Health Concerns Assessment Noted Time A fall risk assessment has been complete d for the patient 10/26/2024 3:00 PM EDT A Body Mass Index follow-up plan has been documented for the patient 10/26/2024 3:22 PM EDT documented as of this encounter Care Teams Product Delivery Specialist Relationship Specialty Start Date End Date Ene Dumont APRN [address] [place] [address] PCP - General Family Medicine 08/01/23 Tiara Mejia LPN [employer] [place] [address] Licensed Practical Nurse 06/04/24 12/02/24 documented as of this encounter
--- OUTSIDE RECORDS SUMMARY | 2024-11-30 09:37 | XMS_ITS | Encounter Summary ---
Author Organization Healthcare Address [address] [place] [address] Care Team Providers Care Progress Developer Name Role Phone Ene Dumont APRN Primary Care Provider [phone] Tiara Mejia LPN Unavailable Unavailabl e Reason for Referral * Consultation (Routine) - Authorized Specialty Diagnoses / Procedures Referred By Contperla t Referred To Contact Medical Oncology Diagnoses Low iron Lanette [place] [address] Phone: tel: fax: Referral ID Status Reason Start Date Expiration Date Visits Requested Visits Authorized [id number] Authorized Specialty Services Required 11/03/2024 05/05/2026 1 1 Scheduling Instructions Pt would like to try [place] if possible, if not [place] is ok. Encounter Details Date Type Department Care Team (Late st Contact Info) Description 11/03/2024 Orders Only [facility] [address] [place] [address] Ene Dum[place] [address] Low iron (Primary Dx) Social History Tobacco Use Types [...] week 06/06/2023 How often do you attend [facility] or jehovah's witness services? More than 4 times per year 06/06/2023 Do you belong to any clubs o r organizations such as episcopalian groups, unions, fraternal or athletic groups, or [...] Recorded Patient Health Questionnaire-2 Score 0 06/29/2024 [facility] Occupat ional Health - Occupational Stress [...] place to sleep or slept in a fci (including now)? No 06/06/2023 Housing Stability Vital Sign Answer Mohit e Recorded In the last 12 months, was t here a time when you were not able to pay the mortgage or rent on time? No 06/05/2024 In the past 12 months, how m any times have you moved where you were living? 1 06/05/2024 At any time in the past 12 m [facility], were you homeless or living in a fci (including now)? No 06/05/2024 AUDIT-C Answer Date [...] Recorded In the past 12 months has [employer] gas, oil, or water [employer] threatened to shut off services in your [...] Description 12/04/2024 10:40 AM EDT Office Visit [facility] [address] [place] [address] Amarjit Infante MD [address] [place] [address] 12/30/2024 1:00 PM EDT Office Visit [facility] [address] [place] [address] Ene Dumont, MANAGER STATISTICAL PROGRAMMING [address] [place] [address] Scheduled Referrals Name Type Priority Associated Diagnoses Order Schedule Ambulatory referral to Hematology Oncology/Medical Oncology Outpatient Referral Routine Low iron Expected: 11/03/2024 (Approximate), Expires: 05/07/2026 documented as of this encounter Visit Diagnoses Diagnosis Low iron- Primary Unspecified iron deficiency anemia Localized osteoporosis ([place]) documented in this encounter Additional Health Concerns Assessment Noted Time A fall risk assessment has been complete d for the patient 10/26/2024 3:00 PM EDT A Body Mass Index follow-up plan has been documented for the patient 10/26/2024 3:22 PM EDT documented as of this encounter Care Teams Progress Developer Relationship Specialty Start Date End Date Ene Dumont APRN [address] [place] [address] PCP - General Family Medicine 08/01/23 Tiara Mejia LPN [employer] [place] [address] Licensed Practical Nurse 06/04/24 12/02/24 documented as of this encounter
[2024-11-30 09:39] LABS: Microscopic, Urine URINE MICROSCOPIC (MICROSCOPIC)
[2024-11-30 10:05] LABS: Hematocrit 34.7 % (37.0-47.0); Hemoglobin 11.1 g/dL (12.2-16.2); Mean Corpuscular HGB Conc 32.0 g/dL (31.8-35.4); Mean Corpuscular Hemoglobin 28.6 pg (27.0-31.2); Mean Corpuscular Volume 89.4 fl (81-99); Nucleated Red Blood Cells % 0 %; Platelet Count 174 K/mm3 (142-424); Red Blood Count 3.88 M/mm3 (4.20-5.40); Red Cell Distribution Width-SD 52.5 fL; White Blood Count 10.3 K/mm3 (4.8-10.8)
[2024-11-30 10:11] LABS: Bilirubin,Urine Negative (Negative); Color,Urine YELLOW (Yellow); Glucose,Urine (UA) 2+ (Negative); Ketones,Urine Negative (Negative); Leukocyte Esterase,Urine Negative (Negative); PH,Urine 6.0 (5.0-8.5); Protein,Urine 1+ (Negative); Specific Gravity, Urine 1.025 (1.005-1.030); Urobilinogen,Urine 0.2 EU/dl (0.2)
[2024-11-30 10:23] LABS: Albumin Level 4.3 g/dl (3.5-5.0); Chloride 108 mmol/L (98-107); Potassium 4.0 mmoL/L (3.5-5.1); Sodium 142 mmol/L (136-145)
[2024-11-30 10:26] LABS: Anion Gap 13.0 mEq/L (5-15); Blood Urea Nitrogen 28 mg/dl (7-17); Carbon Dioxide 25 mmol/L (22.0-30.0); Creatinine,Serum 1.20 mg/dl (0.52-1.04); Estimated Glomerular Filt Rate 43 ml/min (>60); GFR (African American) 53 ML/MIN (>60); Phosphorous 3.5 mg/dl (2.5-4.5)
[2024-11-30 10:27] LABS: Calcium 9.3 mg/dl (8.4-10.2); Glucose 111 mg/dl (74-100)
== END 2024-11-30 23:59 | disposition home or self-care (01) ==
LOC: LAB 09:34
PROVIDERS: PCP Nurse Practitioner Family; Visit Provider Student in an Organized Health Care Education/Training Program
DX: E11.22 Type 2 diabetes mellitus with diabetic chronic kidney disease (principal); R80.1 Persistent proteinuria, unspecified
CPT/HCPCS: 36415; 80069; 81001; 82043; 82570; 84156; 85027

== ENCOUNTER 2025-01-20 10:30 | Outpatient (CLI) | payer MEDICARE, SELFPAY ==
--- OUTSIDE RECORDS SUMMARY | 2024-12-04 10:40 | XMS_ITS | Encounter Summary ---
Author Organization Healthcare Address [address] [place] [address] Care Team Providers Care Project Manager/Team Coach Name Role Phone Ene Dumont Kiara MORGAN Primary Care Provider [phone] Reason for Visit * Reason Comments Follow-up Pt is a 79 year old female that presents to the clinic on this date for a follow up for chronic proteinuria. Pt states she is not in any pain other than aches and pains from being old. Pt states she doesn't have any complaints or concerns for him. Encounter Details Date Type Department Care Team (Late st Contact Info) Description 12/04/2024 10:40 AM EDT Office Visit [facility] [address] [place] [id number] Amarjit Infante MD [address] [place] [address] [phone] Type 2 diabetes mellitus without complication, with long-term current use of insulin (Primary Dx); Essential hypertension; Persistent proteinuria; Chronic kidney disease-mineral and bone disorder (CKD-MBD); Stage 3b chronic kidney disease (CKD) (CMS/HCC); Type 2 diabetes mellitus with diabetic chronic kidney disease, unspecified CKD stage, unspecified whether skilled nursing insulin use ([facility]) Social History Tobacco Use Types Packs/Day Years [...] week 06/06/2023 How often do you attend [facility] or [facility] services? More than 4 times per year 06/06/2023 Do you belong to any clubs o r organizations such as rastafari groups, unions, fraternal or athletic groups, or [...] Recorded Patient Health Questionnaire-2 Score 0 06/29/2024 [place] [facility] - Occupational Stress [...] place to sleep or slept in a senior living (including now)? No 06/06/2023 Housing Stability Vital Sign Answer Mohit e Recorded In the last 12 months, was t here a time when you were not able to pay the mortgage or rent on time? No 06/05/2024 In the past 12 months, how m any times have you moved where you were living? 1 06/05/2024 At any time in the past 12 m [facility], were you homeless or living in a senior living (including now)? No 06/05/2024 AUDIT-C Answer Date [...] Recorded In the past 12 months has [employer], [employer], oil, or water [employer] threatened to shut off services in your [...] Sign Reading Time Taken Comments Blood Pressure 130/56 12/04/2024 10:36 AM EDT Pulse 58 12/04/2024 10:36 AM EDT Temperature - - Respiratory Rate 16 12/04/2024 10:36 AM EDT Oxygen Saturation 100% 12/04/2024 10:36 AM EDT Inhaled Oxygen Concentration - - Weight 46.3 kg (102 lb) 12/04/2024 10:36 AM EDT Height 154.9 cm (5' 1 ) 12/04/2024 10:36 AM EDT Body Mass Index 19.27 12/04/2024 10:36 AM EDT documented in this encounter Miscellaneous Notes * Progress Notes - Amarjit Infante MD - 12/04/2024 10:40 AM EDT Nephrology Outpatient Clinic Visit Progress Note [facility] in [place], [place] Patient: Maribel Jaramillo Primary Care Provider: Ene Dumont APRN Reason for consult/visit/chief complaint: Follow up CKD HPI/Subjective Maribel Jaramillo is a 79 y.o. female with a PMH of HTN, DM, CKD3 who presents for follow up kideny disease. Ms. Jaramillo is feeling well today. 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 Veryr physically active. Weight stable. No swelling. No urinary symptoms. Toelrating medications well. ROS Review of Systems History: Past Medical History: Diagnosis Date Anemia due to stage 3a chronic kidney disease 09/03/2021 Anxiety Diabetes ([facility]) Hip fracture ([facility]) Hyperlipidemia Hypertension IBS (irritable bowel syndrome) Osteoporosis Stage 3a chronic kidney disease ([facility]) 09/03/2021 Patient Active Problem List Diagnosis Stage 3a chronic kidney disease ([facility]) Essential (primary) hypertension Anemia due to stage 3a chronic kidney disease Type 2 diabetes mellitus without complications Displaced intertrochanteric fracture of left femur, subsequent encounter for closed fracture with routine healing Localized osteoporosis ([place]) Multiple joint pain Vitamin deficiency, unspecified Insomnia, unspecified Keratoconjunctivitis sicca Menopausal and female climacteric states Persistent proteinuria Other hyperlipidemia Chronic kidney disease-mineral and bone disorder (CKD-MBD) Hypertensive chronic kidney disease with stage 1 through stage 4 chronic kidney disease, or unspecified chronic kidney disease Past Surgical History: Procedure Laterality Date APPENDECTOMY COLONOSCOPY 01/10/2022 Dr Newby, barium enema recommended FOOT SURGERY Bilateral HYSTERECTOMY SKIN CANCER EXCISION nose TONSILLECTOMY TUBAL LIGATION Family History Problem Relation Name Age of Onset Heart disease Mother Stroke Mother Diabetes Father Social History Socioeconomic History Marital status: Spouse name: Not on file Number of children: Not on file Years of education: Not on file Highest education level: Not on file Occupational History Not on file Tobacco Use Smoking status: Former Current packs/day: 0.00 Average packs/day: 0.3 packs/day for 5.0 years (1.3 ttl pk-yrs) Types: Cigarettes Start date: 1984 Quit date: 1989 Years since quittin.6 Passive exposure: Past Smokeless tobacco: Never Vaping Use Vaping status: Never Used Substance and Sexual Activity Alcohol use: Never Drug use: Never Sexual activity: Not on file Other Topics Concern Not on file Social History Narrative Not on file Social Drivers of Health Financial Resource Strain: Low Risk (12/09/2023) Overall Financial Resource Strain (CARDIA) Difficulty of Paying Living Expenses: Not hard at all Food Insecurity: No Food Insecurity (06/05/2024) Hunger Vital Sign Worried About Running Out of Food in the Last Year: Never true Ran Out of Food in the Last Year: Never true Transportation Needs: No Transportation Needs (06/05/2024) PRAPARE - Transportation Lack of Transportation (Medical): No Lack of Transportation (Non-Medical): No Physical Activity: Insufficiently Active (06/06/2023) Exercise Vital Sign Days of Exercise per Week: 4 days Minutes of Exercise per Session: 30 min Stress: No Stress Concern Present (06/06/2023) [place] [facility] - Occupational Stress Questionnaire Feeling of Stress : Only a little Social Connections: Moderately Integrated (06/06/2023) Social Connection and Isolation Panel Frequency of Communication with Friends and Family: More than three times a week Frequency of Social Gatherings with Friends and Family: Twice a week Attends Church Services: More than 4 times per year Active Member of Clubs or Organizations: Yes Attends Club or Organization Meetings: More than 4 times per year Marital Status: Intimate Partner Violence: Not At Risk (06/05/2024) Humiliation, Afraid, Rape, and Kick questionnaire Fear of Current or Ex-Partner: No Emotionally Abused: No Physically Abused: No Sexually Abused: No Housing Stability: Low Risk (06/05/2024) Housing Stability Vital Sign Unable to Pay for Housing in the Last Year: No Number of Times Moved in the Last Year: 1 Homeless in the Last Year: No Allergies Allergen Reactions Sulfa Drugs Unknown - Patient states they do not know rxn details Over 40 years ago, Medications: Current Medications: Current Outpatient Medications Medication Instructions amLODIPine (NORVASC) 10 mg, Oral, Daily atorvastatin (LIPITOR) 80 mg, Oral, Daily BD Pen Needle Afshan 2nd Gen 32G X 4 MM misc benzonatate (TESSALON) 100 mg, Oral, 2 times daily PRN, Do not crush or chew. Blood Glucose Monitoring Suppl device Use as directed to check blood sugar carvedilol (COREG) 3.125 mg, Oral, 2 times daily with meals diclofenac (VOLTAREN) 75 mg, Oral, 2 times daily PRN, Do not crush, chew, or split. escitalopram (LEXAPRO) 20 mg, Oral, Daily Farxiga 5 mg, Oral, Daily furosemide (LASIX) 20 mg, Oral, Daily glucose blood test strip 1 each, As needed Lancets 33G misc Use as directed to check blood glucose losartan (COZAAR) 25 mg, Oral, Daily metFORMIN XR (GLUCOPHAGE-XR) 500 mg, Oral, 2 times daily, DO NOT CRUSH CHEW OR SPLIT Mounjaro 2.5 mg, Subcutaneous, Weekly Multiple Vitamin (multivitamin) tablet 1 tablet, Daily raloxifene (EVISTA) 60 mg, Oral, Daily traZODone (DESYREL) 50 mg, Oral, Nightly valACYclovir (Valtrex) 1 g tablet TAKE 2000MG TWICE DAILY FOR ONE DAY NEEDED FOR COLD SORES. Objective Visit Vitals BP 130/56 (BP Location: Left arm, Patient Position: Sitting, BP Cuff Size: Small adult) Pulse 58 Resp 16 Ht 1.549 m (5' 1 ) Wt 46.3 kg (102 lb) LMP (LMP Unknown) SpO2 100% BMI 19.27 kg/m?? OB Status Postmenopausal Smoking Status Former BSA 1.41 m?? Heart Rate: [58] 58 Resp: [16] 16 BP: (130)/(56) 130/56 Physical Exam: Physical Exam Constitutional: General: She is not in acute distress. Appearance: Normal appearance. She is normal weight. She is not ill-appearing. HENT: Head: Normocephalic and atraumatic. Right Ear: External ear normal. Left Ear: External ear normal. Nose: Nose normal. Mouth/Throat: Mouth: Mucous membranes are moist. Pharynx: Oropharynx is clear. Eyes: Conjunctiva/sclera: Conjunctivae normal. Pupils: Pupils are equal, round, and reactive to light. Cardiovascular: Rate and Rhythm: Normal rate. Pulses: Normal pulses. Pulmonary: Effort: Pulmonary effort is normal. Abdominal: General: Abdomen is flat. Bowel sounds are normal. Musculoskeletal: General: Normal range of motion. Cervical back: Normal range of motion. Right lower leg: No edema. Left lower leg: No edema. Skin: General: Skin is warm and dry. Capillary Refill: Capillary refill takes less than 2 seconds. Neurological: General: No focal deficit present. Mental Status: She is alert and oriented to person, place, and time. Mental status is at baseline. Psychiatric: Mood and Affect: Mood normal. Behavior: Behavior normal. Thought Content: Thought content normal. Judgment: Judgment normal. Laboratory: LAB RESULTS Renal Panel: Lab Results Component Value Date NA 144 10/26/2024 K 4.5 10/26/2024 CL 110 (H) 10/26/2024 CO2 24 10/26/2024 BUN 29 (H) 10/26/2024 CREATININE 1.31 (H) 10/26/2024 EGFR 41.8 10/26/2024 PHOS 4.2 07/03/2022 ALBUMIN 4.2 10/26/2024 CBC: Lab Results Component Value Date WBC 5.25 10/26/2024 RBC 3.69 (L) 10/26/2024 HGB 10.5 (L) 10/26/2024 HCT 33.4 (L) 10/26/2024 PLT 172 10/26/2024 MCV 91 10/26/2024 MCH 28.5 10/26/2024 MCHC 31.4 10/26/2024 RDW 16.5 (H) 10/26/2024 NRBC 0.0 10/26/2024 Iron studies: Lab Results Component Value Date IRON 64 10/26/2024 Urine studies: Lab Results Component Value Date CREATUR 150 06/10/2023 MBD: Lab Results Component Value Date PTH 35 07/03/2022 CALCIUM 9.0 10/26/2024 PHOS 4.2 07/03/2022 VITAMIN D 25 Lab Results Component Value Date VITD25 51.6 10/26/2024 VITAMIN D 1,25 No results found for: VITD32 Paraproteinemia Labs: No results found for: SPEP , KAPPALAMBDA Nutritional: Lab Results Component Value Date VITD25 51.6 10/26/2024 Endocrine profile: Lab Results Component Value Date TSH 0.55 10/26/2024 FREET4 1.0 11/07/2021 Labs reviewed from date 05/04/2024 Na 140, K 3.9, Cl 109, CO2 22, BUN 34, Cr 1.5 GFR 34, Ca 9.1, P 4.5, Alb 4.1 Urine: trace protein, neg blood UPCR 89/217 (SG >1.030) Ipth 82, vit d 37 CBC: hgb 11.2 Labs: 11/30/24 RFP: Na 142, K 4.0, Cl 108, CO2 25, BUN 28, Cr 1.2, Glu 111, EGFR 43, Ca 9.3, P 3.5, Alb 4.3 CBC: WBC 10.3, Hgb 11.1, PLT 174 Ua: Protein 1+, Glu 2+, RBC None ACR 346 mg/mg Total protein 67 Creatinine 133 UPCR ~0.5 Imaging: No recent imaging for review Impression & Plan: #CKD 3b - STABLE #DM2 with diabetic ckd Etiology: DM2 and HTN (skilled nursing metformin use per patient?) Baseline serum creatinine: Most recent Scr: 1.2 egfr 43 mL/min Electrolytes, acid/base, volume status wnl Urine: +proteinuria 1.5 --> 0.75 --> 0.3 --> 0.5 UACR >300 Anatomy: normal Risk factor reduction to slow progression of kidney disease: -BP Control goal BP <130/80 -DM control goal A1c <7.0% -Lifestyle management: ---Maintain healthy weight: at goal ---Diet recommendations: Heart healthy and Low sodium <2g/day ---Daily exercise 20-30 minutes as tolerated -Avoid NSAIDs -CHAPO blockade: Losartan 25mg daily -SGLT2 inhibitor: Farxiga 5mg daily #HTN in CKD -Goal <140/80 - at goal -On losartan 25mg, furosemide 20mg #Anemia in CKD Hgb 11.2 - stable, not on iron or RITIKA #CKD Bone and Mineral Disease -PTH 82, Vit d 34 #Hyperlipidemia in CKD - on atorvastatin Recommendations and plan: -Kidney function returned to baseline. She appears well. She is on good CKD supprotive care medication Losartan 25mg and Farxiga 5 mg. She has about 0.5 mg of proteinuria on UPCR which is stable. -Continue Farxiga 5 mg daily -Continue losartan 25 mg daily -No other med changes -Continue to avoid NSAIDs RTC in 1 year Amarjit Infante MD Division of Nephrology [facility] ORDERS PLACED THIS ENCOUNTER No orders of the defined types were placed in this encounter. Problem List Items Addressed This Visit None documented in this encounter Plan of Treatment Upcoming Encounters Date Type Department Care Team (Late st Contact Info) Description 07/01/2025 10:20 AM EDT Office Visit [facility] [place] [phone] Ele Meeks, PRINTING PRESS OPERATOR APPRENTICE [address] [place] [id number] documented as of this encounter Visit Diagnoses Diagnosis Type 2 diabetes mellitus without complication, with long-term current use of insulin- Primary Essential hypertension Unspecified essential hypertension Persistent proteinuria Chronic kidney disease-mineral and bone disorder (CKD-MBD) Stage 3b chronic kidney disease (CKD) ([facility]) Type 2 diabetes mellitus with diabetic chronic kidney disease, unspecified CKD stage, unspecified whether termite control service representative insulin use documented in this encounter Additional Health Concerns Assessment Noted Time A fall risk assessment has been complete d for the patient 10/26/2024 3:00 PM EDT A Body Mass Index follow-up plan has been documented for the patient 12/04/2024 11:01 AM EDT documented as of this encounter Care Teams Project Manager/Team Coach Relationship Specialty Start Date End Date Ene Dumont, PRINTING PRESS OPERATOR APPRENTICE [address] [place] [id number] PCP - General Family Medicine 08/01/23 documented as of this encounter
--- OUTSIDE RECORDS SUMMARY | 2024-12-30 13:00 | XMS_ITS | Encounter Summary ---
Author Organization Healthcare Address [address] [place] [address] Care Team Providers Care Auto [employer] Station Attendant Name Role Phone Ene Dumont APRN Primary Care Provider [phone] Reason for Visit * Reason Comments Follow-up Saw kidney doctor an d wants to talk about results and medication. Encounter Details Date Type Department Care Team (Late st Contact Info) Description 12/30/2024 1:00 PM EDT Office Visit [facility] [address] [place] [address] Ene Dumont APRN [address] [place] [address] Essential (primary) hypertension (Primary Dx); Localized osteoporosis (Lequesne); Type 2 diabetes mellitus without complication, without long-term current use of insulin; Anxiety; Other insomnia; Stage 3a chronic kidney disease (CMS/HCC) Social History Tobacco Use Types Packs/Day Years Used Date Smoking Tobacco: Former Cigarettes 0.3 5 1 5 - 1989 Passive Smoke Exposure: Past Smokeless Tobacco: Never Alcohol Use Standard Drinks/Week Comments Never 0 (1 standard drink = 0.6 oz pur e alcohol) Social Connection and Isolation Panel Answer Date Recorded In a typical week, how many times do you talk on the phone with family, friends, or neighbors? More than three times a week 06/06/2023 How often do you get togethe r with friends or relatives? Twice a week 06/06/2023 How often do you attend chur or christianity services? More than 4 times per year 06/06/2023 Do you belong to any clubs o r organizations such as restoration groups, unions, fraternal or athletic groups, or [...] Date Recorded Patient Health Questionnaire-2 Score 0 12/30/2024 [facility] - Occupational Stress Questionnaire Answer Date Recorded [...] exercise at this level? 30 min 06/06/2023 PHQ-9 Answer Date Recorded Patient Health Questionnaire-9 Score 0 12/30/2024 Humiliation, Afraid, Rape, and Kick questionnair e Answer Date Recorded Within the last year, have y ou been afraid of your partner or ex-partner? No 12/30/2024 Within the last year, have y ou been humiliated or emotionally abused in other ways by your partner or ex-partner? No Within the last year, have y ou been kicked, hit, slapped, or otherwise physically hurt by your partner or ex-partner? No 12/30/2024 Within the last year, have y ou been raped or forced to have any kind of sexual activity by your partner or ex-partner? No 12/30/2024 AUDIT-C Answer Date Recorded Q1: How often do you have a drink containing alcohol? Never 10/26/2024 Q2: How many drinks containi ng alcohol do you have on a typical day when you are drinking? Patient does not drink Q3: How often do you have si x or more drinks on one occasion? Never 10/26/2024 Hunger Vital Sign Answer Date Recorded Within the past 12 months, y ou worried that your food would run out before you got the money to buy more. Never true 12/31/19 25 Within the past 12 months, t he food you bought just didn't last and you didn't have money to get more. Never true 12/30/2024 PRAPARE - Transportation Answer Date Re corded In the past 12 months, has l ack of transportation kept you from medical appointments or from getting medications? No 12/21 In the past 12 months, has l ack of transportation kept you from meetings, work, or from getting things needed for daily living? No 12/30/2024 Housing Stability Vital Sign Answer Mohit e Recorded In the last 12 months, was t here a time when you were not able to pay the mortgage or rent on time? No 12/30/2024 Number of Times Moved in the Last Year Not on fi le 12/30/2024 At any time in the past 12 m [facility], were you homeless or living in a usp (including now)? No 12/30/2024 [facility] Utilities Answer Date Recorded In the past 12 months has th e electric, gas, oil, or water company threatened to shut off services in your home? No 12/30/2024 Safety and Environment Answer Date Clemente rded [...] Unloaded or Locked Away Not on file PHQ-2A Answer Date Recorded Patient Health Questionnaire-2 Score 0 03/05/2023 Comments No Sex and Gender Information Value Date Recorded Sex Assigned at Not on file Legal Sex Female 3:30 PM EDT Gender Identity Not on file Sexual Orientation Not on file documented as of this encounter Last Filed Vital Signs Vital Sign Reading Time Taken Comments Blood Pressure 138/78 12/30/2024 12:56 PM EDT Pulse 60 12/30/2024 12:56 PM EDT Temperature - - Respiratory Rate - - Oxygen Saturation 99% 12/30/2024 12:56 PM EDT Inhaled Oxygen Concentration - - Weight 46.9 kg (103 lb 6.3 oz) 12/30/2024 12:56 PM EDT Height 154.9 cm (5' 1 ) 12/30/2024 12:56 PM EDT Body Mass Index 19.54 12/30/2024 12:56 PM EDT documented in this encounter Functional Status * Over the past 2 weeks, how often have you been bothered by any of the following problems? Question Answer Date of Assessment Author Little interest or pleasure in doing things Not at all 12/30/2024 1:02 PM EDT Amelia Sanchez R Feeling down, depressed, or hopeless Not at all 12/30/2024 1:02 PM EDT Amelia Sanchez R Patient Health Questionnaire-2 Score 0 12/30/2024 1:02 PM EDT Henry Sanchez * Question Answer Date of Assessment Author Trouble falling or staying asleep, or sleeping too much Not at all 12/30/2024 1:02 PM EDT Sheri Vega Feeling tired or having little energy Not at all 12/30/2024 1:02 PM EDT Amelia Sanchez R Poor appetite or overeating Not at all 12/30/2024 1: 02 PM EDT Sheri Sanchez Feeling bad about yourself - or that you are a failure or have let yourself or your family down Not at all 12/30/2024 1:02 PM EDT Amelia Sanchez Trouble concentrating on things, such as reading the newspaper or watching television Not at all 12/30/2024 1:02 PM EDT Amelia Sanchez Moving or speaking so slowly that other people could have noticed? Or the opposite - being so fidgety or restless that you have been moving around a lot more than usual. Not at all 12/30/2024 1:02 PM EDT Sheri Sinha Thoughts that you would be better off or hurting yourself in some way Not at all 12/30/2024 1:02 PM EDT Cody Sanchez Patient Health Questionnaire-9 Score 0 12/30/2024 1:02 PM EDT Henry Sanchez * Calculated C-SSRS Risk Score (Lifetime/Recent) Answer Date of Assessment Author No Risk Indicated 12/30/2024 1:01 PM EDT Sheri Sinha * How difficult have these problems made it for you to do your work, take care of things at home, or get along with other people? Answer Date of Assessment Author Not difficult at all 12/30/2024 1:02 PM EDT Sheri Villanueva * Question Answer Date of Assessment Author 1. Wish to be (Past 1 Month) No 025 1:01 PM EDT Sheri Sanchez 2. Non-Specific Active Suici nuria Thoughts (Past 1 Month) No 12/30/2024 1:01 PM EDT Stephen Sanchez 6. Suicidal Behavior (Lifetime) No 5 1:01 PM EDT Sheri Sanchez documented as of this encounter Miscellaneous Notes * Progress Notes - Ene Dumont APRN - 12/30/2024 1:00 PM EDT Subjective Patient ID: Maribel Jaramillo is a 79 y.o. female. Chief Complaint Patient presents with Follow-up Saw kidney doctor and wants to talk about results and medication. Here for 6 month follow-up on chronic conditions. HTN - On losartan, Lasix, amlodipine, and Coreg and reports compliance. Doesn't check BP at home. Denies any issues. BP controlled in office today. No CP, SOA, or edema. T2DM - On metformin, Farxiga, Mounjaro, and statin. Last A1c in October was 6.2%. Says her glucose is usually around 100-110 in the AM when she checks it. Denies any hypoglycemic events. Insomnia, anxiety - On trazodone and Lexapro with good control of symptoms. Denies any issues. CKD - Follows with Nephrology, recently saw them and was told things looked good and could follow-up annually now. No acute concerns today. The following portions of the chart were reviewed this encounter and updated as appropriate: Tobacco Allergies Meds Problems Med Hx Surg Hx Fam Hx Current Medications[1] Review of Systems A 14 point ROS reviewed and is otherwise negative except as per HPI. Objective Visit Vitals BP 138/78 Pulse 60 Ht 1.549 m (5' 1 ) LMP (LMP Unknown) SpO2 99% BMI 19.27 kg/m?? OB Status Postmenopausal Smoking Status Former BSA 1.41 m?? Body mass index is 19.27 kg/m??. Physical Exam Vitals reviewed. Constitutional: General: She is not in acute distress. HENT: Head: Normocephalic. Mouth/Throat: Mouth: Mucous membranes are moist. Eyes: Conjunctiva/sclera: Conjunctivae normal. Cardiovascular: Rate and Rhythm: Normal rate. Pulmonary: Effort: Pulmonary effort is normal. Musculoskeletal: Right lower leg: No edema. Left lower leg: No edema. Skin: General: Skin is warm and dry. Neurological: Mental Status: She is alert and oriented to person, place, and time. Psychiatric: Mood and Affect: Mood normal. Behavior: Behavior normal. Assessment/Plan 1. Localized osteoporosis (Lequesne) Chronic, (?) control. Dexa ordered, but not completed yet. Continue Evista. Risks vs benefits and potential adverse effects of the medication discussed. - raloxifene (Evista) 60 MG tablet; Take 1 tablet by mouth daily. Dispense: 90 tablet; Refill: 3 2. Essential (primary) hypertension (Primary) Chronic, controlled. Continue current medications. Screening labs UTD and on chart. - amLODIPine (Norvasc) 10 MG tablet; Take 1 tablet by mouth daily. Dispense: 90 tablet; Refill: 3 3. Type 2 diabetes mellitus without complication, without long-term current use of insulin Chronic, controlled. A1c in October was 6.2%. Will continue current medications. Follow-up in 6 monthsfor repeat labs. 4. Anxiety 5. Other insomnia Chronic, controlled per patient. Continue current medications. Advised close follow-up for any worsening of symptoms. 6. Stage 3a chronic kidney disease (CMS/HCC) Chronic, stable per patient. Continue with Nephrology as scheduled. Ene Dumont APRN [1] Current Outpatient Medications: atorvastatin (Lipitor) 80 MG tablet, Take 1 tablet (80 mg) by mouth in the morning., Disp: 90 tablet, Rfl: 3 BD Pen Needle Afshan 2nd Gen 32G X 4 MM misc, , Disp: , Rfl: Blood Glucose Monitoring Suppl device, Use as directed to check blood sugar, Disp: , Rfl: carvedilol (Coreg) 3.125 MG tablet, Take 1 tablet (3.125 mg) by mouth in the morning and 1 tablet (3.125 mg) in the evening. Take with meals., Disp: 180 tablet, Rfl: 3 diclofenac (Voltaren) 75 MG EC tablet, Take 1 tablet by mouth 2 times a day as needed (pain). Do not crush, chew, or split., Disp: 60 tablet, Rfl: 0 escitalopram (Lexapro) 20 MG tablet, Take 1 tablet (20 mg) by mouth in the morning., Disp: 90 tablet, Rfl: 3 Farxiga 5 MG tablet, Take 1 tablet by mouth daily., Disp: 90 tablet, Rfl: 3 furosemide (Lasix) 20 MG tablet, Take 1 tablet by mouth daily., Disp: 90 tablet, Rfl: 3 glucose blood test strip, 1 each by Other route as needed. Use as instructed, Disp: , Rfl: Lancets 33G misc, Use as directed to check blood glucose, Disp: , Rfl: losartan (Cozaar) 25 MG tablet, Take 1 tablet by mouth daily., Disp: 90 tablet, Rfl: 3 metFORMIN XR (Glucophage-XR) 500 MG 24 hr tablet, Take 1 tablet (500 mg) by mouth in the morning and 1 tablet (500 mg) before bedtime. DO NOT CRUSH CHEW OR SPLIT., Disp: 180 tablet, Rfl: 3 Mounjaro 2.5 MG/0.5ML solution auto-injector solution pen-injector, Inject 0.5 mL under the skin 1 time per week., Disp: 2 mL, Rfl: 5 Multiple Vitamin (multivitamin) tablet, Take 1 tablet [...] COLD SORES., Disp: 30 tablet, Rfl: 1 documented in this encounter Plan of Treatment Upcoming Encounters Date Type Department Care Team (Late st Contact Info) Description 07/01/2025 10:20 AM EDT Office Visit [facility] [address] [place] [address] Ele Meeks APRN [address] [place] [address] documented as of this encounter Visit Diagnoses Diagnosis Essential (primary) hypertension- Primary Unspecified essential hypertension Localized osteoporosis (Lequesne) Type 2 diabetes mellitus without complication, without long-term current use of insulin Anxiety Anxiety state, unspecified Other insomnia Stage 3a chronic kidney disease (CMS/HCC) documented in this encounter Additional Health Concerns Assessment Noted Time PHQ-9 Depression Total Score: 0 12/31/19 25 1:02 PM EDT A fall risk assessment has been complete d for the patient 12/30/2024 1:03 PM EDT A Body Mass Index follow-up plan has been documented for the patient 12/30/2024 2:30 PM EDT documented as of this encounter Care Teams Auto Service Station Attendant Relationship Specialty Start Date End Date Ene Dumont APRN [address] [place] [address] PCP - General Family Medicine 08/01/23 documented as of this encounter
--- OUTSIDE RECORDS SUMMARY | 2025-01-20 10:59 | XMS_ITS | Clinical Summary ---
Author Organization Healthcare Address [address] [place] [address] Care Team Providers Care Maintenance Clerk Name Role Phone Ene Dumont Kiara MORGAN Primary Care Provider [phone] Allergies Active Allergy Reactions Criticality Noted Date [...] blood glucose Active valACYclovir (Valtrex) 1 g tabletIndications: Herpes labialis TAKE 2000MG TWICE DAILY FOR ONE DAY NEEDED FOR COLD SORES. 30 tablet 1 12/09/19 24 Active traZODone (Desyrel) 50 MG tabletIndications: Other insomnia Take 1 tablet (50 mg) by mouth nightly. 90 tablet 3 06/30/19 25 Active escitalopram (Lexapro) 20 MG tabletIndications: Anxiety Take 1 tablet (20 mg) by mouth in the morning. 90 tablet 3 06/30/19 25 Active atorvastatin (Lipitor) 80 MG tabletIndications: Other hyperlipidemia Take 1 tablet (80 mg) by mouth in the morning. 90 tablet 3 06/30/19 25 Active carvedilol (Coreg) 3.125 MG tabletIndications: Essential (primary) hypertension Take 1 tablet (3.125 mg) by mouth in the morning and 1 tablet (3.125 mg) in the evening. Take with meals. 180 tablet 3 06/30/19 25 Active metFORMIN XR (Glucophage-XR) 500 MG 24 hr tabletIndications: Type 2 diabetes mellitus without complication, with long-term current use of insulin Take 1 tablet (500 mg) by mouth in the morning and 1 tablet (500 mg) before bedtime. DO NOT CRUSH CHEW OR SPLIT. 180 tablet 3 06/30/19 25 Active raloxifene (Evista) 60 MG tabletIndications: Localized osteoporosis (Lequesne) Take 1 tablet by mouth daily. 90 tablet 3 12/31/19 25 Active diclofenac (Voltaren) 75 MG EC tabletIndications: Right hip pain Take 1 tablet by mouth 2 times a day as needed (pain). Do not crush, chew, or split. 60 tablet 10/27/19 25 Active Mounjaro 2.5 MG/0.5ML solution auto-injector solution pen-injectorIndica tions:Type 2 diabetes mellitus without complication, with long-term current use of insulin Inject 0.5 mL under the skin 1 time per week. 2 mL 5 10/27/19 25 Active Farxiga 5 MG tabletIndications: Type 2 diabetes mellitus without complication, with long-term current use of insulin Take 1 tablet by mouth daily. 90 tablet 3 12/05/19 25 Active furosemide (Lasix) 20 MG tabletIndications: Essential hypertension Take 1 tablet by mouth daily. 90 tablet 3 12/05/19 25 Active losartan (Cozaar) 25 MG tabletIndications: Persistent proteinuria Take 1 tablet by mouth daily. 90 tablet 3 12/05/19 25 Active amLODIPine (Norvasc) 10 MG tabletIndications: Essential (primary) hypertension Take 1 tablet by mouth daily. 90 tablet 3 12/31/19 25 Active dapagliflozin (Farxiga) 5 MG tabletIndications: Type 2 diabetes mellitus without complication, with long-term current use of insulin Take 1 tablet (5 mg) by mouth 1 (one) time each day. 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 Essential hypertension 05/15/2019 Type 2 diabetes mellitus without complications 0 05/15/2019 Displaced intertrochanteric fracture of left femur, subsequent encounter for closed fracture with routine healing 05/15/2019 Localized osteoporosis (Lequesne) 05/15/2019 Vitamin deficiency, unspecified 05/15/2019 Menopausal and female climacteric states 020 Multiple joint pain 01/08/2018 Keratoconjunctivitis sicca 01/08/2018 Resolved Problems Problem Noted Date Diagnosed Date Resolved Date Insomnia, unspecified 05/15/20192024 Encounters Date Type Department Care Team Description 12/30/2024 1:00 PM EDT Office Visit [facility] [address] [id number] Ene Dumont APRN Essential (primary) hypertension (Primary Dx); Localized osteoporosis (Lequesne); Type 2 diabetes mellitus without complication, without long-term current use of insulin; Anxiety; Other insomnia; Stage 3a chronic kidney disease ([facility]/HCC) 12/30/2024 Travel 12/04/2024 10:40 AM EDT Office Visit [facility] [address] [place] [address] Amarjit Infante MD Type 2 diabetes mellitus without complication, with long-term current use of insulin (Primary Dx); Essential hypertension; Persistent proteinuria; Chronic kidney disease-mineral and bone disorder (CKD-MBD); Stage 3b chronic kidney disease (CKD) ([facility]/HCC); Type 2 diabetes mellitus with diabetic chronic kidney disease, unspecified CKD stage, unspecified whether senior care insulin use ([facility]/HCC) 12/04/2024 Orders Only [facility] [address] [place], [place] [address] RobertMarycarmen stewartjuma Latham 12/04/2024 Travel 11/03/2024 Orders Only [facility] [address] [place] [address] Ene Dumont APRN Low iron (Primary Dx) 10/31/2024 [facility] [address] [place] [address] Madelin Magallon MD Type 2 diabetes mellitus without complication, with long-term current use of insulin 10/30/2024 Telephone [facility] [address] [place] [address] Ene Dumont APRN HCN Clinical Concern/Question 10/27/2024 Orders Only [facility] [address] [place] [address] Ene Dumont APRN Abnormal laboratory test (Primary Dx) 10/27/2024 Results Follow-Up [facility] [address] [place] [address] Ene Dumont APRN 10/27/2024 Telephone [facility] [address] [place] [address] Ene Dumont APRN Prior-authorization/ insurance Verification 10/26/2024 2:40 PM EDT Office Visit [facility] [address] [place] [address] Ene Dumont APRN Other fatigue (Primary Dx); Essential hypertension; Type 2 diabetes mellitus without complication, with long-term current use of insulin; Right hip pain 10/26/2024 Travel from Last 3 Months Immunizations Immunization Administration [...] Tobacco: Former Cigarettes 0.3 5 1 5 1989 Passive Smoke Exposure: Past Smokeless Tobacco: [...] How often do you attend [facility] or quaker services? More than 4 times per year 06/06/2023 Do you belong to any clubs o r organizations such as pentecostal groups, unions, fraternal or athletic groups, or [...] Recorded Patient Health Questionnaire-2 Score 0 12/30/2024 [place] [facility] - Occupational Stress [...] time in the past 12 m [facility], were you homeless or living in a penitentiary (including now)? No 12/30/2024 [facility] Utilities Answer Date Recorded In the past [...] Pulse 60 12/30/2024 12:56 PM EDT Temperature 36.7 C (98.1 F) 10/26/2024 2:57 PM EDT Respiratory Rate 16 12/04/2024 10:36 AM EDT Oxygen Saturation 99% 12/30/2024 12:56 PM EDT Inhaled Oxygen Concentration - - Weight 46.9 kg (103 lb 6.3 oz) 12/30/2024 12:56 PM EDT Height 154.9 cm (5' 1 ) 12/30/2024 12:56 PM EDT Body Mass Index 19.54 12/30/2024 12:56 PM EDT Plan of Treatment Upcoming Encounters Date Type Department Care Team (Late st Contact Info) Description 07/01/2025 10:20 AM EDT Office Visit [facility] [address] [place] [address] Ele Meeks, MATERIAL LISTER [address] [place] [address] Health Maintenance Due Date Last Done Comments [facility]-Bone Density Scan 1945 [facility]-/Child/Adol SDOH Screenings 1945 Diabetes: Dental Exam 12/03/1955 [facility]-DTaP,Tdap,and Td Vaccines (1 - Tdap) 1964 [facility]-Zoster Vaccines (2 of 2) 07/04/2020 05/09/2020 [facility]-RSV Vaccine: 60+ Years or (1 - 1-dose 75+ series) 2020 [id number]-WGFRO-48 Vaccine (4 - 2024- season) 2024 03/01/2021, 06/29/2020, 06/01/2020 [facility]-Influenza Vaccine (#1) 12/21/202402/19, 02/05/2022, 01/06/2018, Additional history exists [facility]-Diabetes: Hemoglobin A1C 04/25/2025 10/26/2024, 06/29/2024, 12/09/2023, Additional history exists [facility]- SDOH Screenings 06/29/2025 [facility]-Adult SDOH Screenings 06/29/2025 12/30/2024 [facility]-Medicare Annual Wellness (AWV) 06/29/2025 06/29/2024, 06/10/2023 [facility]-Depression Screening 12/30/2025 12/30/2024, 12/21 [facility]-Pneumococcal Vaccine: 50+ Years Completed 02/04/2019, 03/06/2018 [...] - 80.0 ng/mL 10/26/2024 7:20 PM EDT [facility] Blood Venous blood specimen / Unknown Venipuncture / Unknown 10/26/2024 3:34 PM EDT 10/26/2024 3:34 PM EDT Narrative [facility] - 10/26/2024 7:20 PM EDT Testing performed on [employer], standardized against NIST SRM 2972. When [...] APRN LAB BLOOD ORDERABLES Final Resu lt [facility] [address] [place] [address] * (ABNORMAL) CBC and Differential (10/26/2024 3:34 PM EDT) Pathologist [facility] WBC Count 5.25 3.70 - 10.30 10*3/uL LAB HEMATOLOGY METHOD 10/26/2024 6:09 PM EDT [facility] RBC Count 3.69(L) 3.90 - 5.20 10*6/uL LAB HEMATOLOGY METHOD 10/26/2024 6:09 PM EDT [facility] HGB 10.5(L) 11.2 - 15.7 g/dL LAB HEMATOLOGY METHOD 10/26/2024 6:09 PM EDT [facility] HCT 33.4(L) 34.0 - 45.0 % LAB HEMATOLOGY METHOD 10/26/2024 6:09 PM EDT [facility] Platelet Count 172 155 - 369 10*3/uL LAB HEMATOLOGY METHOD 10/26/2024 6:09 PM EDT [facility] MCV 91 79 - 98 fL LAB HEMATOLOGY METHOD 10/26/2024 6:09 PM EDT [facility] MCH 28.5 26.0 - 32.0 pg LAB HEMATOLOGY METHOD 10/26/2024 6:09 PM EDT [facility] MCHC 31.4 30.7 - 35.5 g/dL LAB HEMATOLOGY METHOD 10/26/2024 6:09 PM EDT [facility] RDW 16.5(H) 11.5 - 14.5 % LAB HEMATOLOGY METHOD 10/26/2024 6:09 PM EDT [facility] MPV 11.4 8.8 - 12.5 fL LAB HEMATOLOGY METHOD 10/26/2024 6:09 PM EDT [facility] nRBC 0.0 <=0.0 per 100 WBCs LAB HEMATOLOGY METHOD 10/26/2024 6:09 PM EDT [facility] Differential Type Automated LAB HEMATOLOGY METHOD 10/26/2024 6:09 PM EDT [facility] Neutrophils % 72 % LAB HEMATOLOGY METHOD 10/26/2024 6:09 PM EDT [facility] Lymphocytes % 18 % LAB HEMATOLOGY METHOD 10/26/2024 6:09 PM EDT [facility] Monocytes % 6 % LAB HEMATOLOGY METHOD 10/26/2024 6:09 PM EDT [facility] Eosinophils % 3 % LAB HEMATOLOGY METHOD 10/26/2024 6:09 PM EDT [facility] Basophils % 1 % LAB HEMATOLOGY METHOD 10/26/2024 6:09 PM EDT [facility] Immature Granulocytes % 0 % LAB HEMATOLOGY METHOD 10/26/2024 6:09 PM EDT [facility] Neutrophils Absolute 3.77 1.60 - 6.10 10*3/uL LAB HEMATOLOGY METHOD 10/26/2024 6:09 PM EDT [facility] Lymphocytes Absolute 0.94(L) 1.20 - 3.90 10*3/uL LAB HEMATOLOGY METHOD 10/26/2024 6:09 PM EDT [facility] Monocytes Absolute 0.33 0.30 - 0.90 10*3/uL LAB HEMATOLOGY METHOD 10/26/2024 6:09 PM EDT [facility] Eosinophils Absolute 0.14 0.00 - 0.50 10*3/uL LAB HEMATOLOGY METHOD 10/26/2024 6:09 PM EDT [facility] Basophils Absolute 0.05 0.00 - 0.10 10*3/uL LAB HEMATOLOGY METHOD 10/26/2024 6:09 PM EDT [facility] Immature Granulocytes Absolute 0.02 0.00 - 0.06 10*3/uL LAB HEMATOLOGY METHOD 10/26/2024 6:09 PM EDT [facility] Blood Venous blood specimen / Unknown Venipuncture / Unknown 10/26/2024 3:34 PM EDT 10/26/2024 3:34 PM EDT Narrative [facility] - 10/26/2024 6:09 PM EDT Therapeutic decision making should be based on absolute values, rather than percentages. Ene Dumont APRN LAB BLOOD ORDERABLES Final Resu lt [facility] [address] [place] [address] * Thyroid Stimulating Hormone, Plasma (10/26/2024 3:34 PM EDT) Thyroid Stimulating Hormone, Plasma 0.55 0.40 - 4.20 uIU/mL 10/26/2024 6:23 PM EDT [facility] Blood Venous blood specimen / Unknown Venipuncture / Unknown 10/26/2024 3:34 PM EDT 10/26/2024 3:34 PM EDT Ene Dumont APRN LAB BLOOD ORDERABLES Final Resu lt Performing Organization Address [facility]/ZIP Co de Phone Number [facility] [address] [place] [address] * Iron, Plasma (10/26/2024 3:34 PM EDT) Iron, Plasma 64 30 - 160 ug/dL 10/26/2024 6:23 PM EDT [facility] Blood Venous blood specimen / Unknown Venipuncture / Unknown 10/26/2024 3:34 PM EDT 10/26/2024 3:34 PM EDT Ene Craig Blackfordshaan GARN LAB BLOOD ORDERABLES Final Resu lt Performing Organization Address City/[facility]/ZIP Co de Phone Number [facility] [address] [place] [address] * (ABNORMAL) Hemoglobin A1c (10/26/2024 3:34 PM EDT) Hemoglobin A1c 6.2(H) <5.7 % 10/26/2024 7:16 PM EDT [facility] Blood Venous blood specimen / Unknown Venipuncture / Unknown 10/26/2024 3:34 PM EDT 10/26/2024 3:34 PM EDT Narrative [facility] - 10/26/2024 7:16 PM EDT HA1C Interpretive Data: Diagnosis of Diabetes: Diabetic > or = 6.5% Pre-diabetic 5.7 to 6.4% Non-diabetic < or = 5.6% Glycemic Targets for Type I and Type II Diabetics: Non- Adults <7.0% Adults <6.0% Children and Adolescents <7.5% Source: [place] [employer]. Standards of medical care in diabetes,2017. Diabetes Care.2017:40 (suppl 1):S1-S135. Ene Dumont APRN LAB BLOOD ORDERABLES Final Resu lt [facility] [address] [place] [address] * Vitamin B12, Serum (10/26/2024 3:34 PM EDT) Pathologist [facility] Vitamin B12, Serum 240 210 - 1,033 pg/mL 10/26/2024 6:30 PM EDT [facility] Blood Venous blood specimen / Unknown Venipuncture / Unknown 10/26/2024 3:34 PM EDT 10/26/2024 3:34 PM EDT Ene Kiara Blackford MATERIAL LISTER LAB BLOOD ORDERABLES Final Resu lt [facility] [address] [place] [address] * (ABNORMAL) Comprehensive Metabolic Panel, Plasma (10/26/2024 3:34 PM EDT) Glucose, Plasma 111(H) 74 - 99 mg/dL 10/26/2024 6:23 PM EDT [facility] BUN, Plasma 29(H) 8 - 23 mg/dL 10/26/2024 6:23 PM EDT [facility] Creatinine, Plasma 1.31(H) 0.60 - 1.10 mg/dL 10/26/2024 6:23 PM EDT [facility] BUN/Creatinine Ratio 22 10/26/2024 6:23 PM EDT [facility] Sodium, Plasma 144 136 - 145 mmol/L 10/26/2024 6:23 PM EDT [facility] Potassium, Plasma 4.5 3.6 - 4.9 mmol/L 10/26/2024 6:23 PM EDT [facility] Chloride, Plasma 110(H) 97 - 107 mmol/L 10/26/2024 6:23 PM EDT [facility] CO2, Plasma 24 22 - 29 mmol/L 10/26/2024 6:23 PM EDT [facility] Anion Gap 10 6 - 16 mmol/L 10/26/2024 6:23 PM EDT [facility] Total Calcium, Plasma 9.0 8.9 - 10.2 mg/dL 10/26/2024 6:23 PM EDT [facility] Total Protein 6.3 6.3 - 7.9 g/dL 10/26/2024 6:23 PM EDT [facility] Albumin, Plasma 4.2 3.5 - 5.2 g/dL 10/26/2024 6:23 PM EDT [facility] AST, Plasma 18 10 - 35 U/L 10/26/2024 6:23 PM EDT [facility] ALT, Plasma 24 10 - 35 U/L 10/26/2024 6:23 PM EDT [facility] Alkaline Phosphatase, Plasma 51 46 - 142 U/L 10/26/2024 6:23 PM EDT [facility] Total Bilirubin, Plasma 0.7 0.2 - 1.1 mg/dL 10/26/2024 6:23 PM EDT [facility] eGFRcr 41.8 mL/min/1.7 3m*2 10/26/2024 6:23 PM EDT [facility] Comment:Reported eGFRcr in m L/min/1.73m2 is based the CKD-EPI 2020 equation that does not use a race coefficient. Blood Venous blood specimen / Unknown Venipuncture / Unknown 10/26/2024 3:34 PM EDT 10/26/2024 3:34 PM EDT us Ene Dumont MATERIAL LISTER LAB BLOOD ORDERABLES Final Resu lt Performing Organization Address City/[facility]/ZIP Co de Phone Number [facility] [address] [place] [address] * Hepatitis C Antibody w/Reflex to HCV Quant PCR (06/10/2023 9:41 AM EST) Hepatitis C Antibody Negative Negative 06/10/2023 1:41 PM EST [facility] Blood Venous blood specimen / Unknown Venipuncture / Unknown 06/10/2023 9:41 AM EST 06/10/2023 9:41 AM EST Kesha Parsons MATERIAL LISTER LAB BLOOD ORDERABLES Mojgan l Result Performing Organization Address [facility] Co de Phone Number [facility] [address] [place] [address] * COLONOSCOPY EXTERNAL RESULT (01/10/2022) Anatomical Region Laterality Modality Endoscopy Narrative 01/10/2022 Ordered by an unspecified provider. External Provider GI PROCEDURE ORDERABLES Final Result from Last 3 Months or Most Recently Relevant to Health [place] [address] [facility] MEDICARE Care Teams Maintenance Clerk Relationship Specialty Start Date End Date Ene Dumont APRN [address] [place] [address] PCP - General Family Medicine 08/01/23
--- OUTSIDE RECORDS SUMMARY | 2025-01-20 10:59 | XMS_ITS | Encounter Summary ---
Author Organization Healthcare Address [address] [place] [address] Care Team Providers Care Grain Oilseed Or Pasture Farm Worker Name Role Phone Ene Dumont APRN Primary Care Provider [phone] Encounter Details Date Type Department Care Team (Latest Contact Info) Description 12/30/2024 Travel Social History Tobacco Use Types Packs/Day [...] week 06/06/2023 How often do you attend [facility] or baptism services? More than 4 times per year 06/06/2023 Do you belong to any clubs o r organizations such as hindu groups, unions, fraternal or athletic groups, or [...] Recorded Patient Health Questionnaire-2 Score 0 12/30/2024 [facility] ional [facility] - [...] any time in the past 12 m [facility], were you homeless or living in a halfway (including now)? No 12/30/2024 [facility] Utilities Answer Date Recorded In the past [...] as of this encounter Functional Status * Over the past 2 weeks, how often have you been bothered by any of the following problems? Question Answer Date of Assessment Author Little interest or pleasure in doing things Not at all 12/30/2024 1:02 PM EDT Amelia Sanchez R Feeling down, depressed, or hopeless Not at all 12/30/2024 1:02 PM Amelia Franklin R Patient Health Questionnaire-2 Score 0 12/30/2024 1:02 PM Henry Franklin * Question Answer Date of Assessment Author Trouble falling or staying asleep, or sleeping too much Not at all 12/30/2024 1:02 PM Sheri Velazquez Feeling tired or having little energy Not at all 12/30/2024 1:02 PM Amelia Franklin Poor appetite or overeating Not at all 12/30/2024 1: 02 PM Sheri Franklin Feeling bad about yourself - or that you are a failure or have let yourself or your family down Not at all 12/30/2024 1:02 PM Amelia Franklin Trouble concentrating on things, such as reading the newspaper or watching television Not at all 12/30/2024 1:02 PM Cody Franklin Moving or speaking so slowly that other people could have noticed? Or the opposite - being so fidgety or restless that you have been moving around a lot more than usual. Not at all 12/30/2024 1:02 PM Amelia Franklin Thoughts that you would be better off or hurting yourself in some way Not at all 12/30/2024 1:02 PM Cody Franklin Patient Health Questionnaire-9 Score 0 12/30/2024 1:02 PM Henry Franklin * Calculated C-SSRS Risk Score (Lifetime/Recent) Answer Date of Assessment Author No Risk Indicated 12/30/2024 1:01 PM Sheri Caldera * How difficult have these problems made it for you to do your work, take care of things at home, or get along with other people? Answer Date of Assessment Author Not difficult at all 12/30/2024 1:02 PM Sheri Oro * Question Answer Date of Assessment Author 1. Wish to be (Past 1 Month) No 025 1:01 PM EDT Sheri Sanchez 2. Non-Specific Active Suici nuria Thoughts (Past 1 Month) No 12/30/2024 1:01 PM EDT Stephen Sanchez 6. Suicidal Behavior (Lifetime) No 5 1:01 PM EDT Sheri Sanchez documented as of this encounter Plan of Treatment Upcoming Encounters Date Type Department Care Team (Late st Contact Info) Description 07/01/2025 10:20 AM EDT Office Visit [facility] [address] [place] [address] Ele Meeks, PYTHON CONSULTANT [address] [place] [address] documented as of this encounter [...] documented as of this encounter Care Teams Grain Oilseed Or Pasture Farm Worker Relationship Specialty Start Date End Date Ene Dumont, PYTHON CONSULTANT [address] [place] [address] PCP - General Family Medicine 08/01/23 documented as of this encounter
--- OUTSIDE RECORDS SUMMARY | 2025-01-20 10:59 | XMS_ITS | Encounter Summary ---
Author Organization Healthcare Address [address] [place] [id number] Care Team Providers Care Beam Worker Name Role Phone Ene Dumont APRN Primary Care Provider [phone] Encounter Details Date Type Department Care Team (Late st Contact Info) Description 12/04/2024 Orders Only [facility] [address] [place] [address] Anabella Jones Social History Tobacco Use Types Packs/Day Years [...] often do you attend chur ch or religion services? More than 4 times per year 06/06/2023 Do you belong to any clubs o r organizations such as confucianist groups, unions, fraternal or athletic groups, or [...] place to sleep or slept in a nursing home (including now)? No 06/06/2023 Housing Stability Vital [...] were you homeless or living in a nursing home (including now)? No 06/05/2024 AUDIT-C Answer Date [...] Description 07/01/2025 10:20 AM EDT Office Visit [facility] [place] [facility] [address] [place] [address] Ele Meeks, VETERINARIAN SMALL ANIMAL [address] [place] [address] documented as of this encounter Visit Diagnoses Not on filedocumented in this encounter Additional Health Concerns Assessment Noted Time A fall risk assessment has been complete d for the patient 10/26/2024 3:00 PM EDT A Body Mass Index follow-up plan has been documented for the patient 12/04/2024 11:01 AM EDT documented as of this encounter Care Teams Beam Worker Relationship Specialty Start Date End Date Ene Dumont, VETERINARIAN SMALL ANIMAL [address] [place] [address] PCP - General Family Medicine 08/01/23 documented as of this encounter
--- OUTSIDE RECORDS SUMMARY | 2025-01-20 10:59 | XMS_ITS | Encounter Summary ---
Author Organization Healthcare Address [address] [id number] Care Team Providers Care Alteration Manager Name Role Phone Ene Dumont SCOWMAN Primary Care Provider [phone] Tiara Mejia APPLICATION SPEC Unavailable Unavailabl e Reason for Visit * Reason Onset Date Comments HCN Clinical Concern/Question 10/30/2024 Encounter Details Date Type Department Care Team (Late st Contact Info) Description 10/30/2024 Telephone [facility] Medicine [address] [place] [address] Ene Dumont APRN [address] [place] [address] HCN Clinical Concern/Question Social History [...] week 06/06/2023 How often do you attend [facility] or bahai services? More than 4 times per year 06/06/2023 Do you belong to any clubs o r organizations such as samaritan groups, unions, fraternal or athletic groups, or [...] Recorded Patient Health Questionnaire-2 Score 0 06/29/2024 [facility] [place] [facility] - Occupational Stress [...] place to sleep or slept in a intermediate (including now)? No 06/06/2023 Housing Stability Vital [...] were you homeless or living in a intermediate (including now)? No 06/05/2024 AUDIT-C Answer Date [...] of the initial request. Best contact number: [phone] (mobile) Optimal time of day to reach [...] will receive notification of the communication/outcome via [employer]. * Telephone Encounter - Christy Whyteily Sinan - 11/02/2024 1:58 PM EDT Left message to return call. * Telephone Encounter - Bg Salcido - 10/30/2024 3:54 PM EDT Clinical Concern/Question Reason for Call: 152/60 BP @ 7 PM reporting 10-28; @ again 142/58 Best contact number: [phone] (mobile) Optimal time of day to reach caller: ANYTIME Additional comments/information from caller: she would like to see a horse riding coach or instructor for a iron infusion in [place] / please advice Note: Please do not reply to this message. Follow-up communication and further actions as a result of this message need to be communicated with the patient directly, if the patient is not active onMyChart. If the patient is active on MyChart, they will receive notification of the communication/outcome via [employer]. documented in this encounter Plan of Treatment Upcoming Encounters Date Type Department Care Team (Late Contact Info) Description 07/01/2025 10:20 AM EDT Office Visit [facility] Medicine [address] [place] [address] Ele Meeks APRN [address] [place] [address] documented as of this encounter Visit Diagnoses Not on filedocumented in this encounter Additional Health Concerns Assessment Noted Time A fall risk assessment has been complete d for the patient 10/26/2024 3:00 PM EDT A Body Mass Index follow-up plan has been documented for the patient 10/26/2024 3:22 PM EDT documented as of this encounter Care Teams Alteration Manager Relationship Specialty Start Date End Date Ene Dumont APRN [address] [place] [address] PCP - General Family Medicine 08/01/23 Tiara Mejia LPN [employer] [place] [address] Licensed Practical Nurse 06/04/24 12/01/24 documented as of this encounter
--- OUTSIDE RECORDS SUMMARY | 2025-01-20 10:59 | XMS_ITS | Encounter Summary ---
Author Organization Healthcare Address [address] [place] [address] Care Team Providers Care Title I Paraprofessional Name Role Phone Ene Dumont APRN Primary Care Provider [phone] Encounter Details Date Type Department Care Team (Latest Contact Info) Description 12/04/2024 Travel Social History Tobacco Use Types Packs/Day Years Used Date Smoking Tobacco: Former Cigarettes 0.3 5 1 105 - 1989 Passive Smoke Exposure: Past Smokeless [...] often do you attend chur ch or adventist services? More than 4 times per year 06/06/2023 Do you belong to any clubs o r organizations such as hoahaoism groups, unions, fraternal or athletic groups, or [...] Recorded Patient Health Questionnaire-2 Score 0 06/29/2024 [facility] - Occupational [...] place to sleep or slept in a fpc (including now)? No 06/06/2023 Housing Stability Vital Sign Answer Mohit e Recorded In the last 12 months, was t here a time when you were not able to pay the mortgage or rent on time? No 06/05/2024 In the past 12 months, how m any times have you moved where you were living? 1 06/05/2024 At any time in the past 12 m [facility], were you homeless or living in a fpc (including now)? No 06/05/2024 AUDIT-C Answer Date [...] Description 07/01/2025 10:20 AM EDT Office Visit [facility] [address] [address] Ele Meeks APRN [address] [place] [address] documented as of this encounter Visit Diagnoses Not on filedocumented in this encounter Additional Health Concerns Assessment Noted Time A fall risk assessment has been complete d for the patient 10/26/2024 3:00 PM EDT A Body Mass Index follow-up plan has been documented for the patient 12/04/2024 11:01 AM EDT documented as of this encounter Care Teams Title I Paraprofessional Relationship Specialty Start Date End Date Ene Dumont, CATHY [address] [place] [address] PCP - General Family Medicine 08/01/23 documented as of this encounter
--- OUTSIDE RECORDS SUMMARY | 2025-01-20 10:59 | XMS_ITS ---
Author Organization [facility] Address [address] [id number] Care Team Providers Care Supervisor [employer] Name Role Phone Ene Dumont APRN Primary Care Provider [phone] Annual Wellness Status:Closed (Closed) Start date:06/04/2024 Enrollment date:06/05/2024 Enrollment reason:Identified using claims or encounter data End date:12/01/2024 Close reason:Patient graduated Continued Care and Services Coordination
[2025-01-20 11:02] LABS: Hematocrit 35.0 % (37.0-47.0); Hemoglobin 11.2 g/dL (12.2-16.2); Immature Granulocytes % 0.2 %; Mean Corpuscular HGB Conc 32.0 g/dL (31.8-35.4); Mean Corpuscular Hemoglobin 29.4 pg (27.0-31.2); Mean Corpuscular Volume 91.9 fl (81-99); Nucleated Red Blood Cells % 0 %; Platelet Count 172 K/mm3 (142-424); Red Blood Count 3.81 M/mm3 (4.20-5.40); Red Cell Distribution Width-SD 52.6 fL; White Blood Count 6.2 K/mm3 (4.8-10.8)
[2025-01-20 11:34] LABS: Alanine Aminotransferase 261 U/L (12-78); Albumin Level 3.9 g/dl (3.5-5.0); Albumin/Globulin Ratio 1.9 (1.1-1.8); Alkaline Phosphatase 100 U/L (38-126); Anion Gap 13.1 mEq/L (5-15); Aspartate Amino Transferase 54 U/L (14-36); Bilirubin,Total 0.9 mg/dl (0.2-1.3); Blood Urea Nitrogen 22 mg/dl (7-17); Calcium 9.5 mg/dl (8.4-10.2); Carbon Dioxide 27 mmol/L (22.0-30.0); Chloride 108 mmol/L (98-107); Creatinine,Serum 1.10 mg/dl (0.52-1.04); Estimated Glomerular Filt Rate 48 ml/min (>60); GFR (African American) 58 ML/MIN (>60); Globulin 2.1 g/dL (1.3-3.2); Glucose 135 mg/dl (74-100); Potassium 4.1 mmoL/L (3.5-5.1); Sodium 144 mmol/L (136-145); Total Protein,Serum 6.0 g/dl (6.3-8.2)
[2025-01-20 12:28] LABS: Vitamin B12 900 pg/mL (239-931)
[2025-01-20 13:26] LABS: Folate 13.10 ng/mL
== END 2025-01-20 23:59 | disposition home or self-care (01) ==
LOC: LAB 10:31
PROVIDERS: PCP Nurse Practitioner Family; Visit Provider Internal Medicine Medical Oncology
DX: D64.9 Anemia, unspecified (principal)
CPT/HCPCS: 36415; 80053; 82607; 82746; 83090; 85025